=== PATIENT | female | born 1935 | race Caucasian/White ===

== ENCOUNTER 2016-04-30 21:02 | Emergency (ER) | payer OTHER ==
[~2016-04-30] VITALS: Ht 172.7 cm; Wt 79.1 kg
[~2016-04-30 21:02] MED LIST: LEVOPOW36 PO
[2016-04-30 21:07] VITALS: TEMP 37.3; Ht 172.7 cm; Wt 79.1 kg
[2016-04-30] MEDS ORDERED: ASPI325T45 PO (21:38)
[2016-04-30] MEDS ORDERED: DIPH25TA32 PO (21:38)
--- NOTE | 2016-04-30 22:22 | DIAGNOSTIC IMAGING REPORT ---
CHEST 2 VIEWS ROUTINE CLINICAL HISTORY: Worsening cough with wheezing. COMPARISON STUDY: No previous studies for comparison. FINDINGS: Lung volumes are normal. There is no pneumothorax or pleural effusion. No consolidation is identified. Cardiac size is normal. Mediastinal contours are normal. There is no evidence of pulmonary edema. There is a suspected hiatal hernia. IMPRESSION: No acute cardiopulmonary findings. Electronically signed by: Chuck Manzanares M.D. 04/30/2016 10:21 PM Dictated Date/Time: 04/30/2016 10:20 PM
[2016-04-30] MEDS ORDERED: ALBUTEROL HFA 8 GM INHALER INH STA (22:32)
[2016-04-30] MEDS ORDERED: AMOX875T PO (22:41)
[2016-04-30] MEDS ORDERED: AMOXICILLIN/CLAVULANATE TAB 875 MG TAB PO ONE (22:45)
[2016-04-30 22:51] VITALS: BP 126/83; PULSE 84; O2SAT 94
--- NOTE | 2016-04-30 22:54 | EMERGENCY ROOM VISIT NOTE ---
ED Visit Note First contact with patient: 21:27 The patient was seen and examined with Nabor Sanchez. I agree with the history, physical and findings. Please see the note for disposition and details.
--- NOTE | 2016-04-30 23:09 | EMERGENCY ROOM VISIT NOTE ---
History First contact with patient: 21:27 Chief Complaint: COUGH Stated Complaint: COUGH,CONGESTION,SINUS PRESSURE Nursing Triage Summary: reports cough X 1.5 wks, with yellow/ green mucus production and antihistamines are not helping any longer , denies cp or sob History of Present Illness The patient is a 81 year old female who presents to the Emergency Room with complaints of sinus congestion and cough. The patient reports that she initially developed a runny nose for the sinus congestion. She has had postnasal drip. She reports that the cough is worsening and is productive of yellowish/greenish mucus. Of all the coughing, she also has developed right- sided rib pain. She denies any shortness of breath, fevers or chills. She rates her discomfort an 8 out of 10. The patient reports that she did have a bad sinus infection approximately 3 years ago. She denies any other history of cardiopulmonary disease. Review of Systems 10 system review was performed and was negative except for pertinent positives and negatives as indicated in history of present illness Past Medical/Surgical History Medical Problems: (1) Hypothyroidism Nos Surgical Problems: (1) Senile Nuclear Cataract Family History Unremarkable Social History Smoking Status: Never Smoker Drug Use: none Marital Status: Housing Status: lives alone Occupation Status: retired Current/Historical Medications Scheduled Amoxicillin & Pot Clavulanate (Augmentin 875-125 mg), 1 TAB PO BID Levothyroxine Sodium (Bulk) (Levothyroxine Sodium), 10 MCG PO DAILY Scheduled PRN Aspirin (Aspirin), 325 MG PO UD PRN for Pain Diphenhydramine Hcl (Diphenhydramine Hcl), 25 MG PO UD PRN for Allergy Symptoms Allergies Coded Allergies: Sulfa Antibiotics (Verified Allergy, Intermediate, RASH, 04/30/16) Physical Exam Vital Signs Date Time Temp Pulse Resp B/P Pulse Ox O2 Delivery O2 Flow Rate FiO2 04/30/16 22:51 84 18 126/83 94 Room Air 04/30/16 21:07 37.3 98 20 107/75 93 Room Air Physical Exam CONSTITUTIONAL: Healthy and well nourished. Alert and oriented X 3 with positive affect. Patient does not appear acutely ill or toxic. HEENT: Normocephalic, atraumatic. Pupils equal, round and reactive. No significant tenderness to palpation or percussion over the frontal or maxillary sinuses. The patient does have bulging of the TMs without erythema or air- fluid levels. No rhinorrhea. OROPHARYNX: No postnasal drip or tonsillar hypertrophy. NECK: Full active range of motion without discomfort. RESPIRATORY: The patient has mild expiratory wheezing and lower lung fried. No obvious crackles, rhonchi or stridor. CARDIOVASCULAR: Regular rate and rhythm with no murmurs, rubs or gallops. GASTROINTESTINAL: Bowel sounds present in all quadrants. Soft and nontender to palpation. MUSCULOSKELETAL: Full range of motion of all joints without discomfort. INTEGUMENTARY: No rash or other significant dermatologic conditions noted. NEUROLOGIC: No focal neurologic deficits noted. Medical Decision & Procedures ER Provider Diagnostic Interpretation: My interpretation of a two-view chest x-ray does not show any consolidations, pneumothorax or cardiomegaly. Radiologist report is as follows: CHEST 2 VIEWS ROUTINE CLINICAL HISTORY: Worsening cough with wheezing. COMPARISON STUDY: No previous studies for comparison. FINDINGS: Lung volumes are normal. There is no pneumothorax or pleural effusion. No consolidation is identified. Cardiac size is normal. Mediastinal contours are normal. There is no evidence of pulmonary edema. There is a suspected hiatal hernia. IMPRESSION: No acute cardiopulmonary findings. Medications Administered Medications (Trade) Dose Ordered Sig/Serenity Route Start Time Stop Time Status Last Admin Dose Admin Amoxicillin/ Clavulanate Potassium (Augmentin Tab) 875 mg ONE ONCE PO 04/30/16 22:45 04/30/16 22:46 DC 04/30/16 22:36 875 MG Albuterol (Ventolin Hfa Inhaler) 2 puffs ONE STAT INH 04/30/16 22:32 04/30/16 22:33 DC 04/30/16 22:36 2 PUFFS ED Course Patient history and physical exam were performed. Nurse's notes were reviewed. Vital signs were reviewed, showing that the patient is afebrile and normotensive. Respiratory rate is 20. During examination, her O2 saturation on room air ranged from 92-97%. The patient did have some mild coughing when auscultating the lungs. A 2 view chest x-ray did not show any acute findings. The patient was advised of her normal x-rays. She was administered Augmentin 875 mg, with a prescription for Augmentin 875 mg twice a day 10 days. She was also dispensed a Ventolin metered dose inhaler with an AeroChamber, and instructions for its use. She was also given additional instructions for symptomatic relief. She was instructed to follow-up with her PCP within the next 3-5 days if her symptoms are not improving. Return to the emergency department for any significantly worsening symptoms. Patient was happy with plan of care, and voiced understanding of all discharge instructions. The patient was also seen and examined by Dr. Marion, ED attending physician , who agrees with workup and plan of care. Medical Decision Impression Primary Impression: Acute sinusitis Additional Impression: Acute bronchitis Departure Information Prescriptions Amoxicillin & Pot Clavulanate (Augmentin 875-125 mg) 1 Tab Tab 1 TAB PO BID for 10 Days, #20 TAB Prov: Nabor Sanchez PA 04/30/16 Referrals Dutch [email or web address] (PCP) Patient Instructions [facility] Problem Qualifiers Primary Impression: Acute sinusitis Sinusitis location: unspecified location Recurrence: non-recurrent Qualified Codes: J01.90 - Acute sinusitis, unspecified Additional Impression: Acute bronchitis Bronchitis organism: unspecified organism Qualified Codes: J20.9 - Acute bronchitis, unspecified
== END 2016-04-30 23:04 | disposition home or self-care (01) ==
LOC: C.EDB 21:06 → C.EDA 23:04
DX: J20.9 Acute bronchitis, unspecified (principal); J01.90 Acute sinusitis, unspecified; E03.9 Hypothyroidism, unspecified; Z79.899 Other long term (current) drug therapy; Z88.2 Allergy status to sulfonamides

== ENCOUNTER → 2017-06-26 | Day surgery (SDC) | payer OTHER ==
[2017-06-25 12:02] VITALS: Ht 174.6 cm; Wt 72.7 kg
[~2017-06-26] VITALS: Ht 174.6 cm; Wt 72.7 kg
[~2017-06-26] MED LIST changes: +ATROPINE SULFATE 0.1 MG/ML 5ML SYR IV PRN; +BUPIVACAINE 0.5 % 5 MG/1 ML PF 10ML VIAL ONE; +CEFAZOLIN 1000MG IV PUSH 7.5 ML IV SCH; +EpHEDrine SULFATE INJ 50 MG/ML AMP IV PRN; +FENTANYL CITRATE INJ 50 MCG/1 ML 2 ML VIAL ONE; +LACTATED RINGER'S 1000ML 1,000 ML IV SCH; +LEVO200T6 PO; -LEVOPOW36 PO; +LIDOCAINE HCL 1% 20 ML VIAL ONE; +LIDOCAINE HCL 2% 2 ML VIAL (20MG/ML) ONE; +MIDAZOLAM HCL 1 MG/ML 2ML VIAL ONE; +ONDANSETRON INJ 2 MG/ML 2 ML VIAL IV PRN; +OXYCODONE/ACETAMINOPHEN 5-325 TAB PO PRN; +PROPOFOL IV EMULSION 10 MG/ML 20 ML VIAL ONE; +SODIUM CHLORIDE 0.9% 1000ML 1,000 ML IV SCH; +TRAM-10 PO
--- NOTE | 2017-06-26 06:46 | History & Physical Bridge - SC ---
H&P Re-Evaluation Bridge Note: I have examined the patient, reviewed the History & Physical and in the interval since the performance of the History & Physical I have noted the following changes of clinical significance: No changes noted
--- NOTE | 2017-06-26 07:36 | [facility] Post Operative Brief Note ---
Immediate Operative Summary Operative Date June 26, 2017. Pre-Operative Diagnosis Right Carpal Tunnel Sydrome Post-Operative Diagnosis Same Procedure(s) Performed Right Carpal Tunnel Release Surgeon Dr. Roth [employer] Surgeon(s) Salinas Harmon Pa-C Estimated Blood Loss 0ml Findings Consistent with Post-Op Diagnosis Specimens None Drains None Anesthesia Type MAC Complication(s) none Disposition Disposition:
[2017-06-26 07:39] VITALS: TEMP 37.4
--- NOTE | 2017-06-26 07:40 | Discharge Instructions-SurgCtr ---
Discharge Instructions Date of Service June 26, 2017. Visit Reason for Visit: Right Carpal Tunnel Syndrome Discharge Discharge Diagnosis / Problem: SAME ABOVE Discharge Goals Goal(s): Decrease discomfort, Improve function Activity Recommendations Activity Limitations: as noted below Lifting Limitations: until after follow-up appointment Exercise/Sports Limitations: until after follow-up appointment Shower/Bathe: keep incision dry Anesthesia . Post Anesthesia Instructions: If you have had General Anesthesia or IV Sedation: * Do not drive today. * Resume driving when surgeon permits. * Do not make important decisions or sign legal documents today. * Call surgeon for: 1. Temperature elevations greater than 101 degrees F. 2. Uncontrollable pain. 3. Excessive bleeding. 4. Persistent nausea and vomiting. 5. Medication intolerance (nausea, vomiting or rash). * For nausea and vomiting use only clear liquids such as: tea, soda, bouillon until nausea subsides, then gradually increase diet as tolerated. * If you have any concerns or questions, call your surgeon's office. If physician is unavailable and it is an emergency, call 911 or go to the nearest emergency room. . Instructions / Follow-Up Instructions / Follow-Up MEDICATIONS: * Resume previous medications unless instructed otherwise by your surgeon. * Always take pain medication on a full stomach or with food to avoid upset stomach. * Do not drink alcohol or drive while taking narcotics. * Ibuprofen or Tylenol may be taken if narcotic not needed. SPECIAL CARE INSTRUCTIONS: __ None _X_ Keep extremity elevated and iced x 48 hours; apply ice 20-30 minutes 8-10 times/day. May remove at night. __ Sling __24 hrs/day __ Remove at night __ Shoulder Immobilizer __ 24 hrs/day __ Remove at night _X_ Dressing _X_ Maintain until seen in office, may shower with plastic over site __ Remove dressings in 24-48 hours and then may shower __ Cover incisions with band-aids after showering __ Do not remove steri-strips Call physician if chills or temperature rises above 102 degrees or pain unrelieved by prescribed pain medications at . . Diet Recommendations Home Diet: resume previous diet Procedures Procedures Performed: Right Carpal Tunnel Release Pending Studies Studies pending at discharge: no Medical Emergencies . Who to Call and When: Medical Emergencies: If at any time you feel your situation is an emergency, please call 911 immediately. . Non-Emergent Contact Non-Emergency issues call your: Primary Care Provider . . "Provider Documentation" section prepared by Salinas Harmon. .
--- NOTE | 2017-06-26 07:59 | Anesthesia Progress Nt - [facility] ---
Anesthesia Post Op Note Date & Time June 26, 2017 at 07:58 Vital Signs Pain Intensity: 0 Vital Signs Past 12 Hours Date Time Temp Pulse Resp B/P (MAP) Pulse Ox O2 Delivery O2 Flow Rate FiO2 06/26/17 07:39 37.4 54 16 93/54 (67) 94 Room Air 06/26/17 06:42 36.3 71 16 124/79 (94) 95 Room Air Notes Mental Status: alert / awake / arousable, participated in evaluation Pt Amnestic to Procedure: Yes Nausea / Vomiting: adequately controlled Pain: adequately controlled Airway Patency, RR, SpO2: stable & adequate BP & HR: stable & adequate Hydration State: stable & adequate Anesthetic Complications: no major complications apparent
[2017-06-26 08:07] VITALS: BP 147/79; PULSE 59; O2SAT 97
--- NOTE | 2017-06-26 11:52 | OPERATIVE REPORT ---
DATE OF OPERATION: 06/26/2017 PREOPERATIVE DIAGNOSIS: Right carpal tunnel syndrome. POSTOPERATIVE DIAGNOSIS: Right carpal tunnel syndrome. PROCEDURE: Decompression, median nerve, transverse carpal ligament, right wrist. SURGEON: Oscar Roth MD. SIGN POSTER: Salinas Harmon PA-C. ANESTHESIOLOGIST: Salinas Garland MD. ANESTHESIA: Local with IV sedation. DRAINS: None. COMPLICATIONS: None. CONDITION: The patient tolerated the procedure well and returned to recovery room in apparent satisfactory condition. INDICATIONS FOR SURGERY: Ana is an 82-year-old female who has had carpal tunnel complaints, both hands, right worse than left. Went over treatment options. She had a cortisone shot, did help some but still had numbness. They would like to go ahead and proceed with surgery. The procedure, expected outcome, side effects were all explained in detail. DESCRIPTION OF PROCEDURE: The patient was taken to the OR at which time she was placed supine on the operating table. The right hand was prepped and draped in the usual sterile fashion for this surgery. The anticipated incision site was infiltrated with 1% Xylocaine. A forearm tourniquet was placed on the arm and tourniquet was placed up to 250 mmHg. Incision was made vertically over the transverse carpal tunnel ligament. Dissection was done down until the palmar fascia was identified and divided with a 15 blade. The transverse carpal ligament was identified and also divided with the 15 blade and upbiting scissors. A small portion of the forearm fascia was divided also. Electrocautery was used to control any areas of bleeding. The nerve was freed up from any scar tissue and adequately decompressed. The wound then was copiously irrigated. It was closed then with interrupted 4-0 nylon sutures. Marcaine without Epinephrine was placed in the skin edges. It was closed in a layered fashion. We placed a sterile dressing of Xeroform, 4 x 4, volar splint, and an Andrew bandage. DISPOSITION: The patient was returned back to the recovery room in apparent satisfactory condition. I attest to the content of the Intraoperative Record and any orders documented therein. Any exception s are noted below.
== END | disposition home or self-care (01) ==
LOC: X.SURG 06:30
PROVIDERS: ATTEND Orthopaedic Surgery
DX: G56.01 Carpal tunnel syndrome, right upper limb (principal); M19.90 Unspecified osteoarthritis, unspecified site; Z88.2 Allergy status to sulfonamides; Z90.89 Acquired absence of other organs; E03.9 Hypothyroidism, unspecified; Z98.41 Cataract extraction status, right eye; Z98.42 Cataract extraction status, left eye; Z79.899 Other long term (current) drug therapy

== ENCOUNTER 2023-09-18 12:34 | Inpatient (IN) ==
--- NOTE | 2023-09-18 12:42 | Emergency Department Note ---
Impression & Plan GI bleed, Weakness, Episode of syncope, Acute UTI ED Provider Note NAME: ANAND TREVIÑO AGE: 88 SEX: F : 1935 ARRIVES VIA: Ambulance INFORMANT: Patient, ED PROVIDER(S): See Myers MD CHIEF COMPLAINT: Syncope MEDICAL DECISION MAKING: Patient presented due to concern for possible syncope. Patient had initially slumped over and is concerned about a cardiac arrest but sternal rub likely not caused the patient to wake from a cardiac arrest. History is limited given her dementia. Blood work shows a white count of 13. Patient does not have an obvious source so a cath urine was obtained. Hemoglobin 9.8 which is a change. Platelet count is elevated 578. Kidney function is unremarkable. Troponin is borderline elevated at 20.6. TSH is high but T4 is normal. Given the patient's drop in hemoglobin Hemoccult was performed and was grossly positive. Dark stools noted. No bright red blood. PPI bolus and drip ordered. I did speak with the on-call hospitalist service MILA Raymundo PA-C and Dr. Cast. Discussion w/ other healthcare providers: None Prior /Outside records reviewed: None Differential diagnosis: Infection, dehydration, metabolic abnormality, hypo/hyperglycemia, electrolyte imbalance, anemia, UTI, pneumonia, thyroid dysfunction among others were considered. Diagnostics, as interpreted by me: ECG: Sinus with PACs, rate of 73, normal intervals, normal axis no ST elevations. Cardiac monitoring: An order was placed for continuous cardiac monitoring. The monitor shows a rate of 75 with sinus rhythm. Patient was placed on pulse oximetry Medical decision rules: None Imaging studies: I informally interpreted the patient's chest x-ray does not show obvious pneumonia or pneumothorax with formal report to follow. HPI: Patient presents from [facility]. Patient reportedly slumped over in her wheelchair and staff was concerned the patient had a cardiac arrest did have a sternal rub was applied and the patient woke up. Patient currently does not have any complaints at the bedside. BSG was 167. No reported falls or trauma. Patient's history may be somewhat unreliable given her history of dementia. Patient denies any head neck chest or back pain. The patient is in a c-collar for a cervical spine fracture. Patient does report arrives with a POLST which designates her CODE STATUS is full code. PAST MEDICAL HISTORY: See Below PAST SURGICAL HISTORY: See Below SOCIAL HISTORY: See Below HOME MEDICATIONS: See Below ALLERGIES: See Below VITALS: See Below PHYSICAL EXAMINATION: GENERAL: NAD, non-toxic. [place] J collar in place. EYE EXAM: Normal conjunctiva. PERRL, no anisocoria and EOM's grossly intact w/o pain. OROPHARYNX: Moist mucus membranes, grossly normal dentition. NECK: Trachea midline, no stridor. [place] J collar in place. LUNGS: Clear to auscultation. Normal chest wall mechanics. HEART: NSR, no MRG. ABDOMEN: Abdomen soft, non-tender, no masses, no rebound or guarding. BACK: No CVA TTP. Rectal exam: Dark stool, heme positive no bright red blood. SKIN: No rashes and no bruising. UPPER EXTREMITIES: Upper extremities are grossly normal. LOWER EXTREMITIES: Grossly normal, no edema. NEURO EXAM: Awake alert follows basic commands able to state name, cranial nerves II-XII grossly intact, normal speech, moves all 4 extremities. 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 Beliefs That Will Affect Care: None Current Living Situation: Alone Feels Safe at Home: Yes Assistive Devices: Cane Allergies Allergies Allergy/AdvReac Type Severity Reaction Status Date / Time Sulfa (Sulfonamide Allergy Intermediate RASH Verified 09/18/23 15:31 Antibiotics) Home Meds Home Medications Medication Instructions Recorded Confirmed levothyroxine 88 mcg tablet 88 mcg PO DAILY 07/11/23 09/18/23 acetaminophen 325 mg tablet 650 mg PO Q4 PRN Pain 09/18/23 09/18/23 acetaminophen 325 mg tablet 975 mg PO TID 09/18/23 09/18/23 aspirin 81 mg tablet,delayed 81 mg PO DAILY 09/18/23 09/18/23 release dextrose 40 % oral gel (Glutose-15) 1 ea PO DAILY PRN Hypoglycemia 09/18/23 09/18/23 docusate sodium 100 mg capsule 100 mg PO BID 09/18/23 09/18/23 lidocaine 4 % topical patch 1 patch topical DAILY 09/18/23 09/18/23 ondansetron 4 mg disintegrating 4 mg PO Q4 PRN Nausea And Vomiting 09/18/23 09/18/23 tablet polyethylene glycol 3350 17 17 g PO DAILY PRN Constipation 09/18/23 09/18/23 gram/dose oral powder (Miralax) sennosides 8.6 mg-docusate sodium 1 tab-cap PO QDL PRN costipation 09/18/23 09/18/23 50 mg tablet (Senokot-S) sodium chloride 1 gram tablet 1,000 mg PO DAILY 09/18/23 09/18/23 Results & Data (ED) Vital Signs Vital Signs - 24 hr 09/18/23 12:52 09/18/23 12:55 09/18/23 14:55 Temperature 36.5 C Temperature Source Oral Pulse Rate 66 78 Pulse Rate [Finger] 75 Pulse Rhythm Regular Pulse Strength Normal Respiratory Rate 16 20 Respiratory Effort / Characteristics Non-Labored Non-Labored Spontaneous Respiratory Depth Normal Normal Respiratory Pattern Regular Blood Pressure 123/73 Blood Pressure [Left Arm] 156/94 H Blood Pressure Mean 89 Blood Pressure Mean [Left Arm] 114 Blood Pressure Position Sitting Pulse Oximetry 98 95 Oxygen Delivery Method Room Air Room Air Sepsis Recent Fever Within 48 Hours No Sepsis New/Unexplained Change in Mental Status No Sepsis Action Taken by Nursing No Action Required 09/18/23 14:55 Temperature Temperature Source Pulse Rate Pulse Rate [Finger] Pulse Rhythm Pulse Strength Respiratory Rate Respiratory Effort / Characteristics Respiratory Depth Respiratory Pattern Blood Pressure Blood Pressure [Left Arm] Blood Pressure Mean Blood Pressure Mean [Left Arm] Blood Pressure Position Pulse Oximetry 97 Oxygen Delivery Method Room Air Sepsis Recent Fever Within 48 Hours Sepsis New/Unexplained Change in Mental Status Sepsis Action Taken by Intermediate Medications Current Medication List: was personally reviewed by me Laboratory Data Attestation: I reviewed the patient's lab results. 09/19/23 06:03 09/19/23 06:03 Lab Results 09/18/23 09/18/23 Range/Units 12:50 14:20 WBC 13.00 H (4.8-10.8) K/ul RBC 3.18 L (4.20-5.40) M/uL Hgb 9.8 L (12.0-16.0) g/dl Hct 31.0 L (37.0-47.0) % MCV 97.5 (80.0-100.0) fL MCH 30.8 (25.0-34.0) pg MCHC 31.6 L (32.0-36.0) g/dL RDW Std Deviation 52.3 H (36.4-46.3) fL RDW Coeff of Coni 14.5 (11.5-14.5) % Plt Count 578 H (130-400) K/uL MPV 9.2 L (9.4-12.4) fL Immature Gran % (Auto) 1.1 % Neut % (Auto) 79.1 % Lymph % (Auto) 12.2 % Tucker % (Auto) 6.4 % Eos % (Auto) 0.6 % Baso % (Auto) 0.6 % Neut # (Auto) 10.29 H (1.40-6.50) K/uL Lymph # (Auto) 1.58 (1.20-3.40) K/uL Tucker # (Auto) 0.83 H (0.11-0.59) K/uL Eos # (Auto) 0.08 (0.00-0.50) K/uL Baso # (Auto) 0.08 (0.00-0.20) K/uL Immature Gran # (Auto) 0.14 (0.01-0.20) K/uL Sodium 146 H (136-145) mmol/L Potassium 3.1 L (3.5-5.1) mmol/L Chloride 106 (98-107) mmol/L Carbon Dioxide 30 (21-32) mmol/L Anion Gap 10 (3-11) BUN 19 (6-23) mg/dl Creatinine 0.74 (0.6-1.2) mg/dl Est Cr Clr Drug Dosing 43.2 ml/min Est GFR ( Amer) 85.0 ml/min Est GFR (Non-Af Amer) 73.4 ml/min BUN/Creatinine Ratio 25.7 H (10-20) Glucose 120 H (70-99(Fasting)) mg/dl Calcium 9.2 (8.6-10.3) mg/dl Magnesium 2.2 (1.7-2.4) mg/dl Total Bilirubin 0.3 (0.2-1.0) mg/dl AST 15 (13-39) U/L ALT 14 (7-52) U/L Alkaline Phosphatase 98 (34-104) U/L Troponin I High Sens 20.6 H (0-14) pg/ml Total Protein 6.7 (6.0-8.3) gm/dl Albumin 3.8 (3.4-5.0) gm/dl Globulin 2.9 (2.5-4.0) gm/dl Albumin/Globulin Ratio 1.3 (0.9-2) TSH 13.304 H (0.300-4.500) uIu/ml Free T4 1.05 (0.61-1.60) ng/dl Urine Color Yellow Urine Appearance Turbid A (Clear) Urine pH 7.5 (4.5-7.5) Ur Specific [place] 1.017 (1.000-1.030) Urine Protein 1+ H (Negative) Urine Glucose (UA) Negative (Negative) Urine Ketones Negative (Negative) Urine Blood 1+ H (Negative) Urine Nitrite Negative (Negative) Urine Bilirubin Negative (Negative) Urine Urobilinogen Negative (Negative) Ur Leukocyte Esterase 1+ H (Negative) Urine WBC (Auto) >50 H (0-5) /hpf Urine RBC (Auto) 6-10 H (0-2) /hpf U Hyaline Cast (Auto) 6-10 H (0-2) /lpf U Epithel Cells (Auto) 6-10 H (0-2) /hpf Urine Bacteria (Auto) 4+ H (None Seen) Urine Yeast Present A (None Prsent) Administered Medications Acetaminophen (Acetaminophen 325 Mg Tab) 975 mg PO TID KYLAH Stop: 10/18/23 20:59 Last Admin: 09/18/23 20:27 Dose: 975 mg Documented By: EFK Docusate Sodium (Docusate Sodium 100 Mg Cap) 100 mg PO BID KYLAH Stop: 10/18/23 20:59 Last Admin: 09/18/23 20:28 Dose: 100 mg Documented By: ROSE MARY Parenteral Electrolytes (Plasma-Lyte A Ph 7.4) 1,000 mls @ 80 mls/hr IV .[id number] [facility] Stop: 09/19/23 17:14 Last Admin: 09/19/23 06:07 Dose: 80 mls/hr Documented By: ROSE MARY Infusion: 09/19/23 06:05 Dose: Infused Documented By: ROSE MARY Admin: 09/18/23 17:16 Dose: 80 mls/hr Documented By: MIRTA Pantoprazole Sodium 40 mg/ (Syringe) 10 mls @ 5 mls/min IV BID [facility] Stop: 10/18/23 20:59 Last Admin: 09/18/23 20:26 Dose: 5 mls/min Documented By: ROSE MARY Levothyroxine Sodium (Levothyroxine Sodium 88 Mcg Tablet) 88 mcg PO DAILYBB [facility] Stop: 10/19/23 06:29 Last Admin: 09/19/23 06:08 Dose: 88 mcg Documented By: ROSE MARY Discontinued Medications Sodium Chloride (Nss) 500 mls @ 999 mls/hr IV .Q31M [facility] Stop: 09/18/23 13:30 Last Infusion: 09/18/23 15:43 Dose: Infused Documented By: Admin: 09/18/23 13:23 Dose: 999 mls/hr Documented By: [facility] Pantoprazole Sodium 40 mg/ (Dextrose) 100 mls @ 20 mls/hr IV Q5H [facility] Stop: 10/18/23 14:29 Last Infusion: 09/18/23 17:08 Dose: Infused Documented By: Admin: 09/18/23 14:27 Dose: 8 mg/hr, 20 mls/hr Documented By: [facility] Pantoprazole Sodium 80 mg/ (Dextrose) 120 mls @ 480 mls/hr IV NOW ONE Stop: 09/18/23 14:22 Last Infusion: 09/18/23 15:43 Dose: Infused Documented By: Admin: 09/18/23 14:26 Dose: 480 mls/hr Documented By: [facility] Ceftriaxone Sodium (Rocephin) 2,000 mg in 50 mls @ 100 mls/hr IV NOW ONE Stop: 09/18/23 16:04 Last Admin: 09/18/23 19:13 Dose: Not Given Documented By: MIRTA Ceftriaxone Sodium (Rocephin) 2,000 mg in 50 mls @ 100 mls/hr IV NOW ONE Stop: 09/18/23 19:14 Last Infusion: 09/18/23 20:30 Dose: Infused Documented By: Admin: 09/18/23 18:56 Dose: 100 mls/hr Documented By: PAULINE Ioversol (Optiray 320 100ml) 93 ml IV ONCE ONE Stop: 09/18/23 16:37 Last Admin: 09/18/23 16:36 Dose: 93 ml Documented By: FINA Pantoprazole Sodium (Pantoprazole Bolus/Drip) 1 each IV NOW STA Stop: 09/18/23 14:09 Last Admin: 09/18/23 14:39 Dose: Not Given Documented By: [facility] Imaging Data Radiologist's Impression: 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 COMPARISON: Chest CT 07/11/2023. FINDINGS: No pneumothorax. No pleural effusions. No focal lung consolidations to suggest a pneumonia. No evidence for pulmonary edema. The heart remains borderline enlarged. The spiculated right middle lobe nodule seen on the recent chest CT is not well evaluated by this study. IMPRESSION: 1. No acute process within the chest. 2. The spiculated right middle lobe nodule seen on the prior chest CT is not well evaluated by this modality. ACT 112: Negative or not required by law. Electronically signed by: Jerald Keith M.D. 09/18/2023 2:07 PM Dictated: 09/18/23 140 Transcribed: 09/18/23 140 Discharge Plan Visit Data Chief Complaint: Syncope Stated Complaint: SYNCOPE ED Provider: See Myers Discharge Problem: GI bleed, Weakness, Episode of syncope, Acute UTI Patient Disposition: Admitted As Inpatient Discharge Instructions Interventions: ED Discharge Assessment Last Done: 09/18/23 16:12 Discharge Problem: GI bleed Qualifiers: GI bleed type/associated pathology: melena Qualified Code(s): K92.1 - Melena Episode of syncope Qualifiers: Syncope type: unspecified Qualified Code(s): R55 - Syncope and collapse
[2023-09-18 13:19] LABS: Basophils # (auto) 0.08 K/uL (0.00-0.20); Basophils % (auto) 0.6 %; Eosinophils # (auto) 0.08 K/uL (0.00-0.50); Eosinophils % (auto) 0.6 %; Hemoglobin 9.8 g/dl (12.0-16.0); Immature Granulocytes # (auto) 0.14 K/uL (0.01-0.20); Immature Granulocytes % (auto) 1.1 %; Lymphocytes # (auto) 1.58 K/uL (1.20-3.40); Lymphocytes % (auto) 12.2 %; Mean Corpuscular Hemoglobin 30.8 pg (25.0-34.0); Mean Corpuscular Hgb Conc 31.6 g/dL (32.0-36.0); Mean Corpuscular Volume 97.5 fL (80.0-100.0); Mean Platelet Volume 9.2 fL (9.4-12.4); Monocytes # (auto) 0.83 K/uL (0.11-0.59); Monocytes % (auto) 6.4 %; Neutrophils # (auto) 10.29 K/uL (1.40-6.50); Neutrophils % (auto) 79.1 %; Platelet Count 578 K/uL (130-400); RDW Coefficient of Variation 14.5 % (11.5-14.5); RDW Standard Deviation 52.3 fL (36.4-46.3); Red Blood Count 3.18 M/uL (4.20-5.40)
[2023-09-18] MEDS: SODIUM CHLORIDE 0.9% 500 ML IV SCH (13:23)
--- NOTE | 2023-09-18 13:25 | Electrocardiogram Report ---
Test Reason : Blood Pressure : */* mmHG Vent. Rate : 73 BPM Atrial Rate : 73 BPM P-R Int : 132 ms QRS Dur : 76 ms QT Int : 390 ms P-R-T Axes : 55 38 83 degrees QTcB Int : 429 ms Sinus rhythm with Premature atrial complexes Otherwise normal ECG When compared with ECG of 11-Jul-2023 11:36, Premature atrial complexes are now Present Confirmed by Jak Gonzalez ([id number]) on 09/18/2023 1:25:03 PM Referred By: Confirmed By: Jak Gonzalez
[2023-09-18 13:42] LABS: Albumin Globulin Ratio 1.3 (0.9-2); Albumin Level 3.8 gm/dl (3.4-5.0); BUN Creatinine Ratio 25.7 (10-20); Bilirubin,Total 0.3 mg/dl (0.2-1.0); Calcium 9.2 mg/dl (8.6-10.3); Creatinine Clr Calc Pharmacy 43.2 ml/min; Est GFR (Non-African American) 73.4 ml/min; Globulin 2.9 gm/dl (2.5-4.0); Magnesium 2.2 mg/dl (1.7-2.4); Potassium 3.1 mmol/L (3.5-5.1); Total Protein 6.7 gm/dl (6.0-8.3)
[2023-09-18 13:49] LABS: Troponin I High Sensitivity 20.6 pg/ml (0-14)
[2023-09-18 13:58] LABS: Thyroid Stimulating Hormone 13.304 uIu/ml (0.300-4.500)
--- NOTE | 2023-09-18 14:09 | XRay Report ---
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 COMPARISON: Chest CT 07/11/2023. FINDINGS: No pneumothorax. No pleural effusions. No focal lung consolidations to suggest a pneumonia. No evidence for pulmonary edema. The heart remains borderline enlarged. The spiculated right middle lobe nodule seen on the recent chest CT is not well evaluated by this study. IMPRESSION: 1. No acute process within the chest. 2. The spiculated right middle lobe nodule seen on the prior chest CT is not well evaluated by this m odality. ACT 112: Negative or not required by law. Electronically signed by: Jerald Keith M.D. 09/18/2023 2:07 PM
--- NOTE | 2023-09-18 14:14 | History & Physical Report ---
Date of Service September 18, 2023 Assessment & Plan (1) GI bleed: Plan: Grossly (+) Fecal occult blood on arrival BUN/creatinine elevated at 25.7 on arrival; suspect upper GI bleed Hgb 9.8-->8.5 on arrival Protonix drip started in the ED A/P CT with contrast ordered, pending Keep n.p.o. (except medications) for now and will advance to clear liquid diet IVF maintenance Trend H&H q4h Hold aspirin Patient is unable to consent for blood at this time Attempted to call friend/POA (Israel Sylvester) and was unable to reach No family or contacts per [facility] staff Will order 1u of pRBCs, and hold Discussed with Dr. Cast; in the event that Hgb downtrends to <7.0 or patient becomes symptomatic, would transfuse if medically necessary Continue Protonix 40 mg IV BID Gastroenterology consulted A.m. CBC, BMP, mag (2) Acute UTI: Plan: UA positive on arrival Pansensitive prior urine culture Rocephin 2000 g IV q24h IVF maintenance with Plasma-Lyte (3) Episode of syncope: Plan: Patient was originally found slumped over in her chair on 09/17 at [facility] [place] Pale/laguna; initially thought to not have a pulse; reawaken with hard sternal rub Unclear etiology, but may be secondary to #1 and #2; no history of aspirations (per [facility] [place]); CXR okay Continue telemetry monitoring to assess for arrhythmias (4) Hypothyroidism: Plan: TSH elevated arrival, but T4 within normal limits Continue levothyroxine (5) Hypernatremia: Plan: Mild; NA 146 on arrival Suspect due to volume contraction Hold sodium supplementation for now Plan Disposition: Admit to MedSurg telemetry Full code (per POLST form accompanying patient) N.p.o. and advance to clear liquid diet as tolerated VTE PPx: SCDs (hold chemical DVT PX in the setting of suspected upper GI bleed) History of Present Illness Chief Complaint: Syncope Primary Care Provider: Dutch Krueger DO Ana is an 88-year-old female with PMH of NSTEMI, hypothyroidism, cognitive decline, dementia, and B12 deficiency. She presented on 09/17 via EMS from [facility] after she became unconscious while sitting in her wheelchair. Patient is a poor historian at baseline. No family at bedside. She is unable to provide a history as she is not alert and oriented to purpose in the hospital/location/month. She is only alert and oriented to name and at this time. Per review of prior notes, patient had a C2 fracture secondary to fall, and currently has c-spine collar on arrival. Patient's vital stable at time of admission. ED course: IV Protonix drip NSS 500 mL IV Unable to obtain ROS at this time. Spoke on the phone with nursing staff at [facility] to obtain history. Nursing staff reports that the patient has had a slow decline over the past couple of days; not participating in physical therapy or activities as much as she normally does. She is confused at baseline, and nursing staff does not feel that there was a acute change in cognitive baseline. This morning, she was A&O x 3 upon waking. She was in her wheelchair, and was alone for approximately 10 minutes, and when nursing staff came back they found her slumped over in her chair. She was pale/laguna at this time. Nursing staff did not feel a pulse and believes she was not breathing so a CODE BLUE was called. Second nurse came in and believes they might have been a very faint carotid pulse; SpO2 was 20% at that time on pulse ox. Just prior to performing CPR, assisted hard sternal rub was performed, and the patient woke up abruptly gasping for air. Nursing staff denies any history of aspiration or UTIs in the past. Regarding contacts, the patient does not have any children or family; her POA is her friend Israel Sylvester. Unable to reach Israel Sylvester at this time; attempted calling x 2. In the event that patient would require a blood transfusion, will base it off of current POLST form for full treatment and medical necessity if symptomatic/Hgb >7.0; patient does not exhibit capacity to make medical decisions at this time in her current state. Allergies Allergy/AdvReac Type Severity Reaction Status Date / Time Sulfa (Sulfonamide Allergy Intermediate RASH Verified 09/18/23 15:31 Antibiotics) Home Medications Medication Instructions Recorded Confirmed Type levothyroxine 88 mcg tablet 88 mcg PO DAILY 07/11/23 09/18/23 History acetaminophen 325 mg tablet 650 mg PO Q4 PRN Pain 09/18/23 09/18/23 History acetaminophen 325 mg tablet 975 mg PO TID 09/18/23 09/18/23 History aspirin 81 mg tablet,delayed 81 mg PO DAILY 09/18/23 09/18/23 History release dextrose 40 % oral gel (Glutose-15) 1 ea PO DAILY PRN Hypoglycemia 09/18/23 09/18/23 History docusate sodium 100 mg capsule 100 mg PO BID 09/18/23 09/18/23 History lidocaine 4 % topical patch 1 patch topical DAILY 09/18/23 09/18/23 History ondansetron 4 mg disintegrating 4 mg PO Q4 PRN Nausea And Vomiting 09/18/23 09/18/23 History tablet polyethylene glycol 3350 17 17 g PO DAILY PRN Constipation 09/18/23 09/18/23 History gram/dose oral powder (Miralax) sennosides 8.6 mg-docusate sodium 1 tab-cap PO QDL PRN costipation 09/18/23 09/18/23 History 50 mg tablet (Senokot-S) sodium chloride 1 gram tablet 1,000 mg PO DAILY 09/18/23 09/18/23 History Past Med/Surg History Problem List (Updated 09/18/23 @ 16:00 by Jerald Raymundo PA-C) Acute UTI Hypernatremia Hypothyroidism Episode of syncope GI bleed B12 deficiency Non-ST elevation VT (NSTEMI) (Acute) Weakness (Acute) Cognitive decline Lower extremity weakness Lateral meniscus tear Right knee DJD Medical History (Updated 09/18/23 @ 16:00 by Jerald Raymundo PA-C) Elevated CK Social History Smoking Status: Unknown if ever smoked Second Hand Exposure: No; Do You Dip or Chew Tobacco: No; Hx Alcohol Use: Yes Alcohol type: wine Hx Substance Use: No Preferred Language: Indian Communication Ability: Effective Tack Driller Required: No Beliefs That Will Affect Care: None Current Living Situation: Alone Feels Safe at Home: Yes Assistive Devices: Cane Review of Systems Review of Systems: See HPI above Physical Exam Physical Exam: General: no acute distress; non-toxic appearing; frail appearing; SpO2 97% on RA HEENT: normocephalic, atraumatic; no scleral icterus; PERRLA; patient may have bitten her tongue and some dried blood around the edges of her lips; unable to assess vision and hearing at this time Neck: supple; no lymphadenopathy; trachea midline Skin: warm, dry without signs of tenting; no cyanosis; no rashes, bruising, lesions, or erythema noted CV: chest wall NTP; RRR; S1/S2 normal; no murmurs/rubs/gallops; pulses intact and symmetric at radial, DP, and PT Lungs: no acute respiratory distress; symmetrical chest wall expansion; clear breath sounds across all lung fried w/o adventitious sounds; no wheezing ABD: Soft, NTP; BS present; no rebound/guarding; no distention MSK: no tics or fasciculations; no edema noted in the LEs b/l, nonerythematous Neuro: Confused; A&O to name and , but not purpose of the hospital/location/month of the year; fluent speech; no focal deficits; unable to assess sensation at this time Results & Data Results & Data Vital Signs (Past 12 Hours) Vital Signs Temp Pulse Resp BP Pulse Ox O2 Del Method 09/18/23 12:55 36.5 C 78 16 123/73 98 Room Air 09/18/23 12:52 66 Laboratory Results Abnormal lab results 09/18/23 Range/Units 12:50 WBC 13.00 H (4.8-10.8) K/ul RBC 3.18 L (4.20-5.40) M/uL Hgb 9.8 L (12.0-16.0) g/dl Hct 31.0 L (37.0-47.0) % MCHC 31.6 L (32.0-36.0) g/dL RDW Std Deviation 52.3 H (36.4-46.3) fL Plt Count 578 H (130-400) K/uL MPV 9.2 L (9.4-12.4) fL Neut # (Auto) 10.29 H (1.40-6.50) K/uL [place] # (Auto) 0.83 H (0.11-0.59) K/uL Sodium 146 H (136-145) mmol/L Potassium 3.1 L (3.5-5.1) mmol/L BUN/Creatinine Ratio 25.7 H (10-20) Glucose 120 H (70-99(Fasting)) mg/dl Troponin I High Sens 20.6 H (0-14) pg/ml TSH 13.304 H (0.300-4.500) uIu/ml Diagnostic Findings Chest X-Ray 09/18/23 12:55 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 COMPARISON: Chest CT 07/11/2023. FINDINGS: No pneumothorax. No pleural effusions. No focal lung consolidations to suggest a pneumonia. No evidence for pulmonary edema. The heart remains borderline enlarged. The spiculated right middle lobe nodule seen on the recent chest CT is not well evaluated by this study. IMPRESSION: 1. No acute process within the chest. 2. The spiculated right middle lobe nodule seen on the prior chest CT is not well evaluated by this modality. ACT 112: Negative or not required by law. Electronically signed by: Jerald Keith M.D. 09/18/2023 2:07 PM ECG Additional Comments: ECG revealed NSR with PACs at 73 bpm; QTc 429 Code Status & VTE Plan Code Status Full code (per POLST form) VTE Prophylaxis Plan VTE Prophylaxis will be ordered: Yes Supervising Physician Co-Signing Physician Notes I have personally seen, evaluated and examined the patient. I have also personally discussed the management of the patient with the resident physician/DEANN and I agree with the exam findings documented in the history and physical examination and the documented assessment and plan unless otherwise stated below. Brief Exam: In general this is a 88-year-old female she is alert and oriented to person only. She is accompanied by her pest technician at the time of my exam. Again as discussed above attempts was made to contact the power of compliance attorney for blood consent excetra. HEENT: Normocephalic atraumatic. Neck: Is currently in a hard collar. Heart: Regular rate and rhythm I do not appreciate any chris murmur or ectopy or rub. Lungs: Clear but diminished. Abdomen: Flat soft and nontender. I do not appreciate any organomegaly or abdominal bruits. Extremities: Intact with no significant edema. Neurologically. Patient is unable to cooperate with cranial nerve exam but there does not appear to be any focal deficit on examination. Assessment/plan: As discussed above. Await CT of the abdomen pelvis results. NPO. IV Protonix. GI consultation. Transfuse if needed. Informed consent cannot be obtained from the patient as she is not competent to do so at this point. We have reached out to power of compliance attorney. If transfusion is needed it would be per informed consent by medical necessity. Hold all antiplatelet and anticoagulation. Please refer to orders for further planning. PG Care Time/CCT Total # of Minutes Spent Total Time Spent with Patient: Total time spent is greater than 50% in coordination of care (as documented) at patient's floor/unit and/or counseling patient: Coding [place] [address] INT INP/OBS CARE 3/75MIN Patient Type Established Medical Decision Making High Complexity Diagnoses GI bleed K92.2 Acute UTI N39.0 Episode of syncope R55 Hypothyroidism E03.9 Hypernatremia E87.0
[2023-09-18] MEDS: PANTOprazole 80 MG in DEXTROSE 5% 100 ML IV ONE (14:26)
[2023-09-18] MEDS: PANTOprazole 40 MG in DEXTROSE 5% MINI-B 100 ML IV SCH (14:27)
[2023-09-18 14:34] LABS: T4 Free Thyroxine 1.05 ng/dl (0.61-1.60)
[2023-09-18] MEDS: PANTOPRAZOLE BOLUS/DRIP IV STA (14:39)
[2023-09-18 15:00] LABS: Appearance Urine Turbid (Clear); Bacteria Urine Automated 4+ (None Seen); Bilirubin Urine Negative (Negative); Blood Urine 1+ (Negative); Color Urine Yellow; Glucose Urine UA Negative (Negative); Ketones Urine Negative (Negative); Leukocyte Esterase Urine 1+ (Negative); Nitrite Urine Negative (Negative); Protein Urine 1+ (Negative); Specific Gravity Urine 1.017 (1.000-1.030); Urobilinogen Urine Negative (Negative); WBC Urine Automated >50 /hpf (0-5); pH Urine 7.5 (4.5-7.5)
[2023-09-18] MEDS ORDERED: SODIUM CHLORIDE 0.9% 250 ML IV PRN (16:02)
[2023-09-18 16:09] LABS: Hematocrit (blood only) 27.5 % (37.0-47.0); Hemoglobin 8.5 g/dl (12.0-16.0)
[2023-09-18] MEDS: OPTIRAY 320 100ml IV ONE (16:36)
[2023-09-18] MEDS ORDERED: ACETAMINOPHEN 325 MG TAB PO PRN (17:07)
[2023-09-18] MEDS ORDERED: GLUCOSE 40% GEL 15 GM TUBE PO PRN (17:07)
[2023-09-18] MEDS ORDERED: POLYETHYLENE (MIRALAX) 17 GM PACK PO PRN (17:07)
[2023-09-18] MEDS ORDERED: DOCUSATE SODIUM/SENNA 50/8.6MG TAB PO PRN (17:07)
[2023-09-18] MEDS ORDERED: ONDANSETRON INJ 2 MG/ML 2 ML VIAL IV PRN (17:07)
[2023-09-18] MEDS: PLASMA-LYTE A 1,000 ML IV SCH (17:16)
--- NOTE | 2023-09-18 17:17 | CT Scan Report ---
ABDOMEN AND PELVIS CT WITH IV CONTRAST CT DOSE: 680.98 mGy.cm HISTORY: Leukocytosis; (+) fecal occult blood TECHNIQUE: Multiaxial CT images of the abdomen and pelvis were performed following the use of intrave nous contrast. A dose lowering technique was utilized adhering to the principles of ALARA. COMPARISON STUDY: Abdomen and pelvis CT 07/11/2023. FINDINGS: Mild dependent changes within the lung bases and a trace right pleural effusion. There are suggestion of a few filling defects seen within the right lower lobe subsegmental pulmonary arteries. These are concerning for pulmonary emboli. Severe thickening of the distal esophagus which has progr essed. The heart is borderline enlarged. Multiple subacute/healing bilateral rib fractures again note d. No acute fractures identified. There are 3 stable enhancing lesions within the liver with the larg est in the left hepatic lobe on image 46 measuring 3.4 cm. These favor hemangiomas. No new hepatic le sions identified. The gallbladder is mildly distended. No gallbladder wall thickening. There may be a few punctate stones within the gallbladder. The main portal vein is patent. The spleen and kidneys a re unremarkable. No hydronephrosis. Nodular thickening of the jejunal glands, unchanged. There is an ectatic abdominal aorta measuring up to 2.5 cm in diameter with moderate calcified plaque. No retrope ritoneal or pelvic lymphadenopathy. No pelvic free fluid. The pancreas enhances normally. Mild bladde r wall thickening. This could be due to underdistention. There is a small right posterior bladder div erticulum measuring 1 cm which contains a small amount of debris or contrast. The uterus and bilatera l adnexa are unremarkable. Large stool ball within the rectum measuring 9.7 cm. Mild perirectal edema is noted. There is a moderate to large amount of well-formed stool seen throughout the remaining col on. Multiple colonic diverticula. No evidence for acute diverticulitis. No evidence for bowel obstruc tion. IMPRESSION: 1. Possible filling defects seen within the right lower lobe subsegmental pulmonary arteries. This is concerning for pulmonary emboli. Follow-up dedicated PE CT recommended for further evaluation. 2. Trace right pleural effusion. 3. Severe thickening of the distal esophagus which has progressed. This favors a nonspecific esophagi tis. Endoscopy recommended for further evaluation. 4. Multiple subacute/healing bilateral rib fractures. No acute fractures identified. 5. A large stool ball within the rectum with mild perirectal edema. This could represent an early delfino rcoral colitis. Clinical correlation recommended. 6. Moderate to large amount of well-formed stool seen throughout the colon. 7. Mildly distended gallbladder which may contain a few punctate gallstones. However, no gallbladder wall thickening. 8. Colonic diverticulosis. No evidence for acute diverticulitis. 9. Bladder wall thickening which may be due to underdistention. Recommend correlation with urinalysis to exclude a cystitis. 10. Additional findings as described above. ACT 112: Negative or not required by law. Electronically signed by: Jerald Keith M.D. 09/18/2023 5:15 PM
[2023-09-18] MEDS: cefTRIAXone SODIUM 2,000 MG/50 ML BAG IV ONE ×2 (18:56→19:13)
[2023-09-18] MEDS: PANTOprazole 40 MG in SYRINGE 0 ML IV SCH (20:26)
[2023-09-18] MEDS: ACETAMINOPHEN 325 MG TAB PO SCH (20:27)
[2023-09-18] MEDS: DOCUSATE SODIUM 100 MG CAP PO SCH (20:28)
[2023-09-18 21:42] LABS: Hematocrit (blood only) 25.8 % (37.0-47.0); Hemoglobin 8.4 g/dl (12.0-16.0)
[2023-09-19 00:49] LABS: Hematocrit (blood only) 25.3 % (37.0-47.0)
[2023-09-19] MEDS: LEVOTHYROXINE SODIUM 88 MCG TABLET PO SCH (06:08)
[2023-09-19 06:30] LABS: Basophils # (auto) 0.07 K/uL (0.00-0.20); Basophils % (auto) 0.8 %; Eosinophils # (auto) 0.19 K/uL (0.00-0.50); Eosinophils % (auto) 2.1 %; Hematocrit (blood only) 26.6 % (37.0-47.0); Hemoglobin 8.3 g/dl (12.0-16.0); Immature Granulocytes # (auto) 0.08 K/uL (0.01-0.20); Immature Granulocytes % (auto) 0.9 %; Lymphocytes # (auto) 1.55 K/uL (1.20-3.40); Lymphocytes % (auto) 17.2 %; Mean Corpuscular Hemoglobin 30.2 pg (25.0-34.0); Mean Corpuscular Hgb Conc 31.2 g/dL (32.0-36.0); Mean Corpuscular Volume 96.7 fL (80.0-100.0); Mean Platelet Volume 9.2 fL (9.4-12.4); Monocytes # (auto) 0.67 K/uL (0.11-0.59); Monocytes % (auto) 7.4 %; Neutrophils # (auto) 6.46 K/uL (1.40-6.50); Neutrophils % (auto) 71.6 %; Platelet Count 424 K/uL (130-400); RDW Coefficient of Variation 14.4 % (11.5-14.5); RDW Standard Deviation 51.1 fL (36.4-46.3); Red Blood Count 2.75 M/uL (4.20-5.40); White Blood Count 9.02 K/ul (4.8-10.8)
[2023-09-19 06:53] LABS: BUN Creatinine Ratio 35.7 (10-20); Calcium 8.4 mg/dl (8.6-10.3); Est GFR (African American) 107.6 ml/min; Est GFR (Non-African American) 92.8 ml/min; Magnesium 2.1 mg/dl (1.7-2.4)
--- NOTE | 2023-09-19 09:17 | Gastrointestinal Consultation ---
Date of Consultation September 19, 2023 Assessment & Plan (1) Esophagitis: 88 year old female with history of recent subdural hematoma treated at [facility], NSTEMI, hypothyroidism, cognitive decline, dementia admitted for evaluation of an unresponsive episode, noted to be anemia w/ HGB of 8.3 from baseline 12 w/o report of active GI bleeding or any reported episodes of black/bloody stools or emesis. She has remained hemodynamically stable w/ BP 160/91. HGB has remained stable overnight without BUN elevation. Imaging concerning for esophagitis, constipation w/ a fecal impaction and question of a pulmonary embolism. I have not been successful in contacting patient contact, Israel Sylvester, via phone this AM. As there is no evidence of active GI bleeding, recommend conservative management for now until goals of care and plan can be discussed with POA. Trend H&H. Monitor and document GI output. Transfuse PRN per primary team. IV PPI BID x 48 hours. Then PO PPI BID. EGD may be considered pending goals of care discussion/POA wishes. Check iron studies, ferritin. Start oral iron supplementation if iron deficient Regarding constipation, stool impaction, recommend a tap water enema today. May repeat tap water enema tonight. Once impaction passes, please start an oral bowel regimen with Miralax 1 capful twice daily. Please update GI in the event of any evidence of active GI bleeding. At that time, we would be happy to provide endoscopic evaluation. Management of suspected PE per primary service. Thank you for allowing us to participate in the care of this patient. Please call with any acute changes, questions or concerns. Please see addendum below with additional recommendation from my supervising physician. I spent a total of 60 minutes on the date of service in review of patient's record, and previously obtained information in person and appropriate medical visit, discussion and education of plan, with patient and/or caregiver, placing orders for tests/referral/procedures as medically necessary and documentation of pertinent clinical information in patient's medical records for their visit today. Supervising Physician Co-Signing Physician Notes I saw and examined this patient with our nurse practitioner and agree with her assessment and plan. Doubt clinically significant active GI bleeding at this time. Significant anemia most consistent with recent chronic blood loss in light of positive fecal occult blood. No need for endoscopic intervention at this time in light of other ongoing medical issues. Ultimately can proceed with colonoscopy and endoscopy as an outpatient once medically stable. History of Present Illness Reason for Consultation: GI bleed Requesting Physician: Mariam Attending Physician: Kavon Becerra DO History of Present Illness 88 year old female with history of recent subdural hematoma treated at [facility], NSTEMI, hypothyroidism, cognitive decline, dementia, and B12 deficiency admitted from [facility] for evaluation of an unresponsive episode - GI was asked to evaluate for suspected GI bleeding. Pt was seen and evaluated, chart reviewed. Unfortunately, she is not able to provide any history. Suggests she feels well today. There has been any report of black/bloody stools/emesis since she has been admitted. Imaging concerning for PE, esophagitis, stool ball w/ early stercoral colitis and constipation. HGB 12.6 --> 8.4 --> 8.3 BUN 15 PLT 424 Fecal occult positive CTAP 2023: Possible filling defects seen within the right lower lobe subsegmental pulmonary arteries. This is concerning for pulmonary emboli. Follow-up dedicated PE CT recommended for further evaluation. Trace right pleural effusion. Severe thickening of the distal esophagus which has progressed. This favors a nonspecific esophagitis. Endoscopy recommended for further evaluation. . Multiple subacute/healing bilateral rib fractures. No acute fractures identified.. A large stool ball within the rectum with mild perirectal edema. This could represent an early stercoral colitis. Clinical correlation recommended. Moderate to large amount of well-formed stool seen throughout the colon. Mildly distended gallbladder which may contain a few punctate gallstones. However, no gallbladder wall thickening. Colonic diverticulosis. No evidence for acute diverticulitis. Bladder wall thickening which may be due to underdistention. Recommend correlation with urinalysis to exclude a cystitis. Additional findings as described above. EGD: none at [facility] or [facility] Colonoscopy: none at [facility] or [facility] Allergies Allergy/AdvReac Type Severity Reaction Status Date / Time Sulfa (Sulfonamide Allergy Intermediate RASH Verified 09/18/23 15:31 Antibiotics) Home Medications Medication Instructions Recorded Confirmed Type levothyroxine 88 mcg tablet 88 mcg PO DAILY 07/11/23 09/18/23 History acetaminophen 325 mg tablet 650 mg PO Q4 PRN Pain 09/18/23 09/18/23 History acetaminophen 325 mg tablet 975 mg PO TID 09/18/23 09/18/23 History aspirin 81 mg tablet,delayed 81 mg PO DAILY 09/18/23 09/18/23 History release dextrose 40 % oral gel (Glutose-15) 1 ea PO DAILY PRN Hypoglycemia 09/18/23 09/18/23 History docusate sodium 100 mg capsule 100 mg PO BID 09/18/23 09/18/23 History lidocaine 4 % topical patch 1 patch topical DAILY 09/18/23 09/18/23 History ondansetron 4 mg disintegrating 4 mg PO Q4 PRN Nausea And Vomiting 09/18/23 09/18/23 History tablet polyethylene glycol 3350 17 17 g PO DAILY PRN Constipation 09/18/23 09/18/23 History gram/dose oral powder (Miralax) sennosides 8.6 mg-docusate sodium 1 tab-cap PO QDL PRN costipation 09/18/23 09/18/23 History 50 mg tablet (Senokot-S) sodium chloride 1 gram tablet 1,000 mg PO DAILY 09/18/23 09/18/23 History Patient History Medical History Elevated CK Social History Smoking Status: Unknown if ever smoked Second Hand Exposure: No; Do You Dip or Chew Tobacco: No; Hx Alcohol Use: Yes Alcohol type: wine Hx Substance Use: No Preferred Language: Ethiopian Communication Ability: Effective Demolition Expert Required: No Beliefs That Will Affect Care: None Current Living Situation: Alone Feels Safe at Home: Yes Assistive Devices: Cane Review of Systems Review of Systems: Unobtainable due to cognitive status Physical Exam Constitutional: WD/WN, vitals as above Wearing neck collar. Scattered bruising on hands/arms. Respiratory: normal respiratory effort, lungs clear to auscultation Cardiovascular: Rate/Rhythm: regular rate and regular rhythm Gastrointestinal (Abdomen): normal bowel sounds, soft, nontender, no hepatosplenomegaly Skin: no rashes, warm and dry Results & Data Vital Signs (Past 12 Hours) Vital Signs Temp Pulse Pulse Resp BP Pulse Ox O2 Del Method 09/19/23 07:45 36.5 C 77 16 160/91 H 96 Room Air 09/19/23 00:28 36.6 C 79 18 163/84 H 92 Room Air 09/18/23 23:53 60 Laboratory Results 09/19/23 09/19/23 09/18/23 Range/Units 06:03 00:36 21:01 WBC 9.02 (4.8-10.8) K/ul RBC 2.75 L (4.20-5.40) M/uL Hgb 8.3 L 8.0 L 8.4 L (12.0-16.0) g/dl Hct 26.6 L 25.3 L 25.8 L (37.0-47.0) % MCV 96.7 (80.0-100.0) fL MCH 30.2 (25.0-34.0) pg MCHC 31.2 L (32.0-36.0) g/dL RDW Std Deviation 51.1 H (36.4-46.3) fL RDW Coeff of Coni 14.4 (11.5-14.5) % Plt Count 424 H (130-400) K/uL MPV 9.2 L (9.4-12.4) fL Immature Gran % (Auto) 0.9 % Neut % (Auto) 71.6 % Lymph % (Auto) 17.2 % [place] % (Auto) 7.4 % Eos % (Auto) 2.1 % Baso % (Auto) 0.8 % Neut # (Auto) 6.46 (1.40-6.50) K/uL Lymph # (Auto) 1.55 (1.20-3.40) K/uL [place] # (Auto) 0.67 H (0.11-0.59) K/uL Eos # (Auto) 0.19 (0.00-0.50) K/uL Baso # (Auto) 0.07 (0.00-0.20) K/uL Immature Gran # (Auto) 0.08 (0.01-0.20) K/uL Sodium 143 (136-145) mmol/L Potassium 3.0 L (3.5-5.1) mmol/L Chloride 107 (98-107) mmol/L Carbon Dioxide 29 (21-32) mmol/L Anion Gap 7 (3-11) BUN 15 (6-23) mg/dl Creatinine 0.42 L D (0.6-1.2) mg/dl Est Cr Clr Drug Dosing 76.0 ml/min Est GFR ( Amer) 107.6 ml/min Est GFR (Non-Af Amer) 92.8 ml/min BUN/Creatinine Ratio 35.7 H (10-20) Glucose 94 (70-99(Fasting)) mg/dl Calcium 8.4 L (8.6-10.3) mg/dl Magnesium 2.1 (1.7-2.4) mg/dl Total Bilirubin (0.2-1.0) mg/dl AST (13-39) U/L ALT (7-52) U/L Alkaline Phosphatase (34-104) U/L Troponin I High Sens (0-14) pg/ml Total Protein (6.0-8.3) gm/dl Albumin (3.4-5.0) gm/dl Globulin (2.5-4.0) gm/dl Albumin/Globulin Ratio (0.9-2) TSH (0.300-4.500) uIu/ml Free T4 (0.61-1.60) ng/dl Urine Color Urine Appearance (Clear) Urine pH (4.5-7.5) Ur Specific [place] (1.000-1.030) Urine Protein (Negative) Urine Glucose (UA) (Negative) Urine Ketones (Negative) Urine Blood (Negative) Urine Nitrite (Negative) Urine Bilirubin (Negative) Urine Urobilinogen (Negative) Ur Leukocyte Esterase (Negative) Urine WBC (Auto) (0-5) /hpf Urine RBC (Auto) (0-2) /hpf U Hyaline Cast (Auto) (0-2) /lpf U Epithel Cells (Auto) (0-2) /hpf Urine Bacteria (Auto) (None Seen) Urine Yeast (None Prsent) Blood Type Blood Type Recheck O Positive Antibody Screen Crossmatch 09/18/23 09/18/23 09/18/23 Range/Units 15:58 15:57 14:20 WBC (4.8-10.8) K/ul RBC (4.20-5.40) M/uL Hgb 8.5 L (12.0-16.0) g/dl Hct 27.5 L (37.0-47.0) % MCV (80.0-100.0) fL MCH (25.0-34.0) pg MCHC (32.0-36.0) g/dL RDW Std Deviation (36.4-46.3) fL RDW Coeff of Coni (11.5-14.5) % Plt Count (130-400) K/uL MPV (9.4-12.4) fL Immature Gran % (Auto) % Neut % (Auto) % Lymph % (Auto) % [place] % (Auto) % Eos % (Auto) % Baso % (Auto) % Neut # (Auto) (1.40-6.50) K/uL Lymph # (Auto) (1.20-3.40) K/uL [place] # (Auto) (0.11-0.59) K/uL Eos # (Auto) (0.00-0.50) K/uL Baso # (Auto) (0.00-0.20) K/uL Immature Gran # (Auto) (0.01-0.20) K/uL Sodium (136-145) mmol/L Potassium (3.5-5.1) mmol/L Chloride (98-107) mmol/L Carbon Dioxide (21-32) mmol/L Anion Gap (3-11) BUN (6-23) mg/dl Creatinine (0.6-1.2) mg/dl Est Cr Clr Drug Dosing ml/min Est GFR ( Amer) ml/min Est GFR (Non-Af Amer) ml/min BUN/Creatinine Ratio (10-20) Glucose (70-99(Fasting)) mg/dl Calcium (8.6-10.3) mg/dl Magnesium (1.7-2.4) mg/dl Total Bilirubin (0.2-1.0) mg/dl AST (13-39) U/L ALT (7-52) U/L Alkaline Phosphatase (34-104) U/L Troponin I High Sens 14.9 H D (0-14) pg/ml Total Protein (6.0-8.3) gm/dl Albumin (3.4-5.0) gm/dl Globulin (2.5-4.0) gm/dl Albumin/Globulin Ratio (0.9-2) TSH (0.300-4.500) uIu/ml Free T4 (0.61-1.60) ng/dl Urine Color Yellow Urine Appearance Turbid A (Clear) Urine pH 7.5 (4.5-7.5) Ur Specific [place] 1.017 (1.000-1.030) Urine Protein 1+ H (Negative) Urine Glucose (UA) Negative (Negative) Urine Ketones Negative (Negative) Urine Blood 1+ H (Negative) Urine Nitrite Negative (Negative) Urine Bilirubin Negative (Negative) Urine Urobilinogen Negative (Negative) Ur Leukocyte Esterase 1+ H (Negative) Urine WBC (Auto) >50 H (0-5) /hpf Urine RBC (Auto) 6-10 H (0-2) /hpf U Hyaline Cast (Auto) 6-10 H (0-2) /lpf U Epithel Cells (Auto) 6-10 H (0-2) /hpf Urine Bacteria (Auto) 4+ H (None Seen) Urine Yeast Present A (None Prsent) Blood Type O Positive Blood Type Recheck Antibody Screen NEGATIVE Crossmatch See Detail 09/18/23 Range/Units 12:50 WBC 13.00 H (4.8-10.8) K/ul RBC 3.18 L (4.20-5.40) M/uL Hgb 9.8 L (12.0-16.0) g/dl Hct 31.0 L (37.0-47.0) % MCV 97.5 (80.0-100.0) fL MCH 30.8 (25.0-34.0) pg MCHC 31.6 L (32.0-36.0) g/dL RDW Std Deviation 52.3 H (36.4-46.3) fL RDW Coeff of Coni 14.5 (11.5-14.5) % Plt Count 578 H (130-400) K/uL MPV 9.2 L (9.4-12.4) fL Immature Gran % (Auto) 1.1 % Neut % (Auto) 79.1 % Lymph % (Auto) 12.2 % [place] % (Auto) 6.4 % Eos % (Auto) 0.6 % Baso % (Auto) 0.6 % Neut # (Auto) 10.29 H (1.40-6.50) K/uL Lymph # (Auto) 1.58 (1.20-3.40) K/uL [place] # (Auto) 0.83 H (0.11-0.59) K/uL Eos # (Auto) 0.08 (0.00-0.50) K/uL Baso # (Auto) 0.08 (0.00-0.20) K/uL Immature Gran # (Auto) 0.14 (0.01-0.20) K/uL Sodium 146 H (136-145) mmol/L Potassium 3.1 L (3.5-5.1) mmol/L Chloride 106 (98-107) mmol/L Carbon Dioxide 30 (21-32) mmol/L Anion Gap 10 (3-11) BUN 19 (6-23) mg/dl Creatinine 0.74 (0.6-1.2) mg/dl Est Cr Clr Drug Dosing 43.2 ml/min Est GFR ( Amer) 85.0 ml/min Est GFR (Non-Af Amer) 73.4 ml/min BUN/Creatinine Ratio 25.7 H (10-20) Glucose 120 H (70-99(Fasting)) mg/dl Calcium 9.2 (8.6-10.3) mg/dl Magnesium 2.2 (1.7-2.4) mg/dl Total Bilirubin 0.3 (0.2-1.0) mg/dl AST 15 (13-39) U/L ALT 14 (7-52) U/L Alkaline Phosphatase 98 (34-104) U/L Troponin I High Sens 20.6 H (0-14) pg/ml Total Protein 6.7 (6.0-8.3) gm/dl Albumin 3.8 (3.4-5.0) gm/dl Globulin 2.9 (2.5-4.0) gm/dl Albumin/Globulin Ratio 1.3 (0.9-2) TSH 13.304 H (0.300-4.500) uIu/ml Free T4 1.05 (0.61-1.60) ng/dl Urine Color Urine Appearance (Clear) Urine pH (4.5-7.5) Ur Specific [place] (1.000-1.030) Urine Protein (Negative) Urine Glucose (UA) (Negative) Urine Ketones (Negative) Urine Blood (Negative) Urine Nitrite (Negative) Urine Bilirubin (Negative) Urine Urobilinogen (Negative) Ur Leukocyte Esterase (Negative) Urine WBC (Auto) (0-5) /hpf Urine RBC (Auto) (0-2) /hpf U Hyaline Cast (Auto) (0-2) /lpf U Epithel Cells (Auto) (0-2) /hpf Urine Bacteria (Auto) (None Seen) Urine Yeast (None Prsent) Blood Type Blood Type Recheck Antibody Screen Crossmatch PG Care Time/CCT Total # of Minutes Spent Total Time Spent with Patient: Total time spent is greater than 50% in coordination of care (as documented) at patient's floor/unit and/or counseling patient: Coding Level of Care Code 94437 INT INP/OBS CARE 2MIN Diagnoses Esophagitis K20.90
[2023-09-19] MEDS: POTASSIUM CHLORIDE CRTAB 20 MEQ TABCR PO SCH (09:28)
[2023-09-19] MEDS: POLYETHYLENE (MIRALAX) 17 GM PACK PO SCH (14:25)
[2023-09-19] MEDS: OPTIRAY 320 125ml IV ONE (14:42)
--- NOTE | 2023-09-19 14:52 | Medical Student Progress Note ---
Date of Service September 19, 2023 Assessment & Plan (1) Esophagitis: (2) Acute UTI: (3) Hypernatremia: (4) Hypothyroidism: (5) Episode of syncope: Syncope type: unspecified Qualified Code(s): R55 - Syncope and collapse (6) GI bleed: GI bleed type/associated pathology: melena Qualified Code(s): K92.1 - Melena (7) Pulmonary emboli: Plan (1) GI bleed: Grossly (+) Fecal occult blood on arrival Consulted GI and appreciate their recommendations Low suspicion for upper GI bleed given lack of significant BUN elevation A/P CT with contrast: concerning for PE, esophagitis, stool ball w/ early stercoral colitis and constipation Protonix drip started in the ED - Continue Protonix 40 mg IV BID - Per GI: IV PPI BID x 48 hours. Then PO PPI BID. Keep n.p.o. (except medications) for now and will advance to clear liquid diet IVF maintenance Trend H&H q4h GI reccs for constipation, stool impaction: - tap water enema today. - May repeat tap water enema tonight. - Once impaction passes, start an oral bowel regimen with Miralax 1 capful twice daily. Hold aspirin Patient is unable to consent for blood at this time Attempted to call friend/POA (Israel Sylvester) again (09/18) and was unable to reach In the event that Hgb downtrends to <7.0 or patient becomes symptomatic, would transfuse if medically necessary A.m. CBC, BMP (2) Acute UTI: UA positive on arrival - unable to determine if asymptomatic bacteruria or UTI d/t patient being unable to provide history Urine culture positive for gram negative bacilli Rocephin 2000 g IV q24h IVF maintenance with Plasma-Lyte (3) PE: Chest CT showed concern for possible right lower lobe PE. Chest CTA was ordered today 09/18 and confirmation of the right basilar segmental and subsegmental pulmonary emboli. No definite evidence for right heart strain or large pulmonary infarct. Given presence of both GI bleed and pulmonary emboli, increased concern for cancer of the GI tract being the precipitating cause of presenting problems. Attempted to call patient's POA in chart to determine patient's desires with further workup on 09/18. Called two times. No response from POA. (4) Episode of syncope: Patient was originally found slumped over in her chair on 09/17 at [facility] Pale/laguna; initially thought to not have a pulse; reawaken with hard sternal rub Unclear etiology, but may be secondary to #1, #2, or #3; no history of aspirations (per [facility]); CXR okay Continue telemetry monitoring to assess for arrhythmias (5) Hypothyroidism: TSH elevated arrival, but T4 within normal limits Continue levothyroxine (6) Hypernatremia: Mild; NA 146 on arrival; Now WNL at 143 Suspect due to volume contraction Hold sodium supplementation for now Admission and Anticipated Discharge Date Admission Date: September 18, 2023 Supervising Attestation I personally examined the patient and verified all leos points of history and exam, discussed case, and agree with decision making with Azael Mitchell MS4 and Dr Landaverde no meaningful HPI or ROS vitals noted nad heent nc at mmm breathing unlabored no pallor or icterus Ccollar in place GI bleed with subsequent acute blood loss anemia and syncope- continue to follow/supportive care/no need for transfusion at this time. trying to reach POA to glean goals of care and guide decision making constipationenemas, MiraLAX possible PEobviously treatment with pharmacologic measures contraindicated due to GI bleeding and acute blood loss anemia; at the same time not even entirely clear that it is realbut if she did have a PE as well as what appears to be GI bleeding, prognostically this would become more concerning for a cancer. Given no significant risk notedwill proceed with CT angio to better clarify the situation otherwise as above Subjective 88 year old female with history of recent subdural hematoma treated at [facility], NSTEMI, hypothyroidism, cognitive decline, dementia admitted on 09/17 for evaluation of an unresponsive episode, noted to be anemic w/ Hgb of 8.3 from baseline 12 w/o report of active GI bleeding or any reported episodes of black/bloody stools or emesis. She has remained hemodynamically stable. Was found to have positive FOBT on arrival to hospital. She is unable to provide any history today. Attempts to contact POA for more history have been made without success. Patient seems to be doing well this morning. Review of Systems Review of Systems: See HPI above Physical Exam Physical Exam: General: no acute distress; non-toxic appearing; frail appearing HEENT: normocephalic, atraumatic; no scleral icterus; unable to assess vision and hearing at this time Neck: supple Skin: warm, dry; no cyanosis; no rashes, bruising, lesions, or erythema noted CV: RRR; S1/S2 normal; no murmurs/rubs/gallops Lungs: no acute respiratory distress; symmetrical chest wall expansion; CTAB ABD: Soft, NTP; BS present; no distention MSK: no edema noted in the Wolfgang LEs Neuro: Confused; A&O to name; fluent speech; no focal deficits Results & Data Vital Signs (Past 12 Hours) Vital Signs Temp Pulse Pulse Resp BP Pulse Ox O2 Del Method 09/19/23 12:55 Room Air 09/19/23 11:11 37.0 C 61 17 136/74 98 Room Air 09/19/23 08:00 59 L 09/19/23 07:45 36.5 C 77 16 160/91 H 96 Room Air Laboratory Results 09/18/23 14:20 Urine Culture - Preliminary Urine,Straight Cath Gram negative bacilli 09/19/23 09/19/23 09/18/23 06:03 00:36 21:01 WBC 9.02 RBC 2.75 L Hgb 8.3 L 8.0 L 8.4 L Hct 26.6 L 25.3 L 25.8 L MCV 96.7 MCH 30.2 MCHC 31.2 L RDW Std Deviation 51.1 H RDW Coeff of Coni 14.4 Plt Count 424 H MPV 9.2 L Immature Gran % (Auto) 0.9 Neut % (Auto) 71.6 Lymph % (Auto) 17.2 [place] % (Auto) 7.4 Eos % (Auto) 2.1 Baso % (Auto) 0.8 Neut # (Auto) 6.46 Lymph # (Auto) 1.55 Amelia # (Auto) 0.67 H Eos # (Auto) 0.19 Baso # (Auto) 0.07 Immature Gran # (Auto) 0.08 Sodium 143 Potassium 3.0 L Chloride 107 Carbon Dioxide 29 Anion Gap 7 BUN 15 Creatinine 0.42 L D Est Cr Clr Drug Dosing 76.0 Est GFR ( Amer) 107.6 Est GFR (Non-Af Amer) 92.8 BUN/Creatinine Ratio 35.7 H Glucose 94 Calcium 8.4 L Magnesium 2.1 Troponin I High Sens Blood Type Blood Type Recheck O Positive Antibody Screen Crossmatch 09/18/23 09/18/23 15:58 15:57 WBC RBC Hgb 8.5 L Hct 27.5 L MCV MCH MCHC RDW Std Deviation RDW Coeff of Coni Plt Count MPV Immature Gran % (Auto) Neut % (Auto) Lymph % (Auto) [place] % (Auto) Eos % (Auto) Baso % (Auto) Neut # (Auto) Lymph # (Auto) [place] # (Auto) Eos # (Auto) Baso # (Auto) Immature Gran # (Auto) Sodium Potassium Chloride Carbon Dioxide Anion Gap BUN Creatinine Est Cr Clr Drug Dosing Est GFR ( Amer) Est GFR (Non-Af Amer) BUN/Creatinine Ratio Glucose Calcium Magnesium Troponin I High Sens 14.9 H D Blood Type O Positive Blood Type Recheck Antibody Screen NEGATIVE Crossmatch See Detail
--- NOTE | 2023-09-19 15:20 | CT Scan Report ---
CT angio chest PE protocol CT DOSE: 250.21 mGy.cm HISTORY: 88 years-old Female with PE. Acute shortness of breath TECHNIQUE: Multiple CTA images of the chest were obtained after the intravenous administration of 118 ml Optiray. Coronal and sagittal MIPS were obtained from the axial data set and were submitted for review. All measurements were obtained according to NASCET criteria. A dose lowering technique was u tilized adhering to the principles of ALARA. COMPARISON: CT abdomen and pelvis 09/18/2023, chest CT 07/11/2023 FINDINGS: Study is degraded by respiratory motion artifact. CTA: Mild cardiomegaly. Moderate coronary artery calcifications. Patency of the imaged great vessels. [place] of the ascending thoracic aorta, 3.9 cm. No dissection. Confirmation of the segmental/subsegmenta l right lung base pulmonary emboli. No central pulmonary embolus or definite evidence of right heart strain. CT CHEST: No discrete thyroid nodule or pathologically enlarged lymph nodes. Mild generalized body wall edema. Trace left and small right pleural effusions. No pneumothorax. Unchanged irregular 11 mm nodule in th e right middle lobe adjacent to the fissure on image 105. Mild dependent bibasilar atelectasis and in terlobular septal thickening. No large pulmonary infarct. Central airways are patent. Pronounced wall thickening of the distal esophagus redemonstrated with adjacent inflammatory strandin g. Colonic diverticulosis. Degenerative changes of the shoulders and spine. There are numerous healin g subacute chronic bilateral rib fractures which are nondisplaced. Ill-defined hepatic lesions better seen on comparison CT abdomen and pelvis. IMPRESSION: 1. Confirmation of the right basilar segmental and subsegmental pulmonary emboli. No definite evidenc e for right heart strain or large pulmonary infarct. 2. Cardiomegaly with suggestion of mild interstitial pulmonary edema, trace left and small right pleu ral effusions. 3. Mild bibasilar atelectasis. 4. Prominent distal esophageal wall thickening redemonstrated with adjacent inflammatory stranding wh ich may represent esophagitis. Correlation with endoscopy recommended. 5. Irregular 11 mm nodule of the right middle lobe appears stable from 07/11/2023. 6. Healing subacute nondisplaced bilateral rib fractures. ACT 112: Negative or not required by law. The above report was generated using voice recognition software. It may contain grammatical, syntax o r spelling errors. Electronically signed by: Yovany Santamaria M.D. 09/19/2023 3:17 PM
--- NOTE | 2023-09-19 15:55 | Billing Data ---
Date of Service September 19, 2023 Coding Level of Care Code 00214 SUB INP/OBS CARE 3MIN
[2023-09-19] MEDS: cefTRIAXone SODIUM 2,000 MG/50 ML BAG IV SCH (17:25)
[2023-09-19] MEDS: PNEUMOCOCCAL VACCINE (PCV20) 20-VAL CONJ-DIP CRM/PF 0.5 ML SYR IM ONE (18:31)
[2023-09-20 07:13] LABS: Basophils # (auto) 0.06 K/uL (0.00-0.20); Basophils % (auto) 0.7 %; Eosinophils # (auto) 0.17 K/uL (0.00-0.50); Hematocrit (blood only) 27.1 % (37.0-47.0); Hemoglobin 8.5 g/dl (12.0-16.0); Immature Granulocytes # (auto) 0.06 K/uL (0.01-0.20); Immature Granulocytes % (auto) 0.7 %; Lymphocytes # (auto) 1.68 K/uL (1.20-3.40); Mean Corpuscular Hemoglobin 30.5 pg (25.0-34.0); Mean Corpuscular Hgb Conc 31.4 g/dL (32.0-36.0); Mean Corpuscular Volume 97.1 fL (80.0-100.0); Mean Platelet Volume 9.4 fL (9.4-12.4); Monocytes # (auto) 0.68 K/uL (0.11-0.59); Monocytes % (auto) 8.1 %; Neutrophils # (auto) 5.74 K/uL (1.40-6.50); Neutrophils % (auto) 68.5 %; Platelet Count 420 K/uL (130-400); RDW Standard Deviation 50.1 fL (36.4-46.3); Red Blood Count 2.79 M/uL (4.20-5.40); White Blood Count 8.39 K/ul (4.8-10.8)
[2023-09-20 07:38] LABS: BUN Creatinine Ratio 30.6 (10-20); Calcium 8.2 mg/dl (8.6-10.3); Creatinine Clr Calc Pharmacy 88.7 ml/min; Est GFR (African American) 113.2 ml/min; Est GFR (Non-African American) 97.6 ml/min; Potassium 3.1 mmol/L (3.5-5.1)
[2023-09-20] MEDS: POTASSIUM CHLORIDE 20 MEQ/15 ML UDC PO SCH (08:55)
--- NOTE | 2023-09-20 09:13 | Gastroenterology Progress Note ---
Date of Service September 20, 2023 Assessment & Plan (1) Esophagitis: Plan: 88 year old female with history of recent subdural hematoma treated [place] [facility], NSTEMI, hypothyroidism, cognitive decline, dementia admitted for evaluation of an unresponsive episode, noted to be anemia w/ HGB of 8.3 from baseline 12 w/o report of active GI bleeding or any reported episodes of black/bloody stools or emesis. She has remained hemodynamically stable w/ BP 160/91. HGB has remained stable overnight without BUN elevation. Imaging concerning for esophagitis, constipation w/ a fecal impaction and question of a pulmonary embolism. I have not been successful in contacting patient contact, Israel Sylvester, via phone again this AM. As there is no evidence of active GI bleeding, recommend conservative management for now until goals of care and plan can be discussed with POA. Trend H&H. Monitor and document GI output. Transfuse PRN per primary team. IV PPI BID x 48 hours. Start PO PPI 09/21/23. Check iron studies, ferritin. Start oral iron supplementation if iron deficient. Regarding constipation, stool impaction, recommend a tap water enema today. May repeat tap water enema tonight. Once impaction passes, please start an oral bowel regimen with Miralax 1 capful twice daily. Please update GI in the event of any evidence of active GI bleeding. At that time, we would be happy to provide endoscopic evaluation. Management of suspected PE per primary service. Recall GI as needed. Thank you for allowing us to participate in the care of this patient. Please call with any acute changes, questions or concerns. Please see addendum below with additional recommendation from my supervising physician. I spent a total of 40 minutes on the date of service in review of patient's record, and previously obtained information in person and appropriate medical visit, discussion and education of plan, with patient and/or caregiver, placing orders for tests/referral/procedures as medically necessary and documentation of pertinent clinical information in patient's medical records for their visit today. I was able to have a conversation with POA after provided with an updated phone number. He wishes her to undergo EGD/Colon as an OP after she is medically opti mized and regains some strength. Will update primary team. Admission and Anticipated Discharge Date Admission Date: September 18, 2023 Supervising Physician Co-Signing Physician Notes I saw and examined this patient with our nurse practitioner and agree with her assessment and plan. No signs of overt GI bleeding. On heparin for acute pulmonary embolus. Holding off on endoscopic intervention at time to do comorbidity. Power of divorce attorney against any endoscopic intervention at this time as well. Should she demonstrate more overt bleeding we could reassess the need for intervention. Subjective Pt was seen and evaluated, chart reviewed. Old neighbor at bedside who confirms Israel as POA. I re-attempted to call Israel this AM, no answer. No option to leave a VMAIL. Review of Systems Review of Systems: Unobtainable due to cognitive status Physical Exam Constitutional: WD/WN, vitals as above Respiratory: normal respiratory effort, lungs clear to auscultation Gastrointestinal (Abdomen): normal bowel sounds, soft, nontender, no hepatosplenomegaly Skin: no rashes, warm and dry Results & Data Results & Data Vital Signs (Past 12 Hours) Vital Signs Temp Pulse Pulse Resp BP BP Pulse Ox 09/20/23 08:00 37.0 C 73 16 186/96 H 95 09/20/23 05:51 59 L 09/20/23 04:50 36.6 C 74 18 190/91 H 93 09/20/23 00:00 73 09/19/23 23:20 36.6 C 73 18 179/96 H 96 O2 Del Method 09/20/23 08:00 Room Air 09/20/23 05:51 09/20/23 04:50 Room Air 09/20/23 00:00 09/19/23 23:20 Room Air Laboratory Results 09/20/23 Range/Units 06:18 WBC 8.39 (4.8-10.8) K/ul RBC 2.79 L (4.20-5.40) M/uL Hgb 8.5 L (12.0-16.0) g/dl Hct 27.1 L (37.0-47.0) % MCV 97.1 (80.0-100.0) fL MCH 30.5 (25.0-34.0) pg MCHC 31.4 L (32.0-36.0) g/dL RDW Std Deviation 50.1 H (36.4-46.3) fL RDW Coeff of Coni 14.0 (11.5-14.5) % Plt Count 420 H (130-400) K/uL MPV 9.4 (9.4-12.4) fL Immature Gran % (Auto) 0.7 % Neut % (Auto) 68.5 % Lymph % (Auto) 20.0 % Custer % (Auto) 8.1 % Eos % (Auto) 2.0 % Baso % (Auto) 0.7 % Neut # (Auto) 5.74 (1.40-6.50) K/uL Lymph # (Auto) 1.68 (1.20-3.40) K/uL Custer # (Auto) 0.68 H (0.11-0.59) K/uL Eos # (Auto) 0.17 (0.00-0.50) K/uL Baso # (Auto) 0.06 (0.00-0.20) K/uL Immature Gran # (Auto) 0.06 (0.01-0.20) K/uL Sodium 137 (136-145) mmol/L Potassium 3.1 L (3.5-5.1) mmol/L Chloride 101 (98-107) mmol/L Carbon Dioxide 30 (21-32) mmol/L Anion Gap 6 (3-11) BUN 11 (6-23) mg/dl Creatinine 0.36 L (0.6-1.2) mg/dl Est Cr Clr Drug Dosing 88.7 ml/min Est GFR ( Amer) 113.2 ml/min Est GFR (Non-Af Amer) 97.6 ml/min BUN/Creatinine Ratio 30.6 H (10-20) Glucose 85 (70-99(Fasting)) mg/dl Calcium 8.2 L (8.6-10.3) mg/dl PG Care Time/CCT Total # of Minutes Spent Total Time Spent with Patient: Total time spent is greater than 50% in coordination of care (as documented) at patient's floor/unit and/or counseling patient: Coding Level of Care Code 52085 SUB INP/OBS CARE 2/35MIN Diagnoses Esophagitis K20.90
--- NOTE | 2023-09-20 12:03 | Ultrasound Report ---
BILATERAL LOWER EXTREMITY VENOUS DOPPLER HISTORY: Acute pain and swelling of the lower legs Evaluate DVT COMPARISON STUDY: None. FINDINGS: Slow venous flow noted within the right popliteal vein with possible nonocclusive thrombus. Occlusive thrombus within the posterior tibial and peroneal veins. No additional right-sided DVT rachana ntified. No left-sided DVT. IMPRESSION: 1. Likely acute occlusive DVT within the right posterior tibial and peroneal veins. 2. No left-sided DVT. ACT 112: Negative or not required by law. Electronically signed by: Yovany Santamaria M.D. 09/20/2023 12:02 PM
--- NOTE | 2023-09-20 13:54 | Consultation ---
Date of Consultation September 20, 2023 Assessment & Plan (1) DVT (deep venous thrombosis): This patient has multiple pulmonary emboli as well as an acute deep venous thrombosis left lower extremity. She cannot be anticoagulated due to an ongoing GI bleed. Insertion of vena cava filter is recommended. I have discussed the risks options and benefits of the procedure with the patient's POA and the patient. The patient's POA understands the risks options and benefits and agrees to the procedure. History of Present Illness Reason for Consultation: Acute DVT of the lower extremity with pulmonary emboli and GI bleed Attending Physician: Kavon Becerra DO History of Present Illness This is an 88-year-old female who was found unresponsive in her wheelchair. She was brought to the emergency department. During her workup she was found to have multiple pulmonary emboli as well as an acute deep venous thrombosis of the left lower extremity in the infrapopliteal veins. She also has a GI bleed and cannot be anticoagulated. She is not oriented to person place or time. Her history has been taken from the chart itself Allergies Allergy/AdvReac Type Severity Reaction Status Date / Time Sulfa (Sulfonamide Allergy Intermediate RASH Verified 09/18/23 15:31 Antibiotics) Home Medications Medication Instructions Recorded Confirmed Type levothyroxine 88 mcg tablet 88 mcg PO DAILY 07/11/23 09/18/23 History acetaminophen 325 mg tablet 650 mg PO Q4 PRN Pain 09/18/23 09/18/23 History acetaminophen 325 mg tablet 975 mg PO TID 09/18/23 09/18/23 History aspirin 81 mg tablet,delayed 81 mg PO DAILY 09/18/23 09/18/23 History release dextrose 40 % oral gel (Glutose-15) 1 ea PO DAILY PRN Hypoglycemia 09/18/23 09/18/23 History docusate sodium 100 mg capsule 100 mg PO BID 09/18/23 09/18/23 History lidocaine 4 % topical patch 1 patch topical DAILY 09/18/23 09/18/23 History ondansetron 4 mg disintegrating 4 mg PO Q4 PRN Nausea And Vomiting 09/18/23 09/18/23 History tablet polyethylene glycol 3350 17 17 g PO DAILY PRN Constipation 09/18/23 09/18/23 History gram/dose oral powder (Miralax) sennosides 8.6 mg-docusate sodium 1 tab-cap PO QDL PRN costipation 09/18/23 09/18/23 History 50 mg tablet (Senokot-S) sodium chloride 1 gram tablet 1,000 mg PO DAILY 09/18/23 09/18/23 History Patient History Medical History Elevated CK Social History Smoking Status: Unknown if ever smoked Second Hand Exposure: No; Do You Dip or Chew Tobacco: No; Hx Alcohol Use: Yes Alcohol type: wine Hx Substance Use: No Preferred Language: Niuean Communication Ability: Effective Captain/Airline Pilot Required: No Beliefs That Will Affect Care: None Current Living Situation: Alone Feels Safe at Home: Yes Assistive Devices: Wheelchair Review of Systems Review of Systems: Unobtainable due to cognitive status Physical Exam Constitutional: WD/WN, vitals as above Respiratory: normal respiratory effort; no respiratory distress Cardiovascular: Rate/Rhythm: regular rate and regular rhythm Psychiatric: Orientation: + not oriented to person, + not oriented to place and + not oriented to time Results & Data Vital Signs (Past 12 Hours) Vital Signs Temp Pulse Pulse Resp BP BP Pulse Ox 09/20/23 08:00 37.0 C 73 16 186/96 H 95 09/20/23 05:51 59 L 09/20/23 04:50 36.6 C 74 18 190/91 H 93 O2 Del Method 09/20/23 08:00 Room Air 09/20/23 05:51 09/20/23 04:50 Room Air
--- NOTE | 2023-09-20 14:14 | Medical Student Progress Note ---
Date of Service September 20, 2023 Assessment & Plan (1) Esophagitis: (2) Acute UTI: (3) Hypothyroidism: (4) Episode of syncope: Syncope type: unspecified Qualified Code(s): R55 - Syncope and collapse (5) GI bleed: GI bleed type/associated pathology: melena Qualified Code(s): K92.1 - Melena (6) Pulmonary emboli: (7) DVT (deep venous thrombosis): Plan (1) GI bleed: - Grossly (+) Fecal occult blood on arrival - Consulted GI and appreciate their recommendations - Low suspicion for upper GI bleed given lack of significant BUN elevation - A/P CT with contrast: concerning for PE, esophagitis, stool ball w/ early stercoral colitis and constipation - Protonix drip started in the ED - Continue Protonix 40 mg IV BID ----- Per GI: IV PPI BID x 48 hours. Then PO PPI BID. Start PO PPI 09/21/23. - Keep n.p.o. (except medications) for now and will advance to clear liquid diet - IVF maintenance - Trend H&H q4h - Hgb 8.5 today, stable - Hold aspirin - Patient is unable to consent for blood at this time - Unable to reach POA (Israel Sylvester) prior to 09/19 despite multiple attempts - Called friend/POA (Israel Sylvester) (09/19) and was able to reach - reports that when patient was competent, she said as long as she is not in excruciating pain or discomfort, wanted every measure done to keep her stable and healthy - Hence, we recommend EGD and colonoscopy to evaluate for cause of GI bleed. suspicion for potential GI malignancy, given her DVT and PE's. - Chest CT showed severe thickening of the distal esophagus which has progressed. This favors a nonspecific esophagitis. - GI had conversation with POA and they would like to undergo EGD/Colon as an OP after she is medically optimized and regains some strength - In the event that Hgb downtrends to <7.0 or patient becomes symptomatic, would transfuse if medically necessary - A.m. CBC, BMP (2) PE: - Chest CT showed concern for possible right lower lobe PE. - Chest CTA was ordered 09/18 and confirmation of the right basilar segmental and subsegmental pulmonary emboli. No definite evidence for right heart strain or large pulmonary infarct. - Given presence of both GI bleed and pulmonary emboli, increased concern for cancer of the GI tract being the precipitating cause of presenting problems. - Unable to anticoagulate patient for treatment of PE's at this time given her ongoing GI bleed - Ordered venous doppler U/S to investigate for DVT's - workup described below (3) DVT: - Ordered venous doppler study today 09/19 d/t potential source of patient's right basilar PE - Per venous doppler study, likely acute occlusive DVT within the right posterior tibial and peroneal veins - Patient cannot be anticoagulated d/t ongoing GI bleed - Consulted vascular surgery for potential of IVC filter placement - Vascular surgery recommended IVC filter - plan to place today (4) Constipation GI reccs for constipation, stool impaction: - tap water enema yesterday - Started an oral bowel regimen with Miralax 1 capful twice daily. - May repeat tap water enema (4) Acute UTI: UA positive on arrival - unable to determine if asymptomatic bacteruria or UTI d/t patient being unable to provide history Urine culture positive for gram negative bacilli Rocephin 2000 g IV q24h IVF maintenance with Plasma-Lyte (5) Episode of syncope: Patient was originally found slumped over in her chair on 09/17 at [facility]; initially thought to not have a pulse; reawaken with hard sternal rub Unclear etiology, but may be secondary to #1, #2, or #3; no history of aspirations (per [facility]); CXR okay Continue telemetry monitoring to assess for arrhythmias (6) Hypothyroidism: TSH elevated arrival, but T4 within normal limits Continue levothyroxine Admission and Anticipated Discharge Date Admission Date: September 18, 2023 Supervising Attestation I personally examined the patient and verified all leos points of history and exam, discussed case, and agree with decision making with Dr Landaverde and Azael Mitchell MS4 no meaningful HPI review of systems, although she does deny any complaints. Denies shortness of breath. Denies any significant pain. Vitals noted, pleasant does not appear to be in distress, c-collar in place. HEENT normocephalic atraumatic mucous membranes moist. Breathing unlabored no accessory muscle use good effort. Abdomen soft very mild distention mild diffuse tenderness no guarding rebound or rigidity. Extremities without sinus clubbing or edema maybe very mild bilateral calf tenderness. GI bleedingnow hemodynamically stablehowever I suspect blood loss was the cause of her syncope. No indications for transfusion, as it relates to the root cause of the GI bleeding, scope as an outpatient does seem quite reasonable, but discussed with GI in regards to treatment of her venous thromboembolic diseaseGI mucosal cancer would obviously be exceedingly risky for anticoagulation, as opposed to bleeding from a more limited source such as a diverticular bleed would likely allow for anticoagulation therapy for VTE in the fairly near future. GI was willing to proceed with endoscopic workup, but at this point in time POA would prefer that it be done as an outpatient. Continue Protonix given that it may be an esophageal source. VTEboth DVT and PE. Currently anticoagulation is contraindicated due to hemorrhage as the main cause of admission. It would not be unheard of for the PE to have contributed to syncope, but with no tachycardia or hypoxia I doubt it. Given active DVT/PE and inability to anticoagulate for at least the near future and a very frail patient, asked vascular surgery to evaluate for IVC filterfilter placed this afternoon. Constipationcontinue bowel regimen C-spine fractureif EGD is able to be done in the near future, obviously will need to see where she is at in the course of requiring her c-collar to be in place. Pharmacologic DVT prophylaxis contraindicated due to GI bleeding. Subjective 88 year old female with history of recent subdural hematoma treated at [facility] [place], NSTEMI, hypothyroidism, cognitive decline, dementia admitted on 09/17 for evaluation of an unresponsive episode, noted to be anemic w/ Hgb of 8.3 from baseline 12 w/o report of active GI bleeding or any reported episodes of black/bloody stools or emesis. She has remained hemodynamically stable. Was found to have positive FOBT on arrival to hospital. We have not been able to obtain history from patient d/t disorientation and dementia. Today, we were able to reach out and contact JOSE Martinez. He reports that when pt was competent, they had a discussion, and as long as she was not in excruciating pain or discomfort, she wanted every measure done to keep her stable and healthy. He does not want her returning to [facility]. Wants her going to [facility]. He has a discussion occurring with our case management team to set her up for [facility]. Review of Systems Review of Systems: unable to obtain 2/2 pt disorientation Physical Exam Physical Exam: General: no acute distress; non-toxic appearing; frail appearing HEENT: normocephalic, atraumatic; no scleral icterus; unable to assess vision and hearing at this time Neck: supple Skin: warm, dry; no cyanosis; no rashes, lesions, or erythema noted CV: RRR; S1/S2 normal; no murmurs/rubs/gallops Lungs: no acute respiratory distress; symmetrical chest wall expansion; CTAB ABD: Soft, no obvious tenderness to palpation per pt's facial expressions; BS present; no distention MSK: no edema noted in the Wolfgang LEs Neuro: Confused; A&O to name; fluent speech; no focal deficits Results & Data Vital Signs (Past 12 Hours) Vital Signs Temp Pulse Pulse Resp BP BP Pulse Ox 09/20/23 08:00 37.0 C 73 16 186/96 H 95 09/20/23 05:51 59 L 09/20/23 04:50 36.6 C 74 18 190/91 H 93 O2 Del Method 09/20/23 08:00 Room Air 09/20/23 05:51 09/20/23 04:50 Room Air Laboratory Results 09/18/23 14:20 Urine Culture - Final Urine,Straight Cath Escherichia coli 09/20/23 06:18 WBC 8.39 RBC 2.79 L Hgb 8.5 L Hct 27.1 L MCV 97.1 MCH 30.5 MCHC 31.4 L RDW Std Deviation 50.1 H RDW Coeff of Coni 14.0 Plt Count 420 H MPV 9.4 Immature Gran % (Auto) 0.7 Neut % (Auto) 68.5 Lymph % (Auto) 20.0 Mineral % (Auto) 8.1 Eos % (Auto) 2.0 Baso % (Auto) 0.7 Neut # (Auto) 5.74 Lymph # (Auto) 1.68 Mineral # (Auto) 0.68 H Eos # (Auto) 0.17 Baso # (Auto) 0.06 Immature Gran # (Auto) 0.06 Sodium 137 Potassium 3.1 L Chloride 101 Carbon Dioxide 30 Anion Gap 6 BUN 11 Creatinine 0.36 L Est Cr Clr Drug Dosing 88.7 Est GFR ( Amer) 113.2 Est GFR (Non-Af Amer) 97.6 BUN/Creatinine Ratio 30.6 H Glucose 85 Calcium 8.2 L
[2023-09-20] MEDS: SODIUM CHLORIDE 0.9% 1,000 ML IV SCH (15:37)
--- NOTE | 2023-09-20 15:56 | Pre Anesthesia Assessment ---
Date of Service September 20, 2023 Pre Sedation Assessment Vital Signs Temp Pulse Pulse Resp BP BP BP 09/20/23 15:50 71 20 184/98 H 09/20/23 15:34 37.2 C 66 19 152/90 H 09/20/23 12:59 66 09/20/23 08:00 37.0 C 73 16 186/96 H 09/20/23 05:51 59 L 09/20/23 04:50 36.6 C 74 18 190/91 H 09/20/23 00:00 73 09/19/23 23:20 36.6 C 73 18 179/96 H 09/19/23 20:00 09/19/23 19:39 36.5 C 81 20 189/105 H Pulse Ox O2 Del Method 09/20/23 15:50 95 Room Air 09/20/23 15:34 95 Room Air 09/20/23 12:59 09/20/23 08:00 95 Room Air 09/20/23 05:51 09/20/23 04:50 93 Room Air 09/20/23 00:00 09/19/23 23:20 96 Room Air 09/19/23 20:00 Room Air 09/19/23 19:39 94 Room Air Cardiovascular RRR, no murmur, no edema Respiratory normal respiratory effort, lungs clear to auscultation Pre-Sedation Airway Assessment Smoking Status: Unknown if ever smoked Hx Sleep Apnea: No Short, Thick Neck: No Thyromental Distance: > or= 3.5 Finger Breadths Oral Cavity: + WNL Mallampati Class: II ASA: ASA3 NPO Status Date of Last Intake of Fluids: 09/20/23 Time of Last Intake of Fluids: 09:00 Date of Last Intake of Solid Food: 09/19/23 Time of Last Intake of Solid Foods: 16:00 Procedure Planning Contraindications for Sedation: none Current Medications Reviewed: Yes Notes The planned sedation has been discussed with the patient. Informed Consent was obtained. I have identified the patient, determined the appropriateness of sedation and have assessed the patient immediately prior to the procedure. All medicine(s) and interventions are by my order.
[2023-09-20] MEDS: VISIPAQUE IV PRN (16:10)
--- NOTE | 2023-09-20 16:12 | Operative Report ---
Post Operative Report Pre & Post Diagnosis Operation Date: 09/20/23 09:40 Pre-Op Diagnosis: DVT, PE, GI Bleed Post-Op Diagnosis: DVT, PE, GI Bleed I identified the patient and participated in the time-out.: Yes Procedure Operation Date: 09/20/23 09:40 Actual Procedures p Insertion of Inferior Vena Cava Filter, Right Femoral Approach, Ultrasound localization of Right Femoral vein, Fluoroscopy for positioning (Right) - Darius Ochoa MD Surgeon Darius Ochoa MD Psychology Department Chair none Estimated Blood Loss 3 Findings Consistent with Post-Op Diagnosis Specimens none Anesthesia Type Local Complications none Disposition Accompanied Patient To Recovery: No Disposition: Recovery Room Indications This is an 88-year-old female with a acute DVT to lower extremity with PEs and GI bleeding. Anticoagulation was contraindicated. Vena cava filter is recommended. This was discussed with the patient's POA. The POA understood the risk option benefits and agreed to have this procedure. Description of Procedure The patient was brought to the angio suite and placed in the supine position. The patient was identified and a timeout performed. The right groin was prepped and draped in the usual fashion. The right common femoral vein was located with ultrasound. It was patent, compressed easily, and had no filling defects. The vein was then punctured under ultrasound visualization. A guidewire was then passed centrally into the inferior vena cava under fluoroscopic guidance. The puncture site was then dilated and the filter sheath inserted. It was passed to the infra renal vena cava. A venacavagram was done which showed no cava clot and an acceptable size. The renal veins were identified. The filter was then passed through the sheath and deployed in the infra renal vena cava in an upright position. Satisfied with the positioning of the filter, the sheath was removed. Pressure was applied to the puncture site. Adequate hemostasis was obtained and a sterile dressing was applied. The patient left the operation room in satisfactory condition and tolerated the procedure well. All needle and sponge counts were correct at the end of the procedure. I attest to the content of the Intraoperative Record and any orders documented therein. Any exceptions are noted below.
[2023-09-20] MEDS: LIDOCAINE 1% LOCAL 20 ML VIAL ONE ×2 (18:06→18:07)
--- NOTE | 2023-09-20 18:13 | Billing Data ---
Date of Service September 20, 2023 Coding Level of Care Code 22286 SUB INP/OBS CARE 3MIN
[2023-09-21 07:21] LABS: Basophils # (auto) 0.08 K/uL (0.00-0.20); Eosinophils # (auto) 0.21 K/uL (0.00-0.50); Eosinophils % (auto) 2.5 %; Hematocrit (blood only) 30.4 % (37.0-47.0); Hemoglobin 9.7 g/dl (12.0-16.0); Immature Granulocytes # (auto) 0.08 K/uL (0.01-0.20); Lymphocytes # (auto) 1.68 K/uL (1.20-3.40); Lymphocytes % (auto) 20.3 %; Mean Corpuscular Hemoglobin 30.4 pg (25.0-34.0); Mean Corpuscular Hgb Conc 31.9 g/dL (32.0-36.0); Mean Corpuscular Volume 95.3 fL (80.0-100.0); Mean Platelet Volume 9.2 fL (9.4-12.4); Monocytes # (auto) 0.64 K/uL (0.11-0.59); Monocytes % (auto) 7.7 %; Neutrophils # (auto) 5.57 K/uL (1.40-6.50); Neutrophils % (auto) 67.5 %; Platelet Count 492 K/uL (130-400); RDW Coefficient of Variation 13.7 % (11.5-14.5); RDW Standard Deviation 48.5 fL (36.4-46.3); Red Blood Count 3.19 M/uL (4.20-5.40); White Blood Count 8.26 K/ul (4.8-10.8)
[2023-09-21 08:06] LABS: Calcium 8.6 mg/dl (8.6-10.3); Potassium 4.2 mmol/L (3.5-5.1)
[2023-09-21 08:10] LABS: BUN Creatinine Ratio 29.3 (10-20); Creatinine Clr Calc Pharmacy 77.9 ml/min; Est GFR (African American) 108.4 ml/min; Est GFR (Non-African American) 93.5 ml/min
[2023-09-21] MEDS: PANTOprazole 40 MG TAB PO SCH (08:59)
--- NOTE | 2023-09-21 10:06 | Medical Student Progress Note ---
Date of Service September 21, 2023 Assessment & Plan (1) Esophagitis: (2) Acute UTI: (3) Hypothyroidism: (4) Episode of syncope: Syncope type: unspecified Qualified Code(s): R55 - Syncope and collapse (5) GI bleed: GI bleed type/associated pathology: melena Qualified Code(s): K92.1 - Melena (6) Pulmonary emboli: (7) DVT (deep venous thrombosis): Plan (1) GI bleed: - Grossly (+) Fecal occult blood on arrival - Consulted GI and appreciate their recommendations - Low suspicion for upper GI bleed given lack of significant BUN elevation - A/P CT with contrast: concerning for PE, esophagitis, stool ball w/ early stercoral colitis and constipation - Protonix drip started in the ED - Continue Protonix 40 mg IV BID ----- Per GI: IV PPI BID x 48 hours. Then PO PPI BID. Start PO PPI 09/21/23. - Keep n.p.o. (except medications) for now and will advance to clear liquid diet - IVF maintenance - Trend H&H QD - Hgb 9.7 today, improving and stable - Hold aspirin - Patient is unable to consent for blood at this time - Unable to reach POA (Israel Sylvester) prior to 09/19 despite multiple attempts - Called friend/POA (Israel Sylvester) (09/19) and was able to reach - reports that when patient was competent, she said as long as she is not in excruciating pain or discomfort, wanted every measure done to keep her stable and healthy - Hence, we recommend EGD and colonoscopy to evaluate for cause of GI bleed. suspicion for potential GI malignancy, given her DVT and PE's. - Chest CT showed severe thickening of the distal esophagus which has progressed. This favors a nonspecific esophagitis. - GI had conversation with POA and they would like to undergo EGD/Colon as an OP after she is medically optimized and regains some strength - In the event that Hgb downtrends to <7.0 or patient becomes symptomatic, would transfuse if medically necessary - A.m. CBC, BMP - Workup described above. Working with case management to set up patient to potentially be moved to [facility], potentially as soon as tomorrow 09/21. - If patient is able to have EGD/colonoscopy next week, it would facilitate a quicker decision on whether or not patient can be started on chronic anticoagulation, once cause of her GI bleed is determined. - Will determine who physician handling her C-spine fx is and attempt to contact, as cervical collar might interfere with EGD (2) PE: - Chest CT showed concern for possible right lower lobe PE. - Chest CTA was ordered 09/18 and confirmation of the right basilar segmental and subsegmental pulmonary emboli. No definite evidence for right heart strain or large pulmonary infarct. - Given presence of both GI bleed and pulmonary emboli, increased concern for cancer of the GI tract being the precipitating cause of presenting problems. - Unable to anticoagulate patient for treatment of PE's at this time given her ongoing GI bleed - Ordered venous doppler U/S to investigate for DVT's - workup described below - If patient is able to have EGD/colonoscopy next week, it would facilitate a quicker decision on whether or not patient can be started on chronic anticoagulation, once cause of her GI bleed is determined. (3) DVT: - Ordered venous doppler study today 09/19 d/t potential source of patient's right basilar PE - Per venous doppler study, likely acute occlusive DVT within the right posterior tibial and peroneal veins - Patient cannot be anticoagulated d/t ongoing GI bleed - Consulted vascular surgery for potential of IVC filter placement - Vascular surgery recommended IVC filter - successfully placed on 09/19, no complications - See above plan #1 and #2 re: chronic anticoagulation considerations (4) Constipation GI reccs for constipation, stool impaction: - tap water enema 09/18 - Started an oral bowel regimen with Miralax 1 capful twice daily. - May repeat tap water enema (4) Acute UTI: UA positive on arrival - unable to determine if asymptomatic bacteruria or UTI d/t patient being unable to provide history Urine culture positive for gram negative bacilli Rocephin 2000 g IV q24h - will treat for 3 days, as this should be sufficient given patient is not obviously experiencing symptoms of UTI. Final dose of rocephin today 09/20. IVF maintenance with Plasma-Lyte (5) Episode of syncope: Patient was originally found slumped over in her chair on 09/17 at [facility]; initially thought to not have a pulse; reawaken with hard sternal rub Unclear etiology, but may be secondary to #1, #2, or #3; no history of aspirations (per [facility]); CXR okay Continue telemetry monitoring to assess for arrhythmias (6) Hypothyroidism: TSH elevated arrival, but T4 within normal limits Continue levothyroxine Admission and Anticipated Discharge Date Admission Date: September 18, 2023 Supervising Attestation I personally examined the patient and verified all leos points of history and exam, discussed case, and agree with decision making with Dr Landaverde and Azael Mitchell MS4 no meaningful HPI review of systems. vitals noted nad heent nc at mmm breathing unlabored no accessory muscle use good effort. Skin without rashes pallor or icterus. GI bleedingnow hemodynamically stablehowever I suspect blood loss was the cause of her syncope. No indications for transfusion, as it relates to the root cause of the GI bleeding, scope as an outpatient does seem quite reasonable, but discussed with GI in regards to treatment of her venous thromboembolic diseaseGI mucosal cancer would obviously be exceedingly risky for anticoagulation, as opposed to bleeding from a more limited source such as a diverticular bleed would likely allow for anticoagulation therapy for VTE in the fairly near future. GI was willing to proceed with endoscopic workup, But POA initially would prefer it to be done as an outpatienthowever, after discussion with SNF (where POA wants her to go) they would not really be in favor of her getting an endoscopic workup while she is still skilled therewhich would probably delay the endoscopic workup quite a bitthis was presented to the POA who is now okay with the scopes getting done as an inpatient. C-spine fractureappears to have been July 5CT C-spine to look for stability, hopefully can remove c-collar VTEboth DVT and PE. Currently anticoagulation is contraindicated due to hemorrhage as the main cause of admission. It would not be unheard of for the PE to have contributed to syncope, but with no tachycardia or hypoxia I doubt it. Given active DVT/PE and inability to anticoagulate for at least the near future and a very frail patient, IVC filter placed. Given that this is a subpar solution for management of venous thromboembolic disease, obviously would like to get her on anticoagulation as soon as is safewhich is a main reason for a more expedited endoscopic workup (if this was something like a diverticular bleed, I would cautiously be in favor of getting her on anticoagulation in the next week or so; if this is a mucosal GI malignancy, obviously anticoagulation may have a longer term or indefinite contraindication) Constipationcontinue bowel regimen Subjective 88 year old female with history of recent [place] [facility] [place], hypothyroidism, cognitive decline, dementia admitted on 09/17 for evaluation of an unresponsive episode, noted to be anemic w/ Hgb of 8.3 from baseline 12 w/o report of active GI bleeding or any reported episodes of black/bloody stools or emesis. She has remained hemodynamically stable. Was found to have positive FOBT on arrival to hospital. We have not been able to obtain history from patient d/t disorientation and dementia, but she does seem a bit more oriented/alert today. Review of Systems Review of Systems: unable to obtain 2/2 pt disorientation Physical Exam Physical Exam: General: no acute distress; non-toxic appearing; frail appearing HEENT: normocephalic, atraumatic; no scleral icterus; unable to assess vision and hearing at this time Neck: supple Skin: warm, dry; no cyanosis; no rashes, lesions, or erythema noted CV: RRR; S1/S2 normal; no murmurs/rubs/gallops Lungs: no acute respiratory distress; symmetrical chest wall expansion; CTAB ABD: Soft, no obvious tenderness to palpation per pt's facial expressions; BS present; no distention Neuro: Confused; A&O to name; fluent speech; no focal deficits Results & Data Vital Signs (Past 12 Hours) Vital Signs Temp Pulse Resp BP BP Pulse Ox O2 Del Method 09/21/23 07:44 36.6 C 70 18 167/109 H 176/102 H 98 Room Air 09/21/23 05:02 36.8 C 68 18 170/113 H 96 Room Air 09/21/23 01:39 177/96 H 09/20/23 23:49 36.6 C 67 18 181/93 H 94 Room Air Laboratory Results 09/18/23 14:20 Urine Culture - Final Urine,Straight Cath Escherichia coli 09/21/23 09/18/23 06:48 15:58 WBC 8.26 RBC 3.19 L Hgb 9.7 L Hct 30.4 L MCV 95.3 MCH 30.4 MCHC 31.9 L RDW Std Deviation 48.5 H RDW Coeff of Coni 13.7 Plt Count 492 H MPV 9.2 L Immature Gran % (Auto) 1.0 Neut % (Auto) 67.5 Lymph % (Auto) 20.3 Alger % (Auto) 7.7 Eos % (Auto) 2.5 Baso % (Auto) 1.0 Neut # (Auto) 5.57 Lymph # (Auto) 1.68 Alger # (Auto) 0.64 H Eos # (Auto) 0.21 Baso # (Auto) 0.08 Immature Gran # (Auto) 0.08 Sodium 135 L Potassium 4.2 D Chloride 100 Carbon Dioxide 28 Anion Gap 7 BUN 12 Creatinine 0.41 L Est Cr Clr Drug Dosing 77.9 Est GFR ( Amer) 108.4 Est GFR (Non-Af Amer) 93.5 BUN/Creatinine Ratio 29.3 H Glucose 86 Calcium 8.6 Crossmatch See Detail Resident Supervision Co-Signing Physician Notes Spoke to patient's POA, Edgar Sylvester, discussed plan of moving Ana to [facility] after EGD and colonoscopy are completed at [facility] and DVT/PE ant icoagulation is started, and he was amenable to this plan.
--- NOTE | 2023-09-21 15:40 | CT Scan Report ---
CT OF THE CERVICAL SPINE WITHOUT CONTRAST CLINICAL HISTORY: C-spine brace removal safety, on 9 weeks COMPARISON STUDY: Cervical spine CT July 11, 2023. TECHNIQUE: Helical axial images of the cervical spine were obtained without IV contrast. Sagittal a nd coronal reconstructions were viewed. Automated exposure control was utilized for the study. A do se lowering technique was utilized adhering to the principles of ALARA. FINDINGS: Note is again made of a subacute type II/III odontoid fracture. No significant bony bridgin g is noted when compared to CT of July 11, 2023. Fracture comminution and mild displacement has increa sed since prior CT. Vertebral height has slightly decreased. In addition, 6 mm of left lateral slippa ge of the lateral mass of C1 with respect to the lateral mass of C2 has developed. As before, the fra cture involves the right C2 vertebral foramen. The craniocervical junction is intact. Slight anteroli sthesis of C3 several T1 is unchanged. This is chronic. There are healing nondisplaced fractures of t he left posterior first, second and third ribs. 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 IMPRESSION: 1. Subacute type II/III odontoid fracture, as described above. No significant bony bridging. Fracture comminution, vertebral height loss and mild displacement have increased since prior CT. In addition, 6 mm of lateral slippage of the left lateral mass of C1 with respect to C2 has developed. 2. No additional fractures within the cervical spine. 3. Healing left posterior first, second and third rib fractures. ACT 112: Negative or not required by law. Electronically signed by: Chuck Manzanares M.D. 09/21/2023 3:39 PM
--- NOTE | 2023-09-21 18:05 | Billing Data ---
Date of Service September 21, 2023 Coding Level of Care Code 27957 SUB INP/OBS CARE MIN
--- NOTE | 2023-09-22 08:17 | Hospitalist Progress Note ---
Date of Service September 22, 2023 Assessment & Plan (1) Esophagitis: (2) Acute UTI: (3) Hypothyroidism: (4) Episode of syncope: (5) GI bleed: (6) Pulmonary emboli: (7) DVT (deep venous thrombosis): Plan (1) GI bleed: - Grossly (+) Fecal occult blood on arrival - Consulted GI and appreciate their recommendations - Low suspicion for upper GI bleed given lack of significant BUN elevation - A/P CT with contrast: concerning for PE, esophagitis, stool ball w/ early stercoral colitis and constipation - IVF maintenance - Trend H&H QD - Hold aspirin - Patient is unable to consent for blood at this time - Called friend/POA (Israel Sylvester) (09/19) and was able to reach - reports that when patient was competent, she said as long as she is not in excruciating pain or discomfort, wanted every measure done to keep her stable and healthy - Hence, we recommend EGD and colonoscopy to evaluate for cause of GI bleed. suspicion for potential GI malignancy, given her DVT and PE's. - Chest CT showed severe thickening of the distal esophagus which has progressed. This favors a nonspecific esophagitis. - GI had conversation with POA and they would like to undergo EGD/Colon as an OP after she is medically optimized and regains some strength - In the event that Hgb downtrends to <7.0 or patient becomes symptomatic, would transfuse if medically necessary - Workup described above. Working with case management to set up patient to potentially be moved to [facility]. -Increased laxatives. -repeat labs. am - repeat C-spine CT and Xray flexion./extension done that showed 6mm C1 displacement, will need more input re cervical collar, might interfere with EGD - If patient is able to have EGD/colonoscopy next week, it would facilitate a quicker decision on whether or not patient can be started on chronic anticoagulation, once cause of her GI bleed is determined. (2) PE: today pt stable , comfortable breathing on room air. - Chest CT showed concern for possible right lower lobe PE. - Chest CTA was ordered 09/18 and confirmation of the right basilar segmental and subsegmental pulmonary emboli. No definite evidence for right heart strain or large pulmonary infarct. - Given presence of both GI bleed and pulmonary emboli, increased concern for cancer of the GI tract being the precipitating cause of presenting problems. - Unable to anticoagulate patient for treatment of PE's at this time given her ongoing GI bleed - Ordered venous doppler U/S to investigate for DVT's - workup described below - If patient is able to have EGD/colonoscopy next week, it would facilitate a quicker decision on whether or not patient can be started on chronic anticoagulation, once cause of her GI bleed is determined. (3) DVT: - Per venous doppler study, likely acute occlusive DVT within the right posterior tibial and peroneal veins - Patient cannot be anticoagulated d/t ongoing GI bleed - IVC filter placement, 09/19 - See above plan #1 and #2 re: chronic anticoagulation considerations (4) Constipation GI reccs for constipation, stool impaction: - increased an oral bowel regimen with Miralax 1 capful QID daily. - increased - May repeat tap water enema (4) UTI: resolved UA positive on arrival - unable to determine if asymptomatic bacteruria or UTI d/t patient being unable to provide history Urine culture positive for gram negative bacilli Rocephin 2000 g IV q24h, course completed on 09/20. IVF maintenance with Plasma-Lyte (5) Episode of syncope: Patient was originally found slumped over in her chair on 09/17 at [facility] Unclear etiology, but may be secondary to #1, #2, or #3; no history of aspirations (per [facility]); CXR okay No further episodes. Continue telemetry monitoring to assess for arrhythmias (6) Hypothyroidism: TSH elevated arrival, but T4 within normal limits Continue levothyroxine Admission and Anticipated Discharge Date Admission Date: September 18, 2023 Supervising Physician Co-Signing Physician Notes I personally examined the patient and verified all leos points of history and exam, discussed case, and agree with decision making with Dr Bullard no meaningful HPI review of systems. Is awake and pleasant and offers no complaints. vitals noted nad heent nc at mmm breathing unlabored no accessory muscle use good effort. Skin without rashes pallor or icterus. She does have some difficulty following commands, but is able to move her neck through rotation flexion and extension with no pain. GI bleedingnow hemodynamically stablehowever I suspect blood loss was the cause of her syncope. Bleeding currently stable. discussed with GI in regards to treatment of her venous thromboembolic diseaseGI mucosal cancer would obviously be exceedingly risky for anticoagulation, as opposed to bleeding from a more limited source such as a diverticular bleed would likely allow for anticoagulation therapy for VTE in the fairly near future. GI was willing to proceed with endoscopic workup, But POMariana initially would prefer it to be done as an outpatienthowever, after discussion with SNF (where POA wants her to go) they would not really be in favor of her getting an endoscopic workup while she is still skilled therewhich would probably delay the endoscopic workup quite a bitthis was presented to the POA who is now okay with the scopes getting done as an inpatient. 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 With c-collar off she has no pain. Check flexion and extension x-rays. VTEboth DVT and PE. Currently anticoagulation is contraindicated due to hemorrhage as the main cause of admission. It would not be unheard of for the PE to have contributed to syncope, but with no tachycardia or hypoxia I doubt it. Given active DVT/PE and inability to anticoagulate for at least the near f uture and a very frail patient, IVC filter placed. Given that this is a subpar solution for management of venous thromboembolic disease, obviously would like to get her on anticoagulation as soon as is safewhich is a main reason for a more expedited endoscopic workup (if this was something like a diverticular bleed, I would cautiously be in favor of getting her on anticoagulation in the next week or so; if this is a mucosal GI malignancy, obviously anticoagulation may have a longer term or indefinite contraindication). Currently stable Constipationcontinue bowel regimen Subjective 88 year old female with history of recent subdural hematoma treated at [facility] [place], NSTEM[place], hypothyroidism, cognitive decline, dementia admitted on 09/17 for essie luation of an unresponsive episode, noted to be anemic w/ Hgb of 8.3 from baseline 12 w/o report of active GI bleeding or any reported episodes of black/bloody stools or emesis. This morning patient sat up in bed, alert, having breakfast - no evidence of chocking/coughing while eating. When asked about 'any pain?' pt said she was not in any pain. Pt is comfortable breathing on room air. Review of Systems Review of Systems: as per subjective. rest negative. Physical Exam Physical Exam: General: no acute distress; non-toxic appearing; frail appearing HEENT: normocephalic, atraumatic; no scleral icterus; unable to assess vision and hearing at this time Neck:cervical collar on. Skin: warm, dry; no cyanosis; no rashes, lesions, or erythema noted CV: RRR; S1/S2 normal; no murmurs/rubs/gallops Lungs: no acute respiratory distress; symmetrical chest wall expansion; CTAB ABD: Soft, no obvious tenderness to palpation per pt's facial expressions; BS present; no distention Neuro: Confused; A&O to name; fluent speech; no focal deficits Constitutional: WD/WN, vitals as above ENMT: external ear and nose normal, oropharynx normal Mallampati Class: II Respiratory: normal respiratory effort, lungs clear to auscultation normal respiratory effort; no respiratory distress Cardiovascular: RRR, no murmur, no edema Rate/Rhythm: regular rate and regular rhythm Gastrointestinal (Abdomen): normal bowel sounds, soft, nontender, no hepatosplenomegaly Skin: no rashes, warm and dry Psychiatric: Orientation: + not oriented to person, + not oriented to place and + not oriented to time Results & Data Results & Data Vital Signs (Past 12 Hours) Vital Signs Temp Pulse Pulse Resp BP BP Pulse Ox 09/22/23 07:40 89 157/98 H 09/22/23 07:33 36.7 C 86 16 183/113 H 95 09/22/23 07:29 74 09/22/23 03:38 36.5 C 70 16 118/60 93 09/21/23 23:24 36.6 C 74 16 122/83 95 09/21/23 21:56 74 O2 Del Method 09/22/23 07:40 09/22/23 07:33 Room Air 09/22/23 07:29 09/22/23 03:38 Room Air 09/21/23 23:24 Room Air 09/21/23 21:56 (4) Episode of syncope Syncope type: unspecified Qualified Code(s): R55 - Syncope and collapse (5) GI bleed GI bleed type/associated pathology: melena Qualified Code(s): K92.1 - Melena
--- NOTE | 2023-09-22 14:16 | XRay Report ---
CERVICAL SPINE 2 VIEWS CLINICAL HISTORY: C2 fracture. FINDINGS: Flexion/extension views of the cervical spine are correlated with CT scan of the cervical s pine dated 09/21/2023. The skeletal structures are osteopenic. Again seen is a horizontal fracture thr ough the body of C2. Near anatomic alignment is maintained in extension. There is dorsal subluxation of the distal fragment on the flexion views with at least 6 mm of offset of fragments. There is also 6 mm of anterolisthesis at C3-C4 in flexion. Alignment is otherwise preserved. No additional fracture is suggested on these lateral projections. The spinous processes appear intact. Multilevel disc spac e narrowing is observed. Anterior osteophytes are seen throughout. IMPRESSION: 1. Again seen is a fracture through the C2 vertebral body. 2. Fragments are in near-anatomic alignment in extension. 3. There is approximately 6 mm of subluxation of fragments in flexion. 4. There is also anterolisthesis in flexion at C3-C4. Dictated: 09/22/2023 1:52 PM Transcribed: 09/22/2023 2:03 PM Teresa [id number] Electronically signed by: Tyrell Ramirez M.D. 09/22/2023 2:14 PM
[2023-09-22] MEDS ORDERED: SENNA 8.6 MG TAB PO SCH (16:45)
--- NOTE | 2023-09-22 17:25 | Billing Data ---
Date of Service September 22, 2023 Coding Level of Care Code 68702 SUB INP/OBS CARE MIN
[2023-09-22] MEDS: POLYETHYLENE (MIRALAX) 17 GM PACK PO SCH (17:40)
[2023-09-22] MEDS: DOCUSATE SODIUM/SENNA 50/8.6MG TAB PO SCH (17:42)
[2023-09-23 06:36] LABS: Basophils # (auto) 0.09 K/uL (0.00-0.20); Basophils % (auto) 1.2 %; Eosinophils # (auto) 0.22 K/uL (0.00-0.50); Hematocrit (blood only) 32.2 % (37.0-47.0); Hemoglobin 10.2 g/dl (12.0-16.0); Immature Granulocytes # (auto) 0.09 K/uL (0.01-0.20); Immature Granulocytes % (auto) 1.2 %; Lymphocytes # (auto) 1.96 K/uL (1.20-3.40); Lymphocytes % (auto) 26.8 %; Mean Corpuscular Hemoglobin 30.4 pg (25.0-34.0); Mean Corpuscular Hgb Conc 31.7 g/dL (32.0-36.0); Mean Corpuscular Volume 95.8 fL (80.0-100.0); Mean Platelet Volume 9.1 fL (9.4-12.4); Monocytes # (auto) 0.59 K/uL (0.11-0.59); Monocytes % (auto) 8.1 %; Neutrophils # (auto) 4.35 K/uL (1.40-6.50); Neutrophils % (auto) 59.7 %; Platelet Count 541 K/uL (130-400); RDW Coefficient of Variation 13.6 % (11.5-14.5); RDW Standard Deviation 48.3 fL (36.4-46.3); Red Blood Count 3.36 M/uL (4.20-5.40)
[2023-09-23 06:50] LABS: BUN Creatinine Ratio 30.2 (10-20); Calcium 8.9 mg/dl (8.6-10.3); Creatinine Clr Calc Pharmacy 74.3 ml/min; Est GFR (African American) 106.7 ml/min; Est GFR (Non-African American) 92.1 ml/min; Potassium 4.9 mmol/L (3.5-5.1)
--- NOTE | 2023-09-23 10:08 | Hospitalist Progress Note ---
Date of Service September 23, 2023 Assessment & Plan (1) Esophagitis: (2) Acute UTI: (3) Hypothyroidism: (4) Episode of syncope: (5) GI bleed: (6) Pulmonary emboli: (7) DVT (deep venous thrombosis): Plan (1) GI bleed: - Grossly (+) Fecal occult blood on arrival - Consulted GI and appreciate their recommendations - Low suspicion for upper GI bleed given lack of significant BUN elevation - A/P CT with contrast: concerning for PE, esophagitis, stool ball w/ early stercoral colitis and constipation - IVF maintenance - Trend H&H QD - Hold aspirin - Patient is unable to consent for blood at this time - Called friend/POA (Israel Higinio) (09/19) and was able to reach - reports that when patient was competent, she said as long as she is not in excruciating pain or discomfort, wanted every measure done to keep her stable and healthy - Hence, we recommend EGD and colonoscopy to evaluate for cause of GI bleed. suspicion for potential GI malignancy, given her DVT and PE's. - Chest CT showed severe thickening of the distal esophagus which has progressed. This favors a nonspecific esophagitis. - GI had conversation with POA and they would like to undergo EGD/Colon as an OP after she is medically optimized and regains some strength - In the event that Hgb downtrends to <7.0 or patient becomes symptomatic, would transfuse if medically necessary - Workup described above. Working with case management to set up patient to potentially be moved to [facility]. -Increased laxatives. -repeat labs. am - repeat C-spine CT and Xray flexion./extension done (09/21). 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 pt having collar on few hours a day. doing well with head holding. - If patient is able to have EGD/colonoscopy next week, it would facilitate a quicker decision on whether or not patient can be started on chronic anticoagulation, once cause of her GI bleed is determined. -F/u with GI on sunday for plan for EGD and colonoscopy. (2) PE: today pt stable , comfortable breathing on room air. - Chest CT showed concern for possible right lower lobe PE. - Chest CTA was ordered 09/18 and confirmation of the right basilar segmental and subsegmental pulmonary emboli. No definite evidence for right heart strain or large pulmonary infarct. - Given presence of both GI bleed and pulmonary emboli, increased concern for cancer of the GI tract being the precipitating cause of presenting problems. - Unable to anticoagulate patient for treatment of PE's at this time given her ongoing GI bleed - Ordered venous doppler U/S to investigate for DVT's - workup described below - If patient is able to have EGD/colonoscopy next week, it would facilitate a quicker decision on whether or not patient can be started on chronic anticoagulation, once cause of her GI bleed is determined. -Spoke to POA,(09/22) who is in agreement for the procedure( EGD/Colonoscopy), (3) DVT: - Per venous doppler study, likely acute occlusive DVT within the right posterior tibial and peroneal veins - Patient cannot be anticoagulated d/t ongoing GI bleed - IVC filter placement, 09/19 - See above plan #1 and #2 re: chronic anticoagulation considerations (4) Constipation GI reccs for constipation, stool impaction: - increased an oral bowel regimen with Miralax 1 capful QID daily. (4) UTI: resolved UA positive on arrival - unable to determine if asymptomatic bacteruria or UTI d/t patient being unable to provide history Urine culture positive for gram negative bacilli Rocephin 2000 g IV q24h, course completed on 09/20. IVF maintenance with Plasma-Lyte (5) Episode of syncope: Patient was originally found slumped over in her chair on 09/17 at [facility] Unclear etiology, but may be secondary to #1, #2, or #3; no history of aspirations (per [facility]); CXR okay No further episodes. Continue telemetry monitoring to assess for arrhythmias (6) Hypothyroidism: TSH elevated arrival, but T4 within normal limits Continue levothyroxine Admission and Anticipated Discharge Date Admission Date: September 18, 2023 Supervising Physician Co-Signing Physician Notes I personally examined the patient and verified all leos points of history and exam, discussed case, and agree with decision making with Dr Aleah NOLAND and review of systems of questionable veracity. Notes maybe a mild degree of neck pain, but no arm pain no numbness or tingling, and it is really questionable whether or not she truly has neck pain, given that she will often answer in the affirmative for anything. Vitals noted, in general she is awake and alert pleasant confused no distress. Breathing unlabored no accessory muscle use good effort. Skin shows no rashes no pallor or icterus. Neuro without notable motor or sensory deficits, no obvious pain on palpation of her neck, but again quite limited ability to assess anything that requires subjectivity coming from the patient. GI bleedingnow hemodynamically stablehowever I suspect blood loss was the cause of her syncope. Bleeding currently stable. discussed with GI in regards to treatment of her venous thromboembolic diseaseGI mucosal cancer would obviously be exceedingly risky for anticoagulation, as opposed to bleeding from a more limited source such as a diverticular bleed would likely allow for anticoagulation therapy for VTE in the fairly near future. GI was willing to proceed with endoscopic workup, but POA initially would prefer it to be done as an outpatienthowever, after discussion with SNF (where POA wants her to go) they would not really be in favor of her getting an endoscopic workup while she is still skilled therewhich would probably delay the endoscopic workup quite a bitthis was presented to the POA who is now okay with the scopes getting done as an inpatient. Will need to rediscuss with GI tomorrow 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 With c-collar off she has no pain. flexion/extension x-rays noted. VTEboth DVT and PE. Currently anticoagulation is contraindicated due to hem orrhage as the main cause of admission. It would not be unheard of for the PE to have contributed to syncope, but with no tachycardia or hypoxia I doubt it. Given active DVT/PE and inability to anticoagulate for at least the near future and a very frail patient, IVC filter placed. Given that this is a subpar solution for management of venous thromboembolic disease, obviously would like to get her on anticoagulation as soon as is safewhich is a main reason for a more expedited endoscopic workup (if this was something like a diverticular bleed, I would cautiously be in favor of getting her on anticoagulation in the next week or so; if this is a mucosal GI malignancy, obviously anticoagulation may have a longer term or indefinite contraindication). Currently stable Constipationcontinue bowel regimen (Escalated yesterday) Subjective 88 year old female with history of recent subdural hematoma treated at [facility] [place], NSTEM[place], hypothyroidism, cognitive decline, dementia doubly incontinent admitted on 09/17 for evaluation of an unresponsive episode, noted to be anemic w/ Hgb of 8.3 from baseline 12 w/o report of active GI bleeding or any reported episodes of black/bloody stools or emesis. This morning patient in bed, alert not in any acute distress breathing on room air. Pt denies neck pain. No acute overnight events. Nurse reports that Pt having her neck collar few hours a day, holding her head well. Pt had a small bowel movement this am, no blood or melena. Telephone communication with POA(Mr Israel Sylvester) 10:15am 09/23/23: [Pt hx of severe dementia and does not have capacity to make her medical decisions.Patient is for full code]. Mr Sylvester says that he saw Ms Ana Mendoza in person 5 years ago when she drove to his office to meet him, since then he has no direct contact with her. I updated him about pts ongoing clinical status. Also mentioned that Ms Mendoza's neck collar was safely removed after a repeat [address]+ xray and careful neck examination. I explained again about the complex delicate situation and the need for EGD and colonoscopy to r/o any internal bleeding GI malignancy that could help us to decide on starting her on anticoagulation to treat her PE. He confirmed the understanding and agrees with a plan to proceed with EGD+colonoscopy procedure. Review of Systems Review of Systems: see above. Physical Exam Physical Exam: General: no acute distress; non-toxic appearing; frail appearing HEENT: normocephalic, atraumatic; no scleral icterus; unable to assess vision and hearing at this time Neck:cervical collar on. Skin: warm, dry; no cyanosis; no rashes, lesions, or erythema noted CV: RRR; S1/S2 normal; no murmurs/rubs/gallops Lungs: no acute respiratory distress; symmetrical chest wall expansion; CTAB ABD: Soft, no obvious tenderness to palpation per pt's facial expressions; BS present; no distention Neuro: Confused; A&O to name; fluent speech; no focal deficits Results & Data Results & Data Vital Signs (Past 12 Hours) Vital Signs Temp Pulse Resp BP Pulse Ox O2 Del Method 09/23/23 08:20 37.9 C H 72 18 173/86 H 97 Room Air 09/23/23 03:34 36.6 C 70 16 114/68 95 Room Air 09/22/23 23:23 36.9 C 82 18 119/65 94 Room Air (4) Episode of syncope Syncope type: unspecified Qualified Code(s): R55 - Syncope and collapse (5) GI bleed GI bleed type/associated pathology: melena Qualified Code(s): K92.1 - Melena
--- NOTE | 2023-09-23 16:15 | Billing Data ---
Date of Service September 23, 2023 Coding Level of Care Code 18270 SUB INP/OBS CARE MIN
--- NOTE | 2023-09-24 07:08 | Hospitalist Progress Note ---
Date of Service September 24, 2023 Assessment & Plan (1) Esophagitis: (2) Acute UTI: (3) Hypothyroidism: (4) Episode of syncope: (5) GI bleed: (6) Pulmonary emboli: (7) DVT (deep venous thrombosis): Plan 88 year old female with history of recent subdural hematoma [place] [facility] [place], hypothyroidism, cognitive decline, dementia, doubly incontinent admitted on 09/17 for evaluation of an unresponsive episode, noted to be anemic w/ Hgb of 8.3 from baseline 12 w/o report of active GI bleeding or any reported episodes of black/bloody stools or emesis. GI bleed: - GI bleeding considered likely Aspirin held on admission Origin not determined by CTAP or CT Chest - EGD/Colonoscopy recommended Potential for GI malignancy given DVT/PE and bleeding/anemia - GI consulted Favoring endoscopy once medically stable Planning for EGD/Colonoscopy tomorrow if patient able to tolerate bowel prep - Anticoagulation pending procedure Subacute type II/III odontoid fracture - Ortho recommending ongoing C-collar during EGD/Colonoscopy PE: - Today pt stable , comfortable breathing on room air, remains asymptomatic - Unable to anticoagulate patient for treatment of PE's at this time given her ongoing GI bleed - Spoke to POA,(09/22) who is in agreement for the procedure( EGD/Colonoscopy) prior to anticoagulation DVT: - Per venous doppler study, likely acute occlusive DVT within the right posterior tibial and peroneal veins - Unable to anticoagulate patient for treatment of PE's at this time given her ongoing GI bleed IVC filter placement, 09/19 See above plan above for chronic anticoagulation considerations Constipation - increased an oral bowel regimen with Miralax 1 capful QID daily. UTI: resolved Urine culture positive for gram negative bacilli Rocephin 2000 g IV q24h, course completed on 09/20. Episode of syncope: Unclear etiology, but may be secondary to #1, #2, or #3; no history of aspirations (per [facility]); CXR okay No further episodes. Continue telemetry monitoring to assess for arrhythmias Hypothyroidism: TSH elevated arrival, but T4 within normal limits Continue levothyroxine Admission and Anticipated Discharge Date Admission Date: September 18, 2023 Supervising Physician Co-Signing Physician Notes Attending Physician Supervision Note: I independently interviewed and examined the patient and verified the leos history and physical, reviewed labs and image studies and agree with findings and care plan noted above. Syncope - likely multifactorial - GI bleed/PE. Vitals stable now. GI bleeding - Bleeding currently stable. For EGD/colo in am. C-spine fracture July 2023. CT scan noted. Per spine surgery - continue C collar. DVT and PE - Anticoagulation on hold d/t GI bleed. IVC filter placed 09/19. Based on Endoscopy findings - will start anticoagulation. Constipationcontinue bowel regimen Dementia - not oriented x 3. Unable to speak sentences. This not her baseline per friend at bedside. Sudden decline since [facility]. Suspect hospital delirium contributing as well. Consider further assessment after GI studies. SCD Subjective Today morning, she was lying in her bed with head elevated, breathing on room air with maintained SPO2 and other vitals. She is not oriented to time, place and person. When asked her where are you right now and she says she does not know. Additional HPI limited by mental status. Review of Systems Review of Systems: All systems reviewed & are unremarkable except as noted in HPI & below see above. Physical Exam Constitutional: NAD, vitals WNL. Eyes: PERRLA. Conjunctivae normal. Respiratory: CTA bilaterally. Non labored breathing. No rhonchi, wheezing, or crackles. Cardiovascular: RRR. No murmurs noted. No LE edema. Gastrointestinal (Abdomen): Nontender, +BS. No masses noted. Skin: No rashes or skin lesions noted. Neurologic: Sensation grossly intact. No FND appreciated. Psychiatric: Orientation: + not oriented to person, + not oriented to place and + not oriented to time Results & Data Results & Data Vital Signs (Past 12 Hours) Vital Signs Temp Pulse Pulse Resp BP BP Pulse Ox 09/24/23 03:21 36.5 C 84 18 129/81 96 09/23/23 22:04 70 09/23/23 19:23 37 C 60 18 151/82 H 96 O2 Del Method 09/24/23 03:21 Room Air 09/23/23 22:04 09/23/23 19:23 Room Air Resident Activity Tracking Resident Involvement: Resident Care Provided Care Provided: Adult Hospital Medicine (4) Episode of syncope Syncope type: unspecified Qualified Code(s): R55 - Syncope and collapse (5) GI bleed GI bleed type/associated pathology: melena Qualified Code(s): K92.1 - Melena
[2023-09-24 07:16] LABS: Basophils % (auto) 1.3 %; Eosinophils % (auto) 3.9 %; Hematocrit (blood only) 31.9 % (37.0-47.0); Hemoglobin 10.2 g/dl (12.0-16.0); Immature Granulocytes # (auto) 0.08 K/uL (0.01-0.20); Lymphocytes # (auto) 1.99 K/uL (1.20-3.40); Lymphocytes % (auto) 25.6 %; Mean Corpuscular Hemoglobin 30.9 pg (25.0-34.0); Mean Corpuscular Volume 96.7 fL (80.0-100.0); Mean Platelet Volume 9.4 fL (9.4-12.4); Monocytes # (auto) 0.69 K/uL (0.11-0.59); Monocytes % (auto) 8.9 %; Neutrophils # (auto) 4.62 K/uL (1.40-6.50); Neutrophils % (auto) 59.3 %; Platelet Count 524 K/uL (130-400); RDW Coefficient of Variation 13.6 % (11.5-14.5); RDW Standard Deviation 48.8 fL (36.4-46.3); White Blood Count 7.78 K/ul (4.8-10.8)
[2023-09-24 07:27] LABS: BUN Creatinine Ratio 23.3 (10-20); Calcium 8.9 mg/dl (8.6-10.3); Creatinine Clr Calc Pharmacy 74.3 ml/min; Est GFR (African American) 106.7 ml/min; Est GFR (Non-African American) 92.1 ml/min; Potassium 4.8 mmol/L (3.5-5.1)
--- NOTE | 2023-09-24 09:16 | Gastroenterology Progress Note ---
Date of Service September 24, 2023 Assessment & Plan (1) Esophagitis: Plan: 88 year old female with history of recent subdural hematoma treated at [facility] [place], NSTEMI, hypothyroidism, cognitive decline, dementia admitted for evaluation of an unresponsive episode, noted to be anemia w/ HGB of 8.3 from baseline 12 w/o report of active GI bleeding or any reported episodes of black/bloody stools or emesis. GI was asked to re-evaluate for EGD/Colonoscopy given POA wishes and plan for discharge to nursing facility. We are happy to arrange EGD/Colonoscopy once medically optimized, cleared from c-collar. She would need to be on a liquid diet the day prior, start 4L golytely around 1500 and be made NPO after midnight. We appreciate assistance in the management of any serological abnormality and corrections to include: hemoglobin >7, INR <2, platelets >50,000, potassium levels >3.5 but <5.3, and sodium levels within 5 points of the reference range prior to endoscopic evaluation. Thank you for allowing us to participate in the care of this patient. Please call with any acute changes, questions or concerns. Please see addendum below with additional recommendation from my supervising physician. I spent a total of 35 minutes on the date of service in review of patient's record, and previously obtained information in person and appropriate medical visit, discussion and education of plan, with patient and/or caregiver, placing orders for tests/referral/procedures as medically necessary and documentation of pertinent clinical information in patient's medical records for their visit today. Admission and Anticipated Discharge Date Admission Date: September 18, 2023 Supervising Physician Co-Signing Physician Notes I saw and examined this patient with our nurse practitioner and agree with her assessment and plan. Persistent unexplained anemia will attempt endoscopy and colonoscopy tomorrow if patient able to manage bowel prep. Subjective Pt was seen and evaluated, pleasantly confused. No concerns this AM. GI was asked to re-evaluate for EGD/Colonoscopy. Review of Systems Review of Systems: Unobtainable due to cognitive status Physical Exam Constitutional: WD/WN, vitals as above Respiratory: normal respiratory effort, lungs clear to auscultation Cardiovascular: Rate/Rhythm: regular rate Gastrointestinal (Abdomen): normal bowel sounds, soft, nontender, no hepatosplenomegaly Skin: no rashes, warm and dry Results & Data Results & Data Vital Signs (Past 12 Hours) Vital Signs Temp Pulse Pulse Resp BP BP Pulse Ox 09/24/23 08:16 76 09/24/23 07:43 36.6 C 76 16 129/84 96 09/24/23 03:21 36.5 C 84 18 129/81 96 09/23/23 22:04 70 O2 Del Method 09/24/23 08:16 09/24/23 07:43 Room Air 09/24/23 03:21 Room Air 09/23/23 22:04 Laboratory Results 09/24/23 Range/Units 06:17 WBC 7.78 (4.8-10.8) K/ul RBC 3.30 L (4.20-5.40) M/uL Hgb 10.2 L (12.0-16.0) g/dl Hct 31.9 L (37.0-47.0) % MCV 96.7 (80.0-100.0) fL MCH 30.9 (25.0-34.0) pg MCHC 32.0 (32.0-36.0) g/dL RDW Std Deviation 48.8 H (36.4-46.3) fL RDW Coeff of Coni 13.6 (11.5-14.5) % Plt Count 524 H (130-400) K/uL MPV 9.4 (9.4-12.4) fL Immature Gran % (Auto) 1.0 % Neut % (Auto) 59.3 % Lymph % (Auto) 25.6 % [place] % (Auto) 8.9 % Eos % (Auto) 3.9 % Baso % (Auto) 1.3 % Neut # (Auto) 4.62 (1.40-6.50) K/uL Lymph # (Auto) 1.99 (1.20-3.40) K/uL [place] # (Auto) 0.69 H (0.11-0.59) K/uL Eos # (Auto) 0.30 (0.00-0.50) K/uL Baso # (Auto) 0.10 (0.00-0.20) K/uL Immature Gran # (Auto) 0.08 (0.01-0.20) K/uL Sodium 131 L (136-145) mmol/L Potassium 4.8 (3.5-5.1) mmol/L Chloride 97 L (98-107) mmol/L Carbon Dioxide 28 (21-32) mmol/L Anion Gap 6 (3-11) BUN 10 (6-23) mg/dl Creatinine 0.43 L (0.6-1.2) mg/dl Est Cr Clr Drug Dosing 74.3 ml/min Est GFR ( Amer) 106.7 ml/min Est GFR (Non-Af Amer) 92.1 ml/min BUN/Creatinine Ratio 23.3 H (10-20) Glucose 112 H (70-99(Fasting)) mg/dl Calcium 8.9 (8.6-10.3) mg/dl PG Care Time/CCT Total # of Minutes Spent Total Time Spent with Patient: Total time spent is greater than 50% in coordination of care (as documented) at patient's floor/unit and/or counseling patient: Coding Level of Care Code 81121 SUB INP/OBS CARE 2/35MIN Diagnoses Esophagitis K20.90
[2023-09-24] MEDS: LAVAGE SOLUTION 4000ML PO SCH (12:44)
--- NOTE | 2023-09-25 06:41 | Hospitalist Progress Note ---
Date of Service September 25, 2023 Assessment & Plan (1) GI bleed: (2) Pulmonary emboli: (3) DVT (deep venous thrombosis): (4) Esophagitis: (5) Odontoid fracture: (6) Acute UTI: (7) Hypothyroidism: (8) Episode of syncope: Plan 88 year old female admitted for evaluation of GI bleed after reporting Black stool and syncope with history of recent subdural hematoma treated at [facility] [place], NSTEMI, hypothyroidism, cognitive decline, dementia GI bleed: - GI bleeding considered likely Aspirin held on admission Origin not determined by CTAP or CT Chest - EGD/Colonoscopy recommended Potential for GI malignancy given DVT/PE and bleeding/anemia - GI consulted Favoring endoscopy once medically stable. GI updates they could not procee EGD today Planning for EGD/Colonoscopy tomorrow if patient able to tolerate bowel prep today. - Anticoagulation pending procedure Subacute type II/III odontoid fracture - Ortho recommending ongoing C-collar during EGD/Colonoscopy PE: - Today pt stable , comfortable breathing on room air, remains asymptomatic - Unable to anticoagulate patient for treatment of PE's at this time given her ongoing GI bleed - Spoke to POA,(09/22) who is in agreement for the procedure( EGD/Colonoscopy) prior to anticoagulation DVT: - Per venous doppler study, likely acute occlusive DVT within the right posterior tibial and peroneal veins - Unable to anticoagulate patient for treatment of PE's at this time given her ongoing GI bleed IVC filter placement, 09/19 See above plan above for chronic anticoagulation considerations Constipation - Increased an oral bowel regimen with Miralax 1 capful QID daily. UTI: resolved Urine culture positive for gram negative bacilli Rocephin 2000 g IV q24h, course completed on 09/20. Episode of syncope: Unclear etiology, but may be secondary to #1, #2, or #3; no history of aspirations (per [facility]); CXR okay No further episodes. Continue telemetry monitoring to assess for arrhythmias Hypothyroidism: TSH elevated arrival, but T4 within normal limits Continue levothyroxine Admission and Anticipated Discharge Date Admission Date: September 18, 2023 Supervising Physician Co-Signing Physician Notes Attending Physician Supervision Note: I independently interviewed and examined the patient and verified the leos history and physical, reviewed labs and image studies and agree with findings and care plan noted above. Syncope - likely multifactorial - GI bleed/PE. Vitals stable now. GI bleeding - Bleeding currently stable. Pending EGD/colo if she is able to get adequate bowel prep. C-spine fracture July 2023. CT scan noted. Per spine surgery - continue C collar. DVT and PE - Anticoagulation on hold d/t GI bleed. IVC filter placed 09/19. Based on Endoscopy findings - will then start anticoagulation. Constipationcontinue bowel regimen Dementia - not oriented x 3. Unable to speak sentences. Per friend visiting 09/24 - Sudden decline since placement in [facility]. Possible hospital delirium contributing as well. CT ordered 09/25/23 - No acute changes; Cerebral atrophy and commensurate enlargement of ventricles +. -Check Brain MRI. SCD Subjective Today morning, she was lying in her bed with head elevated, breathing on room air with maintained SPO2 and other vitals. She is not oriented to time, place and person. Additional HPI limited by mental status. As per nurse, she is getting frail day by day, decreased appetite, unable to eat like before. Review of Systems Review of Systems: see above. Constitutional: No fevers or chills. Eyes: No visual changes. Respiratory: No shortness of breath, cough, or trouble breathing. Cardiovascular: Additional Comments: No chest pain or palpitations. Gastrointestinal: No Bowel movemen today Integumentary: No unusual rashes or skin lesions except bruises in IV sites Neurologic: Weakness in right arm Physical Exam Constitutional: + ill appearing, + thin and + cachectic NAD, vitals WNL. Eyes: PERRLA. Conjunctivae normal. ENMT: Mallampati Class: I Respiratory: CTA bilaterally. Non labored breathing. No rhonchi, wheezing, or crackles. Cardiovascular: RRR. No murmurs noted. No LE edema. Gastrointestinal (Abdomen): Soft Nontender, +BS. No masses noted. Musculoskeletal: Head/Neck/Chest: + limited ROM of neck Spine: + limited cervical ROM Flaccid right upper limb, feels cold, but sensory could not be evaluated Skin: No rashes or skin lesions noted. Neurologic: Sensation grossly intact. No FND appreciated. Psychiatric: Orientation: + not oriented to person, + not oriented to place and + not oriented to time Results & Data Results & Data Vital Signs (Past 12 Hours) Vital Signs Temp Pulse Pulse Resp BP Pulse Ox O2 Del Method 09/25/23 02:14 36.3 C L 73 16 138/88 95 Room Air 09/24/23 22:11 69 09/24/23 22:00 36.3 C L 74 18 129/86 93 Room Air 09/24/23 20:20 36.5 C 75 18 126/78 93 Room Air Resident Activity Tracking Resident Involvement: Resident Care Provided Care Provided: Adult Hospital Medicine (1) GI bleed GI bleed type/associated pathology: melena Qualified Code(s): K92.1 - Melena (8) Episode of syncope Syncope type: unspecified Qualified Code(s): R55 - Syncope and collapse
[2023-09-25 07:13] LABS: Basophils # (auto) 0.08 K/uL (0.00-0.20); Eosinophils # (auto) 0.25 K/uL (0.00-0.50); Eosinophils % (auto) 3.2 %; Hematocrit (blood only) 32.8 % (37.0-47.0); Hemoglobin 10.5 g/dl (12.0-16.0); Immature Granulocytes # (auto) 0.12 K/uL (0.01-0.20); Immature Granulocytes % (auto) 1.5 %; Lymphocytes # (auto) 2.05 K/uL (1.20-3.40); Lymphocytes % (auto) 26.1 %; Mean Corpuscular Hemoglobin 30.3 pg (25.0-34.0); Mean Corpuscular Volume 94.5 fL (80.0-100.0); Mean Platelet Volume 9.4 fL (9.4-12.4); Monocytes # (auto) 0.72 K/uL (0.11-0.59); Monocytes % (auto) 9.2 %; Neutrophils # (auto) 4.64 K/uL (1.40-6.50); Platelet Count 528 K/uL (130-400); RDW Coefficient of Variation 13.4 % (11.5-14.5); RDW Standard Deviation 46.8 fL (36.4-46.3); Red Blood Count 3.47 M/uL (4.20-5.40); White Blood Count 7.86 K/ul (4.8-10.8)
[2023-09-25 07:30] LABS: BUN Creatinine Ratio 24.5 (10-20); Creatinine Clr Calc Pharmacy 65.2 ml/min; Est GFR (African American) 102.2 ml/min; Est GFR (Non-African American) 88.2 ml/min
--- NOTE | 2023-09-25 07:57 | Anesthesiology Consultation ---
Date of Service September 25, 2023 History Surgery Operation Date: 09/20/23 09:40 Proposed Procedures p Inferior Vena Cava Filter Placement - Darius Ochoa MD Operation Date: 09/25/23 16:30 Proposed Procedures p Colonoscopy EGD Dr. Fernandez - Jese Fernandez MD Pt found with drop in hemoglobin without history of signs of GI bleed. For evaluation via EGD/colonoscopy for source of blood loss. Height/Weight Height: 5 ft 2 in Weight: 51.7 kg Allergies Allergy/AdvReac Type Severity Reaction Status Date / Time Sulfa (Sulfonamide Allergy Intermediate RASH Verified 09/18/23 15:31 Antibiotics) Medications Home Medications Medication Instructions Recorded Confirmed Last Taken levothyroxine 88 mcg tablet 88 mcg PO DAILY 07/11/23 09/18/23 Unknown acetaminophen 325 mg tablet 650 mg PO Q4 PRN Pain 09/18/23 09/18/23 Unknown acetaminophen 325 mg tablet 975 mg PO TID 09/18/23 09/18/23 Unknown aspirin 81 mg tablet,delayed 81 mg PO DAILY 09/18/23 09/18/23 Unknown release dextrose 40 % oral gel (Glutose-15) 1 ea PO DAILY PRN Hypoglycemia 09/18/23 09/18/23 Unknown docusate sodium 100 mg capsule 100 mg PO BID 09/18/23 09/18/23 Unknown lidocaine 4 % topical patch 1 patch topical DAILY 09/18/23 09/18/23 Unknown ondansetron 4 mg disintegrating 4 mg PO Q4 PRN Nausea And Vomiting 09/18/23 09/18/23 Unknown tablet polyethylene glycol 3350 17 17 g PO DAILY PRN Constipation 09/18/23 09/18/23 Unknown gram/dose oral powder (Miralax) sennosides 8.6 mg-docusate sodium 1 tab-cap PO QDL PRN costipation 09/18/23 09/18/23 Unknown 50 mg tablet (Senokot-S) sodium chloride 1 gram tablet 1,000 mg PO DAILY 09/18/23 09/18/23 Unknown Active Medications Generic Name Dose Route Start Last Admin Trade Name Freq PRN Reason Stop Dose Admin Acetaminophen 975 mg 09/18/23 21:00 09/24/23 20:29 Acetaminophen 325 Mg Tab PO 10/18/23 20:59 975 mg TID KYLAH Administration Levothyroxine Sodium 88 mcg 09/19/23 06:30 09/25/23 06:21 Levothyroxine Sodium 88 Mcg Tablet PO 10/19/23 06:29 Not Given DAILYBB KYLAH Pantoprazole Sodium 40 mg 09/21/23 09:00 09/24/23 20:29 Pantoprazole 40 Mg Tab PO 10/21/23 08:59 40 mg BID KYLAH Administration Polyethylene Glycol 17 gm 09/22/23 17:00 09/24/23 20:28 Polyethylene (Miralax) 17 Gm Pack PO 10/22/23 16:59 17 gm QID KYLAH Administration Potassium Chloride 40 meq 09/20/23 09:00 09/24/23 20:29 Potassium Chloride 20 Meq/15 Ml Udc PO 10/20/23 08:59 40 meq BID KYLAH Administration Senna/Docusate Sodium 1 tab 09/22/23 16:45 09/24/23 20:29 Docusate Sodium/Senna 50/8.6mg Tab PO 10/22/23 16:44 1 tab BID KYLAH Administration NPO Date Last Intake of Fluids: 09/20/23 Time Last Intake of Fluids: 13:30 Date Last Intake of Solids: 09/19/23 Time Last Intake of Solids: 23:59 Past Medical History Medical History Elevated CK Social History Smoking Status: Unknown if ever smoked Do You Dip or Chew Tobacco: No Hx Alcohol Use: Yes Alcohol type: wine alcohol intake frequency: holidays/special occasions only Hx Substance Use: No substance use type: does not use Physical Exam Vital Signs Last Vital Signs Temp 36.5 C 09/25/23 07:50 Pulse 73 09/25/23 07:50 Resp 18 09/25/23 07:50 BP 120/82 09/25/23 07:50 Pulse Ox 93 09/25/23 07:50 O2 Del Method Room Air 09/25/23 07:50 Testing Laboratory Results 09/25/23 06:28 09/25/23 06:28 Urine Color Yellow 09/18/23 14:20 Urine Appearance Turbid (Clear) A 09/18/23 14:20 Urine pH 7.5 (4.5-7.5) 09/18/23 14:20 Ur Specific [place] 1.017 (1.000-1.030) 09/18/23 14:20 Urine Protein 1+ (Negative) H 09/18/23 14:20 Urine Glucose (UA) Negative (Negative) 09/18/23 14:20 Urine Ketones Negative (Negative) 09/18/23 14:20 Urine Nitrite Negative (Negative) 09/18/23 14:20 Ur Leukocyte Esterase 1+ (Negative) H 09/18/23 14:20 Urine WBC (Auto) >50 /hpf (0-5) H 09/18/23 14:20 Urine RBC (Auto) 6-10 /hpf (0-2) H 09/18/23 14:20 U Hyaline Cast (Auto) 6-10 /lpf (0-2) H 09/18/23 14:20 U Epithel Cells (Auto) 6-10 /hpf (0-2) H 09/18/23 14:20 Urine Bacteria (Auto) 4+ (None Seen) H 09/18/23 14:20 Blood Type O Positive 09/18/23 15:58 Antibody Screen NEGATIVE 09/18/23 15:58 09/18/23 14:20 Urine Culture - Final Urine,Straight Cath Escherichia coli
--- NOTE | 2023-09-25 09:43 | History & Physical Bridge Note ---
Date of Service September 25, 2023 History & Physical Bridge Note I have reviewed the History & Physical and in the interval since the performance of the History & Physical I have noted the following changes of clinical significance: Per nursing, the patient did not effectively bowel prep. She reportedly took si ps throughout the night of her bowel prep and was incontinent of stool on one occasion. Nursing also notified me that they were contacting the hospitalists due to concerns for neuro changes. I did discuss with Dr. Orellana who reported that they would be ordering a STAT CT. From a GI perspective, we will pause on endoscopic evaluation at present given poor bowel prep and neuro changes.
[2023-09-25] MEDS: SODIUM CHLORIDE 0.9% 500 ML IV SCH (09:57)
--- NOTE | 2023-09-25 10:44 | CT Scan Report ---
CT head/brain wo con CLINICAL HISTORY: Acute neurologic changes Technique: Contiguous axial CT images of the head were acquired from the base of the skull to the shyam kizzy without intravenous contrast administration. Images were viewed in brain, subdural and [facility]. Automated dose lowering techniques and/or adjustment according to patient size were utilized for this exam. Comparison: Comparison is made to CT head 07/11/2023 Findings: Areas of decreased attenuation are present in the periventricular and subcortical white matter bilate rally consistent with small vessel ischemic disease. Generalized cerebral atrophy with commensurate e nlargement of the ventricles, sulci, and cisterns is also present. There is no acute intracranial hem orrhage or evidence of acute territorial infarction. No shift of the midline structures, mass effect, or extra-axial abnormalities are shown. Atherosclerotic calcifications are present in the intracran ial segments of the internal carotid arteries. Imaged portions of the paranasal sinuses and mastoid air cells are clear. The orbits appear normal. There are no acute fractures of the calvaria or scalp swelling. Impression: No acute intracranial hemorrhage, no evidence of acute territorial infarction or other acute intracra nial disease process. ACT 112: Negative or not required by law. Electronically signed by: Alonso Ring M.D. 09/25/2023 10:43 AM
--- NOTE | 2023-09-25 15:49 | XRay Report ---
XR KUB/Abdomen 1 view CLINICAL HISTORY: MRI screening TECHNIQUE: 1 view of the abdomen was obtained. Comparison: Comparison is made to CT abdomen pelvis 09/18/2023 FINDINGS: An IVC filter is seen. Degenerative changes are seen in the visualized skeleton. The bowel gas patter n is nonobstructive. A moderate amount of stool is noted within the large bowel. IMPRESSION: IVC filter is seen. No additional foreign bodies are seen. Patient is cleared for MRI. ACT 112: Negative or not required by law. Electronically signed by: Alonso Ring M.D. 09/25/2023 3:48 PM
--- NOTE | 2023-09-25 19:16 | Magnetic Resonance Report ---
MR brain wo con CLINICAL HISTORY: acute neurologic change TECHNIQUE: Multiplanar and multisequence MR images of the brain were obtained without intravenous con trast. Comparison: Comparison is made to MRI brain 04/25/[address] head 09/25/2023 FINDINGS: No abnormal restricted diffusion is identified. Foci of T2 and FLAIR hyperintensity are noted in the paraventricular areas consistent with chronic small vessel ischemic disease. The ventricular system i s normal in appearance. No mass is seen. There is no mass effect or midline shift. Punctate focus of susceptibility artifact is a left occipital lobe, nonspecific. No extra axial fluid collections are s een. The corpus callosum, pituitary gland, and cerebellar tonsils appear grossly unremarkable. Flow voids of the major intracranial arterial vessels are identified. The imaged portions of the para nasal sinuses, mastoid air cells, and orbits are unremarkable. IMPRESSION: No acute abnormalities. ACT 112: Negative or not required by law. Electronically signed by: Alonso Ring M.D. 09/25/2023 7:13 PM
[2023-09-25] MEDS: LAVAGE SOLUTION 4000ML PO SCH (21:41)
[2023-09-26 05:06] LABS: Basophils % (auto) 1.2 %; Eosinophils % (auto) 2.4 %; Hematocrit (blood only) 32.3 % (37.0-47.0); Hemoglobin 10.3 g/dl (12.0-16.0); Immature Granulocytes # (auto) 0.08 K/uL (0.01-0.20); Lymphocytes # (auto) 2.22 K/uL (1.20-3.40); Mean Corpuscular Hemoglobin 30.2 pg (25.0-34.0); Mean Corpuscular Hgb Conc 31.9 g/dL (32.0-36.0); Mean Corpuscular Volume 94.7 fL (80.0-100.0); Mean Platelet Volume 9.1 fL (9.4-12.4); Monocytes # (auto) 0.59 K/uL (0.11-0.59); Monocytes % (auto) 7.2 %; Neutrophils # (auto) 5.03 K/uL (1.40-6.50); Neutrophils % (auto) 61.2 %; Platelet Count 491 K/uL (130-400); RDW Coefficient of Variation 13.6 % (11.5-14.5); RDW Standard Deviation 47.6 fL (36.4-46.3); Red Blood Count 3.41 M/uL (4.20-5.40); White Blood Count 8.22 K/ul (4.8-10.8)
[2023-09-26 05:23] LABS: BUN Creatinine Ratio 30.6 (10-20); Creatinine Clr Calc Pharmacy 65.2 ml/min; Est GFR (African American) 102.2 ml/min; Est GFR (Non-African American) 88.2 ml/min
--- NOTE | 2023-09-26 06:57 | Hospitalist Progress Note ---
Date of Service September 26, 2023 Assessment & Plan (1) GI bleed: (2) Pulmonary emboli: (3) DVT (deep venous thrombosis): (4) Esophagitis: (5) Odontoid fracture: (6) Acute UTI: (7) Hypothyroidism: (8) Episode of syncope: Plan 88 year old female admitted for evaluation of GI bleed after reporting Black stool and syncope with history of recent subdural hematoma treated at [facility], NSTEMI, hypothyroidism, cognitive decline, dementia GI bleed: - GI bleeding considered likely Aspirin held on admission Origin not determined by CTAP or CT Chest - EGD/Colonoscopy recommended Potential for GI malignancy given DVT/PE and bleeding/anemia - GI consulted Favoring endoscopy once medically stable. GI updates they could not procee EGD today Planning for EGD/Colonoscopy tomorrow as patient could not tolerate bowel prep regimen today. Planned for NG tube insertion for bowel prep. - Anticoagulation pending procedure Subacute type II/III odontoid fracture - Ortho recommending ongoing C-collar during EGD/Colonoscopy PE: - Today pt stable , comfortable breathing on room air, remains asymptomatic - Unable to anticoagulate patient for treatment of PE's at this time given her ongoing GI bleed - Spoke to POA,(09/24) who is in agreement for the procedure( EGD/Colonoscopy) prior to anticoagulation ; Updated about her condition as well. DVT: - Per venous doppler study, likely acute occlusive DVT within the right posterior tibial and peroneal veins - Unable to anticoagulate patient for treatment of PE's at this time given her ongoing GI bleed IVC filter placement, 09/19 See above plan above for chronic anticoagulation considerations Constipation - Increased an oral bowel regimen with Miralax 1 capful QID daily. UTI: resolved Urine culture positive for gram negative bacilli Rocephin 2000 g IV q24h, course completed on 09/20. Episode of syncope: Unclear etiology, but may be secondary to #1, #2, or #3; no history of aspirations (per [facility]); CXR okay No further episodes. Continue telemetry monitoring to assess for arrhythmias Hypothyroidism: TSH elevated arrival, but T4 within normal limits Continue levothyroxine Admission and Anticipated Discharge Date Admission Date: September 18, 2023 Supervising Physician Co-Signing Physician Notes Attending Physician Supervision Note: I independently interviewed and examined the patient and verified the leos history and physical, reviewed labs and image studies and agree with findings and care plan noted above. Syncope - likely multifactorial - GI bleed/PE. Vitals stable now. GI bleeding - Bleeding currently stable. Unable to take bowel prep. Per GI - NGT for bowel prep and anticipate EGD/colo in am. C-spine fracture July 2023. CT scan noted. Per spine surgery - continue C collar. DVT and PE - Anticoagulation on hold d/t GI bleed. IVC filter placed 09/19. Based on Endoscopy findings - will then start anticoagulation. Constipationcontinue bowel regimen Dementia - not oriented x 3. Unable to speak sentences. Per friend visiting 09/24 - Sudden decline since placement in [facility]. Possible hospital delirium contributing as well. CT and MRI brain 09/25/23 - No acute changes; -Continue supportive care. SCD Subjective Today morning, she was lying in her bed with head elevated, breathing on room air with maintained SPO2 and other vitals. She is not oriented to time, place and person. Additional HPI limited by mental status. Seems like she could not take adequate bowel prep regimen. Physical Exam Physical Exam: Ill looking, frail, Not well Oriented to TPP Chest: BL decreased breath sound, No added sound CVS: S1S2M0 PA: Soft NT, Bowel sound +nt MSK: 2/5 power on right UL, Rest Normal, Limited ROM in neck Musculoskeletal: Head/Neck/Chest: + limited ROM of neck Results & Data Results & Data Vital Signs (Past 12 Hours) Vital Signs Temp Pulse Pulse Resp BP Pulse Ox O2 Del Method 09/26/23 03:19 36.6 C 74 18 129/86 93 Room Air 09/26/23 00:07 36.3 C L 78 18 128/88 94 Room Air 09/25/23 21:53 90 09/25/23 19:40 36.4 C L 79 20 123/81 92 Room Air Resident Activity Tracking Resident Involvement: Resident Care Provided Care Provided: Adult Hospital Medicine (1) GI bleed GI bleed type/associated pathology: melena Qualified Code(s): K92.1 - Melena (8) Episode of syncope Syncope type: unspecified Qualified Code(s): R55 - Syncope and collapse
--- NOTE | 2023-09-26 10:19 | Gastroenterology Progress Note ---
Date of Service September 26, 2023 Assessment & Plan (1) Esophagitis: Plan: Patient without GI complaints today, but is confused at bedside. she was planned to have EGD / colonoscopy to evaluate anemia, but patient has not taken her prep. - once patient has finished her prep appropriately we can consider endoscopic procedures. per [facility], patient has barely taken a glass. - continue to follow hgb/hct. currently, this seems stable. - continue with protonix 40mg po bid. Admission and Anticipated Discharge Date Admission Date: September 18, 2023 Supervising Physician Co-Signing Physician Notes I personally saw and examined the patient. I have reviewed the chart and agree with the documentation provided by the PET CAREGIVER including discussion about the assessment, treatment and plan. Briefly, needs EGD and colonoscopy given anemia but not able to tolerate prep. At this point, she agrees to NG tube. Let us try this today, with aim for laxitive tonight and EGD and colonoscopy tonight. Subjective 88 year old female with history of recent subdural hematoma treated at [facility], NSTEMI, hypothyroidism, cognitive decline, dementia admitted for evaluation of an unresponsive episode, noted to be anemia w/ HGB of 8.3 from baseline 12 without report of active GI bleeding or any reported episodes of black/bloody stools or emesis. GI was asked to re-evaluate for EGD/Colonoscopy given POA wishes and plan for discharge to nursing facility. She was to have a colonoscopy and egd yesterday but she did not take much prep. It was advised she continue with the prep yesterday. I spoke with [facility] this morning who was helping with the patient and she tells me that the patient has barely taken any prep. No bowel movements noted yet. patient is confused at bedside and does not provide much history and does not always answer appropriately. hgb stable at 10.3 today. Review of Systems Review of Systems: unobtainable. Physical Exam Constitutional: WD/WN, vitals as above Neck: in collar Respiratory: normal respiratory effort, lungs clear to auscultation Cardiovascular: Rate/Rhythm: regular rate and regular rhythm Gastrointestinal (Abdomen): normal bowel sounds, soft, nontender, no hepatosplenomegaly Psychiatric: Orientation: alert Results & Data Results & Data Vital Signs (Past 12 Hours) Vital Signs Temp Pulse Resp BP Pulse Ox O2 Del Method 09/26/23 07:57 97.7 F 78 16 138/84 95 Room Air 09/26/23 03:19 97.9 F 74 18 129/86 93 Room Air 09/26/23 00:07 97.3 F L 78 18 128/88 94 Room Air Coding Level of Care Code 99931 SUB INP/OBS CARE 03/01MIN Diagnoses Esophagitis K20.90
[2023-09-26] MEDS: LAVAGE SOLUTION 4000ML PO SCH (16:38)
[2023-09-27] MEDS: ACETAMINOPHEN 1,000 MG/100 ML VIAL IV STA (06:32)
[2023-09-27 06:46] LABS: Basophils # (auto) 0.08 K/uL (0.00-0.20); Basophils % (auto) 1.1 %; Eosinophils # (auto) 0.14 K/uL (0.00-0.50); Hematocrit (blood only) 30.6 % (37.0-47.0); Hemoglobin 10.2 g/dl (12.0-16.0); Immature Granulocytes # (auto) 0.06 K/uL (0.01-0.20); Immature Granulocytes % (auto) 0.8 %; Lymphocytes # (auto) 2.01 K/uL (1.20-3.40); Lymphocytes % (auto) 28.1 %; Mean Corpuscular Hemoglobin 31.1 pg (25.0-34.0); Mean Corpuscular Hgb Conc 33.3 g/dL (32.0-36.0); Mean Corpuscular Volume 93.3 fL (80.0-100.0); Mean Platelet Volume 9.2 fL (9.4-12.4); Monocytes # (auto) 0.57 K/uL (0.11-0.59); Platelet Count 477 K/uL (130-400); RDW Coefficient of Variation 13.4 % (11.5-14.5); RDW Standard Deviation 46.1 fL (36.4-46.3); Red Blood Count 3.28 M/uL (4.20-5.40); White Blood Count 7.16 K/ul (4.8-10.8)
--- NOTE | 2023-09-27 06:47 | Hospitalist Progress Note ---
Date of Service September 27, 2023 Assessment & Plan (1) GI bleed: (2) Pulmonary emboli: (3) DVT (deep venous thrombosis): (4) Esophagitis: (5) Odontoid fracture: (6) Acute UTI: (7) Hypothyroidism: (8) Episode of syncope: Plan 88 year old female admitted for evaluation of GI bleed after reporting Black stool and syncope with history of recent subdural hematoma treated at [facility], NSTEMI, hypothyroidism, cognitive decline, dementia GI bleed: - GI bleeding considered likely Aspirin held on admission Origin not determined by CTAP or CT Chest - EGD/Colonoscopy recommended Potential for GI malignancy given DVT/PE and bleeding/anemia - GI consulted Favoring endoscopy GI updates they could not procee EGD today Planning for EGD/Colonoscopy once bowel preped Wait until tomorrow, if not NG can be reasonable option. - Anticoagulation pending procedure Subacute type II/III odontoid fracture - Ortho recommending ongoing C-collar during EGD/Colonoscopy. NG tube insertion if needed might be difficult; cautious insertion PE: - Today pt stable , comfortable breathing on room air, remains asymptomatic - Unable to anticoagulate patient for treatment of PE's at this time given her ongoing GI bleed - Spoke to POA,(09/24) who is in agreement for the procedure( EGD/Colonoscopy) prior to anticoagulation ; Updated about her condition as well. DVT: - Per venous doppler study, likely acute occlusive DVT within the right posterior tibial and peroneal veins - Unable to anticoagulate patient for treatment of PE's at this time given her ongoing GI bleed IVC filter placement, 09/19 See above plan above for chronic anticoagulation considerations Constipation - Increased an oral bowel regimen with Miralax 1 capful QID daily. UTI: resolved Episode of syncope: Unclear etiology, but may be secondary to #1, #2, or #3; no history of aspirations (per [facility]); CXR okay No further episodes. Continue telemetry monitoring to assess for arrhythmias Hypothyroidism: TSH elevated arrival, but T4 within normal limits Continue levothyroxine Admission and Anticipated Discharge Date Admission Date: September 18, 2023 Supervising Physician Co-Signing Physician Notes Attending Physician Supervision Note: I independently interviewed and examined the patient and verified the leos history and physical, reviewed labs and image studies and agree with findings and care plan noted above. Syncope - likely multifactorial - GI bleed/PE. Vitals have stayed stable. GI bleeding - Continuing to have dark stool. h/h stable though. Did have fair amount of bowel prep yesterday and having liquid stool but stool still brown. To continue prep through today and anticipate EGD/colo in am. C-spine fracture July 2023. CT scan noted. Per spine surgery - continue C collar. DVT and PE - Anticoagulation on hold d/t GI bleed. IVC filter placed 09/19. Based on Endoscopy findings - will then start anticoagulation. Constipationcontinue bowel regimen Dementia - not oriented x 3. Unable to speak sentences. Per friend visiting 09/24 - Sudden decline since placement in [facility]. Possible hospital delirium contributing as well. CT and MRI brain 09/25/23 - No acute changes; -Continue supportive care. SCD Subjective Today morning, she was lying in her bed with head elevated, breathing on room air with maintained SPO2 and other vitals. She is not oriented to time, place and person. No Adequate bowel prep as per GI team Review of Systems Review of Systems: As per HPI Physical Exam Physical Exam: Ill looking, frail, Not well Oriented to TPP Chest: BL decreased breath sound, No added sound CVS: S1S2M0 PA: Soft NT, Bowel sound +nt MSK: 2/5 power on right UL, Rest Normal, Limited ROM in neck Constitutional: + ill appearing, + thin and + cachectic ENMT: Mallampati Class: I Musculoskeletal: Head/Neck/Chest: + limited ROM of neck Spine: + limited cervical ROM Psychiatric: Orientation: + not oriented to person, + not oriented to place and + not oriented to time Results & Data Results & Data Vital Signs (Past 12 Hours) Vital Signs Temp Pulse Pulse Resp BP BP Pulse Ox 09/27/23 03:18 36.3 C L 78 18 115/79 94 09/27/23 01:00 36.3 C L 69 18 102/67 93 09/26/23 22:12 76 09/26/23 20:10 09/26/23 19:44 36.8 C 99 H 20 127/80 94 O2 Del Method 09/27/23 03:18 Room Air 09/27/23 01:00 Room Air 09/26/23 22:12 09/26/23 20:10 Room Air 09/26/23 19:44 Room Air (1) GI bleed GI bleed type/associated pathology: melena Qualified Code(s): K92.1 - Melena (8) Episode of syncope Syncope type: unspecified Qualified Code(s): R55 - Syncope and collapse
[2023-09-27 07:10] LABS: BUN Creatinine Ratio 33.3 (10-20); Calcium 8.9 mg/dl (8.6-10.3); Est GFR (African American) 105.2 ml/min; Est GFR (Non-African American) 90.7 ml/min; Potassium 4.2 mmol/L (3.5-5.1)
--- NOTE | 2023-09-27 08:37 | History & Physical Report ---
Date of Service September 27, 2023 Assessment & Plan Admission and Anticipated Discharge Date Admission Date: September 18, 2023 History of Present Illness Chief Complaint: anemia iron def Primary Care Provider: Dutch Krueger DO Allergies Allergy/AdvReac Type Severity Reaction Status Date / Time Sulfa (Sulfonamide Allergy Intermediate RASH Verified 09/18/23 15:31 Antibiotics) Home Medications Medication Instructions Recorded Confirmed Type levothyroxine 88 mcg tablet 88 mcg PO DAILY 07/11/23 09/18/23 History acetaminophen 325 mg tablet 650 mg PO Q4 PRN Pain 09/18/23 09/18/23 History acetaminophen 325 mg tablet 975 mg PO TID 09/18/23 09/18/23 History aspirin 81 mg tablet,delayed 81 mg PO DAILY 09/18/23 09/18/23 History release dextrose 40 % oral gel (Glutose-15) 1 ea PO DAILY PRN Hypoglycemia 09/18/23 09/18/23 History docusate sodium 100 mg capsule 100 mg PO BID 09/18/23 09/18/23 History lidocaine 4 % topical patch 1 patch topical DAILY 09/18/23 09/18/23 History ondansetron 4 mg disintegrating 4 mg PO Q4 PRN Nausea And Vomiting 09/18/23 09/18/23 History tablet polyethylene glycol 3350 17 17 g PO DAILY PRN Constipation 09/18/23 09/18/23 History gram/dose oral powder (Miralax) sennosides 8.6 mg-docusate sodium 1 tab-cap PO QDL PRN costipation 09/18/23 09/18/23 History 50 mg tablet (Senokot-S) sodium chloride 1 gram tablet 1,000 mg PO DAILY 09/18/23 09/18/23 History Past Med/Surg History Problem List (Updated 09/25/23 @ 13:21 by Kayla Jung MD) Odontoid fracture DVT (deep venous thrombosis) Pulmonary emboli (Acute) Esophagitis Acute UTI (Acute) Hypernatremia Hypothyroidism Episode of syncope (Acute) GI bleed (Acute) B12 deficiency Non-ST elevation [place] (NSTEMI) (Acute) Weakness (Acute) Cognitive decline Lower extremity weakness Lateral meniscus tear Right knee DJD Medical History Elevated CK Social History Smoking Status: Unknown if ever smoked Second Hand Exposure: No; Do You Dip or Chew Tobacco: No; Hx Alcohol Use: Yes Alcohol type: wine Hx Substance Use: No Preferred Language: Filipino Communication Ability: Effective Drama Therapist Required: No Beliefs That Will Affect Care: None Current Living Situation: Alone Feels Safe at Home: Yes Assistive Devices: Wheelchair Results & Data Vital Signs (Past 12 Hours) Vital Signs Temp Pulse Pulse Resp BP BP Pulse Ox 09/27/23 07:39 36.7 C 79 16 139/74 95 09/27/23 03:18 36.3 C L 78 18 115/79 94 09/27/23 01:00 36.3 C L 69 18 102/67 93 09/26/23 22:12 76 O2 Del Method 09/27/23 07:39 Room Air 09/27/23 03:18 Room Air 09/27/23 01:00 Room Air 09/26/23 22:12 Code Status & VTE Plan VTE Prophylaxis Plan VTE Prophylaxis will be ordered: Yes Coding Level of Care Code None
--- NOTE | 2023-09-27 09:27 | Gastroenterology Progress Note ---
Date of Service September 27, 2023 Assessment & Plan (1) Esophagitis: Plan: Patient without GI complaints today and is confused at bedside. she was planned to have EGD / colonoscopy to evaluate anemia, but patient has not taken all of her prep. stools not clear per nursing. - once patient has finished her prep appropriately we can consider endoscopic procedures. she will continue to take prep throughout today and we can plan to reattempt tomorrow. - continue to follow hgb/hct. currently, this seems stable. - continue with protonix 40mg po bid. Admission and Anticipated Discharge Date Admission Date: September 18, 2023 Supervising Physician Co-Signing Physician Notes I personally saw and examined the patient. I have reviewed the chart and agree with the documentation provided by the QUALITY IMPROVEMENT SPECIALIST including discussion about the assessment, treatment and plan. Briefly, took 1/2 prep and starting with bm. Plan for egd and colon as long as can prep. Will get consent in am from POA. Subjective Patient was working through prep yesterday and into this morning. I spoke with nursing and she still has most of the second half of the prep to do. stools are moving but are still brown. patient offers no complaints today. Nursing has been trying to give her prep every 10 minutes or so. Review of Systems Review of Systems: All systems reviewed & are unremarkable except as noted in HPI & below Physical Exam Constitutional: WD/WN, vitals as above Respiratory: normal respiratory effort, lungs clear to auscultation Cardiovascular: Rate/Rhythm: regular rate and regular rhythm Gastrointestinal (Abdomen): normal bowel sounds, soft, nontender, no hepatosplenomegaly Psychiatric: Orientation: alert Affect: euthymic affect Results & Data Results & Data Vital Signs (Past 12 Hours) Vital Signs Temp Pulse Pulse Resp BP BP Pulse Ox 09/27/23 07:39 98.1 F 79 16 139/74 95 09/27/23 03:18 97.3 F L 78 18 115/79 94 09/27/23 01:00 97.3 F L 69 18 102/67 93 09/26/23 22:12 76 O2 Del Method 09/27/23 07:39 Room Air 09/27/23 03:18 Room Air 09/27/23 01:00 Room Air 09/26/23 22:12 Coding Level of Care Code 89178 SUB INP/OBS CARE 1/25MIN Diagnoses Esophagitis K20.90
[2023-09-27] MEDS: D5W AND NSS 1,000 ML IV SCH (10:38)
[2023-09-28] MEDS: oxyCODONE HCL IR 5 MG TAB (IMMEDIATE RELEASE) PO STA (04:26)
--- NOTE | 2023-09-28 07:56 | Hospitalist Progress Note ---
Date of Service September 28, 2023 Assessment & Plan (1) GI bleed: (2) Pulmonary emboli: (3) DVT (deep venous thrombosis): (4) Esophagitis: (5) Odontoid fracture: (6) Acute UTI: (7) Hypothyroidism: (8) Episode of syncope: Plan 88 year old female admitted for evaluation of GI bleed after reporting Black stool and syncope with history of recent [place] [facility] [place], hypothyroidism, cognitive decline, dementia GI bleed: - GI bleeding of uncertain origin; Imaging negative EGD/Colonoscopy recommended Potential for GI malignancy given DVT/PE and bleeding/anemia - GI consult: NG tube on Sunday; [place] on Sunday - Anticoagulation pending procedure Subacute type II/III odontoid fracture - Ortho recommending ongoing C-collar during EGD/Colonoscopy. PE: - Today pt stable , comfortable breathing on room air, remains asymptomatic - Unable to anticoagulate patient for treatment of PE's at this time given her ongoing GI bleed - Spoke to POA,(09/24) who is in agreement for the procedure( EGD/Colonoscopy) prior to anticoagulation ; Updated about her condition as well. DVT: - Per venous doppler study, likely acute occlusive DVT within the right posterior tibial and peroneal veins - Unable to anticoagulate patient for treatment of PE's at this time given her ongoing GI bleed IVC filter placement, 09/19 See above plan above for chronic anticoagulation considerations Constipation - Increased an oral bowel regimen with Miralax 1 capful QID daily. UTI: resolved Episode of syncope: Unclear etiology, but may be secondary to #1, #2, or #3; no history of aspirations (per [facility]); CXR okay No further episodes. Continue telemetry monitoring to assess for arrhythmias Hypothyroidism: TSH elevated arrival, but T4 within normal limits Continue levothyroxine/ Repeat in 4 weeks of admission Admission and Anticipated Discharge Date Admission Date: September 18, 2023 Supervising Physician Co-Signing Physician Notes Attending Physician Supervision Note: I independently interviewed and examined the patient and verified the leos history and physical, reviewed labs and image studies and agree with findings and care plan noted above. Syncope - likely multifactorial - GI bleed/PE. Vitals have stayed stable. GI bleeding - h/h stable. Unable to have bowel prep. Planning NGT placement on Sunday for bowel prep and EGD/colo on Sunday. -continue clear liquid diet. C-spine fracture July 2023. CT scan noted. Per spine surgery - continue C collar. DVT and PE - Anticoagulation on hold d/t GI bleed. IVC filter placed 09/19. Based on Endoscopy findings - will then start anticoagulation. Dementia - not oriented x 3. Unable to speak sentences. Per friend visiting 09/24 - Sudden decline since placement in [facility]. CT and MRI brain 09/25/23 - No acute changes; -Continue supportive care. Elevated TSH - No dose change at this time. Recheck as outpatient. SCD Spoke to POA about GOC - Would like to continue Aggressive care. Subjective Today morning, she was lying in her bed with head elevated, breathing on room air with maintained SPO2 and other vitals. She seems relatively oriented than before. Complained of pain and showed me her pain in back. EGD/Colonoscopy canceled again for today. Review of Systems Review of Systems: As per HPI Physical Exam Physical Exam: Ill looking, frail, Not well Oriented to TPP Chest: BL decreased breath sound, No added sound CVS: S1S2M0 PA: Soft NT, Bowel sound +nt MSK: 2/5 power on right UL, Rest Normal, Limited ROM in neck Constitutional: + ill appearing, + thin and + cachectic ENMT: Mallampati Class: I Musculoskeletal: Head/Neck/Chest: + limited ROM of neck Spine: + limited cervical ROM Psychiatric: Orientation: + not oriented to person, + not oriented to place and + not oriented to time Results & Data Results & Data Vital Signs (Past 12 Hours) Vital Signs Temp Pulse Pulse Resp BP Pulse Ox O2 Del Method 09/28/23 07:49 35.9 C L 78 18 121/77 96 Room Air 09/28/23 02:44 36.5 C 77 18 174/94 H 93 Room Air 09/28/23 00:24 Room Air 09/27/23 22:53 36.6 C 72 16 133/81 95 Room Air 09/27/23 21:45 72 Resident Activity Tracking Resident Involvement: Resident Care Provided Care Provided: Adult Hospital Medicine (1) GI bleed GI bleed type/associated pathology: melena Qualified Code(s): K92.1 - Melena (8) Episode of syncope Syncope type: unspecified Qualified Code(s): R55 - Syncope and collapse
[2023-09-28 08:39] LABS: Basophils # (auto) 0.09 K/uL (0.00-0.20); Basophils % (auto) 1.2 %; Eosinophils # (auto) 0.14 K/uL (0.00-0.50); Eosinophils % (auto) 1.9 %; Hematocrit (blood only) 32.3 % (37.0-47.0); Hemoglobin 9.9 g/dl (12.0-16.0); Immature Granulocytes # (auto) 0.06 K/uL (0.01-0.20); Immature Granulocytes % (auto) 0.8 %; Lymphocytes % (auto) 23.4 %; Mean Corpuscular Hemoglobin 29.9 pg (25.0-34.0); Mean Corpuscular Hgb Conc 30.7 g/dL (32.0-36.0); Mean Corpuscular Volume 97.6 fL (80.0-100.0); Mean Platelet Volume 9.1 fL (9.4-12.4); Monocytes # (auto) 0.57 K/uL (0.11-0.59); Monocytes % (auto) 7.9 %; Neutrophils # (auto) 4.69 K/uL (1.40-6.50); Neutrophils % (auto) 64.8 %; Platelet Count 400 K/uL (130-400); RDW Coefficient of Variation 13.6 % (11.5-14.5); RDW Standard Deviation 49.3 fL (36.4-46.3); Red Blood Count 3.31 M/uL (4.20-5.40); White Blood Count 7.25 K/ul (4.8-10.8)
[2023-09-28 09:21] LABS: BUN Creatinine Ratio 32.6 (10-20); Creatinine Clr Calc Pharmacy 74.3 ml/min; Est GFR (African American) 106.7 ml/min; Est GFR (Non-African American) 92.1 ml/min; Potassium 4.3 mmol/L (3.5-5.1)
--- NOTE | 2023-09-28 09:23 | Gastroenterology Progress Note ---
Date of Service September 28, 2023 Assessment & Plan (1) Esophagitis: Plan: 88 year old female with history of recent subdural hematoma treated [place] [facility] [place], NSTEM[place], hypothyroidism, cognitive decline, dementia admitted for evaluation of an unresponsive episode, noted to be anemia w/ HGB of 8.3 from baseline 12 w/o report of active GI bleeding. She has attempted a bowel prep over the last week, however, has not been successful in completion. She is passing brown stools. EGD/Colonoscopy canceled again for today. Encourage a goals of care meeting and or discussion for alternate methods to complete bowel prep if EGD/Colon are still desired by POA. Thank you for allowing us to participate in the care of this patient. Please call with any acute changes, questions or concerns. Please see addendum below with additional recommendation from my supervising physician. I spent a total of 35 minutes on the date of service in review of patient's record, and previously obtained information in person and appropriate medical visit, discussion and education of plan, with patient and/or caregiver, placing orders for tests/referral/procedures as medically necessary and documentation of pertinent clinical information in patient's medical records for their visit today. Admission and Anticipated Discharge Date Admission Date: September 18, 2023 Supervising Physician Co-Signing Physician Notes I personally saw and examined the patient. I have reviewed the chart and agree with the documentation provided by the MEDICAL ACCOUNTANT including discussion about the assessment, treatment and plan. Still not prepped despite one week trial. I think we need to have a goals of care discussion with POA re utility of tests. Clearly not bleeding since anemia noted for 1 week. Subjective Pt was seen. Resting in bed. Offers no concerns. Discussed with nursing. Unfortunately, she did not complete her bowel prep. Passing brown stools. Review of Systems Review of Systems: Unobtainable due to cognitive status Physical Exam Constitutional: WD/WN, vitals as above Respiratory: normal respiratory effort, lungs clear to auscultation Cardiovascular: Rate/Rhythm: regular rate and regular rhythm Gastrointestinal (Abdomen): normal bowel sounds, soft, nontender, no hepatosplenomegaly Skin: no rashes, warm and dry Results & Data Results & Data Vital Signs (Past 12 Hours) Vital Signs Temp Pulse Pulse Resp BP Pulse Ox O2 Del Method 09/28/23 07:49 35.9 C L 78 18 121/77 96 Room Air 09/28/23 02:44 36.5 C 77 18 174/94 H 93 Room Air 09/28/23 00:24 Room Air 09/27/23 22:53 36.6 C 72 16 133/81 95 Room Air 09/27/23 21:45 72 Laboratory Results 09/28/23 Range/Units 08:01 WBC 7.25 (4.8-10.8) K/ul RBC 3.31 L (4.20-5.40) M/uL Hgb 9.9 L (12.0-16.0) g/dl Hct 32.3 L (37.0-47.0) % MCV 97.6 (80.0-100.0) fL MCH 29.9 (25.0-34.0) pg MCHC 30.7 L (32.0-36.0) g/dL RDW Std Deviation 49.3 H (36.4-46.3) fL RDW Coeff of Coni 13.6 (11.5-14.5) % Plt Count 400 (130-400) K/uL MPV 9.1 L (9.4-12.4) fL Immature Gran % (Auto) 0.8 % Neut % (Auto) 64.8 % Lymph % (Auto) 23.4 % Allen % (Auto) 7.9 % Eos % (Auto) 1.9 % Baso % (Auto) 1.2 % Neut # (Auto) 4.69 (1.40-6.50) K/uL Lymph # (Auto) 1.70 (1.20-3.40) K/uL Allen # (Auto) 0.57 (0.11-0.59) K/uL Eos # (Auto) 0.14 (0.00-0.50) K/uL Baso # (Auto) 0.09 (0.00-0.20) K/uL Immature Gran # (Auto) 0.06 (0.01-0.20) K/uL Sodium Pending Potassium Pending Chloride Pending Carbon Dioxide Pending Anion Gap Pending BUN Pending Creatinine Pending Est Cr Clr Drug Dosing Pending Est GFR ( Amer) Pending Est GFR (Non-Af Amer) Pending BUN/Creatinine Ratio Pending Glucose Pending Calcium Pending PG Care Time/CCT Total # of Minutes Spent Total Time Spent with Patient: Total time spent is greater than 50% in coordination of care (as documented) at patient's floor/unit and/or counseling patient: Coding Level of Care Code 28334 SUB INP/OBS CARE 2MIN Diagnoses Esophagitis K20.90
[2023-09-28] MEDS: SODIUM CHLORIDE 0.9% 500 ML IV SCH (10:12)
--- NOTE | 2023-09-29 07:15 | Hospitalist Progress Note ---
Date of Service September 29, 2023 Assessment & Plan (1) GI bleed: (2) Pulmonary emboli: (3) DVT (deep venous thrombosis): (4) Esophagitis: (5) Odontoid fracture: (6) Acute UTI: (7) Hypothyroidism: (8) Episode of syncope: Plan 88 year old female admitted for evaluation of GI bleed after reporting Black stool and syncope with [place] of [place] [facility] [place], hypothyroidism, cognitive decline, dementia GI bleed: - GI bleeding of uncertain origin; Imaging negative EGD/Colonoscopy recommended Potential for GI malignancy given DVT/PE and bleeding/anemia - GI consult: NG tube on Sunday; [place] on Sunday - Anticoagulation pending procedure - Updated POA Mr. Wood on 09/28/2023 Subacute type II/III odontoid fracture - Ortho recommending ongoing C-collar during EGD/Colonoscopy. PE: - Today pt stable , comfortable breathing on room air, remains asymptomatic - Unable to anticoagulate patient for treatment of PE's at this time given her ongoing GI bleed - Spoke to POA,(09/27) who is in favor of full code and aggressive of treatment for her. DVT: - Per venous doppler study, likely acute occlusive DVT within the right posterior tibial and peroneal veins - Unable to anticoagulate patient for treatment of PE's at this time given her ongoing GI bleed IVC filter placement, 09/19 See above plan above for chronic anticoagulation considerations Constipation - Increased an oral bowel regimen with Miralax 1 capful QID daily. UTI: resolved Episode of syncope: Unclear etiology, but may be secondary to #1, #2, or #3; no history of aspirations (per [facility]); CXR okay No further episodes. Continue telemetry monitoring to assess for arrhythmias Hypothyroidism: TSH elevated arrival, but T4 within normal limits Continue levothyroxine/ Repeat in 4 weeks of admission Admission and Anticipated Discharge Date Admission Date: September 18, 2023 Supervising Physician Co-Signing Physician Notes Attending Physician Supervision Note: I independently interviewed and examined the patient and verified the leos history and physical, reviewed labs and image studies and agree with findings and care plan noted above. no meaningful HPI review of systems obtainable. Vitals noted, resting comfortably. No distress. Breathing unlabored. Syncope - likely multifactorial - GI bleed/PE. Vitals have stayed stable. GI bleeding - h/h stable. Unable to have bowel prep. Can consider barium swallow to evaluate esophagus, colonoscopy somewhat difficult given her inability to follow through with the bowel prep. C-spine fracture July 2023. CT scan noted. Per spine surgery - continue C collar. DVT and PE - Anticoagulation on hold d/t GI bleed. IVC filter placed 09/19. Based on Endoscopy findings - will then start anticoagulation. If unable to proceed with endoscopic workup, can consider anticoagulation with close vigilance while still in hospital Dementia - not oriented x 3. Unable to speak sentences. Per friend visiting 09/24 - Sudden decline since placement in [facility]. CT and MRI brain 09/25/23 - No acute changes; -Continue supportive care. Elevated TSH - No dose change at this time. Recheck as outpatient. SCD goals of care - currently POA still would like aggressive management Subjective Today morning, she was lying in her bed with head elevated, breathing on room air with maintained SPO2 and other vitals. She seems relatively oriented than before. Does not understand plan of care. Hyegine maintained. Seems stable overall. She was moving her right hand around as well Review of Systems Review of Systems: As per HPI Physical Exam Physical Exam: Ill looking, frail, Not well Oriented to TPP Chest: BL decreased breath sound, No added sound CVS: S1S2M0 PA: Soft NT, Bowel sound +nt MSK: 2/5 power on right UL, Rest Normal, Limited ROM in neck Constitutional: + ill appearing, + thin and + cachectic ENMT: Mallampati Class: I Musculoskeletal: Head/Neck/Chest: + limited ROM of neck Spine: + limited cervical ROM Psychiatric: Orientation: + not oriented to person, + not oriented to place and + not oriented to time Results & Data Results & Data Vital Signs (Past 12 Hours) Vital Signs Temp Pulse Pulse Resp BP BP Pulse Ox 09/29/23 03:26 09/29/23 02:41 36.8 C 75 18 154/87 H 96 09/28/23 22:21 36.9 C 85 18 110/76 96 09/28/23 21:55 80 09/28/23 19:41 36.6 C 80 18 116/74 94 O2 Del Method 09/29/23 03:26 Room Air 09/29/23 02:41 Room Air 08/23/24 22:21 Room Air 09/28/23 21:55 09/28/23 19:41 Room Air Resident Activity Tracking Resident Involvement: Resident Care Provided Care Provided: Adult Hospital Medicine (1) GI bleed GI bleed type/associated pathology: melena Qualified Code(s): K92.1 - Melena (8) Episode of syncope Syncope type: unspecified Qualified Code(s): R55 - Syncope and collapse
--- NOTE | 2023-09-29 18:18 | Billing Data ---
Date of Service September 29, 2023 Coding Level of Care Code 29861 SUB INP/OBS CARE
[2023-09-29] MEDS: LACTATED RINGER'S 1,000 ML IV ONE (18:35)
[2023-09-30 05:45] LABS: Basophils # (auto) 0.09 K/uL (0.00-0.20); Basophils % (auto) 1.1 %; Eosinophils # (auto) 0.17 K/uL (0.00-0.50); Eosinophils % (auto) 2.2 %; Hematocrit (blood only) 30.4 % (37.0-47.0); Hemoglobin 9.5 g/dl (12.0-16.0); Immature Granulocytes # (auto) 0.05 K/uL (0.01-0.20); Immature Granulocytes % (auto) 0.6 %; Lymphocytes # (auto) 1.71 K/uL (1.20-3.40); Lymphocytes % (auto) 21.8 %; Mean Corpuscular Hemoglobin 30.4 pg (25.0-34.0); Mean Corpuscular Hgb Conc 31.3 g/dL (32.0-36.0); Mean Corpuscular Volume 97.1 fL (80.0-100.0); Monocytes # (auto) 0.63 K/uL (0.11-0.59); Neutrophils # (auto) 5.21 K/uL (1.40-6.50); Neutrophils % (auto) 66.3 %; Platelet Count 307 K/uL (130-400); RDW Coefficient of Variation 13.5 % (11.5-14.5); RDW Standard Deviation 48.6 fL (36.4-46.3); Red Blood Count 3.13 M/uL (4.20-5.40); White Blood Count 7.86 K/ul (4.8-10.8)
[2023-09-30 06:13] LABS: Albumin Globulin Ratio 1.3 (0.9-2); Albumin Level 3.5 gm/dl (3.4-5.0); BUN Creatinine Ratio 30.6 (10-20); Bilirubin,Total 0.3 mg/dl (0.2-1.0); Calcium 9.4 mg/dl (8.6-10.3); Creatinine Clr Calc Pharmacy 65.2 ml/min; Est GFR (African American) 102.2 ml/min; Est GFR (Non-African American) 88.2 ml/min; Globulin 2.8 gm/dl (2.5-4.0); Potassium 4.3 mmol/L (3.5-5.1); Total Protein 6.3 gm/dl (6.0-8.3)
--- NOTE | 2023-09-30 06:49 | Hospitalist Progress Note ---
Date of Service September 30, 2023 Assessment & Plan (1) GI bleed: (2) Pulmonary emboli: (3) DVT (deep venous thrombosis): (4) Esophagitis: (5) Odontoid fracture: (6) Acute UTI: (7) Hypothyroidism: (8) Episode of syncope: Plan 88 year old female admitted for evaluation of GI bleed after reporting Black stool and syncope with history of recent subdural hematoma treated at [facility] [place], NSTEM[place], hypothyroidism, cognitive decline, dementia GI bleed: - GI bleeding of uncertain origin; Imaging negative EGD/Colonoscopy recommended Potential for GI malignancy given DVT/PE and bleeding/anemia - GI consult: NG tube on Sunday; [place] on Sunday - Anticoagulation pending procedure - Updated POA Mr. Wood on 09/30/2023: Mr. Wood was called to update about Ana. Talk time was 15minutes. He is consistent about full code treatment. 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 He mentions he is also not aware about complete baseline status but he believes she is up for full code. I requested him to come in person tomorrow and have conversation with our team. He mentioned he had some unpleasant experience about in past, however he is very positive about having conversation with our team. Subacute type II/III odontoid fracture - Ortho recommending ongoing C-collar during EGD/Colonoscopy. PE: - Today pt stable , comfortable breathing on room air, remains asymptomatic - Unable to anticoagulate patient for treatment of PE's at this time given her ongoing GI bleed - Spoke to POA,(09/29) who is in favor of full code and aggressive of treatment for her. DVT: - Per venous Doppler study, likely acute occlusive DVT within the right posterior tibial and peroneal veins - Unable to anticoagulate patient for treatment of PE's at this time given her ongoing GI bleed IVC filter placement, 09/19 See above plan above for chronic anticoagulation considerations Constipation - Increased an oral bowel regimen with Miralax 1 capful QID daily. UTI: resolved Episode of syncope: Unclear etiology, but may be secondary to #1, #2, or #3; no history of aspirations (per [place]); CXR okay No further episodes. Continue telemetry monitoring to assess for arrhythmias Hypothyroidism: TSH elevated arrival, but T4 within normal limits Continue levothyroxine/ Repeat in 4 weeks of admission Admission and Anticipated Discharge Date Admission Date: September 18, 2023 Supervising Physician Co-Signing Physician Notes I personally examined the patient and verified all leos points of history and exam, discussed case, and agree with decision making with Dr Silva No meaningful HPI review of systems. Resident physician discussed with POA, she requested that he come in so that he is able to see the patient [id number], and that we can have better discussions [id number] then can be had over the phoneespecially given the delicate and difficult situation. Vitals noted, in general she is resting in bed no distress. Breathing unlabored no accessory muscle use good effort. Skin without rashes pallor or icterus. C- collar in place. Syncope - likely multifactorial - GI bleed/PE. Vitals have stayed stable. GI bleeding - h/h stable. difficult situation since can't really safely due EGD due to Ccollar (can try barium swallow if she's able to coordinate/cooperate), can't really follow through with bowel prep - can consider NGT and bowel prep via NG but with pt not being able to understand situation this seems like a sig nificant hardship on pt. 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 CT scan noted. Per spine surgery - continue C collar. DVT and PE - Anticoagulation on hold d/t GI bleed. IVC filter placed 09/19. 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 Unable to speak sentences. Per friend visiting 09/24 - Sudden decline since placement in [facility]. CT and MRI brain 09/25/23 - No acute changes; -Continue supportive care. Elevated TSH - No dose change at this time. Recheck as outpatient. SCD goals of care - currently POMariana still would like aggressive management Subjective Today morning, she was lying in her bed with head elevated, breathing on room air with maintained SPO2 and other vitals. She seems relatively oriented than before. Does not understand plan of care Hyegine maintained. Seems stable overall. She was moving her right hand around as well POA: Positive about full code treatment till date Physical Exam Physical Exam: Ill looking, frail, Not well Oriented to TPP Chest: BL decreased breath sound, No added sound CVS: S1S2M0 PA: Soft NT, Bowel sound +nt MSK: 3/5 power on right UL, Rest Normal, Limited ROM in neck with C collar in situ Constitutional: + ill appearing, + thin and + cachectic ENMT: Mallampati Class: I Musculoskeletal: Head/Neck/Chest: + limited ROM of neck Spine: + limited cervical ROM Psychiatric: Orientation: + not oriented to person, + not oriented to place and + not oriented to time Results & Data Results & Data Vital Signs (Past 12 Hours) Vital Signs Temp Pulse Pulse Resp BP Pulse Ox O2 Del Method 09/30/23 03:02 147/91 H 09/30/23 02:40 178/97 H 09/30/23 02:26 36.7 C 74 18 195/102 H 93 Room Air 09/29/23 22:53 Room Air 09/29/23 22:24 36.8 C 76 18 168/86 H 94 Room Air 09/29/23 22:05 76 09/29/23 19:22 36.5 C 78 18 164/79 H 93 Room Air Resident Activity Tracking Resident Involvement: Resident Care Provided Care Provided: Adult Hospital Medicine (1) GI bleed GI bleed type/associated pathology: melena Qualified Code(s): K92.1 - Melena (8) Episode of syncope Syncope type: unspecified Qualified Code(s): R55 - Syncope and collapse
--- NOTE | 2023-09-30 17:04 | Billing Data ---
Date of Service September 30, 2023 Coding Level of Care Code 76693 SUB INP/OBS CARE MIN
--- NOTE | 2023-10-01 06:44 | Hospitalist Progress Note ---
Date of Service October 01, 2023 Assessment & Plan (1) GI bleed: (2) Pulmonary emboli: (3) DVT (deep venous thrombosis): (4) Esophagitis: (5) Odontoid fracture: (6) Acute UTI: (7) Hypothyroidism: (8) Episode of syncope: Plan 88 year old female admitted for evaluation of GI bleed after reporting Black stool and syncope with history of recent subdural hematoma treated at [facility] [place], NSTEMI, hypothyroidism, cognitive decline, dementia GI bleed: - GI bleeding of uncertain origin; Imaging negative EGD/Colonoscopy recommended Potential for GI malignancy given DVT/PE and bleeding/anemia - GI consult: She is planned for barium swallow today. - Anticoagulation pending procedure Updated POA Mr. Wood on 09/30/2023: Mr. Wood was called to update about Ana. Talk time was 15minutes. He is consistent about full code treatment. 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 He mentions he is not aware about complete baseline status before this illness but he believes she is up for full code. I requested him to come in person tomorrow and have conversation with our team. He mentioned he is positive about having conversation with our team. 09/30/2024: Called JOSE Wood at afternoon today; Left Voicemail for getting in touch in convenience Subacute type II/III odontoid fracture - Ortho recommending ongoing C-collar during EGD/Colonoscopy. PE: - Today pt stable , comfortable breathing on room air, remains asymptomatic - Unable to anticoagulate patient for treatment of PE's at this time given her ongoing GI bleed - Spoke to JOSE,(09/29) who is in favor of full code and aggressive of treatment for her. DVT: - Per venous Doppler study, likely acute occlusive DVT within the right posterior tibial and peroneal veins - Unable to anticoagulate patient for treatment of PE's at this time given her ongoing GI bleed IVC filter placement, 09/19 See above plan above for chronic anticoagulation considerations Constipation - Increased an oral bowel regimen with Miralax 1 capful QID daily. UTI: resolved Episode of syncope: Unclear etiology, but may be secondary to #1, #2, or #3; no history of aspirations (per [facility]); CXR okay No further episodes. Continue telemetry monitoring to assess for arrhythmias Hypothyroidism: TSH elevated arrival, but T4 within normal limits Continue levothyroxine/ Repeat in 4 weeks of admission Admission and Anticipated Discharge Date Admission Date: September 18, 2023 Supervising Physician Co-Signing Physician Notes I personally examined the patient and verified all leos points of history and exam, discussed case, and agree with decision making with Dr Fabiana Rangel meaningful HPI review of systems. Denies any complaints. Resident physician tried to reach POAno answer. Left messagethe plan for today was to try to arrange a time for [id number] discussions, and have him see the patient. GI input appreciated.. Vitals noted, in general she is resting in bed no distress. Breathing unlabored no accessory muscle use good effort. Skin without rashes pallor or icterus. C-collar in place. Syncope - likely multifactorial - GI bleed/PE. Vitals have stayed stable. GI bleeding - h/h stable. difficult situation since can't really safely due EGD due to Ccollar, can't really follow through with bowel prep - can consider NGT and bowel prep via NG but with pt not being able to understand situation this seems like a significant hardship on pt. 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 C-spine fracture July 2023. CT scan noted. Per spine surgery - continue C collar. DVT and PE - Anticoagulation on hold d/t GI bleed. IVC filter placed 09/19. 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 Unable to speak sentences. Per friend visiting 09/24 - Sudden decline since placement in [facility]. CT and MRI brain 09/25/23 - No acute changes; -Continue supportive care. Elevated TSH - No dose change at this time. Recheck as outpatient. SCD goals of care - currently POA still would like aggressive management Subjective Today morning, she was lying in her bed with head elevated, breathing on room air with maintained SPO2 and other vitals. She was sleeping comfortably. POA: Positive about full code treatment. Review of Systems Review of Systems: As per HPI Physical Exam Physical Exam: Ill looking, frail, Not well Oriented to TPP Chest: BL decreased breath sound, No added sound CVS: S1S2M0 PA: Soft NT, Bowel sound +nt MSK: 3/5 power on right UL, Rest Normal, Limited ROM in neck with C collar insitu Constitutional: + ill appearing, + thin and + cachectic ENMT: Mallampati Class: I Musculoskeletal: Head/Neck/Chest: + limited ROM of neck Spine: + limited cervical ROM Psychiatric: Orientation: + not oriented to person, + not oriented to place and + not oriented to time Results & Data Results & Data Vital Signs (Past 12 Hours) Vital Signs Temp Pulse Pulse Resp BP Pulse Ox O2 Del Method 10/01/23 02:43 36.7 C 59 L 18 103/62 95 Room Air 09/30/23 23:20 36.6 C 73 16 147/82 H 94 Room Air 09/30/23 21:35 73 09/30/23 20:16 36.6 C 65 16 130/74 95 Room Air (1) GI bleed GI bleed type/associated pathology: melena Qualified Code(s): K92.1 - Melena (8) Episode of syncope Syncope type: unspecified Qualified Code(s): R55 - Syncope and collapse
[2023-10-01 07:43] LABS: Basophils # (auto) 0.09 K/uL (0.00-0.20); Basophils % (auto) 1.2 %; Eosinophils # (auto) 0.15 K/uL (0.00-0.50); Hematocrit (blood only) 31.8 % (37.0-47.0); Hemoglobin 9.9 g/dl (12.0-16.0); Immature Granulocytes # (auto) 0.06 K/uL (0.01-0.20); Immature Granulocytes % (auto) 0.8 %; Lymphocytes % (auto) 22.6 %; Mean Corpuscular Hemoglobin 30.4 pg (25.0-34.0); Mean Corpuscular Hgb Conc 31.1 g/dL (32.0-36.0); Mean Corpuscular Volume 97.5 fL (80.0-100.0); Mean Platelet Volume 9.4 fL (9.4-12.4); Monocytes # (auto) 0.54 K/uL (0.11-0.59); Monocytes % (auto) 7.2 %; Neutrophils # (auto) 4.98 K/uL (1.40-6.50); Neutrophils % (auto) 66.2 %; Platelet Count 300 K/uL (130-400); RDW Coefficient of Variation 13.5 % (11.5-14.5); RDW Standard Deviation 48.9 fL (36.4-46.3); Red Blood Count 3.26 M/uL (4.20-5.40); White Blood Count 7.52 K/ul (4.8-10.8)
[2023-10-01 08:04] LABS: Albumin Globulin Ratio 1.3 (0.9-2); Albumin Level 3.6 gm/dl (3.4-5.0); BUN Creatinine Ratio 37.2 (10-20); Bilirubin,Total 0.4 mg/dl (0.2-1.0); Calcium 9.1 mg/dl (8.6-10.3); Creatinine Clr Calc Pharmacy 74.3 ml/min; Est GFR (African American) 106.7 ml/min; Est GFR (Non-African American) 92.1 ml/min; Globulin 2.7 gm/dl (2.5-4.0); Potassium 4.4 mmol/L (3.5-5.1); Total Protein 6.3 gm/dl (6.0-8.3)
--- NOTE | 2023-10-01 09:22 | Gastroenterology Progress Note ---
Date of Service October 01, 2023 Assessment & Plan (1) Esophagitis: Plan: Patient had been unable to prep over the course of last week. still unprepped as patient has been unable to take enough of her prep to clean out. no signs of GI bleeding per nursing. - follow hgb/hct and transfuse as needed. - patient is to have a barium swallow today. - she is having a hard time with taking her medications. will transition protonix to IV to ensure she is getting this. Admission and Anticipated Discharge Date Admission Date: September 18, 2023 Supervising Physician Co-Signing Physician Notes I did not see this patient today Subjective Patient resting in bed. she offers no complaints. I discussed with nursing, there are not any signs of active GI bleeding. she had a bowel movement over night that did not appear to have blood in it. there were no dark stools. jamilah koenig has not been having any GI complaints otherwise to nursing. nursing does mention she is having a hard time taking her pills. she was placed on the schedule today for EGD and colonoscopy but she had not prepped. she had attempted to prep last week but had been unable to do so. she is planned for barium swallow today. 10/01/23 Hgb 9.5 Review of Systems Review of Systems: Unobtainable due to cognitive status Physical Exam Respiratory: normal respiratory effort, lungs clear to auscultation Cardiovascular: Rate/Rhythm: regular rate and regular rhythm Gastrointestinal (Abdomen): normal bowel sounds, soft. Psychiatric: patient lethargic. Results & Data Results & Data Vital Signs (Past 12 Hours) Vital Signs Temp Pulse Pulse Resp BP Pulse Ox O2 Del Method 10/01/23 08:16 97.3 F L 76 17 175/89 H 95 Room Air 10/01/23 02:43 98.1 F 59 L 18 103/62 95 Room Air 09/30/23 23:20 97.9 F 73 16 147/82 H 94 Room Air 09/30/23 21:35 73 Coding Level of Care Code None Diagnoses Esophagitis K20.90
--- NOTE | 2023-10-01 14:58 | Billing Data ---
Date of Service October 01, 2023 Coding Level of Care Code 17100 SUB INP/OBS CARE MIN
[2023-10-01] MEDS: PANTOprazole 40 MG in SYRINGE 0 ML IV SCH (22:30)
[2023-10-01] MEDS: ACETAMINOPHEN 1,000 MG/100 ML VIAL IV SCH (22:32)
[2023-10-01] MEDS: LACTATED RINGER'S 1,000 ML IV SCH (23:46)
--- NOTE | 2023-10-02 06:44 | Hospitalist Progress Note ---
Date of Service October 02, 2023 Assessment & Plan (1) GI bleed: (2) Pulmonary emboli: (3) DVT (deep venous thrombosis): (4) Esophagitis: (5) Odontoid fracture: (6) Acute UTI: (7) Hypothyroidism: (8) Episode of syncope: Plan 88 year old female admitted for evaluation of GI bleed after reporting Black stool and syncope with history of recent subdural hematoma treated at [facility] [place], NSTEMI, hypothyroidism, cognitive decline, dementia GI bleed: - GI bleeding of uncertain origin; Imaging negative EGD/Colonoscopy recommended Potential for GI malignancy given DVT/PE and bleeding/anemia - GI consult: She was planned for barium swallow today, radiology says its impossible given her condition - Anticoagulation pending procedure 09/30/2024: Called JOSE Wood at afternoon today; Left Voicemail for getting in touch in convenience Updated POA Mr. Wood on 10/02/2023: Mr. Wood was called to update about Ana. Talk time was 15 minutes. He is consistent about full code treatment. 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 He mentions he is not aware about complete baseline status before this illness but he believes she is up for full code as per document signed 10 years ago. Mantioned Barium swallow idea came as alternative to his EGD/ [facility] which seems impossible at this point. He is also curious if we can sedate Ana for inserting NG tube so that we can prep her Bowel. Informed this definitely is a risky procedure for her, also increasing possibilities of other complications like Delirium, Post anesthesia pneumonia, atelectasis. Subacute type II/III odontoid fracture - Ortho recommending ongoing C-collar during EGD/Colonoscopy. PE: - Today pt stable , comfortable breathing on room air, remains asymptomatic - Unable to anticoagulate patient for treatment of PE's at this time given her ongoing GI bleed - Spoke to JOSE,(10/01) who is in favor of full code and aggressive of treatment for her. DVT: - Per venous Doppler study, likely acute occlusive DVT within the right posterior tibial and peroneal veins - Unable to anticoagulate patient for treatment of PE's at this time given her ongoing GI bleed IVC filter placement, 09/19 See above plan above for chronic anticoagulation considerations Constipation - Increased an oral bowel regimen with Miralax 1 capful QID daily. UTI: resolved Episode of syncope: Unclear etiology, but may be secondary to #1, #2, or #3; no history of aspirations (per [facility]); CXR okay No further episodes. Continue telemetry monitoring to assess for arrhythmias Hypothyroidism: TSH elevated arrival, but T4 within normal limits Continue levothyroxine/ Repeat in 4 weeks of admission Admission and Anticipated Discharge Date Admission Date: September 18, 2023 Supervising Physician Co-Signing Physician Notes I personally examined the patient and verified all leos points of history and exam, discussed case, and agree with decision making with Dr Fabiana Rangel meaningful HPI review of systems. Friend present at the bedside. She is known the patient for 25 years. She does not believe that the patient would want aggressive or invasive care in the current situation. Discussed with gastroenterologygiven C-spine fracture, they note that an endoscopic workup would have a much higher risk of complications. Discussed with radiology who we reviewed CT scans while we were on the phonedoes not see anything that looks overtly like malignancy, but also notes cannot be ruled out, noted that my considerations for other studies would be of such low yield that they would not be worth doing (noted that a barium swallow or barium enema would have such a low diagnostic yield as to not be worthwhile, and felt that her aspiration risk made a barium swallow unsafe; her C-spine fracture/dementia made a barium enema not worse the risk especially because of the low yield) Vitals noted, in general she is resting in bed no distress. Breathing unlabored no accessory muscle use good effort. Skin without rashes pallor or icterus. C-collar in place. Syncope - likely multifactorial - GI bleed/PE. Vitals have stayed stable. GI bleeding - h/h stable. difficult situation since can't really safely due EGD due to Ccollar, can't really follow through with bowel prep - can consider NGT and bowel prep via NG but with pt not being able to understand situation this seems like a significant hardship on pt. 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 tried to arrange [id number] discussion with POA, but unfortunately this has not been able to be arranged. Instructions to continue aggressive care/do everything have become increasingly difficult given that doing everything for her VTE would include anticoagulation, but until GI mucosal malignancy has been ruled out, anticoagulation seems exceedingly risky (could consider heparin drip in the hospital, but given that she bled enough that she passed out/was unresponsive, this seems a bit dangerous); ultimate plan is for disposition to [facility] if she does not have a GI mucosal malignancy, then we can/should anticoagulate her instead of simply managing risk with IVC filterbut unable to definitively progressed the workup with any endoscopic workup safely. Could consider discharge with PET/CT as an outpatient if it could be arranged, but uncertain how timely this could be doneand discharged with this plan as a hope that may not be able to be followed through with in a meaningful fashion would not be consistent with POA's directives to continue aggressive care/do everything. This leaves her situation at a bit of a "stable impasse"stable given that she is no longer bleeding and her hemodynamics are stable, but unable to fulfill the POA's directive to do everything given that we are not able to adequately manage her VTE if she does not have a GI cancer without ruling it out, but not able to rule out GI cancer due to dementia/C-spine fracture/etc. C-spine fracture July 2023. CT scan noted. Per spine surgery - continue C collar. DVT and PE - Anticoagulation on hold d/t GI bleed. IVC filter placed 09/19. 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 Elevated TSH - No dose change at this time. Recheck as outpatient. goals of care - currently POA still would like aggressive management Subjective Today morning, she was lying in her bed with head elevated, breathing on room air with maintained SPO2 and other vitals. She was sleeping comfortably. POA: Positive about full code treatment. We Talked to POA on phone today as well. Physical Exam Physical Exam: Ill looking, frail, Not well Oriented to TPP Chest: BL decreased breath sound, No added sound CVS: S1S2M0 PA: Soft NT, Bowel sound +nt MSK: 3/5 power on right UL, Rest Normal, Limited ROM in neck with C collar insitu Constitutional: + ill appearing, + thin and + cachectic Musculoskeletal: Head/Neck/Chest: + limited ROM of neck Spine: + limited cervical ROM Psychiatric: Orientation: + not oriented to person, + not oriented to place and + not oriented to time Results & Data Results & Data Vital Signs (Past 12 Hours) Vital Signs Temp Pulse Resp BP Pulse Ox O2 Del Method 10/01/23 19:00 36.4 C L 86 18 137/76 93 Room Air (1) GI bleed GI bleed type/associated pathology: melena Qualified Code(s): K92.1 - Melena (8) Episode of syncope Syncope type: unspecified Qualified Code(s): R55 - Syncope and collapse
--- NOTE | 2023-10-02 15:40 | Billing Data ---
Date of Service October 02, 2023 Coding Level of Care Code 13692 SUB INP/OBS CARE MIN
--- NOTE | 2023-10-03 08:19 | Hospitalist Progress Note ---
Date of Service October 03, 2023 Assessment & Plan (1) GI bleed: Plan: 88 year old female admitted for evaluation of GI bleed after reporting Black stool and syncope history of recent subdural hematoma and C2 fracture after fall 07/11/23 [place] [facility] [place] baseline severe dementia - GI bleeding of uncertain origin; Imaging negative, hemiglobin has been stable no transfusion indicated imaging by CT suggests thickened esophagus, cw esophagitis, stool ball in rectu m with possible stercoral colitis, diverticulosis has had good bowel movements EGD/Colonoscopy discussed by Gastroenterology, however cervical spine fracture will prevent upper EGD, frailty may make anesthesia limiting for lower, also pt cannot prep due to cognitive challenged POA Israel. 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 Per previous team at meeting Pt expressed desire to not limit treatment if possible . 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 (4) Acute UTI: Plan: E coli uti poa, treated (5) Hypothyroidism: Plan: Hypothyroidism: TSH elevated arrival, but T4 within normal limits Continue levothyroxine/ Repeat in 4 weeks of admission Plan pt is hypertensive on 10/02, will stop LR and use prn hydralazine Admission and Anticipated Discharge Date Admission Date: September 18, 2023 Subjective very pleasantly confused multiple positive ros, tho not persistent Physical Exam Physical Exam: pt is comfortable, not short of breath at baseline cardiac is regular lungs are clear abdomen is soft and non tender Results & Data Results & Data Vital Signs (Past 12 Hours) Vital Signs Temp Pulse Resp BP Pulse Ox O2 Del Method 10/03/23 07:12 98.2 F 62 16 177/96 H 95 Room Air 10/02/23 23:00 154/78 H Laboratory Results review cbc review chemistry PG Care Time/CCT Total # of Minutes Spent Total Time Spent with Patient: Total time spent is greater than 50% in coordination of care (as documented) at patient's floor/unit and/or counseling patient: Coding Level of Care Code 66992 SUB INP/OBS CARE 2/35MIN Diagnoses GI bleed K92.1 GI bleed type/associated pathology: melena Pulmonary emboli I26.99 Odontoid fracture S12.110A Acute UTI N39.0 Hypothyroidism E03.9 (1) GI bleed GI bleed type/associated pathology: melena Qualified Code(s): K92.1 - Melena
[2023-10-03] MEDS: hydrALAZINE HCL 20 MG/ML VIAL IV PRN (09:02)
[2023-10-03 09:12] LABS: Hematocrit (blood only) 30.9 % (37.0-47.0); Mean Corpuscular Hgb Conc 32.4 g/dL (32.0-36.0); Mean Corpuscular Volume 92.8 fL (80.0-100.0); Mean Platelet Volume 9.2 fL (9.4-12.4); Platelet Count 262 K/uL (130-400); RDW Coefficient of Variation 12.7 % (11.5-14.5); RDW Standard Deviation 43.3 fL (36.4-46.3); Red Blood Count 3.33 M/uL (4.20-5.40); White Blood Count 7.16 K/ul (4.8-10.8)
[2023-10-03 09:33] LABS: Albumin Globulin Ratio 1.3 (0.9-2); Albumin Level 3.7 gm/dl (3.4-5.0); Bilirubin,Total 0.4 mg/dl (0.2-1.0); Calcium 8.8 mg/dl (8.6-10.3); Creatinine Clr Calc Pharmacy 88.7 ml/min; Est GFR (African American) 113.2 ml/min; Est GFR (Non-African American) 97.6 ml/min; Globulin 2.8 gm/dl (2.5-4.0); Potassium 4.7 mmol/L (3.5-5.1); Total Protein 6.5 gm/dl (6.0-8.3)
--- NOTE | 2023-10-03 11:38 | Communication Note ---
Date of Service: October 03, 2023 We had discussed with the primary team on 10/02/23 the patient's ongoing issues. She has been unable to tolerate prepping for procedures despite attempting to prep over a weeks time, and as such colonoscopy cannot be completed. Given her cervical spine fracture, we are unable to perform an EGD. It is felt that she would be too high risk for procedures. Hgb has remained stable and as such, we doubt there is any GI bleeding.
--- NOTE | 2023-10-04 18:18 | Hospitalist Progress Note ---
Date of Service October 04, 2023 Assessment & Plan (1) GI bleed: Plan: 88 year old female admitted for evaluation of GI bleed after reporting Black stool and syncope history of recent subdural hematoma and C2 fracture after fall 07/11/23 treated at [facility] [place], baseline severe dementia - GI bleeding of uncertain origin; Imaging negative, hemiglobin has been stable no transfusion indicated imaging by CT suggests thickened esophagus, cw esophagitis, stool ball in rectu m with possible stercoral colitis, diverticulosis has had good bowel movements EGD/Colonoscopy discussed by Gastroenterology, however cervical spine fracture will prevent upper EGD, frailty may make anesthesia limiting for lower, also pt cannot prep due to cognitive challenged POA Israel. 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 Per previous team at meeting Pt expressed desire to not limit treatment if possible Did speak with Israel on 10/03 is agreeable to transfer to [facility] however [facility] did not have a bed available and her disposition was delayed to 10/04 (2) Pulmonary emboli: Plan: Discovered on CT abd pelvis, confirmed on CTA chest with recent subdural and melena, and confirmed DVT did have IVC filter placed incidentally noted rib fractures on imaging recent falls with fractures also makes considering AC a challenge HASBLED calculator reveals risk of 8.9% for bleeding or 8.7 bleed per 100 pt years , alternatives to AC recommended (3) Odontoid fracture: Plan: 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 (4) Acute UTI: Plan: E coli uti poa, treated (5) Hypothyroidism: Plan: Hypothyroidism: TSH elevated arrival, but T4 within normal limits Continue levothyroxine/ Repeat in 4 weeks of admission Admission and Anticipated Discharge Date Admission Date: September 18, 2023 Subjective very pleasantly confused multiple positive ros, tho not persistent Physical Exam Physical Exam: pt is comfortable, not short of breath at baseline cardiac is regular lungs are clear abdomen is soft and non tender Results & Data Results & Data Vital Signs (Past 12 Hours) Vital Signs Temp Pulse Resp BP BP Pulse Ox O2 Del Method 10/04/23 14:42 97.9 F 72 16 94/61 L 95 Room Air 10/04/23 07:25 Room Air 10/04/23 07:15 97.5 F L 65 16 127/77 93 Room Air PG Care Time/CCT Total # of Minutes Spent Total Time Spent with Patient: Total time spent is greater than 50% in coordination of care (as documented) at patient's floor/unit and/or counseling patient: Coding Level of Care Code 20490 SUB INP/OBS CARE 2/35MIN Diagnoses GI bleed K92.1 GI bleed type/associated pathology: melena Pulmonary emboli I26.99 Odontoid fracture S12.110A Acute UTI N39.0 Hypothyroidism E03.9 (1) GI bleed GI bleed type/associated pathology: melena Qualified Code(s): K92.1 - Melena
[2023-10-04] MEDS: LACTATED RINGER'S 500 ML IV ONE (20:38)
[2023-10-04] MEDS: HYDROmorphone INJ 0.5 MG/0.5 ML SYR IV STA (22:13)
[2023-10-05] MEDS: LACTATED RINGER'S 1,000 ML IV SCH (03:20)
[2023-10-05] MEDS: ACETAMINOPHEN 500 MG TAB PO PRN (03:40)
[2023-10-05 07:06] VITALS: RESP 16
[2023-10-05 08:42] VITALS: BP 114/73; TEMP 97.5; O2SAT 95
--- NOTE | 2023-10-05 09:34 | Discharge Summary ---
Discharge Summary Date of Service October 05, 2023 Principal Dx & Hospital Course #1 = Principal Diagnosis (1) GI bleed: 88 year old female admitted for evaluation of GI bleed after reporting Black stool and syncope history of recent subdural hematoma and C2 fracture after fall 07/11/23 treated at [facility] [place], baseline severe dementia - GI bleeding of uncertain origin; Imaging negative, hemiglobin has been stable no transfusion indicated imaging by CT suggests thickened esophagus, cw esophagitis, stool ball in rectum with possible stercoral colitis, diverticulosis has had good bowel movements EGD/Colonoscopy discussed by Gastroenterology, however cervical spine fracture will prevent upper EGD, frailty may make anesthesia limiting for lower, also pt cannot prep due to cognitive challenged POA Israel. 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 Per previous team at meeting Pt expressed desire to not limit treatment if possible Did speak with Israel on 10/03 is agreeable to transfer to [facility] however [facility] did not have a bed available and her disposition was delayed to 10/04 (2) Pulmonary emboli: Discovered on CT abd pelvis, confirmed on CTA chest with recent subdural and melena, and confirmed DVT did have IVC filter placed incidentally noted rib fractures on imaging recent falls with fractures also makes considering AC a challenge HASBLED calculator reveals risk of 8.9% for bleeding or 8.7 bleed per 100 pt years , alternatives to AC recommended (3) Odontoid fracture: 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 (4) Acute UTI: E coli uti poa, treated (5) Hypothyroidism: Hypothyroidism: TSH elevated arrival, but T4 within normal limits Continue levothyroxine/ Repeat in 4 weeks of admission Plan Discharge to [facility] Admission HPI Per Admitting Provider Ana is an 88-year-old female with PMH of NSTEMI, hypothyroidism, cognitive decline, dementia, and B12 deficiency. She presented on 09/17 via EMS from [facility] after she became unconscious while sitting in her wheelchair. Patient is a poor historian at baseline. No family at bedside. She is unable to provide a history as she is not alert and oriented to purpose in the hospital/location/month. She is only alert and oriented to name and at this time. Per review of prior notes, patient had a C2 fracture secondary to fall, and currently has c-spine collar on arrival. Patient's vital stable at time of admission. ED course: IV Protonix drip NSS 500 mL IV Unable to obtain ROS at this time. Spoke on the phone with nursing staff at [facility] to obtain history. Nursing staff reports that the patient has had a slow decline over the past couple of days; not participating in physical therapy or activities as much as she normally does. She is confused at baseline, and nursing staff does not feel that there was a acute change in cognitive baseline. This morning, she was A&O x 3 upon waking. She was in her wheelchair, and was alone for approximately 10 minutes, and when nursing staff came back they found her slumped over in her chair. She was pale/laguna at this time. Nursing staff did not feel a pulse and believes she was not breathing so a CODE BLUE was called. Second nurse came in and believes they might have been a very faint carotid pulse; SpO2 was 20% at that time on pulse ox. Just prior to performing CPR, assisted hard sternal rub was performed, and the patient woke up abruptly gasping for air. Nursing staff denies any history of aspiration or UTIs in the past. Regarding contacts, the patient does not have any children or family; her POA is her friend Israel Sylvester. Unable to reach Israel Sylvester at this time; attempted calling x 2. In the event that patient would require a blood transfusion, will base it off of current POLST form for full treatment and medical necessity if symptomatic/Hgb >7.0; patient does not exhibit capacity to make medical decisions at this time in her current state. Discharge Exam Gen: lying in bed comfortable HEENT: NC/AT, C-collar in place, MMM CVS: S1s2 nl, RRR Lungs: CTAB Abd: soft, nontender, nl BS Ext: no edema Psych: pleasant Discharge Plan Discharge Items Patient Disposition: Transfer Intermediate Fac Reason For Visit: SYNCOPE, GI BLEED, UTI Discharge Diagnosis: pulmonary embolism, DVT , s/p IVC filter, contraindication to anticoagulation recent SDH july 2023, cervical spine fracture, rib fracture Melena without acute GI bleed uti poa treated Activity: Per Instructions section Activity Comment: Pt is fall risk, aspiration risk Non-emergency contact: Primary Care Provider Call non-emergency contact if: your symptoms worsen Follow-up/Referrals: Dutch Krueger, [Primary Care Provider] - Diet: Regular Diet Texture: Mechanical soft (ground) Addtl Attending Provider Instructions: HASBLED calculator reveals risk of 8.9% for bleeding or 8.7 bleed per 100 pt years , alternatives to AC recommended 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 Per previous team at meeting Pt expressed desire to not limit treatment if possible . Addtl Manager Print Provider Instructions: consider nutritional supplement please check electrolytes early next week Pending Studies at Discharge: No Stand-Alone Forms: My [facility] [employer] Skilled Items Patient informed of condition?: Yes DNR: No Discharge Level of Care: Other Communicable Disease: No Discharge Prognosis: Stable Lines: None Urinary Catheter: No Medications and DC Order Prescriptions: Continued aspirin 81 mg Tablet,Delayed Release (Dr/Ec) 81 mg PO DAILY docusate sodium 100 mg Capsule 100 mg PO BID acetaminophen 325 mg Tablet 650 mg PO Q4 PRN (Reason: Pain) sennosides-docusate sodium [Senokot-S] 8.6-50 mg Tablet 1 tab-cap PO QDL PRN (Reason: costipation) polyethylene glycol 3350 [Miralax] 17 gram/dose Powder 17 g PO DAILY PRN (Reason: Constipation) ondansetron 4 mg Tablet,Disintegrating 4 mg PO Q4 PRN (Reason: Nausea And Vomiting) dextrose [Glutose-15] 40 % Gel 1 ea PO DAILY PRN (Reason: Hypoglycemia) levothyroxine 88 mcg tablet 88 mcg PO DAILY Discontinued acetaminophen 325 mg Tablet 975 mg PO TID lidocaine 4 % Adhesive Patch,Medicated 1 patch TOPICAL DAILY Rx Instructions: on 12 hours off 12 hours sodium chloride 1 gram Tablet 1,000 mg PO DAILY Discharge Orders: Discharge Order (Routine); Ordered 10/05/23 Ordered By: Neeru Pedroza Admission Data Admit Date/Time: 09/18/23 15:35 Attending Provider: Neeru Pedroza Admit Provider: Darryl Cast Primary Care Provider: Dutch Krueger Other Providers: Alondra Raymond at [employer]; Jese Fernandez I; Kavon Becerra; Darryl Cast; Darius Ochoa; Lilian Giang; Hany Bullock; Netta Rodriguez; Myrna Darnell; Moni Shaver; Carolin Gallegos; Franny Gonzalez; Mario Finch; Kenia Schreiber; Anabelle Lubin; Cherie Mena; Leesa Gaston; Raina Pereira; Zena Vallejo; Shivani Moise; Jose Coppola; Waqar Neumann; Benjamín San; Roxie Garay; Lyndsay Saeed Jr; Won Jacobson; Trace Payne; Mathieu Hall; Desean Scott; Allegra Mares Hospital Stay Data Consultations 09/18/23 14:10 ED Decision to Admit Stat 09/18/23 17:07 Consult Gastroenterology Routine 09/20/23 13:04 Consult Vascular Surgery Routine 09/23/23 15:56 Consult Gastroenterology Routine Procedures Performed Operation Date: 10/01/23 16:30 <No data on this case meets the specified criteria> Diagnostic Imagining Performed 09/18/23 15:27 CT abd pelvis IV con only Stat 09/19/23 13:51 CT for pulmonary embolism PE [CT angio chest PE protocol] Routine 09/20/23 10:31 US venous doppler LE BI Routine 09/20/23 14:27 EV IVC filter placement Urgent 09/21/23 14:30 CT cervical spine wo con Routine 09/25/23 09:[address] [CT head/brain wo con] Stat 09/25/23 11:46 MRI Brain [MR brain wo con] Routine Pending Results Patient Have Any Pending Studies at Discharge: No Discharge Instructions Given to Patient (Per Discharging Provider) HASBLED calculator reveals risk of 8.9% for bleeding or 8.7 bleed per 100 pt years , alternatives to AC recommended 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 Per previous team at meeting Pt expressed desire to not limit treatment if possible . Total Time Total Time Spent Total Time Spent (In Minutes): 35 mins Coding Level of Care Code 87911 INP/OBS DISCH >30 MIN Diagnoses GI bleed K92.1 GI bleed type/associated pathology: melena Pulmonary emboli I26.99 Odontoid fracture S12.110A Acute UTI N39.0 Hypothyroidism E03.9
[2023-10-05 10:05] VITALS: PULSE 74
== END 2023-10-05 11:26 | DRG 356 ==
LOC: ED 12:34 → SUATTDRO 15:35 → 2N 15:35 → 3W 10-01 23:54

== ENCOUNTER 2024-05-09 17:36 | Inpatient (IN) ==
--- NOTE | 2024-05-09 18:21 | Emergency Department Note ---
Impression & Plan Hypotension, Septic shock, MAY (acute kidney injury) ED Provider Note CHIEF COMPLAINT: Fever HISTORY OF PRESENT ILLNESS: This 89-year-old female patient with past medical history of dementia, non-STEMI, pulmonary embolus, DVT, anemia Presents to the emergency department from [facility] with complaints of fever. Patient is nonverbal at baseline by nursing report. No additional history is provided except that apparently the patient received Tylenol prior to arrival. She remains febrile at 39.5. REVIEW OF SYSTEMS: Unable to obtain a full review of systems secondary to the patient's mental status. ALLERGIES: see below MEDICATIONS: see below PMH: see below SOCIAL HISTORY: see below DDx: UTI, pneumonia, viral syndrome such as COVID, influenza, diverticulitis, among others PHYSICAL EXAM: Vital signs reviewed. noted to be febrile General: elderly, chronically ill-appearing 89-year-old female, in no significant distress. HEENT: No scleral icterus, PERRLA, neck supple. Atraumatic. Cardiovascular: tachycardic but regular, no extra sounds Pulmonary: Clear to auscultation bilaterally, normal work of breathing. Abdomen: Soft, nontender, nondistended, positive bowel sounds. Musculoskeletal: Atraumatic, no peripheral edema. Neurologic: Patient awake alert and verbal response to her name with a moan. No verbal response. Follows simple commands with encouragement Skin: Warm, dry, no rash EMERGENCY DEPARTMENT COURSE/MDM: this patient was evaluated and appeared to be in no significant distress. IV access was obtained and laboratory work was drawn. The patient was placed on the air sampling and monitoring and noted to be in a normal sinus rhythm. patient's laboratory work reveals a lactate of 3.8 and a procalcitonin of 9.9. Blood cultures were obtained. Patient was hydrated with a total of 2 L of IV normal saline solution due to hypotension. Urine cath was performed by myself and is concerning for infection. This will be sent for culture. The patient was medicated with IV cefepime 2 g and IV vancomycin. Norepinephrine drip was initiated due to persistent hypotension. IV fluids were continued at 125 mL/h. The hospitalist service was consulted for admission and further management. MONITORING: An order for cardiac monitoring was placed and the patient is noted to be in a normal sinus rhythm at 92 beats per minute. RADIOLOGY: chest x-ray To my interpretation reveals no focal lung consolidation or failure. EKG: to my interpretation reveals a sinus tachycardia 104 bpm. Overall low voltage. QTc of 439. No PVC, no PAC. DISPOSITION: Admission I have personally spent greater than 60 minutes of critical care time in the direct management of this patient. This includes bedside care, interpretation of diagnostic studies, and testing, discussion with consultants, patient, and family members, and other required patient management activities. This 60 minutes is in excess of all separately billable procedures. Past Med/Surg History Problem List (Updated 05/12/24 @ 01:07 by Li Fang MD) Bacteremia due to Gram-negative bacteria Kidney stone Septic shock (Acute) MAY (acute kidney injury) (Acute) Dementia Hypotension (Acute) Sepsis History of anemia Odontoid fracture DVT (deep venous thrombosis) Pulmonary emboli (Acute) B12 deficiency Non-ST elevation [place] (NSTEMI) (Acute) Cognitive decline Lower extremity weakness Lateral meniscus tear Right knee DJD Medical History Esophagitis Acute UTI Hypernatremia Hypothyroidism Elevated CK Social History Smoking Status: Never smoker Second Hand Exposure: No; Do You Dip or Chew Tobacco: No; Tobacco Cessation Education Requested by Patient: No Hx Alcohol Use: No Hx Substance Use: No Preferred Language: Maltese Communication Ability: Effective Mold Operator Required: No Beliefs That Will Affect Care: None Current Living Situation: Alone Other Information That Helps Us Care for You: No Feels Safe at Home: Yes Safety Concerns: Feels Safe At This Time Assistive Devices: Wheelchair Allergies Allergies Allergy/AdvReac Type Severity Reaction Status Date / Time Sulfa (Sulfonamide Allergy Intermediate RASH Verified 05/09/24 19:40 Antibiotics) Home Meds Home Medications Medication Instructions Recorded Confirmed acetaminophen 325 mg tablet 650 mg PO Q4 PRN PAIN/FEVER >100F 09/18/23 05/09/24 docusate sodium 100 mg capsule 100 mg PO BID 09/18/23 05/09/24 polyethylene glycol 3350 17 17 g PO DAILY 09/18/23 05/09/24 gram/dose oral powder (Miralax) sennosides 8.6 mg-docusate sodium 1 tab-cap PO BID 09/18/23 05/09/24 50 mg tablet (Senokot-S) acetaminophen 325 mg tablet 650 mg PO BID 3 GRAMS/24 HOURS 05/09/24 05/09/24 (Tylenol) amlodipine 2.5 mg tablet 2.5 mg PO DAILY 05/09/24 05/09/24 ascorbic acid (vitamin C) 500 mg 500 mg PO DAILY 05/09/24 05/09/24 tablet (Vitamin C) docusate sodium 100 mg capsule 100 mg PO DAILY PRN NO BM FOR 2 05/09/24 05/09/24 (Colace) DAYS ferrous sulfate 220 mg (44 mg 110 mg PO BID 05/09/24 05/09/24 iron)/5 mL oral elixir folic acid 1 mg tablet 1 mg PO DAILY 05/09/24 05/09/24 hydrochlorothiazide 25 mg tablet 12.5 mg PO DAILY 05/09/24 05/09/24 levothyroxine 88 mcg tablet 88 mcg PO QAM 05/09/24 05/09/24 multivitamin with minerals 1 tab PO DAILY 05/09/24 05/09/24 omeprazole 20 mg tablet,delayed 20 mg PO BID 05/09/24 05/09/24 release Results & Data (ED) Vital Signs Vital Signs - 24 hr 05/09/24 17:30 05/09/24 18:01 Temperature 39.5 C H Temperature Source Oral Pulse Rate 113 H 101 H Respiratory Rate 12 Blood Pressure 140/83 Blood Pressure Mean 102 Blood Pressure Position Sitting Pulse Oximetry 92 Oxygen Delivery Method Room Air Sepsis Recent Fever Within 48 Hours Yes Sepsis New/Unexplained Change in Mental Status N/A Sepsis Action Taken by Nursing Physician Notified Home Medications Current Medication List: was personally reviewed by me Laboratory Data Attestation: I reviewed the patient's lab results. 05/11/24 05:43 05/11/24 05:43 Lab Results 05/09/24 05/09/24 05/09/24 Range/Units 17:55 18:48 19:24 WBC Cancelled 12.30 H RBC Cancelled 2.95 L Hgb Cancelled 9.3 L Hct Cancelled 27.0 L MCV Cancelled 91.5 MCH Cancelled 31.5 MCHC Cancelled 34.4 RDW Std Deviation Cancelled 48.9 H RDW Coeff of Coni Cancelled 14.6 H Plt Count Cancelled 192 MPV Cancelled 10.0 Immature Gran % (Auto) Cancelled 0.7 Neut % (Auto) Cancelled 94.9 Lymph % (Auto) Cancelled 2.0 [place] % (Auto) Cancelled 2.2 Eos % (Auto) Cancelled 0.0 Baso % (Auto) Cancelled 0.2 Neut # (Auto) Cancelled 11.67 H Lymph # (Auto) Cancelled 0.25 L [place] # (Auto) Cancelled 0.27 Eos # (Auto) Cancelled 0.00 Baso # (Auto) Cancelled 0.03 Immature Gran # (Auto) Cancelled 0.08 Absolute Nucleated RBC Cancelled Nucleated RBC % (auto) Cancelled Neutrophils % (Manual) Cancelled Band Neutrophils % Cancelled Lymphocytes % (Manual) Cancelled Prolymphocyte % Cancelled Reactive Lymphs % (Man) Cancelled Monocytes % (Manual) Cancelled Eosinophils % (Manual) Cancelled Basophils % (Manual) Cancelled Metamyelocytes % (Man) Cancelled Myelocytes % (Man) Cancelled Promyelocytes % (Man) Cancelled Blast Cells % (Manual) Cancelled Plasma Cell % (Manual) Cancelled Other Cells % Cancelled Nucleated RBC % Cancelled Neutrophils # (Manual) Cancelled Band Neutrophils # Cancelled Total Absolute Neuts Cancelled Lymphocytes # (Manual) Cancelled Prolymphocyte # Cancelled Reactive Lymphs # Cancelled Total Abs Lymphocytes Cancelled Monocytes # (Manual) Cancelled Eosinophils # (Manual) Cancelled Basophils # (Manual) Cancelled Metamyelocytes # (Man) Cancelled Myelocytes # (Manual) Cancelled Promyelocytes # (Man) Cancelled Blast Cells # (Man) Cancelled Plasma Cell # (Manual) Cancelled Other Cells # Cancelled Nucleated RBCs # (Man) Cancelled Hypersegmented Neuts Cancelled Hyposegmented Neuts Cancelled Hypogranular Neuts Cancelled Large Granular Lymphs Cancelled # Lrg Granular Lymphs Cancelled Hairy Cells Cancelled Smudge Cells Cancelled Toxic Granulation Cancelled Toxic Vacuolation Cancelled Dohle Bodies Cancelled Abdullahi Rods Cancelled Platelet Estimate Cancelled Hypogranular Platelets Cancelled Giant Platelets Cancelled Platelet Satelliting Cancelled RBC Morphology Cancelled Polychromasia Cancelled Hypochromasia Cancelled Poikilocytosis Cancelled Basophilic Stippling Cancelled Anisocytosis Cancelled Microcytosis Cancelled Macrocytosis Cancelled Spherocytes Cancelled Pappenheimer Bodies Cancelled Sickle Cells Cancelled Target Cells Cancelled Tear Drop Cells Cancelled Ovalocytes Cancelled Stomatocytes Cancelled [place] Bodies Cancelled Echinocytes Cancelled Acanthocytes (Spur) Cancelled Rouleaux Cancelled RBC Agglutinates Cancelled Schistocytes Cancelled Sezary Cell Cancelled PT 10.8 (9.0-12.0) Seconds INR 1.0 (0.9-1.1) APTT 28 (21-31) Seconds PTT Ratio 1.0 Sodium 129 L (136-145) mmol/L Potassium 3.7 (3.5-5.1) mmol/L Chloride 96 L (98-107) mmol/L Carbon Dioxide 23 (21-32) mmol/L Anion Gap 10 (3-11) BUN 22 (6-23) mg/dl Creatinine 0.71 (0.6-1.2) mg/dl Est Cr Clr Drug Dosing 45.3 ml/min eGFR 82.24 BUN/Creatinine Ratio 31.0 H (10-20) Glucose 116 H (70-99(Fasting)) mg/dl Osmolality 275 L (280-300) mOsm/kg Lactate 3.8 H* (0.4-2.0) mmol/L Calcium 8.8 (8.6-10.3) mg/dl Magnesium 1.4 L (1.7-2.4) mg/dl Total Bilirubin 0.5 (0.2-1.0) mg/dl Direct Bilirubin 0.1 (0-0.2) mg/dl AST 34 (13-39) U/L ALT 30 (7-52) U/L Alkaline Phosphatase 94 (34-104) U/L Troponin I High Sens 26.2 H 45.3 H D (0-14) pg/ml Total Protein 6.1 (6.0-8.3) gm/dl Albumin 3.3 L (3.4-5.0) gm/dl Procalcitonin 9.53 H (0-0.5) ng/ml Random Cortisol 49.13 mcg/dl Urine Color Urine Appearance (Clear) Urine pH (4.5-7.5) Ur Specific [place] (1.000-1.030) Urine Protein (Negative) Urine Glucose (UA) (Negative) Urine Ketones (Negative) Urine Blood (Negative) Urine Nitrite (Negative) Urine Bilirubin (Negative) Urine Urobilinogen (Negative) Ur Leukocyte Esterase (Negative) Urine WBC (Auto) (0-5) /hpf Urine RBC (Auto) (0-2) /hpf U Hyaline Cast (Auto) (0-2) /lpf U Epithel Cells (Auto) (0-2) /hpf Urine Bacteria (Auto) (None Seen) Urine Osmolality (500-800) mOsm/kg Ur Random Sodium mmol/L Enterobacterales (PCR) DETECTED A (NotDetected) Proteus species (PCR) DETECTED A (NotDetected) blaIMP Car res Gene PCR Not Detected (NotDetected) KPC-Carbap Res Gene PCR Not Detected (NotDetected) blaNDM Car Res Gene PCR Not Detected (NotDetected) OXA-48 Carbapenem Resis Gene (PCR) Not Detected (NotDetected) blaVIM Car Res Gene PCR Not Detected (NotDetected) CTX-M Gene Resistance (PCR) Not Detected (NotDetected) Bld Cult ID Panel PCR See PCR Comment (NotDetected) Blood Parasites ID Cancelled 05/09/24 05/09/24 Range/Units 20:15 20:35 WBC RBC Hgb Hct MCV MCH MCHC RDW Std Deviation RDW Coeff of Coni Plt Count MPV Immature Gran % (Auto) Neut % (Auto) Lymph % (Auto) [place] % (Auto) Eos % (Auto) Baso % (Auto) Neut # (Auto) Lymph # (Auto) [place] # (Auto) Eos # (Auto) Baso # (Auto) Immature Gran # (Auto) Absolute Nucleated RBC Nucleated RBC % (auto) Neutrophils % (Manual) Band Neutrophils % Lymphocytes % (Manual) Prolymphocyte % Reactive Lymphs % (Man) Monocytes % (Manual) Eosinophils % (Manual) Basophils % (Manual) Metamyelocytes % (Man) Myelocytes % (Man) Promyelocytes % (Man) Blast Cells % (Manual) Plasma Cell % (Manual) Other Cells % Nucleated RBC % Neutrophils # (Manual) Band Neutrophils # Total Absolute Neuts Lymphocytes # (Manual) Prolymphocyte # Reactive Lymphs # Total Abs Lymphocytes Monocytes # (Manual) Eosinophils # (Manual) Basophils # (Manual) Metamyelocytes # (Man) Myelocytes # (Manual) Promyelocytes # (Man) Blast Cells # (Man) Plasma Cell # (Manual) Other Cells # Nucleated RBCs # (Man) Hypersegmented Neuts Hyposegmented Neuts Hypogranular Neuts Large Granular Lymphs # Lrg Granular Lymphs Hairy Cells Smudge Cells Toxic Granulation Toxic Vacuolation Dohle Bodies Abdullahi Rods Platelet Estimate Hypogranular Platelets Giant Platelets Platelet Satelliting RBC Morphology Polychromasia Hypochromasia Poikilocytosis Basophilic Stippling Anisocytosis Microcytosis Macrocytosis Spherocytes Pappenheimer Bodies Sickle Cells Target Cells Tear Drop Cells Ovalocytes Stomatocytes [place] Bodies Echinocytes Acanthocytes (Spur) Rouleaux RBC Agglutinates Schistocytes Sezary Cell PT (9.0-12.0) Seconds INR (0.9-1.1) APTT (21-31) Seconds PTT Ratio Sodium (136-145) mmol/L Potassium (3.5-5.1) mmol/L Chloride (98-107) mmol/L Carbon Dioxide (21-32) mmol/L Anion Gap (3-11) BUN (6-23) mg/dl Creatinine (0.6-1.2) mg/dl Est Cr Clr Drug Dosing ml/min eGFR BUN/Creatinine Ratio (10-20) Glucose (70-99(Fasting)) mg/dl Osmolality (280-300) mOsm/kg Lactate 3.3 H* (0.4-2.0) mmol/L Calcium (8.6-10.3) mg/dl Magnesium (1.7-2.4) mg/dl Total Bilirubin (0.2-1.0) mg/dl Direct Bilirubin (0-0.2) mg/dl AST (13-39) U/L ALT (7-52) U/L Alkaline Phosphatase (34-104) U/L Troponin I High Sens (0-14) pg/ml Total Protein (6.0-8.3) gm/dl Albumin (3.4-5.0) gm/dl Procalcitonin (0-0.5) ng/ml Random Cortisol mcg/dl Urine Color Dark Yellow Urine Appearance Turbid A (Clear) Urine pH 6.5 (4.5-7.5) Ur Specific [place] 1.019 (1.000-1.030) Urine Protein 1+ H (Negative) Urine Glucose (UA) Negative (Negative) Urine Ketones Trace H (Negative) Urine Blood 1+ H (Negative) Urine Nitrite Negative (Negative) Urine Bilirubin Negative (Negative) Urine Urobilinogen Negative (Negative) Ur Leukocyte Esterase 3+ H (Negative) Urine WBC (Auto) >50 H (0-5) /hpf Urine RBC (Auto) 3-5 H (0-2) /hpf U Hyaline Cast (Auto) 11-20 H (0-2) /lpf U Epithel Cells (Auto) 0-2 (0-2) /hpf Urine Bacteria (Auto) 4+ H (None Seen) Urine Osmolality 509 (500-800) mOsm/kg Ur Random Sodium 67 mmol/L Enterobacterales (PCR) (NotDetected) Proteus species (PCR) (NotDetected) blaIMP Car res Gene PCR (NotDetected) KPC-Carbap Res Gene PCR (NotDetected) blaNDM Car Res Gene PCR (NotDetected) OXA-48 Carbapenem Resis Gene (PCR) (NotDetected) blaVIM Car Res Gene PCR (NotDetected) CTX-M Gene Resistance (PCR) (NotDetected) Bld Cult ID Panel PCR (NotDetected) Blood Parasites ID Administered Medications Amlodipine Besylate (Amlodipine Besylate 5 Mg Tab) 2.5 mg PO QAM [facility] Stop: 06/10/24 09:29 Last Admin: 05/11/24 10:42 Dose: 2.5 mg Documented By: JAX Folic Acid (Folic Acid 1 Mg Tab) 1 mg PO DAILY KYLAH Stop: 06/10/24 08:59 Last Admin: 05/11/24 08:59 Dose: 1 mg Documented By: JAX Heparin Sodium (Porcine) (Heparin Sod 5,000 Unit/0.5 Ml Vial) 5,000 units SQ Q12 KYLAH Stop: 06/09/24 08:59 Last Admin: 05/11/24 21:22 Dose: 5,000 units Documented By: Admin: 05/11/24 09:07 Dose: 5,000 units Documented By: Admin: 05/10/24 21:42 Dose: 5,000 units Documented By: Admin: 05/10/24 09:01 Dose: 5,000 units Documented By: KARAN Pantoprazole Sodium (Protonix) 40 mg in 10 mls @ 5 mls/min IV BID KYLAH Stop: 06/09/24 08:59 Last Admin: 05/11/24 21:22 Dose: 5 mls/min Documented By: Admin: 05/11/24 08:58 Dose: 5 mls/min Documented By: Admin: 05/10/24 21:48 Dose: 5 mls/min Documented By: Admin: 05/10/24 09:01 Dose: 5 mls/min Documented By: KARAN Piperacillin Sod/Tazobactam Sod (Zosyn) 4.5 gm in 100 mls @ 25 mls/hr IV Q8H KYLAH; Protocol Stop: 05/12/24 05:59 Last Admin: 05/11/24 21:22 Dose: 25 mls/hr Documented By: Infusion: 05/11/24 19:44 Dose: Infused Documented By: Admin: 05/11/24 15:23 Dose: 25 mls/hr Documented By: Infusion: 05/11/24 09:07 Dose: Infused Documented By: Admin: 05/11/24 05:09 Dose: 25 mls/hr Documented By: Infusion: 05/11/24 01:23 Dose: Infused Documented By: Admin: 05/10/24 21:42 Dose: 25 mls/hr Documented By: Infusion: 05/10/24 17:50 Dose: Infused Documented By: Admin: 05/10/24 13:44 Dose: 25 mls/hr Documented By: Infusion: 05/10/24 10:35 Dose: Infused Documented By: Admin: 05/10/24 06:14 Dose: 25 mls/hr Documented By: ESG Levothyroxine Sodium (Levothyroxine Sodium 88 Mcg Tablet) 88 mcg PO DAILYBB [facility] Stop: 06/09/24 06:29 Last Admin: 05/11/24 05:09 Dose: 88 mcg Documented By: Admin: 05/10/24 09:00 Dose: 88 mcg Documented By: KARAN Polyethylene Glycol (Polyethylene (Miralax) 17 Gm Pack) 17 gm PO DAILY KYLAH Stop: 06/09/24 08:59 Last Admin: 05/11/24 09:07 Dose: 17 gm Documented By: Admin: 05/10/24 09:01 Dose: 17 gm Documented By: KARAN Discontinued Medications Bisacodyl (Bisacodyl 10 Mg Supp) 10 mg IA NOW STA Stop: 05/10/24 00:54 Last Admin: 05/10/24 06:02 Dose: 10 mg Documented By: ESG Diatrizoate Meglumine (Diatrizoate Meglumine 30% 100ml Vial) 10 ml INSTIL ONCE ONE Stop: 05/10/24 01:48 Last Admin: 05/10/24 01:47 Dose: 10 ml Documented By: [id number] Sodium Chloride (Nss) 500 mls @ 999 mls/hr IV .Q31M KYLAH Stop: 05/09/24 18:45 Last Infusion: 05/09/24 19:10 Dose: Infused Documented By: Admin: 05/09/24 18:38 Dose: 999 mls/hr Documented By: QGV Cefepime HCl (Maxipime 2000mg) 2,000 mg in 20 mls @ 5 mls/min IV Q8H [facility]; Protocol Stop: 05/11/24 18:14 Last Admin: 05/09/24 18:38 Dose: 5 mls/min Documented By: QGV Acetaminophen (Ofirmev) 1,000 mg in 100 mls @ 400 mls/hr IV NOW STA Stop: 05/09/24 18:29 Last Infusion: 05/09/24 19:09 Dose: Infused Documented By: Admin: 05/09/24 18:38 Dose: 400 mls/hr Documented By: QGV Sodium Chloride (Nss) 500 mls @ 999 mls/hr IV .Q31M ONE Stop: 05/09/24 19:10 Last Infusion: 05/09/24 20:47 Dose: Infused Documented By: Admin: 05/09/24 19:58 Dose: 999 mls/hr Documented By: ERM Vancomycin HCl 1,000 mg/ (Sodium Chloride) 520 mls @ 200 mls/hr IV NOW ONE Stop: 05/09/24 23:23 Last Infusion: 05/10/24 00:50 Dose: Infused Documented By: Admin: 05/09/24 22:05 Dose: 200 mls/hr Documented By: ERM Sodium Chloride (Nss) 1,000 mls @ 999 mls/hr IV .Q1H1M ONE Stop: 05/09/24 21:56 Last Infusion: 05/09/24 21:06 Dose: Infused Documented By: Admin: 05/09/24 20:00 Dose: 999 mls/hr Documented By: TOMMIE Norepinephrine Bitartrate (Levophed/D5w) 4 mg in 250 mls @ 0 mls/hr IV .Q0M [facility]; Protocol Stop: 06/08/24 20:59 Last Titration: 05/10/24 10:35 Dose: Infused Documented By: WRS Co-signed By: DTT Titration: 05/10/24 08:34 Dose: 0 mcg/kg/min, 0 mls/hr Documented By: WRS Co-signed By: MTP Titration: 05/10/24 08:15 Dose: 0.01 mcg/kg/min, 1.9 mls/hr Documented By: WRS Co-signed By: MTP Titration: 05/10/24 08:00 Dose: 0.03 mcg/kg/min, 5.8 mls/hr Documented By: WRS Co-signed By: MTP Titration: 05/10/24 07:48 Dose: 0.05 mcg/kg/min, 9.6 mls/hr Documented By: WRS Co-signed By: MTP Titration: 05/10/24 07:18 Dose: 0.07 mcg/kg/min, 13.5 mls/hr Documented By: WRS Co-signed By: MTP Titration: 05/10/24 07:00 Dose: 0.09 mcg/kg/min, 17.3 mls/hr Documented By: WRS Co-signed By: MTP Titration: 05/10/24 06:52 Dose: 0.07 mcg/kg/min, 13.5 mls/hr Documented By: ESG Co-signed By: WRS Titration: 05/10/24 06:17 Dose: 0.09 mcg/kg/min, 17.3 mls/hr Documented By: ESG Co-signed By: CLC Titration: 05/10/24 02:19 Dose: 0.11 mcg/kg/min, 21.2 mls/hr Documented By: ESG Co-signed By: CLC Titration: 05/10/24 00:50 Dose: 0.13 mcg/kg/min, 25.1 mls/hr Documented By: ESG Co-signed By: CLC Titration: 05/10/24 00:39 Dose: 0.11 mcg/kg/min, 21.2 mls/hr Documented By: ESG Co-signed By: CLC Titration: 05/10/24 00:25 Dose: 0.09 mcg/kg/min, 17.3 mls/hr Documented By: ESG Co-signed By: CLC Titration: 05/10/24 00:15 Dose: 0.07 mcg/kg/min, 13.5 mls/hr Documented By: ESG Co-signed By: CLC Titration: 05/09/24 23:35 Dose: 0.05 mcg/kg/min, 9.6 mls/hr Documented By: ESG Co-signed By: CLC Titration: 05/09/24 23:22 Dose: 0.07 mcg/kg/min, 13.5 mls/hr Documented By: ESG Co-signed By: CLC Titration: 05/09/24 23:15 Dose: 0.09 mcg/kg/min, 17.3 mls/hr Documented By: ESG Co-signed By: CLC Titration: 05/09/24 23:05 Dose: 0.09 mcg/kg/min, 17.3 mls/hr Documented By: ERM Co-signed By: JH Titration: 05/09/24 22:04 Dose: 0.07 mcg/kg/min, 13.5 mls/hr Documented By: ERM Co-signed By: PJP Admin: 05/09/24 21:04 Dose: 0.05 mcg/kg/min, 9.6 mls/hr Documented By: ERM Co-signed By: NAW Magnesium Sulfate/Dextrose (Magnesium Sulfate / D5w) 1 gm in 100 mls @ 200 mls/hr IV Q30M [facility]LA[facility] Stop: 05/09/24 21:59 Last Infusion: 05/09/24 22:38 Dose: Infused Documented By: Admin: 05/09/24 22:05 Dose: 200 mls/hr Documented By: Infusion: 05/09/24 21:51 Dose: Infused Documented By: Admin: 05/09/24 21:11 Dose: 200 mls/hr Documented By: ERM Parenteral Electrolytes (Plasma-Lyte A Ph 7.4) 500 mls @ 999 mls/hr IV .Q31M STA Stop: 05/09/24 23:57 Last Infusion: 05/10/24 00:39 Dose: Infused Documented By: Admin: 05/09/24 23:30 Dose: 999 mls/hr Documented By: ESKylee Vancomycin HCl 1,500 mg/ (Sodium Chloride) 530 mls @ 200 mls/hr IV Q24H [facility]LA[facility] Stop: 05/12/24 03:59 Last Infusion: 05/10/24 06:50 Dose: Infused Documented By: Admin: 05/10/24 04:09 Dose: 200 mls/hr Documented By: ESG Piperacillin Sod/Tazobactam Sod (Zosyn) 4.5 gm in 100 mls @ 200 mls/hr IV ONE ONE; Protocol Stop: 05/10/24 00:29 Last Infusion: 05/10/24 00:50 Dose: Infused Documented By: Admin: 05/10/24 00:15 Dose: 200 mls/hr Documented By: ESG Magnesium Sulfate/Dextrose (Magnesium Sulfate / D5w) 1 gm in 100 mls @ 50 mls/hr IV Q2H KYLAH Stop: 05/10/24 06:14 Last Infusion: 05/10/24 06:23 Dose: Infused Documented By: Admin: 05/10/24 04:11 Dose: 50 mls/hr Documented By: Infusion: 05/10/24 04:11 Dose: Infused Documented By: Admin: 05/10/24 02:19 Dose: 50 mls/hr Documented By: Infusion: 05/10/24 02:19 Dose: Infused Documented By: Admin: 05/10/24 00:39 Dose: 50 mls/hr Documented By: ESG Potassium Chloride (K Viet / Wtr) 10 meq in 100 mls @ 100 mls/hr IV Q1H KYLA[facility] Stop: 05/10/24 13:29 Last Infusion: 05/10/24 13:36 Dose: Infused Documented By: Admin: 05/10/24 12:44 Dose: 100 mls/hr Documented By: Infusion: 05/10/24 12:41 Dose: Infused Documented By: Admin: 05/10/24 11:41 Dose: 100 mls/hr Documented By: Infusion: 05/10/24 11:41 Dose: Infused Documented By: Admin: 05/10/24 10:41 Dose: 100 mls/hr Documented By: Infusion: 05/10/24 10:41 Dose: Infused Documented By: Admin: 05/10/24 09:56 Dose: 100 mls/hr Documented By: KARAN Lactated Ringer's (Lr) 500 mls @ 999 mls/hr IV .Q31M ONE Stop: 05/10/24 10:03 Last Infusion: 05/10/24 10:36 Dose: Infused Documented By: Admin: 05/10/24 09:56 Dose: 999 mls/hr Documented By: KARAN Cook (Concentrate Norepinephrine Iv Infusion) 1 each N/A NOW ONE Stop: 05/09/24 20:50 Last Admin: 05/09/24 22:27 Dose: Not Given Documented By: TOMMIE Cook (Stat Iv Infusion Titration Per Protocol) 1 each N/A NOW STA Stop: 05/09/24 20:58 Last Admin: 05/09/24 22:27 Dose: Not Given Documented By: TOMMIE Cook (Icu Protocol For Hyperglycemia) 1 each N/A ACHS KYLAH Stop: 05/12/24 07:29 Last Admin: 05/10/24 08:39 Dose: Not Given Documented By: KARAN Imaging Data Radiologist's Impression: Chest X-Ray 05/09/24 18:13 Clinical History: Sepsis Technique: A frontal view of the chest was obtained Comparison is made to the prior examination dated 09/18/2023 Findings: There are no confluent pulmonary infiltrates. The heart size is within normal limits. No pleural effusion or pneumothorax is seen. There is no definite pulmonary nodule. No fracture is noted. No foreign body is seen Impression: No active disease Electronically signed by Gustavo Arredondo 05-09-2024 7:53 PM Abdomen/Pelvis CT 05/09/24 21:30 Exam(s): CT ABDOMEN + PELVIS Without Contrast EXAM: CT Abdomen and Pelvis Without Intravenous Contrast CLINICAL HISTORY: Reason for exam: Sepsis. TECHNIQUE: Axial computed tomography images of the abdomen and pelvis without intravenous contrast. CTDI is 10.85 mGy and DLP is 542.43 mGy-cm. Automated exposure control was utilized for the study. A dose lowering technique was utilized adhering to the principles of ALARA. COMPARISON: 09/18/23 FINDINGS: Lung bases: Subsegmental bibasilar atelectasis. Pleural space: Trace pleural effusions. Mediastinum: Small hiatal hernia. ABDOMEN: Liver: Unremarkable. Gallbladder and bile ducts: Gallbladder distention and mild gallbladder wall edema. No calcified stones. No biliary dilatation. Pancreas: Unremarkable. No ductal dilation. Spleen: Unremarkable. No splenomegaly. Adrenals: Unremarkable. No mass. Kidneys and ureters: Bilateral nonobstructing kidney stones. Obstructing 6 mm right UVJ stone with mild upstream hydroureteronephrosis. Mild left-sided hydroureteronephrosis without obstructing ureteral stone. Stomach and bowel: Constipation with rectosigmoid fecal impaction. No mechanical bowel obstruction. Colonic diverticulosis. No mucosal thickening. PELVIS: Appendix: Appendix is not visualized. Bladder: Urinary bladder is incompletely distended. No stones. Reproductive: Unremarkable as visualized. ABDOMEN and PELVIS: Intraperitoneal space: Unremarkable. No free air, significant free fluid, or fluid collection. Bones/joints: Osteopenia. Degenerative change in the lumbar spine. Grade 1 degenerative anterolisthesis of L5. No acute fracture or dislocation. Soft tissues: Unremarkable. Vasculature: Atherosclerosis. Infrarenal IVC filter. No abdominal aortic aneurysm. Lymph nodes: Unremarkable. No enlarged lymph nodes. IMPRESSION: 1. Obstructing 6 mm right UVJ stone with mild upstream hydroureteronephrosis. 2. Mild left-sided hydroureteronephrosis without obstructing ureteral stone. This may be due to extrinsic ureteral compression by the stool- distended rectum. 3. Additional bilateral nonobstructing kidney stones. 4. Constipation with rectosigmoid fecal impaction. Appearance is similar to prior. 5. Gallbladder distention and mild gallbladder wall edema. No calcified stones. Acute cholecystitis cannot be excluded but is considered unlikely given CT appearance. Electronically signed by: Jacinta Dacosta M.D. 05/09/24 23:09 PM Discharge Plan Visit Data Chief Complaint: Fever Stated Complaint: FEVER ED Provider: Li Fang Discharge Problem: Hypotension, Septic shock, MAY (acute kidney injury) Patient Disposition: Admitted As Inpatient Discharge Instructions Interventions: ED Discharge Assessment Last Done: 05/09/24 23:15
[2024-05-09] MEDS: SODIUM CHLORIDE 0.9% 500 ML IV SCH (18:38)
[2024-05-09] MEDS: ACETAMINOPHEN 1,000 MG/100 ML VIAL IV STA (18:38)
[2024-05-09] MEDS: CEFEPIME 2000MG 2,000 MG/20 ML SYR IV SCH (18:38)
[2024-05-09 18:49] LABS: Albumin Level 3.3 gm/dl (3.4-5.0); Bilirubin Direct 0.1 mg/dl (0-0.2); Bilirubin,Total 0.5 mg/dl (0.2-1.0); Calcium 8.8 mg/dl (8.6-10.3); Creatinine Clr Calc Pharmacy 45.3 ml/min; Magnesium 1.4 mg/dl (1.7-2.4); Potassium 3.7 mmol/L (3.5-5.1); Total Protein 6.1 gm/dl (6.0-8.3)
[2024-05-09 18:55] LABS: Troponin I High Sensitivity 26.2 pg/ml (0-14)
[2024-05-09 19:37] LABS: Hemoglobin 9.3 g/dl (12.0-16.0); Mean Corpuscular Hemoglobin 31.5 pg (25.0-34.0); Mean Corpuscular Hgb Conc 34.4 g/dL (32.0-36.0); Mean Corpuscular Volume 91.5 fL (80.0-100.0); Platelet Count 192 K/uL (130-400); RDW Coefficient of Variation 14.6 % (11.5-14.5); RDW Standard Deviation 48.9 fL (36.4-46.3); Red Blood Count 2.95 M/uL (4.20-5.40)
--- NOTE | 2024-05-09 19:53 | XRay Report ---
Clinical History: Sepsis Technique: A frontal view of the chest was obtained Comparison is made to the prior examination dated 09/18/2023 Findings: There are no confluent pulmonary infiltrates. The heart size is within normal limits. No pleural effusion or pneumothorax is seen. There is no definite pulmonary nodule. No fracture is noted. No foreign body is seen Impression: No active disease Electronically signed by Gustavo Arredondo 05-09-2024 7:53 PM
[2024-05-09] MEDS: SODIUM CHLORIDE 0.9% 500 ML IV ONE (19:58)
[2024-05-09 19:59] LABS: Basophils # (auto) 0.03 K/uL (0.00-0.20); Basophils % (auto) 0.2 %; Immature Granulocytes # (auto) 0.08 K/uL (0.01-0.20); Immature Granulocytes % (auto) 0.7 %; Lymphocytes # (auto) 0.25 K/uL (1.20-3.40); Monocytes # (auto) 0.27 K/uL (0.11-0.59); Monocytes % (auto) 2.2 %; Neutrophils # (auto) 11.67 K/uL (1.40-6.50); Neutrophils % (auto) 94.9 %
[2024-05-09] MEDS: SODIUM CHLORIDE 0.9% 1,000 ML IV ONE (20:00)
[2024-05-09 20:45] LABS: Appearance Urine Turbid (Clear); Bacteria Urine Automated 4+ (None Seen); Bilirubin Urine Negative (Negative); Blood Urine 1+ (Negative); Color Urine Dark Yellow; Epithelial Cell Urine Auto 0-2 /hpf (0-2); Glucose Urine UA Negative (Negative); Ketones Urine Trace (Negative); Leukocyte Esterase Urine 3+ (Negative); Nitrite Urine Negative (Negative); Protein Urine 1+ (Negative); Specific Gravity Urine 1.019 (1.000-1.030); Urobilinogen Urine Negative (Negative); WBC Urine Automated >50 /hpf (0-5); pH Urine 6.5 (4.5-7.5)
[2024-05-09] MEDS ORDERED: VANCOMYCIN CONSULT ACTIVE PRN ×2 (20:48→23:43)
[2024-05-09] MEDS: NOREPINEPHRINE/D5W 4 MG/250 ML PLCT IV SCH (21:04)
[2024-05-09] MEDS: MAGNESIUM SULFATE / D5W 1 GM/100 ML BAG IV SCH (21:11)
--- NOTE | 2024-05-09 21:24 | History & Physical Report ---
Date of Service May 09, 2024 Assessment & Plan (1) Sepsis: (2) DVT (deep venous thrombosis): (3) Hypotension: (4) Pulmonary emboli: (5) Dementia: (6) Hypothyroidism: (7) MAY (acute kidney injury): Plan This is a 89 y/ female with PMH of advanced dementia, , non-STEMI, hx of PE, hx of DVT (IVC placed), anemia, dementia, B12 deficiency hx of GI bleed. She was bring from [facility] due to fever. at arrival found with uro sepsis and hypotension. Patient received 2L of NSS with no improvement of hypotension, placed on Levophed in the ED. Labs remarkable for leukocytosis 12.30, lactate: 3.3, procalcitonin 9.53, hyponatremia 126, anemia 9.3. UA with Leukocyte estera se, bacteria+. Patient will be admitted in ICU for septic shock and vasopressors POMariana Sylvester called, states he met her 5 years ago. Patient expressed desired of full treatment. Septic shock Obstructive nephrolithiasis - Patient brought from [facility] due to fever - Patient found with UTI and hypotension - Will Admit to ICU dye to septic shock on Levophed - UA: WBC+, Bacteria+, Leukocyte esterase+ - s/p 2L NSS with no improvement of hypotension - Placed on Levophed by ED provider - Leukocytosis of 12.30, lactate acid 3.3, procalcitonin 9.53 - Creatinine 0.71 - Random cortisol - 67 - Placed on Vancomycin and Cefepime by ED - continue Vancomycin - started in Zosyn q8 hrs - Pending urine and blood cultures - Abdomen Ct --> obstructive renal stone - Continue Levophed >MAP 60 - Furnace Worker consulted, aprec recommendations - Urology consulted, aprec recommendations MAY - Creatinine baseline 0.38 - Cr. on admission 0.71 - Avoid nephrotoxic medication - Continue sepsis treatment Anemia: - she has hx of GI bleed - Unable to do EGD/ Colonoscopy outpatient - Hgb 9.3 - Protonix IV for GI prophylaxis - CBC AM Hypertension - Amlodipine and hydrochlorothiazide on hold Hypothyroidism: - Levothyroxine FEN: NPO Code status: Full code DVT ppx: Will defer to ICU Dispo:ICU History of Present Illness Primary Care Provider: Dutch Krueger DO Ana is a 89 y/ female with PMH of advanced dementia, non-STEMI, hx of PE, hx of DVT (IVC placed), anemia, dementia, B12 deficiency, hx of GI bleed. She was sent from [facility] due to fevers. Patient is nonverbal on baseline. Unable to get HPI from patient. On arrival patient found with hypotension. Labs remarkable for leukocytosis of 9.3, hyponatremia 129, Anemia 9.3, lactate 3.3. Hypomagnesemia 1.4. Procalcitonin 9.53. UA with Leukocyte esterase, wbc and bacteria. ED course: 2 L NSS give, with no improvement of hypotension. Patient placed on Levophed. Cefepime and Vancomycin given in the ED. IV Magnesium 2 grams given POA Israel Sylvester called early tonight. Updated him on current status. He states patient wishes was to do full treatment. Code status discussed. Patient placed on Full code Allergies Allergy/AdvReac Type Severity Reaction Status Date / Time Sulfa (Sulfonamide Allergy Intermediate RASH Verified 05/09/24 19:40 Antibiotics) Home Medications Medication Instructions Recorded Confirmed Type acetaminophen 325 mg tablet 650 mg PO Q4 PRN PAIN/FEVER >100F 09/18/23 05/09/24 History docusate sodium 100 mg capsule 100 mg PO BID 09/18/23 05/09/24 History polyethylene glycol 3350 17 17 g PO DAILY 09/18/23 05/09/24 History gram/dose oral powder (Miralax) sennosides 8.6 mg-docusate sodium 1 tab-cap PO BID 09/18/23 05/09/24 History 50 mg tablet (Senokot-S) acetaminophen 325 mg tablet 650 mg PO BID 3 GRAMS/24 HOURS 05/09/24 05/09/24 History (Tylenol) amlodipine 2.5 mg tablet 2.5 mg PO DAILY 05/09/24 05/09/24 History ascorbic acid (vitamin C) 500 mg 500 mg PO DAILY 05/09/24 05/09/24 History tablet (Vitamin C) docusate sodium 100 mg capsule 100 mg PO DAILY PRN NO BM FOR 2 05/09/24 05/09/24 History (Colace) DAYS ferrous sulfate 220 mg (44 mg 110 mg PO BID 05/09/24 05/09/24 History iron)/5 mL oral elixir folic acid 1 mg tablet 1 mg PO DAILY 05/09/24 05/09/24 History hydrochlorothiazide 25 mg tablet 12.5 mg PO DAILY 05/09/24 05/09/24 History levothyroxine 88 mcg tablet 88 mcg PO QAM 05/09/24 05/09/24 History multivitamin with minerals 1 tab PO DAILY 05/09/24 05/09/24 History omeprazole 20 mg tablet,delayed 20 mg PO BID 05/09/24 05/09/24 History release Past Med/Surg History Problem List Kidney stone Septic shock MAY (acute kidney injury) Dementia Hypotension Sepsis History of anemia Odontoid fracture DVT (deep venous thrombosis) Pulmonary emboli (Acute) B12 deficiency Non-ST elevation UT (NSTEMI) (Acute) Cognitive decline Lower extremity weakness Lateral meniscus tear Right knee DJD Medical History Esophagitis Acute UTI Hypernatremia Hypothyroidism Elevated CK Social History Smoking Status: Never smoker Second Hand Exposure: No; Do You Dip or Chew Tobacco: No; Tobacco Cessation Education Requested by Patient: No Hx Alcohol Use: No Hx Substance Use: No Preferred Language: Sinhala Communication Ability: Effective Record Filing Clerk Required: No Beliefs That Will Affect Care: None Current Living Situation: Alone Other Information That Helps Us Care for You: No Feels Safe at Home: Yes Safety Concerns: Feels Safe At This Time Assistive Devices: Wheelchair Review of Systems Review of Systems: unable to obtain due to mentation Physical Exam Constitutional: + ill appearing, + thin, + altered menta l status and + frail appearing; no acute distress Eyes: PERRL, conjunctivae normal, anicteric sclerae Respiratory: normal respiratory effort, lungs clear to auscultation Cardiovascular: RRR, no murmur, no edema Extremities: no edema Gastrointestinal (Abdomen): normal bowel sounds, soft, nontender, no hepatosplenomegaly Skin: no rashes, warm and dry Results & Data Results & Data Vital Signs (Past 12 Hours) Vital Signs Temp Pulse Resp BP Pulse Ox O2 Del Method O2 Flow Rate 05/09/24 18:45 88 19 95 2 05/09/24 18:36 93 H 18 95 2 05/09/24 18:24 92 H 16 94 2 05/09/24 18:16 94 Nasal Cannula 2 05/09/24 18:06 96 H 20 95 2 05/09/24 18:01 101 H 05/09/24 17:41 140/83 05/09/24 17:30 39.5 C H 113 H 12 140/83 92 Room Air Supervising Physician Co-Signing Physician Notes I personally saw and examined the patient. I independently reviewed the labs, EKG, imaging, problem list, medication list, past medical history and family history. I verified all leos points and agree with resident physican Dr Zari Astorga MD with the following exceptions and/or additions: 89 year old female presents to the ER with fever and hypoxia from [facility]. Nonverbal at baseline with dementia therefore unable to obtain an independent history. O/E Alert but non orientated x3, dry mucous membranes, cool peripheries, HS RRR, no murmurs, Chest CTAB, Abdo SNT, no CVA tenderness A/P Septic shock / ureterolithiasis / UTI - admit to ICU, discussed with urology PA and ICU DISTANCE EDUCATION FACULTY LIAISON, 2 doctor consent for procedure as unable to get a hold of POA but prior discussion with resident POA wanted everything done and POLST for full resuscitation. Van+Zosyn for antibiotics. Follow up blood and urine cultures. Norepinephrine started in ER with ongoing management per ICU team. Resident Activity Tracking Resident Involvement: Resident Care Provided Care Provided: Adult Hospital Medicine
[2024-05-09] MEDS: VANCOMYCIN HCL 1,000 MG in SODIUM CHLORIDE 0.9% 500 ML IV ONE (22:05)
[2024-05-09] MEDS: STAT IV Infusion **Titration per Protocol STA (22:27)
[2024-05-09] MEDS: Concentrate Norepinephrine IV Infusion ONE (22:27)
[2024-05-09 22:32] LABS: Partial Thromboplastin Time 28 Seconds (21-31); Prothrombin Time 10.8 Seconds (9.0-12.0)
--- NOTE | 2024-05-09 23:10 | CT Scan Report ---
Exam(s): CT ABDOMEN + PELVIS Without Contrast EXAM: CT Abdomen and Pelvis Without Intravenous Contrast CLINICAL HISTORY: Reason for exam: Sepsis. TECHNIQUE: Axial computed tomography images of the abdomen and pelvis without intravenous contrast. CTDI is 10.85 mGy and DLP is 542.43 mGy-cm. Automated exposure control was utilized for the study. A dose lowering technique was utilized adhering to the principles of ALARA. COMPARISON: 09/18/23 FINDINGS: Lung bases: Subsegmental bibasilar atelectasis. Pleural space: Trace pleural effusions. Mediastinum: Small hiatal hernia. ABDOMEN: Liver: Unremarkable. Gallbladder and bile ducts: Gallbladder distention and mild gallbladder wall edema. No calcified stones. No biliary dilatation. Pancreas: Unremarkable. No ductal dilation. Spleen: Unremarkable. No splenomegaly. Adrenals: Unremarkable. No mass. Kidneys and ureters: Bilateral nonobstructing kidney stones. Obstructing 6 mm right UVJ stone with mild upstream hydroureteronephrosis. Mild left-sided hydroureteronephrosis without obstructing ureteral stone. Stomach and bowel: Constipation with rectosigmoid fecal impaction. No mechanical bowel obstruction. Colonic diverticulosis. No mucosal thickening. PELVIS: Appendix: Appendix is not visualized. Bladder: Urinary bladder is incompletely distended. No stones. Reproductive: Unremarkable as visualized. ABDOMEN and PELVIS: Intraperitoneal space: Unremarkable. No free air, significant free fluid, or fluid collection. Bones/joints: Osteopenia. Degenerative change in the lumbar spine. Grade 1 degenerative anterolisthesis of L5. No acute fracture or dislocation. Soft tissues: Unremarkable. Vasculature: Atherosclerosis. Infrarenal IVC filter. No abdominal aortic aneurysm. Lymph nodes: Unremarkable. No enlarged lymph nodes. IMPRESSION: 1. Obstructing 6 mm right UVJ stone with mild upstream hydroureteronephrosis. 2. Mild left-sided hydroureteronephrosis without obstructing ureteral stone. This may be due to extrinsic ureteral compression by the stool- distended rectum. 3. Additional bilateral nonobstructing kidney stones. 4. Constipation with rectosigmoid fecal impaction. Appearance is similar to prior. 5. Gallbladder distention and mild gallbladder wall edema. No calcified stones. Acute cholecystitis cannot be excluded but is considered unlikely given CT appearance. Electronically signed by: Jacinta Dacosta M.D. 05/09/24 23:09 PM
[2024-05-09] MEDS: PLASMA-LYTE A 500 ML IV STA (23:30)
--- NOTE | 2024-05-09 23:38 | Critical Care Consultation ---
Date of Consultation May 09, 2024 Assessment & Plan (1) Septic shock: (2) Kidney stone: (3) Dementia: (4) Elevated troponin: Plan Reason Critically Ill: 89 YOF presents to the hospital for fever from [facility], found to be in septic shock with imaging noting obstructing renal stone. To the ICU for vasopressors and continued support. Neuro - Dementia CAM ICU: [facility] - Resident of [facility] care facility secondary to end stage dementia- patient unable to make decisions for self. Reportedly there is a POA Israel Sylvester - NO acute needs Cardiac - Shock- distributive, elevated troponin - Septic shock with organ dysfunction- source urine with 6mm obstructing renal stone - Has received ~ 2L crystalloid - bedside POCUS performed with compressible IVC, no pericardial effusion and no obvious contractility issues - Will provide another 500 cc of plasmalyte - Lactate will be re-checked as last result was 3.8 downtrending to 3.3 - Continue broad spectrum antibiotics - previous cultures were E.COLI resistant to AMP:TMP:Sulfa - Elevated HsCTNI - likely demand secondary to hypotension and shock- ECG reviewed no regional abnormalities or STEMI Respiratory - No acute needs GI - No acute needs RENAL/LYTES - Hypoosmolar hyponatremia, complicated UTI with 6mm obstructing renal stone - Hypoosmolar hyponatremia with normal urine osmo and UA sodium 67- likely secondary to shock/hypovolemia/ with decreased solute intake - continue with isotonic volume, restrict free water overnight - trend- no indication at this time for 3% - Cortisol > 40 - obstructing renal stone- urology consulted for source control appreciate assistance - UTI complicated - As above- Roper placed continue while on vasopressors ENDO - No acute needs - ICU hyper/hypoglycemic protocol HEME - NO acute needs - 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 This is a life/limb threatening event. This includes time spent evaluating patient, direct bedside care, chart review, placing orders, interpretation of diagnostic studies, discussion with consultants, patient, and family members, as well as other required patient management activities. This time is exclusive of all separately billable procedures, and separate from and in addition to any other critical care service time. Thank you for allowing us to participate in the care of this patient. Please refer to my attending physician's documentation for any further recommendations. History of Present Illness Reason for Consultation: septic shock Requesting Physician: Mik Faustin MD Attending Physician: Mik Faustin MD History of Present Illness 89 YOF presents to ER from outside intermediate care at [facility]. Patient is a resident there secondary to endstage dementia. She is accompanied by no family or POA. All information in this chart is from records review. She is accompanied by a POLST form. Patient has medical history of : NSTEMI/CAD, PE with DVT and IVC placement, GI bleed. Reportedly she was brought to the ER for fever from [facility]. In the ER patient had routine labs performed, to include blood and urine cultures drawn, CXR obtained. She was reportedly given 2L crystalloid and initiated on Levophed infusion for continued hypotension. She was noted with organ dysfunction and mildly elevated lactate. Patient was placed for admission. Admitting team obtained CT abd/pelvis for further evaluation of sepsis cause, and noted 6mm obstructing renal stone. Urology will be consulted. Patient evaluation arrival to the ICU. She is on 0.09 mcg/kg/min. Will further evaluate fluid volume status with POCUS and continue with resuscitation efforts. CODE: FULL (POLST) Allergies Allergy/AdvReac Type Severity Reaction Status Date / Time Sulfa (Sulfonamide Allergy Intermediate RASH Verified 05/09/24 19:40 Antibiotics) Home Medications Medication Instructions Recorded Confirmed Type acetaminophen 325 mg tablet 650 mg PO Q4 PRN PAIN/FEVER >100F 09/18/23 05/09/24 History docusate sodium 100 mg capsule 100 mg PO BID 09/18/23 05/09/24 History polyethylene glycol 3350 17 17 g PO DAILY 09/18/23 05/09/24 History gram/dose oral powder (Miralax) sennosides 8.6 mg-docusate sodium 1 tab-cap PO BID 09/18/23 05/09/24 History 50 mg tablet (Senokot-S) acetaminophen 325 mg tablet 650 mg PO BID 3 GRAMS/24 HOURS 05/09/24 05/09/24 History (Tylenol) amlodipine 2.5 mg tablet 2.5 mg PO DAILY 05/09/24 05/09/24 History ascorbic acid (vitamin C) 500 mg 500 mg PO DAILY 05/09/24 05/09/24 History tablet (Vitamin C) docusate sodium 100 mg capsule 100 mg PO DAILY PRN NO BM FOR 2 05/09/24 05/09/24 History (Colace) DAYS ferrous sulfate 220 mg (44 mg 110 mg PO BID 05/09/24 05/09/24 History iron)/5 mL oral elixir folic acid 1 mg tablet 1 mg PO DAILY 05/09/24 05/09/24 History hydrochlorothiazide 25 mg tablet 12.5 mg PO DAILY 05/09/24 05/09/24 History levothyroxine 88 mcg tablet 88 mcg PO QAM 05/09/24 05/09/24 History multivitamin with minerals 1 tab PO DAILY 05/09/24 05/09/24 History omeprazole 20 mg tablet,delayed 20 mg PO BID 05/09/24 05/09/24 History release Patient History Medical History Esophagitis Acute UTI Hypernatremia Hypothyroidism Elevated CK Social History Smoking Status: Never smoker Second Hand Exposure: No; Do You Dip or Chew Tobacco: No; Tobacco Cessation Education Requested by Patient: No Hx Alcohol Use: No Hx Substance Use: No Preferred Language: Scottish Communication Ability: Effective Abrasives Sales Representative Required: No Beliefs That Will Affect Care: None Current Living Situation: Alone Other Information That Helps Us Care for You: No Feels Safe at Home: Yes Safety Concerns: Feels Safe At This Time Assistive Devices: Wheelchair Review of Systems Review of Systems: unable to obtain secondary to patient's mental status Physical Exam Physical Exam: PHYSICAL EXAM: General: awakens to voice and says hello Head: Normocephalic, atraumatic ENT: PERRLA, mucous membranes dry Neuro: AAO x 0, speech mostly unintelligible, moves all extremities, follows some commands Chest: equal rise and fall of the chest, no accessory muscle use, no heaves or thrills, decreased in bases Cardiac: Regular rate and rhythm, telemetry reviewed, skin warm dry, cap refill <3 seconds, peripheral pulses +2 no JVD, no murmur, no edema GI: NABS x 4 quadrants, soft, nontender to palpation, no rebound, guarding or tenderness : Roper placed to gravity, Results & Data Results & Data Vital Signs (Past 12 Hours) Vital Signs Temp Pulse Pulse Resp BP BP Pulse Ox 05/09/24 23:15 68 12 90/55 L 94 05/09/24 23:15 05/09/24 23:10 69 14 102/57 L 96 05/09/24 23:07 70 18 101/62 95 05/09/24 23:00 67 16 80/53 L 96 05/09/24 22:45 69 12 82/54 L 95 05/09/24 22:30 69 13 89/57 L 96 05/09/24 22:15 78 18 99/56 L 96 05/09/24 22:04 66 05/09/24 22:02 71 14 78/59 L 96 05/09/24 21:45 71 13 92/56 L 97 05/09/24 21:42 73 14 97/57 L 96 05/09/24 21:30 79 13 97/60 L 94 05/09/24 21:15 78 12 93/55 L 98 05/09/24 21:00 75 12 67/39 L 96 05/09/24 20:45 81 13 85/53 L 99 05/09/24 20:39 74 12 71/49 L 100 05/09/24 20:38 76 13 72/48 L 99 05/09/24 20:30 77 12 76/49 L 100 05/09/24 20:20 78 19 81/51 L 97 05/09/24 20:15 83 15 81/51 L 98 05/09/24 20:09 77 20 72/46 L 99 05/09/24 20:06 79 19 82/48 L 97 05/09/24 20:00 80 16 75/48 L 95 05/09/24 19:56 82 21 86/52 L 97 05/09/24 19:48 83 21 74/48 L 95 05/09/24 19:00 87 19 78/52 L 94 05/09/24 18:45 88 19 95 05/09/24 18:36 93 H 18 95 05/09/24 18:24 92 H 16 94 05/09/24 18:16 94 05/09/24 18:06 96 H 20 95 05/09/24 18:01 101 H 05/09/24 17:41 140/83 05/09/24 17:30 39.5 C H 113 H 12 140/83 92 O2 Del Method O2 Flow Rate 05/09/24 23:15 Room Air 05/09/24 23:15 Room Air 05/09/24 23:10 Room Air 05/09/24 23:07 Room Air 05/09/24 23:00 Room Air 05/09/24 22:45 Nasal Cannula 2 05/09/24 22:30 Nasal Cannula 2 05/09/24 22:15 Nasal Cannula 2 05/09/24 22:04 05/09/24 22:02 Nasal Cannula 2 05/09/24 21:45 Nasal Cannula 2 05/09/24 21:42 Nasal Cannula 2 05/09/24 21:30 Nasal Cannula 2 05/09/24 21:15 Nasal Cannula 2 05/09/24 21:00 Nasal Cannula 2 05/09/24 20:45 Nasal Cannula 2 05/09/24 20:39 Nasal Cannula 2 05/09/24 20:38 Nasal Cannula 2 05/09/24 20:30 Nasal Cannula 2 05/09/24 20:20 Nasal Cannula 2 05/09/24 20:15 Nasal Cannula 2 05/09/24 20:09 Nasal Cannula 2 05/09/24 20:06 Nasal Cannula 2 05/09/24 20:00 Nasal Cannula 2 05/09/24 19:56 Nasal Cannula 2 05/09/24 19:48 Nasal Cannula 2 05/09/24 19:00 Nasal Cannula 2 05/09/24 18:45 2 05/09/24 18:36 2 05/09/24 18:24 2 05/09/24 18:16 Nasal Cannula 2 05/09/24 18:06 2 05/09/24 18:01 05/09/24 17:41 05/09/24 17:30 Room Air Laboratory Results Abnormal lab results 05/09/24 05/09/24 05/09/24 Range/Units 17:55 18:48 19:24 WBC 12.30 H (4.8-10.8) K/ul RBC 2.95 L (4.20-5.40) M/uL Hgb 9.3 L (12.0-16.0) g/dl Hct 27.0 L (37.0-47.0) % RDW Std Deviation 48.9 H (36.4-46.3) fL RDW Coeff of Coni 14.6 H (11.5-14.5) % Neut # (Auto) 11.67 H (1.40-6.50) K/uL Lymph # (Auto) 0.25 L (1.20-3.40) K/uL Sodium 129 L (136-145) mmol/L Chloride 96 L (98-107) mmol/L BUN/Creatinine Ratio 31.0 H (10-20) Glucose 116 H (70-99(Fasting)) mg/dl Osmolality 275 L (280-300) mOsm/kg Lactate 3.8 H* (0.4-2.0) mmol/L Magnesium 1.4 L (1.7-2.4) mg/dl Troponin I High Sens 26.2 H 45.3 H D (0-14) pg/ml Albumin 3.3 L (3.4-5.0) gm/dl Procalcitonin 9.53 H (0-0.5) ng/ml Urine Appearance (Clear) Urine Protein (Negative) Urine Ketones (Negative) Urine Blood (Negative) Ur Leukocyte Esterase (Negative) Urine WBC (Auto) (0-5) /hpf Urine RBC (Auto) (0-2) /hpf U Hyaline Cast (Auto) (0-2) /lpf Urine Bacteria (Auto) (None Seen) 05/09/24 05/09/24 Range/Units 20:15 20:35 WBC (4.8-10.8) K/ul RBC (4.20-5.40) M/uL Hgb (12.0-16.0) g/dl Hct (37.0-47.0) % RDW Std Deviation (36.4-46.3) fL RDW Coeff of Coni (11.5-14.5) % Neut # (Auto) (1.40-6.50) K/uL Lymph # (Auto) (1.20-3.40) K/uL Sodium (136-145) mmol/L Chloride (98-107) mmol/L BUN/Creatinine Ratio (10-20) Glucose (70-99(Fasting)) mg/dl Osmolality (280-300) mOsm/kg Lactate 3.3 H* (0.4-2.0) mmol/L Magnesium (1.7-2.4) mg/dl Troponin I High Sens (0-14) pg/ml Albumin (3.4-5.0) gm/dl Procalcitonin (0-0.5) ng/ml Urine Appearance Turbid A (Clear) Urine Protein 1+ H (Negative) Urine Ketones Trace H (Negative) Urine Blood 1+ H (Negative) Ur Leukocyte Esterase 3+ H (Negative) Urine WBC (Auto) >50 H (0-5) /hpf Urine RBC (Auto) 3-5 H (0-2) /hpf U Hyaline Cast (Auto) 11-20 H (0-2) /lpf Urine Bacteria (Auto) 4+ H (None Seen) Diagnostic Findings Abnormal lab results 05/09/24 05/09/24 05/09/24 Range/Units 17:55 18:48 19:24 WBC 12.30 H (4.8-10.8) K/ul RBC 2.95 L (4.20-5.40) M/uL Hgb 9.3 L (12.0-16.0) g/dl Hct 27.0 L (37.0-47.0) % RDW Std Deviation 48.9 H (36.4-46.3) fL RDW Coeff of Coni 14.6 H (11.5-14.5) % Neut # (Auto) 11.67 H (1.40-6.50) K/uL Lymph # (Auto) 0.25 L (1.20-3.40) K/uL Sodium 129 L (136-145) mmol/L Chloride 96 L (98-107) mmol/L BUN/Creatinine Ratio 31.0 H (10-20) Glucose 116 H (70-99(Fasting)) mg/dl Osmolality 275 L (280-300) mOsm/kg Lactate 3.8 H* (0.4-2.0) mmol/L Magnesium 1.4 L (1.7-2.4) mg/dl Troponin I High Sens 26.2 H 45.3 H D (0-14) pg/ml Albumin 3.3 L (3.4-5.0) gm/dl Procalcitonin 9.53 H (0-0.5) ng/ml Urine Appearance (Clear) Urine Protein (Negative) Urine Ketones (Negative) Urine Blood (Negative) Ur Leukocyte Esterase (Negative) Urine WBC (Auto) (0-5) /hpf Urine RBC (Auto) (0-2) /hpf U Hyaline Cast (Auto) (0-2) /lpf Urine Bacteria (Auto) (None Seen) 05/09/24 05/09/24 Range/Units 20:15 20:35 WBC (4.8-10.8) K/ul RBC (4.20-5.40) M/uL Hgb (12.0-16.0) g/dl Hct (37.0-47.0) % RDW Std Deviation (36.4-46.3) fL RDW Coeff of Coni (11.5-14.5) % Neut # (Auto) (1.40-6.50) K/uL Lymph # (Auto) (1.20-3.40) K/uL Sodium (136-145) mmol/L Chloride (98-107) mmol/L BUN/Creatinine Ratio (10-20) Glucose (70-99(Fasting)) mg/dl Osmolality (280-300) mOsm/kg Lactate 3.3 H* (0.4-2.0) mmol/L Magnesium (1.7-2.4) mg/dl Troponin I High Sens (0-14) pg/ml Albumin (3.4-5.0) gm/dl Procalcitonin (0-0.5) ng/ml Urine Appearance Turbid A (Clear) Urine Protein 1+ H (Negative) Urine Ketones Trace H (Negative) Urine Blood 1+ H (Negative) Ur Leukocyte Esterase 3+ H (Negative) Urine WBC (Auto) >50 H (0-5) /hpf Urine RBC (Auto) 3-5 H (0-2) /hpf U Hyaline Cast (Auto) 11-20 H (0-2) /lpf Urine Bacteria (Auto) 4+ H (None Seen) Medications Administered Cefepime HCl (Maxipime 2000mg) 2,000 mg in 20 mls @ 5 mls/min IV Q8H [facility]; Protocol Stop: 05/11/24 18:14 Last Admin: 05/09/24 18:38 Dose: 5 mls/min Documented By: QGV Norepinephrine Bitartrate (Levophed/D5w) 4 mg in 250 mls @ 9.638 mls/hr IV .Q24H [facility]; Protocol Stop: 06/08/24 20:59 Last Titration: 05/09/24 23:05 Dose: 0.09 mcg/kg/min, 17.3 mls/hr Documented By: ERM Co-signed By: ASHLEIGH Titration: 05/09/24 22:04 Dose: 0.07 mcg/kg/min, 13.5 mls/hr Documented By: ERM Co-signed By: JOAQUINA Admin: 05/09/24 21:04 Dose: 0.05 mcg/kg/min, 9.6 mls/hr Documented By: ERM Co-signed By: SERENITY Discontinued Medications Sodium Chloride (Nss) 500 mls @ 999 mls/hr IV .Q31M [facility] Stop: 05/09/24 18:45 Last Infusion: 05/09/24 19:10 Dose: Infused Documented By: Admin: 05/09/24 18:38 Dose: 999 mls/hr Documented By: QGV Acetaminophen (Ofirmev) 1,000 mg in 100 mls @ 400 mls/hr IV NOW STA Stop: 05/09/24 18:29 Last Infusion: 05/09/24 19:09 Dose: Infused Documented By: Admin: 05/09/24 18:38 Dose: 400 mls/hr Documented By: QGV Sodium Chloride (Nss) 500 mls @ 999 mls/hr IV .Q31M ONE Stop: 05/09/24 19:10 Last Infusion: 05/09/24 20:47 Dose: Infused Documented By: Admin: 05/09/24 19:58 Dose: 999 mls/hr Documented By: ERM Vancomycin HCl 1,000 mg/ (Sodium Chloride) 520 mls @ 200 mls/hr IV NOW ONE Stop: 05/09/24 23:23 Last Admin: 05/09/24 22:05 Dose: 200 mls/hr Documented By: ERM Sodium Chloride (Nss) 1,000 mls @ 999 mls/hr IV .Q1H1M ONE Stop: 05/09/24 21:56 Last Infusion: 05/09/24 21:06 Dose: Infused Documented By: Admin: 05/09/24 20:00 Dose: 999 mls/hr Documented By: TOMMIE Magnesium Sulfate/Dextrose (Magnesium Sulfate / D5w) 1 gm in 100 mls @ 200 mls/hr IV Q30M [facility] Stop: 05/09/24 21:59 Last Infusion: 05/09/24 22:38 Dose: Infused Documented By: Admin: 05/09/24 22:05 Dose: 200 mls/hr Documented By: Infusion: 05/09/24 21:51 Dose: Infused Documented By: Admin: 05/09/24 21:11 Dose: 200 mls/hr Documented By: TOMMIE Miscellaneous (Concentrate Norepinephrine Iv Infusion) 1 each N/A NOW ONE Stop: 05/09/24 20:50 Last Admin: 05/09/24 22:27 Dose: Not Given Documented By: TOMMIE Miscellaneous (Stat Iv Infusion Titration Per Protocol) 1 each N/A NOW STA Stop: 05/09/24 20:58 Last Admin: 05/09/24 22:27 Dose: Not Given Documented By: TOMMIE ECG Additional Comments: Sinus tachycardia Low voltage QRS Borderline ECG When compared with ECG [id number] 12:41, Premature atrial complexesare no longerPresent Coding Level of Care Code 68463 CRITICAL CARE 1ST 30-74M Diagnoses Septic shock A41.9; R65.21 Kidney stone N20.0 Dementia F03.90 Elevated troponin R79.89
[2024-05-09] MEDS ORDERED: ACETAMINOPHEN 1,000 MG/100 ML VIAL IV PRN (23:43)
--- NOTE | 2024-05-10 | Urology Consultation ---
<Statement entered by David Ortiz MD - 05/10/24 01:10> I agree with the following documentation by Juvencio Cummins. 89 year old female with apparent sepsis of urologic origin with concern for UTI and obstructing ureteral stone on the right. Patient is somnolent and unable to provide consent for herself. Despite multiple attempts, POA could not be contacted, although per report they were reached earlier in the evening and wanted to proceed with any interventions needed. She does has a recent POLST and is full-code. We will plan to proceed with emergent cystoscopy, right retrograde pyelogram and right ureteral stent placement to provide source control for her urinary tract. -David Ortiz MD. Date of Consultation May 09, 2024 Assessment & Plan (1) Kidney stone: I evaluated the patient in the intensive care unit at the request of the hospitalist service. From urologic perspective we recommend the following: Patient has been initiated on intravenous fluids which should continue The patient is receiving broad-spectrum antibiotics in form of cefepime and vancomycin. Appropriate cultures have been sent antibiotics to be tailored based on culture results Despite antibiotics and intravenous fluids patient remained hypotensive and therefore required vasopressor support Levophed which she still remains on Due to the patient's hypotension and likely sepsis from urinary source and obstructing kidney stone patient will likely benefit from cystoscopy with left ureteral stent placement for source control I made multiple attempts to call the patient's power of machine bobbin winder a Mr. Israel Sylvester without success. I did leave a message requesting he return my call. As the patient is in septic shock on vasopressors there appears to be an emergent need for procedural intervention. I discussed the case with the hospitalist attending, Dr. Faustin as well as the urologic attending, Dr. Ortiz and they feel that due to the patient's septic shock an emergent procedure needs to be performed. The patient does have a POLST form on her chart which indicates that she would want all measures taken to treat her condition and save her life. In addition, I did discuss with the hospitalist service and they had previously discussed with the patient's power of machine bobbin winder who wanted all measures taken in her care. We will therefore proceed with taking the patient to the operating room for cystoscopy and right ureteral stent placement for source control of her sepsis from urinary source and obstructing kidney stone. (2) Septic shock: History of Present Illness Reason for Consultation: Sepsis from urinary source Obstructing nephrolithiasis Attending Physician: Mik Faustin MD History of Present Illness This is an 89-year-old female with underlying dementia and therefore could not provide any meaningful history. History was obtained from discussion with the treating ICU staff, the treating hospitalist service, and review of the patient's chart. This patient presented to the emergency department secondary to fever. It was felt the patient was in septic shock from obstructing kidney stone/urinary tract infection. Urology was notified at approximately 11:30 PM on 05/09/2024. I presented to the patient's bedside within 5 minutes to evaluate her. As noted above, the patient presented from [facility] secondary to fever. At the time of my interview with the patient she did not offer any specific complaints. She did have labs and imaging since arrival to the hospital which were independent reviewed. A chest x-ray showed no evidence of pneumonia. She did have a CBC her white blood cell count was elevated at 12.3. Hemoglobin hematocrit are 9.3 and 27.0. Platelet count was normal. Coagulation studies were normal. Chemistry profile showed sodium is 129 with a potassium of 3.7. BUN and creatinine were both noted to be normal. Patient was noted to have an elevated lactic acid level of 3.8. This was checked again approximately 2 hours later and had slightly improved to 3.3. A urinalysis was performed that was negative for nitrites but did have 3+ leukocyte Estrace and greater than 50 white blood cells per high-power field. In addition there is 4+ bacteria. At the time of my interview the patient was resting comfortably in bed and she did not appear to be in any distress. Allergies Allergy/AdvReac Type Severity Reaction Status Date / Time Sulfa (Sulfonamide Allergy Intermediate RASH Verified 05/09/24 19:40 Antibiotics) Home Medications Medication Instructions Recorded Confirmed Type acetaminophen 325 mg tablet 650 mg PO Q4 PRN PAIN/FEVER >100F 09/18/23 05/09/24 History docusate sodium 100 mg capsule 100 mg PO BID 09/18/23 05/09/24 History polyethylene glycol 3350 17 17 g PO DAILY 09/18/23 05/09/24 History gram/dose oral powder (Miralax) sennosides 8.6 mg-docusate sodium 1 tab-cap PO BID 09/18/23 05/09/24 History 50 mg tablet (Senokot-S) acetaminophen 325 mg tablet 650 mg PO BID 3 GRAMS/24 HOURS 05/09/24 05/09/24 History (Tylenol) amlodipine 2.5 mg tablet 2.5 mg PO DAILY 05/09/24 05/09/24 History ascorbic acid (vitamin C) 500 mg 500 mg PO DAILY 05/09/24 05/09/24 History tablet (Vitamin C) docusate sodium 100 mg capsule 100 mg PO DAILY PRN NO BM FOR 2 05/09/24 05/09/24 History (Colace) DAYS ferrous sulfate 220 mg (44 mg 110 mg PO BID 05/09/24 05/09/24 History iron)/5 mL oral elixir folic acid 1 mg tablet 1 mg PO DAILY 05/09/24 05/09/24 History hydrochlorothiazide 25 mg tablet 12.5 mg PO DAILY 05/09/24 05/09/24 History levothyroxine 88 mcg tablet 88 mcg PO QAM 05/09/24 05/09/24 History multivitamin with minerals 1 tab PO DAILY 05/09/24 05/09/24 History omeprazole 20 mg tablet,delayed 20 mg PO BID 05/09/24 05/09/24 History release Patient History Medical History Esophagitis Acute UTI Hypernatremia Hypothyroidism Elevated CK Social History Smoking Status: Never smoker Second Hand Exposure: No; Do You Dip or Chew Tobacco: No; Tobacco Cessation Education Requested by Patient: No Hx Alcohol Use: No Hx Substance Use: No Preferred Language: Serbian Communication Ability: Effective Plastics Technician Required: No Beliefs That Will Affect Care: None Current Living Situation: Alone Other Information That Helps Us Care for You: No Feels Safe at Home: Yes Safety Concerns: Feels Safe At This Time Assistive Devices: Wheelchair Review of Systems Review of Systems: Unobtainable due to cognitive status Physical Exam Constitutional: + thin; no acute distress Eyes: no conjunctival abnormality ENMT: Ears: no external ear abnormality Neck: trachea midline Respiratory: normal respiratory effort; no respiratory distress and no labored breathing Cardiovascular: Rate/Rhythm: regular rate and regular rhythm Gastrointestinal (Abdomen): Abdomen appears soft without distention. Palpation does not elicit pain Musculoskeletal: No gross orthopedic abnormalities Skin: no rashes Neurologic: Patient did move all extremities but did not appear to follow commands in a meaningful fashion Genitourinary: No apparent CVA tenderness with percussion bilaterally Results & Data Vital Signs (Past 12 Hours) Vital Signs Temp Pulse Pulse Resp BP BP Pulse Ox 05/09/24 23:15 68 12 90/55 L 94 05/09/24 23:15 05/09/24 23:10 69 14 102/57 L 96 05/09/24 23:07 70 18 101/62 95 05/09/24 23:00 67 16 80/53 L 96 05/09/24 22:45 69 12 82/54 L 95 05/09/24 22:30 69 13 89/57 L 96 05/09/24 22:15 78 18 99/56 L 96 05/09/24 22:04 66 05/09/24 22:02 71 14 78/59 L 96 05/09/24 21:45 71 13 92/56 L 97 05/09/24 21:42 73 14 97/57 L 96 05/09/24 21:30 79 13 97/60 L 94 05/09/24 21:15 78 12 93/55 L 98 05/09/24 21:00 75 12 67/39 L 96 05/09/24 20:45 81 13 85/53 L 99 05/09/24 20:39 74 12 71/49 L 100 05/09/24 20:38 76 13 72/48 L 99 05/09/24 20:30 77 12 76/49 L 100 05/09/24 20:20 78 19 81/51 L 97 05/09/24 20:15 83 15 81/51 L 98 05/09/24 20:09 77 20 72/46 L 99 05/09/24 20:06 79 19 82/48 L 97 05/09/24 20:00 80 16 75/48 L 95 05/09/24 19:56 82 21 86/52 L 97 05/09/24 19:48 83 21 74/48 L 95 05/09/24 19:00 87 19 78/52 L 94 05/09/24 18:45 88 19 95 05/09/24 18:36 93 H 18 95 05/09/24 18:24 92 H 16 94 05/09/24 18:16 94 05/09/24 18:06 96 H 20 95 05/09/24 18:01 101 H 05/09/24 17:41 140/83 05/09/24 17:30 39.5 C H 113 H 12 140/83 92 O2 Del Method O2 Flow Rate 05/09/24 23:15 Room Air 05/09/24 23:15 Room Air 05/09/24 23:10 Room Air 05/09/24 23:07 Room Air 05/09/24 23:00 Room Air 05/09/24 22:45 Nasal Cannula 2 05/09/24 22:30 Nasal Cannula 2 05/09/24 22:15 Nasal Cannula 2 05/09/24 22:04 05/09/24 22:02 Nasal Cannula 2 05/09/24 21:45 Nasal Cannula 2 05/09/24 21:42 Nasal Cannula 2 05/09/24 21:30 Nasal Cannula 2 05/09/24 21:15 Nasal Cannula 2 05/09/24 21:00 Nasal Cannula 2 05/09/24 20:45 Nasal Cannula 2 05/09/24 20:39 Nasal Cannula 2 05/09/24 20:38 Nasal Cannula 2 05/09/24 20:30 Nasal Cannula 2 05/09/24 20:20 Nasal Cannula 2 05/09/24 20:15 Nasal Cannula 2 05/09/24 20:09 Nasal Cannula 2 05/09/24 20:06 Nasal Cannula 2 05/09/24 20:00 Nasal Cannula 2 05/09/24 19:56 Nasal Cannula 2 05/09/24 19:48 Nasal Cannula 2 05/09/24 19:00 Nasal Cannula 2 05/09/24 18:45 2 05/09/24 18:36 2 05/09/24 18:24 2 05/09/24 18:16 Nasal Cannula 2 05/09/24 18:06 2 05/09/24 18:01 05/09/24 17:41 05/09/24 17:30 Room Air PG Care Time/CCT Total # of Minutes Spent Total Time Spent with Patient: Total time spent is greater than 50% in coordination of care (as documented) at patient's floor/unit and/or counseling patient: Coding Level of Care Code 64272 INT INP/OBS CARE 3/75MIN Diagnoses Kidney stone N20.0 Septic shock A41.9; R65.21
[2024-05-10] MEDS: PIPERACILLIN/TAZOBACTAM 4.5 GM/100 ML BAG IV ONE (00:15)
[2024-05-10] MEDS: MAGNESIUM SULFATE / D5W 1 GM/100 ML BAG IV SCH (00:39)
[2024-05-10] MEDS ORDERED: ONDANSETRON INJ 2 MG/ML 2 ML VIAL ONE (00:50)
[2024-05-10] MEDS ORDERED: PROPOFOL IV EMULSION 10 MG/ML 20 ML VIAL IV ONE (00:50)
[2024-05-10] MEDS ORDERED: LIDOCAINE 2% 2 ML VIAL/AMP(20MG/ML) INFIL ONE (00:50)
--- NOTE | 2024-05-10 01:04 | Anesthesiology Consultation ---
Date of Service May 10, 2024 Assessment & Plan Chart Review Chart Review: Acceptable Risk for Surgery and Patient NOT seen in Pre Admission Testing Consults Requested none ASA ASA3E Proposed Anesthesia Anesthesia Type: General and MAC Risk / Benefits Reviewed With: PT / POA / Parent / Guardian, Accepts Plan and Informed Consent Obtained Additional Comments: Patient unresponsive and POA unavailable. Physician to physician consent performed. Proceeding due to emergency given patient's status of septic shock 2/2 urosepsis. Currently on 0.1 norepi. ASA3E History Surgery Operation Date: 05/10/24 01:30 Proposed Procedures p Cystoscopy - David Ortiz MD s Ureteral Stent Insertion/Removal(Right) - David Ortiz MD Height/Weight Height: 5 ft 6 in Weight: 51.4 kg Allergies Allergy/AdvReac Type Severity Reaction Status Date / Time Sulfa (Sulfonamide Allergy Intermediate RASH Verified 05/09/24 19:40 Antibiotics) Medications Home Medications Medication Instructions Recorded Confirmed Last Taken acetaminophen 325 mg tablet 650 mg PO Q4 PRN PAIN/FEVER >100F 09/18/23 05/09/24 Unknown docusate sodium 100 mg capsule 100 mg PO BID 09/18/23 05/09/24 05/09/24 08:00 polyethylene glycol 3350 17 17 g PO DAILY 09/18/23 05/09/24 05/09/24 gram/dose oral powder (Miralax) sennosides 8.6 mg-docusate sodium 1 tab-cap PO BID 09/18/23 05/09/24 05/09/24 08:00 50 mg tablet (Senokot-S) acetaminophen 325 mg tablet 650 mg PO BID 3 GRAMS/24 HOURS 05/09/24 05/09/24 05/09/24 08:00 (Tylenol) amlodipine 2.5 mg tablet 2.5 mg PO DAILY 05/09/24 05/09/24 05/09/24 ascorbic acid (vitamin C) 500 mg 500 mg PO DAILY 05/09/24 05/09/24 05/09/24 tablet (Vitamin C) docusate sodium 100 mg capsule 100 mg PO DAILY PRN NO BM FOR 2 05/09/24 05/09/24 Unknown (Colace) DAYS ferrous sulfate 220 mg (44 mg 110 mg PO BID 05/09/24 05/09/24 05/09/24 08:00 iron)/5 mL oral elixir folic acid 1 mg tablet 1 mg PO DAILY 05/09/24 05/09/24 05/09/24 hydrochlorothiazide 25 mg tablet 12.5 mg PO DAILY 05/09/24 05/09/24 05/09/24 levothyroxine 88 mcg tablet 88 mcg PO QAM 05/09/24 05/09/24 05/09/24 multivitamin with minerals 1 tab PO DAILY 05/09/24 05/09/24 05/09/24 omeprazole 20 mg tablet,delayed 20 mg PO BID 05/09/24 05/09/24 05/09/24 08:00 release Active Medications Generic Name Dose Route Start Last Admin Trade Name Freq PRN Reason Stop Dose Admin Norepinephrine Bitartrate 4 mg in 250 mls @ 9.638 mls/hr 05/09/24 21:00 05/09/24 23:35 Levophed/D5w IV 06/08/24 20:59 0.05 mcg/kg/min .Q24H KYLAH 9.6 mls/hr Titration Protocol 0.05 MCG/KG/MIN Magnesium Sulfate/Dextrose 1 gm in 100 mls @ 50 mls/hr 05/10/24 00:15 05/10/24 00:39 Magnesium Sulfate / D5w IV 05/10/24 06:14 50 mls/hr Q2H KYLAH Administration NPO Date Last Intake of Fluids: 05/09/24 Time Last Intake of Fluids: 17:00 Date Last Intake of Solids: 05/09/24 Time Last Intake of Solids: 17:00 Past Medical History Medical History Esophagitis Acute UTI Hypernatremia Hypothyroidism Elevated CK Exercise / Class Metabolic Activity III < 4 Walking/Shop/Light housework Past Anesthesia History No Hx of Anesthesia Complications and No Family Hx of Anesthesia Complications History of PONV No Hx of PONV and No Hx of Motion Sickness Social History Smoking Status: Never smoker Do You Dip or Chew Tobacco: No Hx Alcohol Use: No Alcohol type: wine alcohol intake frequency: holidays/special occasions only Hx Substance Use: No substance use type: does not use Review of Systems deferred - patient not responsive Physical Exam Vital Signs Last Vital Signs Temp 36.6 C 05/09/24 23:44 Pulse 67 05/09/24 23:48 Resp 16 05/09/24 23:48 BP 100/56 L 05/09/24 23:48 Pulse Ox 97 05/09/24 23:48 O2 Del Method Nasal Cannula 05/09/24 23:44 O2 Flow Rate 2 05/09/24 23:44 ENMT Mouth: no TMJ abnormality Thyromental Distance: > or= 3.5 Finger Breadths Mallampati Class: II Neck normal visual inspection and trachea midline; neck extension not limited Respiratory normal respiratory effort Auscultation: lungs clear to auscultation bilaterally Cardiovascular Rate/Rhythm: regular rate and regular rhythm Heart Sounds: no murmur Musculoskeletal Spine: normal cervical ROM Extremities: full ROM of extremities Neurologic moves all extremities Psychiatric Orientation: alert and oriented x 3 Testing Laboratory Results 05/09/24 19:24 05/09/24 17:55 PT 10.8 Seconds (9.0-12.0) 05/09/24 19:24 INR 1.0 (0.9-1.1) 05/09/24 19:24 APTT 28 Seconds (21-31) 05/09/24 19:24 Urine Color Dark Yellow 05/09/24 20:15 Urine Appearance Turbid (Clear) A 05/09/24 20:15 Urine pH 6.5 (4.5-7.5) 05/09/24 20:15 Ur Specific [place] [employer] 1.019 (1.000-1.030) 05/09/24 20:15 Urine Protein 1+ (Negative) H 05/09/24 20:15 Urine Glucose (UA) Negative (Negative) 05/09/24 20:15 Urine Ketones Trace (Negative) H 05/09/24 20:15 Urine Nitrite Negative (Negative) 05/09/24 20:15 Ur Leukocyte Esterase 3+ (Negative) H 05/09/24 20:15 Urine WBC (Auto) >50 /hpf (0-5) H 05/09/24 20:15 Urine RBC (Auto) 3-5 /hpf (0-2) H 05/09/24 20:15 U Hyaline Cast (Auto) 11-20 /lpf (0-2) H 05/09/24 20:15 U Epithel Cells (Auto) 0-2 /hpf (0-2) 05/09/24 20:15 Urine Bacteria (Auto) 4+ (None Seen) H 05/09/24 20:15 05/10/24 00:10 POC Glucose 163 H Electrocardiogram Date: 05/09/24 Findings: + ST @ (104)
[2024-05-10] MEDS ORDERED: fentaNYL citrate PF 100 MCG/2 ML VIAL ONE (01:24)
[2024-05-10] MEDS ORDERED: ePHEDrine sulfate 50 MG/ML AMP IV PRN (01:26)
[2024-05-10] MEDS ORDERED: ATROPINE SULFATE 0.1 MG/ML 10ML SYR IV PRN (01:26)
[2024-05-10] MEDS: DIATRIZOATE MEGLUMINE 30% 100ML VIAL INSTIL ONE (01:47)
--- NOTE | 2024-05-10 02:06 | Operative Report ---
PG Post Operative Report Pre & Post Diagnosis Operation Date: 05/10/24 01:30 Pre-Op Diagnosis: Kidney stone, urinary tract infection, septic shock Post-Op Diagnosis: Kidney stone, urinary tract infection, septic shock I identified the patient and participated in the time-out.: Yes Procedure Operation Date: 05/10/24 01:30 Actual Procedures Cystoscopy, right retrograde pyelogram, right ureteral stent placement Surgeon David Ortiz MD Kiln Labourer None Estimated Blood Loss 0 Findings Consistent with Post-Op Diagnosis Specimens None Drains 6 [place] x 24 cm double-J ureteral stent in the right ureter Anesthesia Type MAC Complications none Disposition Accompanied Patient To Recovery: Yes Disposition: Recovery Room (Returned to ICU) Indications This is an 89-year-old female recently admitted with concern for sepsis. Workup identified a distal right ureteral stone as well as concern for urinary tract infection. Due to mental status, she could not provide her own consent. Multiple attempts were made to reach her power of hot plate plywood press offbearer, however these were unsuccessful. She is currently full code. She is being brought to the OR for right ureteral stent placement as an emergent procedure to provide source control for urinary tract infection. Description of Procedure The patient was identified in the ICU. She was marked on the right side, then was taken to the operating room where anesthesia was initiated. She was placed in the dorsal lithotomy position with all pressure points appropriately padded. She was prepped and draped in the usual sterile fashion and a preoperative timeout was performed. I attempted to advance a 21 Grenadian cystoscope per urethra, however the urethra was somewhat narrow and very anterior. I was only able to advance the 17 Grenadian cystoscope. Her bladder had some cloudy urine but no tumors or stones were appreciated. The right ureteral orifice was identified and then cannulated with a 5 [place]adian open-ended catheter. I attempted to advance this but met resistance, potentially from the stone. Through the catheter I advanced a 0.038 inch zip wire. This initially met resistance at the stone, however eventually was able to bypass it and immediately there was drainage of purulent appearing urine. Over the wire I advanced a 5 [place]adian open-ended catheter and attempted to aspirate some of the urine from the upper tract. Cystografin was then instilled to elucidate the contour of the kidney. The wire was then replaced. Over the wire, a 6 Grenadian x 24 centimeter double-J ureteral stent was advanced. When the wire was removed, the proximal curl was visualized in the kidney with x-ray, and the distal curl visualized in the bladder with the cystoscope. The wire was replaced to the bladder and then over this a 16 Grenadian big lagoon tip catheter was advanced. The balloon was inflated with 10 mL of normal saline and the catheter was attached to gravity drainage. The patient was then awakened from anesthesia and was brought back to her room in the ICU for ongoing supportive care. I attest to the content of the Intraoperative Record and any orders documented therein. Any exceptions are noted below.
--- NOTE | 2024-05-10 02:14 | Anesthesiology Progress Note ---
Date of Service May 10, 2024 Anesthesia Post Procedure Vital Signs Vital Signs: Temp Pulse Pulse Resp BP BP Pulse Ox 05/10/24 02:01 35.0 C L 59 L 18 120/67 100 05/10/24 01:03 59 L 16 95 05/10/24 01:00 85/54 L 05/10/24 00:51 61 17 94 05/10/24 00:45 88/49 L 05/10/24 00:45 88/49 L 05/10/24 00:39 62 17 94 05/10/24 00:37 90/54 L 05/10/24 00:30 62 13 94 05/10/24 00:27 65 14 92 05/10/24 00:17 94/62 L 05/10/24 00:03 65 12 96 05/10/24 00:00 102/59 L 05/09/24 23:48 100/56 L 05/09/24 23:48 67 16 97 05/09/24 23:44 36.6 C 76 18 100/56 L 96 05/09/24 23:39 70 17 96 05/09/24 23:36 123/66 05/09/24 23:22 113/66 05/09/24 23:21 76 17 98 05/09/24 23:15 68 12 90/55 L 94 05/09/24 23:15 05/09/24 23:10 69 14 102/57 L 96 05/09/24 23:07 70 18 101/62 95 05/09/24 23:00 67 16 80/53 L 96 05/09/24 22:45 69 12 82/54 L 95 05/09/24 22:30 69 13 89/57 L 96 05/09/24 22:15 78 18 99/56 L 96 05/09/24 22:04 66 05/09/24 22:02 71 14 78/59 L 96 05/09/24 21:45 71 13 92/56 L 97 05/09/24 21:42 73 14 97/57 L 96 05/09/24 21:30 79 13 97/60 L 94 05/09/24 21:15 78 12 93/55 L 98 05/09/24 21:00 75 12 67/39 L 96 05/09/24 20:45 81 13 85/53 L 99 05/09/24 20:39 74 12 71/49 L 100 05/09/24 20:38 76 13 72/48 L 99 05/09/24 20:30 77 12 76/49 L 100 05/09/24 20:20 78 19 81/51 L 97 05/09/24 20:15 83 15 81/51 L 98 05/09/24 20:09 77 20 72/46 L 99 05/09/24 20:06 79 19 82/48 L 97 05/09/24 20:00 80 16 75/48 L 95 05/09/24 19:56 82 21 86/52 L 97 05/09/24 19:48 83 21 74/48 L 95 05/09/24 19:00 87 19 78/52 L 94 05/09/24 18:45 88 19 95 05/09/24 18:36 93 H 18 95 05/09/24 18:24 92 H 16 94 05/09/24 18:16 94 05/09/24 18:06 96 H 20 95 05/09/24 18:01 101 H 05/09/24 17:41 140/83 05/09/24 17:30 39.5 C H 113 H 12 140/83 92 O2 Del Method O2 Flow Rate 05/10/24 02:01 Oxymask 2 05/10/24 01:03 05/10/24 01:00 05/10/24 00:51 05/10/24 00:45 05/10/24 00:45 05/10/24 00:39 05/10/24 00:37 05/10/24 00:30 05/10/24 00:27 05/10/24 00:17 05/10/24 00:03 05/10/24 00:00 05/09/24 23:48 05/09/24 23:48 05/09/24 23:44 Nasal Cannula 2 05/09/24 23:39 05/09/24 23:36 05/09/24 23:22 05/09/24 23:21 05/09/24 23:15 Room Air 05/09/24 23:15 Room Air 05/09/24 23:10 Room Air 05/09/24 23:07 Room Air 05/09/24 23:00 Room Air 05/09/24 22:45 Nasal Cannula 2 05/09/24 22:30 Nasal Cannula 2 05/09/24 22:15 Nasal Cannula 2 05/09/24 22:04 05/09/24 22:02 Nasal Cannula 2 05/09/24 21:45 Nasal Cannula 2 05/09/24 21:42 Nasal Cannula 2 05/09/24 21:30 Nasal Cannula 2 05/09/24 21:15 Nasal Cannula 2 05/09/24 21:00 Nasal Cannula 2 05/09/24 20:45 Nasal Cannula 2 05/09/24 20:39 Nasal Cannula 2 05/09/24 20:38 Nasal Cannula 2 05/09/24 20:30 Nasal Cannula 2 05/09/24 20:20 Nasal Cannula 2 05/09/24 20:15 Nasal Cannula 2 05/09/24 20:09 Nasal Cannula 2 05/09/24 20:06 Nasal Cannula 2 05/09/24 20:00 Nasal Cannula 2 05/09/24 19:56 Nasal Cannula 2 05/09/24 19:48 Nasal Cannula 2 05/09/24 19:00 Nasal Cannula 2 05/09/24 18:45 2 05/09/24 18:36 2 05/09/24 18:24 2 05/09/24 18:16 Nasal Cannula 2 05/09/24 18:06 2 05/09/24 18:01 05/09/24 17:41 05/09/24 17:30 Room Air Transfer of Care Handoff Completed per policy Notes Mental Status: alert / awake / arousable Patient Amnestic to Procedure: Yes Nausea / Vomiting: adequately controlled Pain: adequately controlled Airway Patency, RR, SpO2: stable & adequate BP & HR: stable & adequate Hydration State: stable & adequate Anesthetic Complications: no major complications apparent and Pt Satisfied with anesthetic care
[2024-05-10] MEDS: VANCOMYCIN HCL 1,500 MG in SODIUM CHLORIDE 0.9% 500 ML IV SCH (04:09)
[2024-05-10 04:56] LABS: Hematocrit (blood only) 27.9 % (37.0-47.0); Hemoglobin 9.5 g/dl (12.0-16.0); Mean Corpuscular Hemoglobin 31.5 pg (25.0-34.0); Mean Corpuscular Hgb Conc 34.1 g/dL (32.0-36.0); Mean Corpuscular Volume 92.4 fL (80.0-100.0); Mean Platelet Volume 9.9 fL (9.4-12.4); Platelet Count 244 K/uL (130-400); RDW Standard Deviation 50.6 fL (36.4-46.3); Red Blood Count 3.02 M/uL (4.20-5.40); White Blood Count 18.38 K/ul (4.8-10.8)
[2024-05-10 05:13] LABS: Albumin Level 2.8 gm/dl (3.4-5.0); BUN Creatinine Ratio 32.8 (10-20); Bilirubin,Total 0.4 mg/dl (0.2-1.0); Calcium 8.3 mg/dl (8.6-10.3); Creatinine Clr Calc Pharmacy 55.4 ml/min; Globulin 2.7 gm/dl (2.5-4.0); Magnesium 2.5 mg/dl (1.7-2.4); Potassium 3.6 mmol/L (3.5-5.1); Total Protein 5.5 gm/dl (6.0-8.3)
[2024-05-10 05:19] LABS: Basophils # (auto) 0.05 K/uL (0.00-0.20); Basophils % (auto) 0.3 %; Eosinophils # (auto) 0.03 K/uL (0.00-0.50); Eosinophils % (auto) 0.2 %; Immature Granulocytes # (auto) 0.16 K/uL (0.01-0.20); Immature Granulocytes % (auto) 0.9 %; Lymphocytes # (auto) 0.75 K/uL (1.20-3.40); Lymphocytes % (auto) 4.1 %; Monocytes # (auto) 0.63 K/uL (0.11-0.59); Monocytes % (auto) 3.4 %; Neutrophils # (auto) 16.76 K/uL (1.40-6.50); Neutrophils % (auto) 91.1 %; RBC Morphology Unremarkable
[2024-05-10 05:29] LABS: Partial Thromboplastin Ratio 1.2; Partial Thromboplastin Time 32 Seconds (21-31)
[2024-05-10] MEDS: bisacodyL 10 MG SUPP PR STA (06:02)
[2024-05-10] MEDS: PIPERACILLIN/TAZOBACTAM 4.5 GM/100 ML BAG IV SCH (06:14)
--- NOTE | 2024-05-10 06:38 | Billing Data ---
Date of Service May 09, 2024 Coding Level of Care Code 97319 INT INP/OBS CARE
--- NOTE | 2024-05-10 06:40 | Billing Data ---
Date of Service May 09, 2024 I have personally spent 40 minutes of critical care time in the direct management of this patient. This is a life/limb threatening event. This includes time spent evaluating patient, direct bedside care, chart review, placing orders, interpretation of diagnostic studies, discussion with consultants, patient, trying to get in contact with family members, as well as other required patient management activities. Coding Level of Care Code 05181 CRITICAL CARE 1ST 30-74M
--- NOTE | 2024-05-10 07:44 | Hospitalist Progress Note ---
Date of Service May 10, 2024 Assessment & Plan (1) Sepsis: (2) DVT (deep venous thrombosis): (3) Hypotension: (4) Pulmonary emboli: (5) Dementia: (6) Hypothyroidism: (7) MAY (acute kidney injury): Plan This is a 89 y/ female with PMH of advanced dementia, non-STEMI, hx of PE, hx of DVT (IVC placed), anemia, B12 deficiency, hx of GI bleed. She was brought in from [facility] due to fever. On arrival, she was found to be hypotensive and in sepsis due to UTI. Patient received 2L of NSS with no improvement of hypotension, placed on Levophed in the ED. Labs remarkable for leukocytosis 12.30, lactate: 3.3, procalcitonin 9.53, hyponatremia 126, anemia 9.3, and abnormal UA. Patient was admitted to ICU for the management of septic shock with pressors. Pt was evaluated by urology and she underwent cystoscopy with right ureteral stent placement on 05/10/24. Pt became hemodynamically stable and was able to be weaned off of norepi and was subsequently downgraded on 05/10/24. JOSE Sylvester ([phone]) called, states he met her 5 years ago. Patient expressed desired of full treatment. Septic shock Obstructive nephrolithiasis - weaned off of pressors and downgraded - UA: WBC+, Bacteria+, Leukocyte esterase+, nitrite - - s/p 2L NSS w/o improvement of hypotension - Placed on norepinephrine by ED provider - WBC: 12.30 -> 18.38, lactate: 3.8 -> 3.3 -> 2.2, procal: 9.53, Cr: 0.71, random cortisol - 67 - Placed on Vancomycin and Cefepime by ED - continue Vancomycin, cefepime changed to Zosyn q8 hrs - UCx / BCx pending - Abdomen Ct --> obstructive renal stone - Continue Levophed >MAP 60 - Electronic Industrial Controls Mechanic on board - Urology on board, s/p cystoscopy and right ureteral stent placement MAY - resolving - Creatinine baseline 0.38, Cr. on admission 0.71 -> 0.58 - suspect combination of sepsis and obstructive uropathy - Avoid nephrotoxic medication - Continue sepsis treatment Hypoosmolar hyponatremia resolving - Na 129 -> 132 Anemia - she has hx of GI bleed - Unable to do EGD/ Colonoscopy outpatient - Hgb 9.3 -> 9.5 - Protonix IV BID for GI prophylaxis - CBC AM Hypertension - Amlodipine and hydrochlorothiazide on hold Hypothyroidism - Levothyroxine Dementia - resident of senior living care facility secondary to end stage dementia - pt is unable to make decisions for herself, POA reportedly is Israel Sylvester - monitor for delirium - will request nutritional assessment Contacts - POA Israel Sylvester [phone] - best friend Jessica Dai [phone] FEN: NPO Code status: Full code DVT ppx: hep subq 05/10: updated pt's friend Jessica Dai Admission and Anticipated Discharge Date Admission Date: May 09, 2024 Subjective Admitted overnight to ICU Levophed discontinued this morning. Downgraded to medsurg Due to cognitive impairment, pt not able to provide much history Review of Systems Review of Systems: Unable to obtain detailed ROS due to cognitive impairment Physical Exam Physical Exam: Gen: chronically ill-appearing, thin-framed female, cachectic HEENT: NC/AT, bitemporal wasting, poor dentition, anicteric Lungs: CTAB CVS: s1s2 nl, RRR Abd: soft, NT, nl bowel sounds : +sherman Ext: stiff to move passively Neuro: AAOx1 (self only) Results & Data Results & Data Vital Signs (Past 12 Hours) Vital Signs Temp Pulse Pulse Resp BP BP Pulse Ox 05/10/24 07:18 65 20 135/71 100 05/10/24 07:00 57 L 14 84/49 L 99 05/10/24 06:01 36.5 C 57 L 11 L 109/61 93 05/10/24 05:00 36 C L 59 L 12 114/64 100 05/10/24 04:50 113/64 05/10/24 04:48 53 L 10 L 97 05/10/24 04:30 113/63 05/10/24 04:27 53 L 10 L 95 05/10/24 04:21 53 L 9 L 95 05/10/24 04:20 115/63 05/10/24 04:00 35.8 C L 53 L 11 L 125/62 94 05/10/24 03:50 105/65 05/10/24 03:40 101/61 05/10/24 03:30 108/66 05/10/24 03:10 119/63 05/10/24 03:09 54 L 8 L 96 05/10/24 03:00 105/61 05/10/24 02:30 35.4 C L 55 L 16 109/66 94 05/10/24 02:11 35.3 C L 54 L 18 116/63 100 05/10/24 02:01 35.0 C L 59 L 18 120/67 100 05/10/24 01:03 59 L 16 95 05/10/24 01:00 85/54 L 05/10/24 00:51 61 17 94 05/10/24 00:45 88/49 L 05/10/24 00:45 88/49 L 05/10/24 00:39 62 17 94 05/10/24 00:37 90/54 L 05/10/24 00:30 62 13 94 05/10/24 00:27 65 14 92 05/10/24 00:17 94/62 L 05/10/24 00:03 65 12 96 05/10/24 00:00 67 05/10/24 00:00 102/59 L 05/09/24 23:48 100/56 L 05/09/24 23:48 67 16 97 05/09/24 23:44 36.6 C 76 18 100/56 L 96 05/09/24 23:39 70 17 96 05/09/24 23:36 123/66 05/09/24 23:30 05/09/24 23:22 113/66 05/09/24 23:21 76 17 98 05/09/24 23:15 68 12 90/55 L 94 05/09/24 23:15 05/09/24 23:10 69 14 102/57 L 96 05/09/24 23:07 70 18 101/62 95 05/09/24 23:00 67 16 80/53 L 96 05/09/24 22:45 69 12 82/54 L 95 05/09/24 22:30 69 13 89/57 L 96 05/09/24 22:15 78 18 99/56 L 96 05/09/24 22:04 66 05/09/24 22:02 71 14 78/59 L 96 05/09/24 21:45 71 13 92/56 L 97 05/09/24 21:42 73 14 97/57 L 96 05/09/24 21:30 79 13 97/60 L 94 05/09/24 21:15 78 12 93/55 L 98 05/09/24 21:00 75 12 67/39 L 96 05/09/24 20:45 81 13 85/53 L 99 05/09/24 20:39 74 12 71/49 L 100 05/09/24 20:38 76 13 72/48 L 99 05/09/24 20:30 77 12 76/49 L 100 05/09/24 20:20 78 19 81/51 L 97 05/09/24 20:15 83 15 81/51 L 98 05/09/24 20:09 77 20 72/46 L 99 05/09/24 20:06 79 19 82/48 L 97 05/09/24 20:00 80 16 75/48 L 95 05/09/24 19:56 82 21 86/52 L 97 05/09/24 19:48 83 21 74/48 L 95 O2 Del Method O2 Flow Rate 05/10/24 07:18 Room Air 05/10/24 07:00 Room Air 05/10/24 06:01 Room Air 05/10/24 05:00 Room Air 05/10/24 04:50 05/10/24 04:48 05/10/24 04:30 05/10/24 04:27 05/10/24 04:21 05/10/24 04:20 05/10/24 04:00 Room Air 05/10/24 03:50 05/10/24 03:40 05/10/24 03:30 05/10/24 03:10 05/10/24 03:09 05/10/24 03:00 05/10/24 02:30 05/10/24 02:11 Room Air 2 05/10/24 02:01 Oxymask 2 05/10/24 01:03 05/10/24 01:00 05/10/24 00:51 05/10/24 00:45 05/10/24 00:45 05/10/24 00:39 05/10/24 00:37 05/10/24 00:30 05/10/24 00:27 05/10/24 00:17 05/10/24 00:03 05/10/24 00:00 05/10/24 00:00 05/09/24 23:48 05/09/24 23:48 05/09/24 23:44 Nasal Cannula 2 05/09/24 23:39 05/09/24 23:36 05/09/24 23:30 Room Air 05/09/24 23:22 05/09/24 23:21 05/09/24 23:15 Room Air 05/09/24 23:15 Room Air 05/09/24 23:10 Room Air 05/09/24 23:07 Room Air 05/09/24 23:00 Room Air 05/09/24 22:45 Nasal Cannula 2 05/09/24 22:30 Nasal Cannula 2 05/09/24 22:15 Nasal Cannula 2 05/09/24 22:04 05/09/24 22:02 Nasal Cannula 2 05/09/24 21:45 Nasal Cannula 2 05/09/24 21:42 Nasal Cannula 2 05/09/24 21:30 Nasal Cannula 2 05/09/24 21:15 Nasal Cannula 2 05/09/24 21:00 Nasal Cannula 2 05/09/24 20:45 Nasal Cannula 2 05/09/24 20:39 Nasal Cannula 2 05/09/24 20:38 Nasal Cannula 2 05/09/24 20:30 Nasal Cannula 2 05/09/24 20:20 Nasal Cannula 2 05/09/24 20:15 Nasal Cannula 2 05/09/24 20:09 Nasal Cannula 2 05/09/24 20:06 Nasal Cannula 2 05/09/24 20:00 Nasal Cannula 2 05/09/24 19:56 Nasal Cannula 2 05/09/24 19:48 Nasal Cannula 2 PG Care Time/CCT Total # of Minutes Spent Total Time Spent with Patient: Total time spent is greater than 50% in coordination of care (as documented) at patient's floor/unit and/or counseling patient: Coding Level of Care Code 90381 SUB INP/OBS CARE 2/35MIN Diagnoses Sepsis A41.9 DVT (deep venous thrombosis) I82.409 Hypotension I95.9 Pulmonary emboli I26.99 Dementia F03.90 Hypothyroidism E03.9 MAY (acute kidney injury) N17.9
--- NOTE | 2024-05-10 08:04 | Fluoroscopy Report ---
FL retrograde includes kub CLINICAL HISTORY: CYSTO/STENTright-sided cystourethrogram COMPARISON STUDY: CT 05/09/2024 FLUOROSCOPY TIME: 21.6 seconds FLUOROSCOPY IMAGES: 3 EXPOSURE DOSE: 2.85 mGy FINDINGS: IVC filter. Dilation tortuosity of the right ureter. Status post placement of a right urete ral stent, proximal portion projects over the right renal pelvis. IMPRESSION: Fluoroscopic assistance as above. ACT 112: Negative or not required by law. Electronically signed by: Yovany Santamaria M.D. 05/10/2024 8:01 AM
[2024-05-10] MEDS: ICU Protocol for HYPERglycemia SCH (08:39)
[2024-05-10] MEDS: LEVOTHYROXINE SODIUM 88 MCG TABLET PO SCH (09:00)
[2024-05-10] MEDS: HEPARIN SOD 5,000 UNIT/0.5 ML VIAL SQ SCH (09:01)
[2024-05-10] MEDS: POLYETHYLENE (MIRALAX) 17 GM PACK PO SCH (09:01)
[2024-05-10] MEDS: PANTOprazole 40 MG/10 ML SYR IV SCH (09:01)
[2024-05-10] MEDS: POTASSIUM CHLORIDE / WTR 10 MEQ/100 ML PLCT IV SCH (09:56)
[2024-05-10] MEDS: LACTATED RINGER'S 500 ML IV ONE (09:56)
--- NOTE | 2024-05-10 11:43 | Critical Care Progress Note ---
Date of Service May 10, 2024 Assessment & Plan (1) Septic shock: (2) Kidney stone: (3) Dementia: (4) Elevated troponin: Plan Reason Critically Ill: 89 YOF presents to the hospital for fever from [facility], found to be in septic shock with imaging noting obstructing renal stone. To the ICU for vasopressors and continued support. 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 Reportedly there is a POA Israel Sylvester - NO acute needs Cardiac - Shock- distributive, elevated troponin - Continue resuscitation with crystalloids. - Continue broad spectrum antibiotics - previous cultures were E.COLI resistant to AMP:TMP:Sulfa - Elevated HsCTNI - likely demand secondary to hypotension and shock- ECG reviewed no regional abnormalities or STEMI Respiratory - No acute needs GI - No acute needs RENAL/LYTES - Hypoosmolar hyponatremia, complicated UTI with 6mm obstructing renal stone - Hypoosmolar hyponatremia with normal urine osmo and UA sodium 67- likely seco ndary to shock/hypovolemia/ with decreased solute intake - continue with isotonic volume, restrict free water overnight - trend- no indication at this time for 3% - Cortisol > 40 - obstructing renal stone- urology consulted for source control appreciate assistance - UTI complicated - As above- Roper placed continue while on vasopressors ENDO - No acute needs - ICU hyper/hypoglycemic protocol HEME - NO acute needs - Hx of DVTS/PE with IVC in place ID - Septic shock- source urine with 6mm obstructive stone - Broad spectrum antibiotics continue- while awaiting blood and urine cultures - MRSA screen negative. Discontinue vancomycin. LINES/IV ACCESS - PIV, Roper Continue use of these lines DVT PROPHYLAXIS - SCDS, Heparin 5000 units subq following surgical evaluation DISPO: Transfer to PCU now that she is off pressors. Discussed on multidisciplinary rounds. Admission and Anticipated Discharge Date Admission Date: May 09, 2024 Subjective Patient without any major complaints, but has baseline dysarthria and dementia. She is hemodynamically stable. Review of Systems Review of Systems: Unobtainable due to cognitive status Physical Exam Physical Exam: PHYSICAL EXAM: General: awakens to voice and says hello Head: Normocephalic, atraumatic ENT: PERRLA, mucous membranes dry Neuro: AAO x 0, speech mostly unintelligible, moves all extremities, follows some commands Chest: equal rise and fall of the chest, no accessory muscle use, no heaves or thrills, decreased in bases Cardiac: Regular rate and rhythm, telemetry reviewed, skin warm dry, cap refill <3 seconds, peripheral pulses +2 no JVD, no murmur, no edema GI: NABS x 4 quadrants, soft, nontender to palpation, no rebound, guarding or tenderness : Roper placed to gravity, Results & Data Results & Data Vital Signs (Past 12 Hours) Vital Signs Temp Pulse Pulse Resp BP BP Pulse Ox 05/10/24 11:31 80 21 111/71 96 05/10/24 10:59 72 19 108/66 96 05/10/24 10:31 74 16 147/72 H 98 05/10/24 10:15 66 16 98/59 L 98 05/10/24 10:00 66 14 100/56 L 96 05/10/24 09:45 68 14 93/55 L 96 05/10/24 09:29 72 16 98/64 L 97 05/10/24 09:15 78 16 117/64 97 05/10/24 09:04 71 14 112/60 97 05/10/24 08:45 69 15 110/60 97 05/10/24 08:34 70 15 123/65 98 05/10/24 08:15 74 16 132/74 96 05/10/24 08:00 05/10/24 08:00 36.5 C 75 17 134/69 96 05/10/24 07:47 65 14 131/70 96 05/10/24 07:30 67 23 122/66 93 05/10/24 07:18 65 20 135/71 100 05/10/24 07:00 57 L 14 84/49 L 99 05/10/24 06:01 36.5 C 57 L 11 L 109/61 93 05/10/24 05:00 36 C L 59 L 12 114/64 100 05/10/24 04:50 113/64 05/10/24 04:48 53 L 10 L 97 05/10/24 04:30 113/63 05/10/24 04:27 53 L 10 L 95 05/10/24 04:21 53 L 9 L 95 05/10/24 04:20 115/63 05/10/24 04:00 35.8 C L 53 L 11 L 125/62 94 05/10/24 03:50 105/65 05/10/24 03:40 101/61 05/10/24 03:30 108/66 05/10/24 03:10 119/63 05/10/24 03:09 54 L 8 L 96 05/10/24 03:00 105/61 05/10/24 02:30 35.4 C L 55 L 16 109/66 94 05/10/24 02:11 35.3 C L 54 L 18 116/63 100 05/10/24 02:01 35.0 C L 59 L 18 120/67 100 05/10/24 01:03 59 L 16 95 05/10/24 01:00 85/54 L 05/10/24 00:51 61 17 94 05/10/24 00:45 88/49 L 05/10/24 00:45 88/49 L 05/10/24 00:39 62 17 94 05/10/24 00:37 90/54 L 05/10/24 00:30 62 13 94 05/10/24 00:27 65 14 92 05/10/24 00:17 94/62 L 05/10/24 00:03 65 12 96 05/10/24 00:00 67 05/10/24 00:00 102/59 L 05/09/24 23:48 100/56 L 05/09/24 23:48 67 16 97 05/09/24 23:44 36.6 C 76 18 100/56 L 96 O2 Del Method O2 Flow Rate 05/10/24 11:31 Room Air 05/10/24 10:59 Room Air 05/10/24 10:31 Room Air 05/10/24 10:15 Room Air 05/10/24 10:00 Room Air 05/10/24 09:45 Room Air 05/10/24 09:29 Room Air 05/10/24 09:15 Room Air 05/10/24 09:04 Room Air 05/10/24 08:45 Room Air 05/10/24 08:34 Room Air 05/10/24 08:15 Room Air 05/10/24 08:00 Room Air 05/10/24 08:00 Room Air 05/10/24 07:47 Room Air 05/10/24 07:30 Room Air 05/10/24 07:18 Room Air 05/10/24 07:00 Room Air 05/10/24 06:01 Room Air 05/10/24 05:00 Room Air 05/10/24 04:50 05/10/24 04:48 05/10/24 04:30 05/10/24 04:27 05/10/24 04:21 05/10/24 04:20 05/10/24 04:00 Room Air 05/10/24 03:50 05/10/24 03:40 05/10/24 03:30 05/10/24 03:10 05/10/24 03:09 05/10/24 03:00 05/10/24 02:30 05/10/24 02:11 Room Air 2 05/10/24 02:01 Oxymask 2 05/10/24 01:03 05/10/24 01:00 05/10/24 00:51 05/10/24 00:45 05/10/24 00:45 05/10/24 00:39 05/10/24 00:37 05/10/24 00:30 05/10/24 00:27 05/10/24 00:17 05/10/24 00:03 05/10/24 00:00 05/10/24 00:00 05/09/24 23:48 05/09/24 23:48 05/09/24 23:44 Nasal Cannula 2 Coding Level of Care Code 95381 SUB INP/OBS CARE 2/35MIN Diagnoses Septic shock A41.9; R65.21 Kidney stone N20.0 Dementia F03.90 Elevated troponin R79.89
[2024-05-10 12:04] LABS: A calco-baum cmplx NotReported Not Detected (NotDetected); Bact fragilis Not Reported Not Detected (NotDetected); Blood Culture Id Panel See PCR Comment (NotDetected); C auris Not Reported Not Detected (NotDetected); CTX-M Resistant Gene Not Detected (NotDetected); Calbicans Not Reported Not Detected (NotDetected); Candida glabrata Not Reported Not Detected (NotDetected); Candida krusei Not Reported Not Detected (NotDetected); Cneoformans/gatti Not Reported Not Detected (NotDetected); Cparapsilosis Not Reported Not Detected (NotDetected); E cloacae compx Not Reported Not Detected (NotDetected); Efaecalis Not Reported Not Detected (NotDetected); Efaecium Not Reported Not Detected (NotDetected); Enterobacterales Not Reported DETECTED (NotDetected); Escherichia coli Not Reported Not Detected (NotDetected); H influenzae Not Reported Not Detected (NotDetected); IMP Resistant Gene Not Detected (NotDetected); K aerogenes Not Reported Not Detected (NotDetected); KPC Resistant Gene Not Detected (NotDetected); Koxytoca Not Reported Not Detected (NotDetected); Kpneumoniae grp Not Reported Not Detected (NotDetected); Lmonocyt Not Reported Not Detected (NotDetected); N meningitidis Not Reported Not Detected (NotDetected); NDM Resistant Gene Not Detected (NotDetected); OXA 48 Like Resistant Gene Not Detected (NotDetected); P aeruginosa Not Reported Not Detected (NotDetected); Proteus spp Not Reported DETECTED (NotDetected); Salmonella spp Not Reported Not Detected (NotDetected); Staph lugdunensis Not Reported Not Detected (NotDetected); Staph spp. Not Reported Not Detected (NotDetected); Staphaureus Not Reported Not Detected (NotDetected); Staphepi Not Reported Not Detected (NotDetected); Stenmaltophilia Not Reported Not Detected (NotDetected); Strep agal(GrpB) Not Reported Not Detected (NotDetected); Strep pneum Not Reported Not Detected (NotDetected); Strep pyog (GrpA) Not Reported Not Detected (NotDetected); Strep spp Not Reported Not Detected (NotDetected); VIM Resistant Gene Not Detected (NotDetected)
[2024-05-10 12:11] LABS: Enterobacterales DETECTED (NotDetected)
[2024-05-10 12:12] LABS: Proteus species DETECTED (NotDetected)
--- NOTE | 2024-05-10 12:17 | Urology Progress Note ---
Date of Service May 10, 2024 Assessment & Plan (1) Kidney stone: (2) Septic shock: Plan Recovering well s/p right ureteral stent placement. Stent should be providing source control from the upper tract. Maintain Roper catheter per primary team. Continue broad-spectrum antibiotics, narrowing as culture data becomes available. No plan for further urologic intervention during this admission. Will coordinate outpatient follow-up and definitive stone removal. Urology will sign off, please call with any questions or concerns. Admission and Anticipated Discharge Date Admission Date: May 09, 2024 Subjective More alert this morning, denies pain from the stent No longer requiring vasopressors, remains on broad-spectrum antibiotics with Zosyn WBC increased after surgery (up to 18 from 12) lactate was decreasing. Physical Exam Physical Exam: Seated in bed, NAD, breathing comfortably on room air Roper catheter draining well Results & Data Vital Signs (Past 12 Hours) Vital Signs Temp Pulse Pulse Resp BP BP Pulse Ox 05/10/24 11:31 80 21 111/71 96 05/10/24 10:59 72 19 108/66 96 05/10/24 10:31 74 16 147/72 H 98 05/10/24 10:15 66 16 98/59 L 98 05/10/24 10:00 66 14 100/56 L 96 05/10/24 09:45 68 14 93/55 L 96 05/10/24 09:29 72 16 98/64 L 97 05/10/24 09:15 78 16 117/64 97 05/10/24 09:04 71 14 112/60 97 05/10/24 08:45 69 15 110/60 97 05/10/24 08:34 70 15 123/65 98 05/10/24 08:15 74 16 132/74 96 05/10/24 08:00 05/10/24 08:00 36.5 C 75 17 134/69 96 05/10/24 07:47 65 14 131/70 96 05/10/24 07:30 67 23 122/66 93 05/10/24 07:18 65 20 135/71 100 05/10/24 07:00 57 L 14 84/49 L 99 05/10/24 06:01 36.5 C 57 L 11 L 109/61 93 05/10/24 05:00 36 C L 59 L 12 114/64 100 04/05/25 04:50 113/64 05/10/24 04:48 53 L 10 L 97 05/10/24 04:30 113/63 05/10/24 04:27 53 L 10 L 95 05/10/24 04:21 53 L 9 L 95 05/10/24 04:20 115/63 05/10/24 04:00 35.8 C L 53 L 11 L 125/62 94 05/10/24 03:50 105/65 05/10/24 03:40 101/61 05/10/24 03:30 108/66 05/10/24 03:10 119/63 05/10/24 03:09 54 L 8 L 96 05/10/24 03:00 105/61 05/10/24 02:30 35.4 C L 55 L 16 109/66 94 05/10/24 02:11 35.3 C L 54 L 18 116/63 100 05/10/24 02:01 35.0 C L 59 L 18 120/67 100 05/10/24 01:03 59 L 16 95 05/10/24 01:00 85/54 L 05/10/24 00:51 61 17 94 05/10/24 00:45 88/49 L 05/10/24 00:45 88/49 L 05/10/24 00:39 62 17 94 05/10/24 00:37 90/54 L 05/10/24 00:30 62 13 94 05/10/24 00:27 65 14 92 05/10/24 00:17 94/62 L O2 Del Method O2 Flow Rate 05/10/24 11:31 Room Air 05/10/24 10:59 Room Air 05/10/24 10:31 Room Air 05/10/24 10:15 Room Air 05/10/24 10:00 Room Air 05/10/24 09:45 Room Air 05/10/24 09:29 Room Air 05/10/24 09:15 Room Air 05/10/24 09:04 Room Air 05/10/24 08:45 Room Air 05/10/24 08:34 Room Air 05/10/24 08:15 Room Air 05/10/24 08:00 Room Air 05/10/24 08:00 Room Air 05/10/24 07:47 Room Air 05/10/24 07:30 Room Air 05/10/24 07:18 Room Air 05/10/24 07:00 Room Air 05/10/24 06:01 Room Air 05/10/24 05:00 Room Air 05/10/24 04:50 05/10/24 04:48 05/10/24 04:30 05/10/24 04:27 05/10/24 04:21 05/10/24 04:20 05/10/24 04:00 Room Air 05/10/24 03:50 05/10/24 03:40 05/10/24 03:30 05/10/24 03:10 05/10/24 03:09 05/10/24 03:00 05/10/24 02:30 05/10/24 02:11 Room Air 2 05/10/24 02:01 Oxymask 2 05/10/24 01:03 05/10/24 01:00 05/10/24 00:51 05/10/24 00:45 05/10/24 00:45 05/10/24 00:39 05/10/24 00:37 05/10/24 00:30 05/10/24 00:27 05/10/24 00:17 PG Care Time/CCT Total # of Minutes Spent Total Time Spent with Patient: Total time spent is greater than 50% in coordination of care (as documented) at patient's floor/unit and/or counseling patient: Coding Level of Care Code None Diagnoses Kidney stone N20.0 Septic shock A41.9; R65.21
[2024-05-10] MEDS ORDERED: VANCOMYCIN CONSULT ACTIVE PRN (12:43)
[2024-05-10] MEDS ORDERED: VANCOMYCIN HCL 750 MG in SODIUM CHLORIDE 0.9% 250 ML IV SCH (12:45)
[2024-05-11 06:23] LABS: Basophils # (auto) 0.05 K/uL (0.00-0.20); Basophils % (auto) 0.7 %; Eosinophils # (auto) 0.27 K/uL (0.00-0.50); Eosinophils % (auto) 3.9 %; Hemoglobin 8.6 g/dl (12.0-16.0); Immature Granulocytes # (auto) 0.05 K/uL (0.01-0.20); Immature Granulocytes % (auto) 0.7 %; Lymphocytes # (auto) 1.25 K/uL (1.20-3.40); Mean Corpuscular Hemoglobin 31.2 pg (25.0-34.0); Mean Corpuscular Hgb Conc 33.1 g/dL (32.0-36.0); Mean Corpuscular Volume 94.2 fL (80.0-100.0); Mean Platelet Volume 10.5 fL (9.4-12.4); Monocytes # (auto) 0.63 K/uL (0.11-0.59); Monocytes % (auto) 9.1 %; Neutrophils # (auto) 4.68 K/uL (1.40-6.50); Neutrophils % (auto) 67.6 %; Platelet Count 143 K/uL (130-400); RDW Coefficient of Variation 15.3 % (11.5-14.5); RDW Standard Deviation 52.7 fL (36.4-46.3); Red Blood Count 2.76 M/uL (4.20-5.40); White Blood Count 6.93 K/ul (4.8-10.8)
[2024-05-11 06:31] LABS: BUN Creatinine Ratio 34.6 (10-20); Calcium 8.4 mg/dl (8.6-10.3); Magnesium 2.1 mg/dl (1.7-2.4); Phosphorus 2.8 mg/dl (2.5-4.9); Potassium 4.3 mmol/L (3.5-5.1)
[2024-05-11] MEDS: FOLIC ACID 1 MG TAB PO SCH (08:59)
--- NOTE | 2024-05-11 09:05 | Hospitalist Progress Note ---
Date of Service May 11, 2024 Assessment & Plan (1) Sepsis: (2) DVT (deep venous thrombosis): (3) Hypotension: (4) Pulmonary emboli: (5) Dementia: (6) Hypothyroidism: (7) MAY (acute kidney injury): (8) Bacteremia due to Gram-negative bacteria: Plan This is a 89 y/ female with PMH of advanced dementia, non-STEMI, hx of PE, hx of DVT (IVC placed), anemia, B12 deficiency, hx of GI bleed. She was brought in from [facility] due to fever. On arrival, she was found to be hypotensive and in sepsis due to UTI. Patient received 2L of NSS with no improvement of hypotension, placed on Levophed in the ED. Labs remarkable for leukocytosis 12.30, lactate: 3.3, procalcitonin 9.53, hyponatremia 126, anemia 9.3, and abnormal UA. Patient was admitted to ICU for the management of septic shock with pressors. Pt was evaluated by urology and she underwent cystoscopy with right ureteral stent placement on 05/10/24. Pt became hemodynamically stable and was able to be weaned off of norepi and was subsequently downgraded on 05/10/24. POMariana Sylvester ([phone]) called, states he met her 5 years ago. Patient expressed desired of full treatment. Septic shock Obstructive nephrolithiasis GNR Bacteremia - weaned off of pressors and downgraded from ICU on 05/10/24 - CT A/P > obstructive renal stone - UA: WBC+, Bacteria+, Leukocyte esterase+, nitrite - - s/p 2L NSS w/o improvement of hypotension - WBC: 12.30 -> 18.38, lactate: 3.8 -> 3.3 -> 2.2, procal: 9.53, Cr: 0.71, random cortisol - 67 - Vanc/Cefepime in the ED, currently on zosyn (05/09/24) - initial UCx contains multiple organisms, repeat UCx ordered (given pt on abx, likely return negative) - Urology on board, s/p cystoscopy and right ureteral stent placement MAY - resolving - Creatinine baseline 0.38, Cr. 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 to end stage dementia - pt is unable to make decisions for herself, POA reportedly is Israel Sylvester - monitor for delirium - RD eval appreciated, boost supplement added Contacts - POA Israel Sylvester [phone] - best friend Jessica Dai [phone] FEN: oral intake resumed Code status: Full code DVT ppx: hep subq Dispo: pending final cultures 05/10: updated pt's friend Jessica Shaferlashaun Admission and Anticipated Discharge Date Admission Date: May 09, 2024 Subjective No acute events overnight Currently not complaining of anything Review of Systems Review of Systems: Unable to obtain detailed ROS due to cognitive impairment Physical Exam Physical Exam: Gen: chronically ill-appearing, thin-framed female, cachectic HEENT: NC/AT, bitemporal wasting, poor dentition, anicteric Lungs: CTAB CVS: s1s2 nl, RRR Abd: soft, NT, nl bowel sounds : +sherman Ext: stiff to move passively Neuro: AAOx1 (self only) Results & Data Results & Data Vital Signs (Past 12 Hours) Vital Signs Temp Pulse Pulse Resp BP Pulse Ox O2 Del Method 05/11/24 07:41 36.5 C 61 17 153/81 H 95 Room Air 05/11/24 02:22 36.5 C 58 L 18 129/72 96 Room Air 05/10/24 22:49 36.5 C 67 16 108/62 97 Room Air 05/10/24 21:59 60 PG Care Time/CCT Total # of Minutes Spent Total Time Spent with Patient: Total time spent is greater than 50% in coordination of care (as documented) at patient's floor/unit and/or counseling patient: Coding Level of Care Code 70210 SUB INP/OBS CARE 2/35MIN Diagnoses Sepsis A41.9 DVT (deep venous thrombosis) I82.409 Hypotension I95.9 Pulmonary emboli I26.99 Dementia F03.90 Hypothyroidism E03.9 MAY (acute kidney injury) N17.9 Bacteremia due to Gram-negative bacteria R78.81
[2024-05-11] MEDS: amLODIPine BESYLATE 5 MG TAB PO SCH (10:42)
--- NOTE | 2024-05-11 13:17 | Electrocardiogram Report ---
Test Reason : Blood Pressure : */* mmHG Vent. Rate : 104 BPM Atrial Rate : 104 BPM P-R Int : 160 ms QRS Dur : 78 ms QT Int : 334 ms P-R-T Axes : 52 11 72 degrees QTcB Int : 439 ms Sinus tachycardia Low voltage QRS Borderline ECG When compared with ECG of 18-Sep-2023 12:41, Premature atrial complexes are no longer Present Confirmed by Leighton Lindsey ([id number] on 05/11/2024 1:17:15 PM Referred By: [facility] Confirmed By: Leighton Lindsey
[2024-05-12 08:12] LABS: Basophils # (auto) 0.05 K/uL (0.00-0.20); Basophils % (auto) 0.9 %; Eosinophils # (auto) 0.24 K/uL (0.00-0.50); Eosinophils % (auto) 4.3 %; Hematocrit (blood only) 29.7 % (37.0-47.0); Hemoglobin 10.1 g/dl (12.0-16.0); Immature Granulocytes # (auto) 0.04 K/uL (0.01-0.20); Immature Granulocytes % (auto) 0.7 %; Lymphocytes # (auto) 1.49 K/uL (1.20-3.40); Lymphocytes % (auto) 26.4 %; Mean Corpuscular Hemoglobin 31.7 pg (25.0-34.0); Mean Corpuscular Volume 93.1 fL (80.0-100.0); Monocytes % (auto) 7.1 %; Neutrophils # (auto) 3.42 K/uL (1.40-6.50); Neutrophils % (auto) 60.6 %; Platelet Count 172 K/uL (130-400); RDW Coefficient of Variation 14.8 % (11.5-14.5); RDW Standard Deviation 49.4 fL (36.4-46.3); Red Blood Count 3.19 M/uL (4.20-5.40); White Blood Count 5.64 K/ul (4.8-10.8)
[2024-05-12 08:52] LABS: BUN Creatinine Ratio 24.5 (10-20); Calcium 8.7 mg/dl (8.6-10.3); Creatinine Clr Calc Pharmacy 64.6 ml/min; Magnesium 1.9 mg/dl (1.7-2.4); Phosphorus 3.3 mg/dl (2.5-4.9); Potassium 4.2 mmol/L (3.5-5.1)
[2024-05-12] MEDS: cefTRIAXone SODIUM 2,000 MG/50 ML BAG IV SCH (09:09)
--- NOTE | 2024-05-12 09:30 | Hospitalist Progress Note ---
Date of Service May 12, 2024 Assessment & Plan (1) Sepsis: (2) DVT (deep venous thrombosis): (3) Hypotension: (4) Pulmonary emboli: (5) Dementia: (6) Hypothyroidism: (7) MAY (acute kidney injury): (8) Bacteremia due to Gram-negative bacteria: Plan This is a 89 y/ female with PMH of advanced dementia, non-STEMI, hx of PE, hx of DVT (IVC placed), anemia, B12 deficiency, hx of GI bleed. She was brought in from [facility] due to fever. On arrival, she was found to be hypotensive and in sepsis due to UTI. Patient received 2L of NSS with no improvement of hypotension, placed on Levophed in the ED. Labs remarkable for leukocytosis 12.30, lactate: 3.3, procalcitonin 9.53, hyponatremia 126, anemia 9.3, and abnormal UA. Patient was admitted to ICU for the management of septic shock with pressors. Pt was evaluated by urology and she underwent cystoscopy with right ureteral stent placement on 05/10/24. Pt became hemodynamically stable and was able to be weaned off of norepi and was subsequently downgraded on 05/10/24. POMariana Sylvester ([phone]) called, states he met her 5 years ago. Patient expressed desired of full treatment. Septic shock Obstructive nephrolithiasis GNR Bacteremia - weaned off of pressors and downgraded from ICU on 05/10/24 - CT A/P > obstructive renal stone - UA: WBC+, Bacteria+, Leukocyte esterase+, nitrite - - s/p 2L NSS w/o improvement of hypotension - WBC: 12.30 -> 18.38, lactate: 3.8 -> 3.3 -> 2.2, procal: 9.53, Cr: 0.71, random cortisol - 67 - Vanc/Cefepime in the ED, currently on zosyn (05/09/24) blood cultures are growing Proteus 05/12/2024 antibiotics switched to ceftriaxone - initial UCx contains multiple organisms, repeat UCx ordered (given pt on abx, likely return negative) - Urology on board, s/p cystoscopy and right ureteral stent placement MAY - resolving - Creatinine baseline 0.38, Cr. on admission 0.71 -> 0.58 > 0.52 - suspect combination of sepsis and obstructive uropathy - Avoid nephrotoxic medication - Continue sepsis treatment Hypoosmolar hyponatremia resolving - Na 129 -> 132 Anemia - she has hx of GI bleed - Unable to do EGD/ Colonoscopy outpatient - Hgb 9.3 > 9.5 > 8.6 (suspect components of dilution and some loss via ) - Protonix IV BID for GI prophylaxis - trend Hgb Hypertension - resume amlodipine - cont to hold HCTZ Hypothyroidism - Levothyroxine Dementia - resident of [facility] secondary to end stage dementia - pt is unable to make decisions for herself, POA reportedly is Israel Sylvester - monitor for delirium - RD eval appreciated, boost supplement added Contacts - POA Israel Sylvester [phone] - best friend Jessica Shaferlashaun [phone] FEN: oral intake resumed Code status: Full code DVT ppx: hep subq Dispo: pending final cultures 05/10: updated pt's friend Jessica Dai Admission and Anticipated Discharge Date Admission Date: May 09, 2024 Supervising Physician Co-Signing Physician Notes I personally saw and examined the patient. I independently reviewed the labs, EKG, imaging, problem list, medication list, past medical history and family history. I verified all leos points and agree with resident physican Dr Zari Astorga MD with the following exceptions and/or additions: 89 year old female presents to the ER with fever and hypoxia from [facility]. Nonverbal at baseline with dementia therefore unable to obtain an independent history. O/E Alert but non orientated x3, dry mucous membranes, cool peripheries, HS RRR, no murmurs, Chest CTAB, Abdo SNT, no CVA tenderness A/P Septic shock / ureterolithiasis / UTI - admit to ICU, discussed with urology PA and ICU TROUBLE TRACER, 2 doctor consent for procedure as unable to get a hold of POA but prior discussion with resident JOSE wanted everything done and POLST for full resuscitation. Van+Zosyn for antibiotics. Follow up blood and urine cultures. Norepinephrine started in ER with ongoing management per ICU team. Subjective No acute events overnight Currently not complaining of anything Review of Systems Review of Systems: Unable to get review of system because of patient's dementia Physical Exam Physical Exam: Gen: chronically ill-appearing, thin-framed female, cachectic HEENT: NC/AT, bitemporal wasting, poor dentition, anicteric Lungs: CTAB CVS: s1s2 nl, RRR Abd: soft, NT, nl bowel sounds : +sherman Ext: stiff to move passively Neuro: AAOx1 (self only) Results & Data Results & Data Vital Signs (Past 12 Hours) Vital Signs Temp Pulse Pulse Resp BP Pulse Ox O2 Del Method 05/12/24 07:50 Room Air 05/12/24 07:50 47 L 05/12/24 07:29 36.5 C 59 L 17 164/84 H 95 Room Air 05/12/24 03:21 36.6 C 60 18 134/79 97 Room Air 05/11/24 22:57 36.7 C 60 16 141/80 H 96 Room Air PG Care Time/CCT Total # of Minutes Spent Total Time Spent with Patient: Total time spent is greater than 50% in coordination of care (as documented) at patient's floor/unit and/or counseling patient: Coding Level of Care Code 98653 SUB INP/OBS CARE 2/35MIN Diagnoses Sepsis A41.9 DVT (deep venous thrombosis) I82.409 Hypotension I95.9 Pulmonary emboli I26.99 Dementia F03.90 Hypothyroidism E03.9 MAY (acute kidney injury) N17.9 Bacteremia due to Gram-negative bacteria R78.81
[2024-05-13 09:02] LABS: Hematocrit (blood only) 30.2 % (37.0-47.0); Hemoglobin 10.3 g/dl (12.0-16.0); Mean Corpuscular Hemoglobin 31.2 pg (25.0-34.0); Mean Corpuscular Hgb Conc 34.1 g/dL (32.0-36.0); Mean Corpuscular Volume 91.5 fL (80.0-100.0); Mean Platelet Volume 10.3 fL (9.4-12.4); Platelet Count 178 K/uL (130-400); RDW Coefficient of Variation 14.2 % (11.5-14.5); RDW Standard Deviation 47.7 fL (36.4-46.3); White Blood Count 5.06 K/ul (4.8-10.8)
[2024-05-13 09:18] LABS: BUN Creatinine Ratio 21.4 (10-20); Calcium 8.6 mg/dl (8.6-10.3); Creatinine Clr Calc Pharmacy 75.2 ml/min; Magnesium 1.7 mg/dl (1.7-2.4); Potassium 3.9 mmol/L (3.5-5.1)
--- NOTE | 2024-05-13 12:07 | Hospitalist Progress Note ---
Date of Service May 13, 2024 Assessment & Plan (1) Sepsis: (2) DVT (deep venous thrombosis): (3) Hypotension: (4) Dementia: (5) Hypothyroidism: (6) Bacteremia due to Gram-negative bacteria: Plan This is a 89 y/ female with PMH of advanced dementia, non-STEMI, hx of PE, hx of DVT (IVC placed), anemia, B12 deficiency, hx of GI bleed. She was brought in from [facility] due to fever. On arrival, she was found to be hypotensive and in sepsis due to UTI. Patient received 2L of NSS with no improvement of hypotension, placed on Levophed in the ED. Labs remarkable for leukocytosis 12.30, lactate: 3.3, procalcitonin 9.53, hyponatremia 126, anemia 9.3, and abnormal UA. Patient was admitted to ICU for the management of septic shock with pressors. Pt was evaluated by urology and she underwent cystoscopy with right ureteral stent placement on 05/10/24. Pt became hemodynamically stable and was able to be weaned off of norepi and was subsequently downgraded on 05/10/24. JOSE Wood Higinio ([phone]) #Septic shock, present on admission due to Proteus bacteremia #Obstructive nephrolithiasis - weaned off of pressors and downgraded from ICU on 05/10/24 - CT A/P > obstructive renal stone - UA: WBC+, Bacteria+, Leukocyte esterase+, nitrite - - s/p 2L NSS w/o improvement of hypotension - Urology saw patient, s/p cystoscopy and right ureteral stent placement on 05/10/[address] David Ortiz - Patient was initially treated with IV cefepime/Zosyn and transition to IV ceftriaxone on 05/12/2024 since blood cultures growing Proteus mirabilis (day 4 of IV antibiotics) - Check repeat blood culture - Continue indwelling Roper catheter, patient will need follow-up with urologist Dr. Ortiz for definitive treatment of nephrolithiasis #Chronic anemia Hemoglobin is at baseline She has a history of GI bleed Continue PPI #Essential hypertension Antihypertensives were held in light of septic shock Resume amlodipine 2.5 mg daily Monitor vital signs #Hyponatremia Stop hydrochlorothiazide Monitor sodium levels #Hypothyroidism Continue levothyroxine 88 mcg p.o. daily #Dementia #Moderate protein calorie malnutrition - resident of [facility] secondary to end stage dementia - pt is unable to make decisions for herself, POA reportedly is Israel Sylvester - monitor for delirium - RD eval appreciated, boost supplement added Contacts - JOSE Sylvester [phone] - best friend Jessica Dai [phone] CODE STATUS: Full code DVT prophylaxis: Heparin subcutaneous twice daily Discharge planning back to [facility] based on repeat blood cultures Admission and Anticipated Discharge Date Admission Date: May 09, 2024 Subjective Patient seen and examined Patient has dementia and unable to get a full review of systems She is at baseline mentation She is oriented to self, pleasant and polite She denies any new complaints No concerns per nursing staff Physical Exam Physical Exam: General: No acute distress Psych: Awake and alert, oriented to self HEENT: Anicteric sclera, moist oral mucosa CVS: Regular rate and rhythm Lungs: Bilateral air entry, no wheezing noted Abdomen: Soft, nontender, no rebound, no guarding Ext: No lower extremity edema, no calf tenderness : Indwelling Roper catheter in place Results & Data Results & Data Vital Signs (Past 12 Hours) Vital Signs Temp Pulse Pulse Resp BP Pulse Ox O2 Del Method 05/13/24 11:36 37.1 C 65 17 162/85 H 95 Room Air 05/13/24 09:30 116/65 05/13/24 08:12 162/80 H 05/13/24 08:00 Room Air 05/13/24 08:00 59 L 05/13/24 07:16 36.9 C 65 17 199/84 H 96 Room Air 05/13/24 02:26 36.6 C 67 18 154/94 H 95 Room Air Laboratory Results Laboratory Results - last 24 hr 05/13/24 08:37 WBC 5.06 RBC 3.30 L Hgb 10.3 L Hct 30.2 L MCV 91.5 MCH 31.2 MCHC 34.1 RDW Std Deviation 47.7 H RDW Coeff of Coni 14.2 Plt Count 178 MPV 10.3 Sodium 131 L Potassium 3.9 Chloride 97 L Carbon Dioxide 28 Anion Gap 6 BUN 9 Creatinine 0.42 L Est Cr Clr Drug Dosing 75.2 eGFR 94.61 BUN/Creatinine Ratio 21.4 H Glucose 134 H Calcium 8.6 Magnesium 1.7 PG Care Time/CCT Total # of Minutes Spent Total Time Spent with Patient: Total time spent is greater than 50% in coordination of care (as documented) at patient's floor/unit and/or counseling patient: Coding Level of Care Code 91327 SUB INP/OBS CARE 2/35MIN Diagnoses Sepsis A41.9 DVT (deep venous thrombosis) I82.409 Hypotension I95.9 Dementia F03.90 Hypothyroidism E03.9 Bacteremia due to Gram-negative bacteria R78.81
[2024-05-13] MEDS: MAGNESIUM SULFATE / D5W 1 GM/100 ML BAG IV ONE (12:29)
[2024-05-13] MEDS: MAGNESIUM OXIDE 400 MG TAB PO SCH (12:30)
--- NOTE | 2024-05-13 16:09 | XCELERA ---
[id number]
[2024-05-13] MEDS: PANTOprazole 40 MG TAB PO SCH (19:59)
[2024-05-14 07:02] LABS: C Reactive Protein 2.61 mg/dl (0-0.5); Calcium 8.6 mg/dl (8.6-10.3); Creatinine Clr Calc Pharmacy 87.6 ml/min; Magnesium 1.8 mg/dl (1.7-2.4); Potassium 3.6 mmol/L (3.5-5.1)
[2024-05-14] MEDS: POTASSIUM CHLORIDE CRTAB 20 MEQ TABCR PO STA (08:41)
[2024-05-14] MEDS: VITAMIN B COMPLEX TAB PO SCH (08:41)
[2024-05-14] MEDS: CYANOCOBALAMIN 1000 MCG/ML VIAL IM SCH (08:41)
--- NOTE | 2024-05-14 10:36 | Hospitalist Progress Note ---
Date of Service May 14, 2024 Assessment & Plan (1) Sepsis: (2) DVT (deep venous thrombosis): (3) Hypotension: (4) Dementia: (5) Hypothyroidism: (6) Bacteremia due to Gram-negative bacteria: Plan This is a 89 y/ female with PMH of advanced dementia, non-STEMI, hx of PE, hx of DVT (IVC placed), anemia, B12 deficiency, hx of GI bleed. She was brought in from [facility] due to fever. On arrival, she was found to be hypotensive and in sepsis due to UTI. Patient received 2L of NSS with no improvement of hypotension, placed on Levophed in the ED. Labs remarkable for leukocytosis 12.30, lactate: 3.3, procalcitonin 9.53, hyponatremia 126, anemia 9.3, and abnormal UA. Patient was admitted to ICU for the management of septic shock with pressors. Pt was evaluated by urology and she underwent cystoscopy with right ureteral stent placement on 05/10/24. Pt became hemodynamically stable and was able to be weaned off of norepi and was subsequently downgraded on 05/10/24. JOSE Israel Higinio ([phone]) #Septic shock, present on admission due to Proteus bacteremia #Obstructive nephrolithiasis - weaned off of pressors and downgraded from ICU on 05/10/24 - CT A/P > obstructive renal stone - UA: WBC+, Bacteria+, Leukocyte esterase+, nitrite - - s/p 2L NSS w/o improvement of hypotension - Urology saw patient, s/p cystoscopy and right ureteral stent placement on 05/10/[address] David Ortiz - Patient was initially treated with IV cefepime/Zosyn and transition to IV ceftriaxone on 05/12/2024 since blood cultures growing Proteus mirabilis (day 5 of IV antibiotics) - Follow-up repeat blood culture - Continue indwelling Roper catheter, patient will need follow-up with urologist Dr. Ortiz for definitive treatment of nephrolithiasis #Chronic anemia Hemoglobin is at baseline She has a history of GI bleed Continue PPI B12 373: Start B12 supplementation #Essential hypertension Continue amlodipine 2.5 mg daily Monitor vital signs #Hyponatremia Stop hydrochlorothiazide Monitor sodium levels #Hypothyroidism Continue levothyroxine 88 mcg p.o. daily #Dementia #Moderate protein calorie malnutrition - resident of [facility] secondary to end stage dementia - pt is unable to make decisions for herself, JOSE reportedly is Israel Sylvester - monitor for delirium - RD pat appreciated, boost supplement added Contacts - JOSE Sylvester [phone] - best friend Jessica Dai [phone] CODE STATUS: Full code: Discussed with JOSE Sylvester on the phone DVT prophylaxis: Heparin subcutaneous twice daily Discharge planning back to [facility] tomorrow based on repeat blood cultures Care plan discussed with patient's JOSE Sylvester on the phone, nursing staff and case management Admission and Anticipated Discharge Date Admission Date: May 09, 2024 Subjective Patient seen and examined Patient has dementia, unable to get a full review of systems She appears comfortable, denies any pain No new concerns from nursing staff Nursing staff reports good appetite Physical Exam Physical Exam: General: No acute distress Psych: Awake and alert, oriented to self HEENT: Anicteric sclera, moist oral mucosa CVS: Regular rate and rhythm Lungs: Bilateral air entry, no wheezing noted Abdomen: Soft, nontender, no rebound, no guarding Ext: No lower extremity edema, no calf tenderness : Indwelling Roper catheter in place Results & Data Results & Data Vital Signs (Past 12 Hours) Vital Signs Temp Pulse Pulse Resp BP BP Pulse Ox 05/14/24 10:07 05/14/24 08:46 36.9 C 61 18 159/80 H 97 05/14/24 08:00 58 L 05/14/24 03:58 36.4 C L 61 18 147/73 H 96 05/14/24 00:01 36.8 C 64 18 162/81 H 88 L O2 Del Method 05/14/24 10:07 Room Air 05/14/24 08:46 Room Air 05/14/24 08:00 05/14/24 03:58 Room Air 05/14/24 00:01 Room Air Laboratory Results Laboratory Results - last 24 hr 05/13/24 05/14/24 20:58 06:20 Sodium 133 L Potassium 3.6 Chloride 99 Carbon Dioxide 30 Anion Gap 4 BUN 9 Creatinine 0.36 L Est Cr Clr Drug Dosing 87.6 eGFR 98.19 BUN/Creatinine Ratio 25.0 H Glucose 88 POC Glucose 107 H Calcium 8.6 Magnesium 1.8 Iron 72 TIBC 221 L Transferrin 158 L Transferrin % Sat 33 C-Reactive Protein 2.61 H Vitamin B12 373 PG Care Time/CCT Total # of Minutes Spent Total Time Spent with Patient: Total time spent is greater than 50% in coordination of care (as documented) at patient's floor/unit and/or counseling patient: Coding Level of Care Code 27397 SUB INP/OBS CARE 2/35MIN Diagnoses Sepsis A41.9 DVT (deep venous thrombosis) I82.409 Hypotension I95.9 Dementia F03.90 Hypothyroidism E03.9 Bacteremia due to Gram-negative bacteria R78.81
[2024-05-14 20:18] VITALS: TEMP 98.2
[2024-05-15 08:03] VITALS: PULSE 58; RESP 20; O2SAT 94
--- NOTE | 2024-05-15 09:40 | Discharge Summary ---
Discharge Summary Date of Service May 15, 2024 Principal Dx & Hospital Course #1 = Principal Diagnosis (1) Sepsis: (2) DVT (deep venous thrombosis): (3) Hypotension: (4) Dementia: (5) Hypothyroidism: (6) Bacteremia due to Gram-negative bacteria: Plan This is a 89 y/ female with PMH of advanced dementia, non-STEMI, hx of PE, hx of DVT (IVC placed), anemia, B12 deficiency, hx of GI bleed. She was brought in from [facility] due to fever. On arrival, she was found to be hypotensive and in sepsis due to UTI. Patient received 2L of NSS with no improvement of hypotension, placed on Levophed in the ED. Labs remarkable for leukocytosis 12.30, lactate: 3.3, procalcitonin 9.53, hyponatremia 126, anemia 9.3, and abnormal UA. Patient was admitted to ICU for the management of septic shock with pressors. Pt was evaluated by urology and she underwent cystoscopy with right ureteral stent placement on 05/10/24. Pt became hemodynamically stable and was able to be weaned off of norepi and was subsequently downgraded on 05/10/24. JOSE Sylvester ([phone]) #Septic shock, present on admission due to Proteus bacteremia #Obstructive nephrolithiasis - weaned off of pressors and downgraded from ICU on 05/10/24 - CT A/P > obstructive renal stone - UA: WBC+, Bacteria+, Leukocyte esterase+, nitrite - - s/p 2L NSS w/o improvement of hypotension - Urology saw patient, s/p cystoscopy and right ureteral stent placement on 05/10/[address] David Ortiz - Patient was initially treated with IV cefepime/Zosyn and transition to IV ceftriaxone on 05/12/2024 since blood cultures growing Proteus mirabilis. Patient has finished 6 days of IV antibiotics and is now transition to oral Augmentin 875 mg p.o. twice daily for 7 more days starting 05/16/2024 to complete a full course of antibiotics for bacteremia - Repeat blood cultures been negative at 48 hours - Continue indwelling Roper catheter, patient will need follow-up with urologist Dr. Ortiz for definitive treatment of nephrolithiasis #Chronic anemia Hemoglobin is at baseline She has a history of GI bleed Continue PPI B12 373: Continue B complex #Essential hypertension Continue amlodipine 2.5 mg daily Monitor vital signs through PCP at [facility] Amlodipine dose can be increased to 5 mg daily based on blood pressure readings Hayley #Hyponatremia Stop hydrochlorothiazide Monitor sodium levels through PCP at [facility] #Hypothyroidism Continue levothyroxine 88 mcg p.o. daily #Dementia #Moderate protein calorie malnutrition - resident of senior care care facility secondary to end stage dementia - pt is unable to make decisions for herself, POA reportedly is Israel Sylvester - SUE eval appreciated, boost supplement added Patient seen and examined today. She is stable for discharge to [facility]. This discharge to greater than 30 minutes to coordinate Admission HPI Per Admitting Provider Ana is a 89 y/ female with PMH of advanced dementia, non-STEMI, hx of PE, hx of DVT (IVC placed), anemia, dementia, B12 deficiency, hx of GI bleed. She was sent from [facility] due to fevers. Patient is nonverbal on baseline. Unable to get HPI from patient. On arrival patient found with hypotension. Labs remarkable for leukocytosis of 9.3, hyponatremia 129, Anemia 9.3, lactate 3.3. Hypomagnesemia 1.4. Procalcitonin 9.53. UA with Leukocyte esterase, wbc and bacteria. ED course: 2 L NSS give, with no improvement of hypotension. Patient placed on Levophed. Cefepime and Vancomycin given in the ED. IV Magnesium 2 grams given Discharge Exam General: No acute distress Psych: Awake and alert, oriented to self HEENT: Anicteric sclera, moist oral mucosa CVS: Regular rate and rhythm Lungs: Bilateral air entry, no wheezing noted Abdomen: Soft, nontender, no rebound, no guarding Ext: No lower extremity edema, no calf tenderness : Indwelling Roper catheter in place Discharge Plan Discharge Items Patient Disposition: Transfer Alf Fac Reason For Visit: SEPSIS Discharge Diagnosis: #Septic shock, present on admission due to Proteus bacteremia #Obstructive nephrolithiasis #Chronic anemia #Essential hypertension #Dementia #Hypothyroidism #Moderate protein calorie malnutrition Activity: As commented below Activity Comment: as tolerated with assistance Non-emergency contact: Primary Care Provider Call non-emergency contact if: you have any medication questions, your symptoms worsen and you have a fever Follow-up/Referrals: David Ortiz MD [Physician] - Julian,Dutch J, DO [Primary Care Provider] - Diet: Regular Diet Texture: Pureed (blended smooth) Diet Comment: Nursing assistance with all feeds, aspiration precautions Addtl Attending Provider Instructions: DISCHARGE INSTRUCTION TO PATIENT/FAMILY/SNF: Follow-up with your primary care provider within 1 week regarding: Posthospital discharge, medication review, medication refills and follow-up on all your medical problems Please take all your discharge medications, discharge information and discharge instructions to all your doctors appointments. Follow-up with urologist Dr. Ortiz as outpatient in 1 week time for definitive treatment of nephrolithiasis, trial without catheter Out of bed to chair for all meals, no meals in bed BOOST GLUCOSE CONTROL VANILLA FLAVOR SHAKE TWICE DAILY WITH MEALS WITH NURSING ASSISTANCE Patient needs full nursing assistance with feeding and aspiration precautions. Patient needs to sit upright in chair for at least 45 minutes after each meal Patient was treated with 6 days of IV antibiotics. She has been transition to oral Augmentin for 7 more days: Augmentin to start on 05/16/2024 Labs at SNF on Sunday05/19/24: CBC, CMP, MG, CRP Pending Studies at Discharge: No Stand-Alone Forms: My [facility] [employer] Skilled Items Patient informed of condition?: No (Patient with dementia) DNR: No Discharge Level of Care: Skilled Communicable Disease: No Discharge Prognosis: Stable Lines: None Urinary Catheter: Yes (Patient needs follow-up with urologist Dr. Ortiz in 1 week ) Medications and DC Order Prescriptions: New amoxicillin-pot clavulanate 875-125 mg Tablet 1 tab PO BIDM 7 Days Qty: 14 0RF Rx Instructions: START ON 05/16/24 FOR 7 DAYS magnesium oxide 400 mg (241.3 mg magnesium) Tablet 400 mg PO HS Qty: 3 0RF vitamin B complex [Vitamins B Complex] Capsule 1 cap PO QAM Qty: 30 0RF Continued acetaminophen 325 mg Tablet 650 mg PO Q4 MDD 3 GRAMS/24 HOURS PRN (Reason: PAIN/FEVER >100F) sennosides-docusate sodium [Senokot-S] 8.6-50 mg Tablet 1 tab-cap PO BID Rx Instructions: HOLD FOR LOOSE STOOLS polyethylene glycol 3350 [Miralax] 17 gram/dose Powder 17 g PO DAILY acetaminophen [Tylenol] 325 mg Tablet 650 mg PO BID amlodipine 2.5 mg Tablet 2.5 mg PO DAILY levothyroxine 88 mcg tablet 88 mcg PO QAM ascorbic acid (vitamin C) [Vitamin C] 500 mg Tablet 500 mg PO DAILY folic acid 1 mg Tablet 1 mg PO DAILY multivitamin with minerals Tablet 1 tab PO DAILY omeprazole 20 mg Tablet,Delayed Release (Dr/Ec) 20 mg PO BID ferrous sulfate 220 mg (44 mg iron)/5 mL Elixir 110 mg PO BID Rx Instructions: DOSE 7.5 ML Discontinued docusate sodium 100 mg Capsule 100 mg PO BID docusate sodium [Colace] 100 mg Capsule 100 mg PO DAILY PRN (Reason: NO BM FOR 2 DAYS) hydrochlorothiazide 25 mg Tablet 12.5 mg PO DAILY Discharge Orders: Discharge Order (Routine); Ordered 05/15/24 Ordered By: Mathieu Mahan Admission Data Admit Date/Time: 05/09/24 21:49 Attending Provider: Mathieu Mahan Admit Provider: Zari Kwon Primary Care Provider: Dutch Krueger Other Providers: Alondra Raymond [place]; Mik Faustin; David Ortiz; Be Rodriguez Other Interventions: Discharge Summary Assessment (RN) Last Done: 05/15/24 11:15 Hospital Stay Data Consultations 05/09/24 20:43 ED Decision to Admit Stat 05/09/24 23:33 Consult Urology Stat 05/09/24 23:43 Consult [employer]er Routine Procedures Performed Operation Date: 05/10/24 01:30 Actual Procedures p Cystoscopy, Ureteral stent insertion Right ureter, Retrograde Pyelogram(Right) - David Ortiz MD Diagnostic Imagining Performed 05/09/24 21:30 CT Abdomen and Pelvis [CT abd pelvis wo con] Stat 05/10/24 01:03 FL retrograde includes kub Routine Chest X-Ray 05/09/24 18:13 Clinical History: Sepsis Technique: A frontal view of the chest was obtained Comparison is made to the prior examination dated 09/18/2023 Findings: There are no confluent pulmonary infiltrates. The heart size is within normal limits. No pleural effusion or pneumothorax is seen. There is no definite pulmonary nodule. No fracture is noted. No foreign body is seen Impression: No active disease Electronically signed by Gustavo Arredondo 05-09-2024 7:53 PM Abdomen/Pelvis CT 05/09/24 21:30 Exam(s): CT ABDOMEN + PELVIS Without Contrast EXAM: CT Abdomen and Pelvis Without Intravenous Contrast CLINICAL HISTORY: Reason for exam: Sepsis. TECHNIQUE: Axial computed tomography images of the abdomen and pelvis without intravenous contrast. CTDI is 10.85 mGy and DLP is 542.43 mGy-cm. Automated exposure control was utilized for the study. A dose lowering technique was utilized adhering to the principles of ALARA. COMPARISON: 09/18/23 FINDINGS: Lung bases: Subsegmental bibasilar atelectasis. Pleural space: Trace pleural effusions. Mediastinum: Small hiatal hernia. ABDOMEN: Liver: Unremarkable. Gallbladder and bile ducts: Gallbladder distention and mild gallbladder wall edema. No calcified stones. No biliary dilatation. Pancreas: Unremarkable. No ductal dilation. Spleen: Unremarkable. No splenomegaly. Adrenals: Unremarkable. No mass. Kidneys and ureters: Bilateral nonobstructing kidney stones. Obstructing 6 mm right UVJ stone with mild upstream hydroureteronephrosis. Mild left-sided hydroureteronephrosis without obstructing ureteral stone. Stomach and bowel: Constipation with rectosigmoid fecal impaction. No mechanical bowel obstruction. Colonic diverticulosis. No mucosal thickening. PELVIS: Appendix: Appendix is not visualized. Bladder: Urinary bladder is incompletely distended. No stones. Reproductive: Unremarkable as visualized. ABDOMEN and PELVIS: Intraperitoneal space: Unremarkable. No free air, significant free fluid, or fluid collection. Bones/joints: Osteopenia. Degenerative change in the lumbar spine. Grade 1 degenerative anterolisthesis of L5. No acute fracture or dislocation. Soft tissues: Unremarkable. Vasculature: Atherosclerosis. Infrarenal IVC filter. No abdominal aortic aneurysm. Lymph nodes: Unremarkable. No enlarged lymph nodes. IMPRESSION: 1. Obstructing 6 mm right UVJ stone with mild upstream hydroureteronephrosis. 2. Mild left-sided hydroureteronephrosis without obstructing ureteral stone. This may be due to extrinsic ureteral compression by the stool- distended rectum. 3. Additional bilateral nonobstructing kidney stones. 4. Constipation with rectosigmoid fecal impaction. Appearance is similar to prior. 5. Gallbladder distention and mild gallbladder wall edema. No calcified stones. Acute cholecystitis cannot be excluded but is considered unlikely given CT appearance. Electronically signed by: Jacinta Dacosta M.D. 05/09/24 23:09 PM Retrograde Pyelogram 04/05/25 01:03 FL retrograde includes kub CLINICAL HISTORY: CYSTO/STENTright-sided cystourethrogram COMPARISON STUDY: CT 05/09/2024 FLUOROSCOPY TIME: 21.6 seconds FLUOROSCOPY IMAGES: 3 EXPOSURE DOSE: 2.85 mGy FINDINGS: IVC filter. Dilation tortuosity of the right ureter. Status post pl acement of a right ureteral stent, proximal portion projects over the right renal pelvis. IMPRESSION: Fluoroscopic assistance as above. ACT 112: Negative or not required by law. Electronically signed by: Yovany Santamaria M.D. 05/10/2024 8:01 AM Laboratory Results - last 48 hr 05/13/24 05/14/24 20:58 06:20 Sodium 133 L Potassium 3.6 Chloride 99 Carbon Dioxide 30 Anion Gap 4 BUN 9 Creatinine 0.36 L Est Cr Clr Drug Dosing 87.6 eGFR 98.19 BUN/Creatinine Ratio 25.0 H Glucose 88 POC Glucose 107 H Calcium 8.6 Magnesium 1.8 Iron 72 TIBC 221 L Transferrin 158 L Transferrin % Sat 33 C-Reactive Protein 2.61 H Vitamin B12 373 Pending Results Patient Have Any Pending Studies at Discharge: No Discharge Instructions Given to Patient (Per Discharging Provider) DISCHARGE INSTRUCTION TO PATIENT/FAMILY/SNF: Follow-up with your primary care provider within 1 week regarding: Posthospital discharge, medication review, medication refills and follow-up on all your medical problems Please take all your discharge medications, discharge information and discharge instructions to all your doctors appointments. Follow-up with urologist Dr. Ortiz as outpatient in 1 week time for definitive treatment of nephrolithiasis, trial without catheter Out of bed to chair for all meals, no meals in bed BOOST GLUCOSE CONTROL VANILLA FLAVOR SHAKE TWICE DAILY WITH MEALS WITH NURSING ASSISTANCE Patient needs full nursing assistance with feeding and aspiration precautions. Patient needs to sit upright in chair for at least 45 minutes after each meal Patient was treated with 6 days of IV antibiotics. She has been transition to oral Augmentin for 7 more days: Augmentin to start on 05/16/2024 Labs at SNF on Sunday05/19/24: CBC, CMP, MG, CRP Total Time Total Time Spent Total Time Spent (In Minutes): 38 Coding Level of Care Code 92784 INP/OBS DISCH >30 MIN Diagnoses Sepsis A41.9 DVT (deep venous thrombosis) I82.409 Hypotension I95.9 Dementia F03.90 Hypothyroidism E03.9 Bacteremia due to Gram-negative bacteria R78.81
[2024-05-15] MEDS: MULTIVITAMIN CHEWABLE TAB PO SCH (10:40)
[2024-05-15 11:18] VITALS: BP 158/72
--- NOTE | 2024-05-15 22:39 | Electrocardiogram Report ---
Test Reason : Blood Pressure : */* mmHG Vent. Rate : 56 BPM Atrial Rate : 56 BPM P-R Int : 182 ms QRS Dur : 82 ms QT Int : 434 ms P-R-T Axes : 49 33 66 degrees QTcB Int : 418 ms Sinus bradycardia Low voltage QRS Borderline ECG When compared with ECG of 09-May-2024 17:43, Vent. rate has decreased by 48 bpm Confirmed by Leighton Lindsey ([id number]) on 05/15/2024 10:39:14 PM Referred By: [facility] Confirmed By: Leighton Lindsey
[2024-05-16] MEDS ORDERED: AMOXICILLIN/CLAVULANATE 875 MG TAB PO SCH (08:00)
== END 2024-05-15 14:59 | DRG 853 ==
LOC: ED 17:36 → 1E 21:49 → SUATTDRO 21:49 → 1E 23:15 → 2S 05-10 18:09 → 2N 05-15 00:46

== ENCOUNTER 2024-08-13 20:54 | Inpatient (IN) ==
[2024-08-13] MEDS ORDERED: VANCOMYCIN CONSULT ACTIVE PRN (21:33)
--- NOTE | 2024-08-13 21:35 | Emergency Department Note ---
ED Visit Note I was consulted by the Advanced Practice Provider, Anh Thomason PA-C. I performed a substantive portion of the visit. This includes aspects of: History: Patient is an 89-year-old female presenting with fever and a cough. Patient presents from [facility]. Patient has baseline dementia and is unable to provide any meaningful history. She reportedly has a coarse cough for the last week. MDM: - Laboratory workup interpreted by myself showed leukocytosis (WBC 11.02) with neutrophil predominance; chronic anemia; hyponatremia (Na 135); hyperglycemia (glucose 185); normal AST/ALT; normal procalcitonin; normal troponin - Blood cultures obtained - VBG grossly unremarkable. - UA shows evidence of infection - CXR image reviewed by myself showed a possible right lower lobe consolidation, per my interpretation. - Viral respiratory panel positive for rhinovirus/enterovirus infections - Patient given 2.5L NS in ER. Patient sepsis fluid volume calculation based on actual body weight is 1500.00 mL - Patient given 1g IV tylenol for fever in ER. - On review of patient's chart, she grew Proteus mirabilis in blood cultures on 05/09/2024. - Given IV zosyn and IV vancomycin empirically. - CT chest with IV contrast showed right lower lobe pneumonia. - CT abdomen/pelvis with IV contrast negative for acute pathology. Noted to have hyperemia involving the gallbladder with some trace pericholecystic fluid concerning for potential acute cholecystitis per radiology. - [facility] for further evaluation and management .
[2024-08-13 21:39] LABS: Base Excess VBG 3.5 mEq/L; HCO3 VBG 27 mmol/L; Oxygen Saturation VBG 91.8 %; PCO2 VBG 35 mmHg (38-50); PO2 VBG 57 mmHg; pH VBG 7.49 (7.36-7.41)
[2024-08-13 21:42] LABS: Hematocrit (blood only) 30.6 % (37.0-47.0); Hemoglobin 10.6 g/dl (12.0-16.0); Immature Granulocytes # (auto) 0.10 K/uL (0.01-0.20); Immature Granulocytes % (auto) 0.9 %; Mean Corpuscular Hemoglobin 31.5 pg (25.0-34.0); Mean Corpuscular Volume 90.8 fL (80.0-100.0); Platelet Count 268 K/uL (130-400); RDW Standard Deviation 39.0 fL (36.4-46.3); Red Blood Count 3.37 M/uL (4.20-5.40); White Blood Count 11.02 K/ul (4.8-10.8)
[2024-08-13] MEDS: SODIUM CHLORIDE 0.9% 1,000 ML IV ONE ×2 (21:43→21:44)
[2024-08-13] MEDS: SODIUM CHLORIDE 0.9% 500 ML IV ONE (21:44)
[2024-08-13] MEDS: ACETAMINOPHEN 1,000 MG/100 ML VIAL IV STA (21:49)
[2024-08-13 21:59] LABS: Alanine Aminotransferase 23.0 U/L (7-52); Albumin Globulin Ratio 1.1 (0.9-2); Alkaline Phosphatase 153.0 U/L (34-104); Anion Gap 9.0 (3-11); Bilirubin,Total 0.3 mg/dl (0.2-1.0); Blood Urea Nitrogen 28.0 mg/dl (6-23); Calcium 8.8 mg/dl (8.6-10.3); Carbon Dioxide 25.0 mmol/L (21-32); Chloride 101.0 mmol/L (98-107); Creatinine Clr Calc Pharmacy 54.9 ml/min; Globulin 3.1 gm/dl (2.5-4.0); Glucose 185.0 mg/dl (70-99(Fasting)); Magnesium 1.7 mg/dl (1.7-2.4); Potassium 3.7 mmol/L (3.5-5.1); Sodium 135.0 mmol/L (136-145); Total Protein 6.5 gm/dl (6.0-8.3)
[2024-08-13] MEDS: OPTIRAY 320 125ml IV ONE (22:08)
[2024-08-13] MEDS: PIPERACILLIN/TAZOBACTAM 4.5 GM/100 ML BAG IV ONE (22:17)
[2024-08-13 22:44] LABS: Appearance Urine Clear (Clear); Bacteria Urine Automated 2+ (None Seen); Epithelial Cell Urine Auto 0-2 /hpf (0-2); Glucose Urine UA Negative (Negative); WBC Urine Automated >50 /hpf (0-5)
[2024-08-13 22:51] LABS: Chlamydia pneumoniae PCR Not Detected (NotDetected); Coronavirus 229E PCR Not Detected (NotDetected); Coronavirus CoV-2 (COVID19)PCR Not Detected (NotDetected); Coronavirus HKU1 PCR Not Detected (NotDetected); Coronavirus NL63 PCR Not Detected (NotDetected); Coronavirus OC43PCR Not Detected (NotDetected); Human Metapneumovirus PCR Not Detected (NotDetected); Parainfluenza Virus 1 PCR Not Detected (NotDetected); Parainfluenza Virus 2 PCR Not Detected (NotDetected); Parainfluenza Virus 3 PCR Not Detected (NotDetected); Parainfluenza Virus 4 PCR Not Detected (NotDetected); Respiratory Syncytial VirusPCR Not Detected (NotDetected); Rhinovirus/Enterovirus PCR DETECTED (NotDetected)
[2024-08-13] MEDS: VANCOMYCIN HCL 1,000 MG in SODIUM CHLORIDE 0.9% 500 ML IV ONE (23:25)
--- NOTE | 2024-08-14 00:07 | CT Scan Report ---
Exam(s): CT ABDOMEN + PELVIS With Contrast IV Amt: 118 cc opi 320 EXAM: CT Abdomen and Pelvis With Intravenous Contrast CLINICAL HISTORY: Reason for exam: sepsis, recent stone removal. TECHNIQUE: Axial computed tomography images of the abdomen and pelvis with intravenous contrast. Automated exposure control was utilized for the study. A dose lowering technique was utilized adhering to the principles of ALARA. CONTRAST: Patient received 118 cc opi 320 of IV contrast COMPARISON: 05/09/2024 FINDINGS: Lung bases: Right lower lobe infiltrate likely of infectious or inflammatory etiology. Heart: Coronary artery calcifications. Aortic valve calcifications. ABDOMEN: Liver: 1.3 cm right hepatic lobe cyst. Gallbladder and bile ducts: Hyperemia involving the gallbladder wall with trace pericholecystic fluid. No ductal dilation. Pancreas: Unremarkable. No mass. No ductal dilation. Spleen: Unremarkable. No splenomegaly. Adrenals: Bilateral adrenal gland thickening.. Kidneys and ureters: Unremarkable. No solid mass. No hydronephrosis. Stomach and bowel: Large amount of stool within the colon. Numerous fluid-filled hyperemic loops of small bowel within the left midabdomen. Diverticulosis without evidence of diverticulitis. PELVIS: Appendix: No findings to suggest acute appendicitis. Bladder: Roper catheter within the urinary bladder. Reproductive: Unremarkable as visualized. ABDOMEN and PELVIS: Intraperitoneal space: Unremarkable. No free air. No significant fluid collection. Bones/joints: right 10th and 9th rib fractures. Healing right 10th and 11th rib fractures. No dislocation. Soft tissues: Unremarkable. Vasculature: IVC filter present. Lymph nodes: Unremarkable. No enlarged lymph nodes. IMPRESSION: No acute findings in the abdomen or pelvis. Hyperemia involving the gallbladder with trace pericholecystic fluid. Findings may represent acute cholecystitis in the appropriate clinical setting Right hepatic lobe hemangioma Enteritis Electronically signed by: Kavon Mccain MD 08/14/24 00:04 AM
--- NOTE | 2024-08-14 00:11 | CT Scan Report ---
Exam(s): CTA CHEST IV Amt: 118 cc [id number] EXAM: CT Angiography Chest With Intravenous Contrast CLINICAL HISTORY: Reason for exam: PE, recent OR, sepsis. TECHNIQUE: Axial computed tomographic angiography images of the chest with intravenous contrast. Automated exposure control was utilized for the study. A dose lowering technique was utilized adhering to the principles of ALARA. MIP reconstructed images were created and reviewed. COMPARISON: 09/19/2023 FINDINGS: Pulmonary arteries: Interval resolution of subsegmental right lower lobe pulmonary emboli. No large central pulmonary embolus. Aorta: No acute findings. No thoracic aortic aneurysm. Lungs: Right lower lobe infiltrate likely of infectious or inflammatory etiology. Right lower lobe peribronchial thickening with mucous plugging likely representing bronchiolitis. Slight prominence of the interlobular septum suggesting pulmonary edema. No mass. Pleural space: Unremarkable. No significant effusion. No pneumothorax. Heart: Cardiomegaly. No significant pericardial effusion. No evidence of RV dysfunction. Bones/joints: No acute fracture. No dislocation. Soft tissues: Unremarkable. Lymph nodes: Unremarkable. No enlarged lymph nodes. IMPRESSION: No pulmonary embolus Right lower lobe pneumonia Electronically signed by: Kavon Mccain MD 08/14/24 00:09 AM
--- NOTE | 2024-08-14 02:30 | History & Physical Report ---
"Date of Service August 14, 2024 Assessment & Plan (1) Right lower lobe pneumonia: (2) Enterovirus infection: (3) Acute UTI (urinary tract infection): Plan Ana is a 89 y/o female with pmh of advanced dementia, hypothyroidism, non- STEMI, hx of PE, hx of DVT (IVC placed), anemia, dementia, B12 deficiency that was sent from [facility] due to fever and cough. Patient recently treated for UTI with Keflex (last dose 08/06). Patient unable to provide information due to advance dementia. Several other members of facility with URI. Patient found with pneumonia, + rhino virus, and an UTI. Lab remarkable for leukocytosis (11.02), anemia (10.6). Hyponatremia 135. UA positive for UTI. Negative procal, negative lactate. Patient will be admitted for further management Pneumonia| SIRS - Patient with cough and fevers, fun with rhino, and superimposed pneumonia. UA remarkable for UTI - Fever, tachycardia on arrival - CXR- Right lower consolidation - Chest CTA: Right lower pneumonia, no PE - Abdomen CT: Hyperemia involving the gallbladder with trace pericholecystic fluid. Concern of acute cholecystitis - Viral panel positive for Rhinovirus/ enterovirus - Leukocytosis. Hyponatremia. - Normal lactate, normal procal - Started on Zosyn and Vanco on ED, will continue until culture finalized - 3L NSS Bolus given by ED - MRSA swab ordered - Tylenol as needed - Urine culture and Blood culture pending - Lab AM UTI - Recently treated with Keflex (last dose 08/06) - UA: positive for UTI - Antibiotic as above - Follow urine culture Acute cholecystitis on CT - Abdomen CT: Hyperemia involving the gallbladder with trace pericholecystic fluid. Concern of acute cholecystitis - US gallbladder ordered - AST/ ALT normal. Zelda bili. Alkaline phosphatase: 153 - ABx as above - Surgery consulted - CMP AM Hyponatremia - Na: 135 - will hold HCTZ Chronic anemia -Hgb 10.6 , stable Hypertension - Amlodipine continue - hydrochlorothiazide on hold Hypothyroidism: - Levothyroxine 125 mcg DTV prophylaxis: SCDs, hold chemical for now until surgery eval History of Present Illness Primary Care Provider: Dutch Krueger DO Ana is a 89 y/o female with pmh of advanced dementia, hypothyroidism, non- STEMI, hx of PE, hx of DVT (IVC placed), anemia, dementia, B12 deficiency that was sent from [facility] due to fever and cough. Patient recently treated for UTI with Keflex (last dose 08/06). Patient unable to provide information due to advance dementia. Several other members of facility with URI. Patient found with pneumonia, + rhino virus, and an UTI. Lab remarkable for leukocytosis (11.02), anemia (10.6). Hyponatremia 135. UA positive for UTI. Negative procal, negative lactate. Unable to get more information due to patient advanced dementia Ed course: 3 L NSS, IV Zosyn, IV Vanco, IV Tylenol Allergies Allergy/AdvReac Type Severity Reaction Status Date / Time Sulfa (Sulfonamide Allergy Intermediate Rash Verified 08/13/24 22:34 Antibiotics) Home Medications Medication Instructions Recorded Confirmed Type acetaminophen 325 mg tablet 650 mg PO Q4H PRN PAIN/FEVER >100F 09/18/23 08/13/24 History sennosides 8.6 mg-docusate sodium 1 tab-cap PO BID 09/18/23 08/13/24 History 50 mg tablet (Senokot-S) amlodipine 2.5 mg tablet 2.5 mg PO DAILY 05/09/24 08/13/24 History ascorbic acid (vitamin C) 500 mg 500 mg PO DAILY 05/09/24 08/13/24 History tablet (Vitamin C) multivitamin with minerals 1 tab PO DAILY 05/09/24 08/13/24 History omeprazole 20 mg tablet,delayed 20 mg PO BID 05/09/24 08/13/24 History release vitamin B complex (Vitamins B 1 cap PO QAM #30 caps 05/15/24 08/13/24 Rx Complex capsule) acetaminophen 325 mg tablet 650 mg PO BID 06/02/24 08/13/24 History polyethylene glycol 3350 17 17 g PO DAILY 06/02/24 08/13/24 History gram/dose oral powder (Miralax) Past Med/Surg History Problem List (Updated 08/14/24 @ 04:46 by Thuan Sainz) Right lower lobe pneumonia (Acute) Enterovirus infection (Acute) Rhinovirus infection (Acute) Cough (Acute) Fever (Acute) Acute UTI (urinary tract infection) (Acute) Kidney stone History of anemia B12 deficiency Lateral meniscus tear Right knee DJD Medical History Abnormal posture Per records Anemia, unspecified Aortic stenosis Echo 05/13/24: Mild aortic stenosis (GREYSON MG 15.4mmhg, GREYSON V,D 1.7cm) Calculus of ureter Constipation, unspecified Dementia Dysphagia, oropharyngeal phase History of cervical fracture Hx C2 odontoid fracture after fall 07/2023. Given a cervical collar x 6 weeks and advised to f/u with orthopedic surgery. Approved to remove cervical collar per [facility] orthopedic surgery 10/2023. F/U cervical xray done 12/13/23 noting no fractures and no definite/significant acute bony abnormality. 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 Unspecified abnormal involuntary movements Per records Surgical History Presence of urogenital implants S/P cystoscopy with ureteral stent placement 05/10/24 S/P insertion of IVC (inferior vena caval) filter right femoral approach, 09/20/23 Social History Smoking Status: Unknown if ever smoked Preferred Language: Thai Communication Ability: Impaired Defective Cigarette Slitter Required: No Beliefs That Will Affect Care: None Current Living Situation: Jail Current Living Situation Comment: [facility] Other Information That Helps Us Care for You: No Feels Safe at Home: Yes Safety Concerns: Feels Safe At This Time Assistive Devices: Wheelchair Review of Systems Review of Systems: as per hpi Physical Exam Constitutional: + thin and + frail appearing; no acute d istress ENMT: external ear and nose normal, oropharynx normal Respiratory: normal respiratory effort; no respiratory distress Cardiovascular: RRR, no murmur, no edema Gastrointestinal (Abdomen): normal bowel sounds, soft, nontender, no hepatosplenomegaly Skin: no rashes, warm and dry Results & Data Results & Data Vital Signs (Past 12 Hours) Vital Signs Temp Pulse Pulse Resp BP BP Pulse Ox 08/13/24 23:30 71 15 94 08/13/24 23:06 78 17 132/82 94 08/13/24 23:04 77 08/13/24 22:46 95 08/13/24 22:33 80 19 129/78 96 08/13/24 22:23 37.8 C H 86 22 129/78 95 08/13/24 21:16 39.9 C H 101 H 20 130/76 94 O2 Del Method 08/13/24 23:30 08/13/24 23:06 Room Air 08/13/24 23:04 08/13/24 22:46 Room Air 08/13/24 22:33 Room Air 08/13/24 22:23 Room Air 08/13/24 21:16 Room Air Supervising Physician Co-Signing Physician Notes patient seen and examined, chart reviewed, case discussed with Dr. Tyson Petit and I agree with the assessment and plan as document above Resident Activity Tracking Resident Involvement: Resident Care Provided Care Provided: Adult Hospital Medicine"
--- NOTE | 2024-08-14 02:39 | Emergency Department Note ---
History of Present Illness General Chief complaint: Illness History of Present Illness This 89-year-old female with dementia presents to the ER for fever from the skilled nursing. History is obtained from EMS. Apparently patient had a fever and was sent in. By chart review a few months ago patient was septic from a kidney stone. Patient does not follow commands. She is laying in the bed who appears comfortable. Home Medications Medication Instructions Recorded Confirmed Type acetaminophen 325 mg tablet 650 mg PO Q4H PRN PAIN/FEVER >100F 09/18/23 08/13/24 History sennosides 8.6 mg-docusate sodium 1 tab-cap PO BID 09/18/23 08/13/24 History 50 mg tablet (Senokot-S) amlodipine 2.5 mg tablet 2.5 mg PO DAILY 05/09/24 08/13/24 History ascorbic acid (vitamin C) 500 mg 500 mg PO DAILY 05/09/24 08/13/24 History tablet (Vitamin C) multivitamin with minerals 1 tab PO DAILY 05/09/24 08/13/24 History omeprazole 20 mg tablet,delayed 20 mg PO BID 05/09/24 08/13/24 History release vitamin B complex (Vitamins B 1 cap PO QAM #30 caps 05/15/24 08/13/24 Rx Complex capsule) acetaminophen 325 mg tablet 650 mg PO BID 06/02/24 08/13/24 History polyethylene glycol 3350 17 17 g PO DAILY 06/02/24 08/13/24 History gram/dose oral powder (Miralax) Allergies Allergy/AdvReac Type Severity Reaction Status Date / Time Sulfa (Sulfonamide Allergy Intermediate Rash Verified 08/13/24 22:34 Antibiotics) Past Med/Surg History Problem List (Updated 08/14/24 @ 00:26 by Kimberly Peck MD) Right lower lobe pneumonia (Acute) Enterovirus infection (Acute) Rhinovirus infection (Acute) Cough (Acute) Fever (Acute) Acute UTI (urinary tract infection) (Acute) Kidney stone History of anemia B12 deficiency Lateral meniscus tear Right knee DJD Medical History Abnormal posture Per records Anemia, unspecified Aortic stenosis Echo 05/13/24: Mild aortic stenosis (GREYSON MG 15.4mmhg, GREYSON V,D 1.7cm) Calculus of ureter Constipation, unspecified Dementia Dysphagia, oropharyngeal phase History of cervical fracture Hx C2 odontoid fracture after fall 07/2023. Given a cervical collar x 6 weeks and advised to f/u with orthopedic surgery. Approved to remove cervical collar per [facility] orthopedic surgery 10/2023. F/U cervical xray done 12/13/23 noting no fractures and no definite/significant acute bony abnormality. 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 Unspecified abnormal involuntary movements Per records Surgical History Presence of urogenital implants S/P cystoscopy with ureteral stent placement 05/10/24 S/P insertion of IVC (inferior vena caval) filter right femoral approach, 09/20/23 Social History Smoking Status: Unknown if ever smoked Preferred Language: Estonian Communication Ability: Unknown Scheduler Maintenance Required: No Beliefs That Will Affect Care: None Current Living Situation: Residential Current Living Situation Comment: [facility] Feels Safe at Home: Yes Assistive Devices: Wheelchair Review of Systems Unobtainable due to cognitive status Physical Exam Vital Signs Vital Signs - 24 hr 08/13/24 21:16 08/13/24 22:23 08/13/24 22:33 Temperature 39.9 C H 37.8 C H Temperature Source Oral Oral Pulse Rate 101 H 80 Pulse Rate [Apical] 86 Pulse Rate from SpO2 Sensor 80 Respiratory Rate 20 22 19 Respiratory Effort / Characteristics Non-Labored Spontaneous Respiratory Depth Normal Blood Pressure 130/76 129/78 Blood Pressure [Right Arm] 129/78 Blood Pressure Mean 94 95 Blood Pressure Mean [Right Arm] 95 Pulse Oximetry 94 95 96 Oxygen Delivery Method Room Air Room Air Room Air Sepsis Recent Fever Within 48 Hours Yes Sepsis New/Unexplained Change in Mental Status No Sepsis Action Taken by Nursing Physician Notified 08/13/24 22:46 08/13/24 23:04 08/13/24 23:06 Temperature Temperature Source Pulse Rate 77 78 Pulse Rate [Apical] Pulse Rate from SpO2 Sensor 81 Respiratory Rate 17 Respiratory Effort / Characteristics Respiratory Depth Blood Pressure 132/82 Blood Pressure [Right Arm] Blood Pressure Mean 98 Blood Pressure Mean [Right Arm] Pulse Oximetry 95 94 Oxygen Delivery Method Room Air Room Air Sepsis Recent Fever Within 48 Hours Sepsis New/Unexplained Change in Mental Status Sepsis Action Taken by Nursing 08/13/24 23:30 08/13/24 23:45 08/14/24 00:00 Temperature Temperature Source Pulse Rate 71 68 Pulse Rate [Apical] Pulse Rate from SpO2 Sensor 71 69 Respiratory Rate 15 16 Respiratory Effort / Characteristics Respiratory Depth Blood Pressure 125/81 Blood Pressure [Right Arm] Blood Pressure Mean 94 Blood Pressure Mean [Right Arm] Pulse Oximetry 94 94 Oxygen Delivery Method Sepsis Recent Fever Within 48 Hours Sepsis New/Unexplained Change in Mental Status Sepsis Action Taken by Nursing 08/14/24 00:00 08/14/24 00:03 08/14/24 00:42 Temperature 37.6 C H Temperature Source Rectal Pulse Rate 70 62 Pulse Rate [Apical] Pulse Rate from SpO2 Sensor 69 62 Respiratory Rate 19 16 Respiratory Effort / Characteristics Respiratory Depth Blood Pressure Blood Pressure [Right Arm] Blood Pressure Mean Blood Pressure Mean [Right Arm] Pulse Oximetry 95 96 Oxygen Delivery Method Room Air Sepsis Recent Fever Within 48 Hours Sepsis New/Unexplained Change in Mental Status Sepsis Action Taken by Nursing 08/14/24 00:51 08/14/24 01:00 08/14/24 01:06 Temperature Temperature Source Pulse Rate 59 L 76 Pulse Rate [Apical] Pulse Rate from SpO2 Sensor 58 L 77 Respiratory Rate 16 15 Respiratory Effort / Characteristics Respiratory Depth Blood Pressure 121/72 Blood Pressure [Right Arm] Blood Pressure Mean 79 Blood Pressure Mean [Right Arm] Pulse Oximetry 95 98 Oxygen Delivery Method Sepsis Recent Fever Within 48 Hours Sepsis New/Unexplained Change in Mental Status Sepsis Action Taken by Nursing 08/14/24 01:36 08/14/24 02:00 08/14/24 02:00 Temperature Temperature Source Pulse Rate 68 74 Pulse Rate [Apical] Pulse Rate from SpO2 Sensor 67 72 Respiratory Rate 16 20 Respiratory Effort / Characteristics Non-Labored Respiratory Depth Normal Blood Pressure Blood Pressure [Right Arm] Blood Pressure Mean Blood Pressure Mean [Right Arm] Pulse Oximetry 97 98 Oxygen Delivery Method Sepsis Recent Fever Within 48 Hours Sepsis New/Unexplained Change in Mental Status Sepsis Action Taken by Nursing 08/14/24 02:01 08/14/24 02:01 Temperature Temperature Source Pulse Rate Pulse Rate [Apical] Pulse Rate from SpO2 Sensor Respiratory Rate Respiratory Effort / Characteristics Respiratory Depth Blood Pressure 157/96 H 157/96 H Blood Pressure [Right Arm] Blood Pressure Mean 105 105 Blood Pressure Mean [Right Arm] Pulse Oximetry Oxygen Delivery Method Sepsis Recent Fever Within 48 Hours Sepsis New/Unexplained Change in Mental Status Sepsis Action Taken by Nursing VITALS: Vitals are noted on the nurse's note and reviewed by myself. Vital signs febrile. GENERAL: Elderly female, in no acute distress, nondiaphoretic, well-developed well-nourished. SKIN: Capillary reflex less than 2 seconds. HEENT: Normocephalic. PERRLA. EOMI. Nares patent. Mucous membranes moist. Neck is supple without nuchal rigidity. HEART: Regular rate and rhythm LUNGS: Clear to auscultation bilaterally without wheezes, rales or rhonchi. No retractions or accessory muscle use. ABDOMEN: Positive bowel sounds x 4. Normal tympanic percussion. Soft, nontender, without masses or organomegaly. Villafana sign negative. No guarding or rebound tenderness. no CVA tenderness, Roper in place and this was replaced by nursing MUSCULOSKELETAL: No gross musculoskeletal defects. NEURO: Patient was alert but not oriented to person place and time. No focal neurological deficits. Course Administered Medications Discontinued Medications Piperacillin Sod/Tazobactam Sod (Zosyn) 4.5 gm in 100 mls @ 200 mls/hr IV NOW ONE; Protocol Stop: 08/13/24 21:57 Last Infusion: 08/13/24 22:49 Dose: Infused Documented By: Admin: 08/13/24 22:17 Dose: 200 mls/hr Documented By: YENNI Acetaminophen (Ofirmev) 1,000 mg in 100 mls @ 400 mls/hr IV NOW STA Stop: 08/13/24 21:42 Last Infusion: 08/13/24 22:18 Dose: Infused Documented By: Admin: 08/13/24 21:49 Dose: 400 mls/hr Documented By: ROHAN Sodium Chloride (Nss) 1,000 mls @ 999 mls/hr IV .Q1H1M ONE Stop: 08/13/24 22:30 Last Admin: 08/13/24 21:44 Dose: Not Given Documented By: ROHAN Sodium Chloride (Nss) 500 mls @ 999 mls/hr IV .Q31M ONE Stop: 08/13/24 22:03 Last Infusion: 08/13/24 22:50 Dose: Infused Documented By: Admin: 08/13/24 21:44 Dose: 999 mls/hr Documented By: ROHAN Sodium Chloride (Nss) 1,000 mls @ 999 mls/hr IV .Q1H1M ONE Stop: 08/13/24 22:33 Last Infusion: 08/13/24 22:50 Dose: Infused Documented By: Admin: 08/13/24 21:43 Dose: 999 mls/hr Documented By: ROHAN Vancomycin HCl 1,000 mg/ (Sodium Chloride) 520 mls @ 200 mls/hr IV NOW ONE Stop: 08/14/24 00:08 Last Admin: 08/13/24 23:25 Dose: 200 mls/hr Documented By: YENNI Ioversol (Optiray 320 125ml) 119 ml IV ONCE ONE Stop: 08/13/24 22:09 Last Admin: 08/13/24 22:08 Dose: 119 ml Documented By: WILLIAMS Medical Decision Making Medical Records Attestation: I reviewed the patient's medical records. Home Medications Current Medication List: was personally reviewed by me Laboratory Data Attestation: I reviewed the patient's lab results. 08/13/24 21:22 08/13/24 21:27 Lab Results 08/13/24 08/13/24 08/13/24 Range/Units 21:22 21:23 21:23 WBC 11.02 H (4.8-10.8) K/ul RBC 3.37 L (4.20-5.40) M/uL Hgb 10.6 L (12.0-16.0) g/dl POC Hgb (12.0-16.0) g/dl Hct 30.6 L (37.0-47.0) % POC Hct (37-47) % MCV 90.8 (80.0-100.0) fL MCH 31.5 (25.0-34.0) pg MCHC 34.6 (32.0-36.0) g/dL RDW Std Deviation 39.0 (36.4-46.3) fL RDW Coeff of Coni 11.9 (11.5-14.5) % Plt Count 268 (130-400) K/uL MPV 9.5 (9.4-12.4) fL Immature Gran % (Auto) 0.9 % Neut % (Auto) 85.9 % Lymph % (Auto) 6.6 % [place] % (Auto) 5.2 % Eos % (Auto) 1.0 % Baso % (Auto) 0.4 % Neut # (Auto) 9.47 H (1.40-6.50) K/uL Lymph # (Auto) 0.73 L (1.20-3.40) K/uL [place] # (Auto) 0.57 (0.11-0.59) K/uL Eos # (Auto) 0.11 (0.00-0.50) K/uL Baso # (Auto) 0.04 (0.00-0.20) K/uL Immature Gran # (Auto) 0.10 (0.01-0.20) K/uL VBG pH 7.49 H (7.36-7.41) VBG pCO2 35 L (38-50) mmHg VBG pO2 57 mmHg VBG HCO3 27 mmol/L VBG O2 Saturation 91.8 % VBG Base Excess 3.5 mEq/L POC Sodium (135-144) mmol/L Sodium (136-145) mmol/L POC Potassium (3.3-5.0) mmol/L Potassium (3.5-5.1) mmol/L POC Chloride (101-112) mmol/L Chloride (98-107) mmol/L Carbon Dioxide (21-32) mmol/L POC Total CO2 (24-31) mmol/L Anion Gap (3-11) POC Anion Gap (16-25) mmol/L POC BUN (7-18) mg/dl BUN (6-23) mg/dl Creatinine (0.6-1.2) mg/dl POC Creatinine (0.6-1.3) mg/dl Est Cr Clr Drug Dosing ml/min eGFR BUN/Creatinine Ratio (10-20) Glucose (70-99(Fasting)) mg/dl POC Glucose (other) (70-99) mg/dl Lactate 2.0 (0.4-2.0) mmol/L Calcium (8.6-10.3) mg/dl POC Ioniz Calcium Rashmi (1.12-1.32) mmol/l Magnesium (1.7-2.4) mg/dl Total Bilirubin (0.2-1.0) mg/dl Direct Bilirubin (0-0.2) mg/dl AST (13-39) U/L ALT (7-52) U/L Alkaline Phosphatase (34-104) U/L Troponin I High Sens (0-14) pg/ml Total Protein (6.0-8.3) gm/dl Albumin (3.4-5.0) gm/dl Globulin (2.5-4.0) gm/dl Albumin/Globulin Ratio (0.9-2) Procalcitonin 0.08 (0-0.5) ng/ml Urine Color Urine Appearance (Clear) Urine pH (4.5-7.5) Ur Specific [place] (1.000-1.030) Urine Protein (Negative) Urine Glucose (UA) (Negative) Urine Ketones (Negative) Urine Blood (Negative) Urine Nitrite (Negative) Urine Bilirubin (Negative) Urine Urobilinogen (Negative) Ur Leukocyte Esterase (Negative) Urine WBC (Auto) (0-5) /hpf Urine RBC (Auto) (0-2) /hpf U Hyaline Cast (Auto) (0-2) /lpf U Epithel Cells (Auto) (0-2) /hpf Urine Bacteria (Auto) (None Seen) Urine Yeast (None Prsent) Urine Comment Adenovirus (PCR) Not Detected (NotDetected) B. pertussis DNA (PCR) Not Detected (NotDetected) B.parapertussis DNA PCR Not Detected (NotDetected) C. pneumoniae DNA (PCR) Not Detected (NotDetected) Coronavirus OC43 (PCR) Not Detected (NotDetected) Coronavirus HKU1 (PCR) Not Detected (NotDetected) Coronavirus 229E (PCR) Not Detected (NotDetected) SARS-CoV-2 (PCR) Cancelled Not Detected Coronavirus NL63 (PCR) Not Detected (NotDetected) Human Metapneumovir PCR Not Detected (NotDetected) Influenza Type A (PCR) Cancelled Influenza Type B (PCR) M. pneumoniae (PCR) (NotDetected) Parainfluenza 1 (PCR) (NotDetected) Parainfluenza 2 (PCR) (NotDetected) Parainfluenza 3 (PCR) (NotDetected) Parainfluenza 4 (PCR) (NotDetected) RSV (RT-PCR) RSV (PCR) (NotDetected) Entero/Rhino (PCR) (NotDetected) 08/13/24 08/13/24 08/13/24 Range/Units 21:23 21:23 21:27 WBC (4.8-10.8) K/ul RBC (4.20-5.40) M/uL Hgb (12.0-16.0) g/dl POC Hgb (12.0-16.0) g/dl Hct (37.0-47.0) % POC Hct (37-47) % MCV (80.0-100.0) fL MCH (25.0-34.0) pg MCHC (32.0-36.0) g/dL RDW Std Deviation (36.4-46.3) fL RDW Coeff of Coni (11.5-14.5) % Plt Count (130-400) K/uL MPV (9.4-12.4) fL Immature Gran % (Auto) % Neut % (Auto) % Lymph % (Auto) % [place] % (Auto) % Eos % (Auto) % Baso % (Auto) % Neut # (Auto) (1.40-6.50) K/uL Lymph # (Auto) (1.20-3.40) K/uL [place] # (Auto) (0.11-0.59) K/uL Eos # (Auto) (0.00-0.50) K/uL Baso # (Auto) (0.00-0.20) K/uL Immature Gran # (Auto) (0.01-0.20) K/uL VBG pH (7.36-7.41) VBG pCO2 (38-50) mmHg VBG pO2 mmHg VBG HCO3 mmol/L VBG O2 Saturation % VBG Base Excess mEq/L POC Sodium (135-144) mmol/L Sodium 135 L (136-145) mmol/L POC Potassium (3.3-5.0) mmol/L Potassium 3.7 (3.5-5.1) mmol/L POC Chloride (101-112) mmol/L Chloride 101 (98-107) mmol/L Carbon Dioxide 25 (21-32) mmol/L POC Total CO2 (24-31) mmol/L Anion Gap 9 (3-11) POC Anion Gap (16-25) mmol/L POC BUN (7-18) mg/dl BUN 28 H (6-23) mg/dl Creatinine 0.57 L (0.6-1.2) mg/dl POC Creatinine (0.6-1.3) mg/dl Est Cr Clr Drug Dosing 54.9 ml/min eGFR 87.90 BUN/Creatinine Ratio 49.1 H (10-20) Glucose 185 H (70-99(Fasting)) mg/dl POC Glucose (other) (70-99) mg/dl Lactate (0.4-2.0) mmol/L Calcium 8.8 (8.6-10.3) mg/dl POC Ioniz Calcium Rashmi (1.12-1.32) mmol/l Magnesium 1.7 (1.7-2.4) mg/dl Total Bilirubin 0.3 (0.2-1.0) mg/dl Direct Bilirubin 0.0 (0-0.2) mg/dl AST 28 (13-39) U/L ALT 23 (7-52) U/L Alkaline Phosphatase 153 H (34-104) U/L Troponin I High Sens 8.0 (0-14) pg/ml Total Protein 6.5 (6.0-8.3) gm/dl Albumin 3.4 (3.4-5.0) gm/dl Globulin 3.1 (2.5-4.0) gm/dl Albumin/Globulin Ratio 1.1 (0.9-2) Procalcitonin (0-0.5) ng/ml Urine Color Urine Appearance (Clear) Urine pH (4.5-7.5) Ur Specific [place] (1.000-1.030) Urine Protein (Negative) Urine Glucose (UA) (Negative) Urine Ketones (Negative) Urine Blood (Negative) Urine Nitrite (Negative) Urine Bilirubin (Negative) Urine Urobilinogen (Negative) Ur Leukocyte Esterase (Negative) Urine WBC (Auto) (0-5) /hpf Urine RBC (Auto) (0-2) /hpf U Hyaline Cast (Auto) (0-2) /lpf U Epithel Cells (Auto) (0-2) /hpf Urine Bacteria (Auto) (None Seen) Urine Yeast (None Prsent) Urine Comment Adenovirus (PCR) (NotDetected) B. pertussis DNA (PCR) (NotDetected) B.parapertussis DNA PCR (NotDetected) C. pneumoniae DNA (PCR) (NotDetected) Coronavirus OC43 (PCR) (NotDetected) Coronavirus HKU1 (PCR) (NotDetected) Coronavirus 229E (PCR) (NotDetected) SARS-CoV-2 (PCR) Coronavirus NL63 (PCR) (NotDetected) Human Metapneumovir PCR (NotDetected) Influenza Type A (PCR) Not Detected Influenza Type B (PCR) Cancelled Not Detected M. pneumoniae (PCR) Not Detected (NotDetected) Parainfluenza 1 (PCR) Not Detected (NotDetected) Parainfluenza 2 (PCR) Not Detected (NotDetected) Parainfluenza 3 (PCR) Not Detected (NotDetected) Parainfluenza 4 (PCR) Not Detected (NotDetected) RSV (RT-PCR) Cancelled RSV (PCR) Not Detected (NotDetected) Entero/Rhino (PCR) DETECTED A (NotDetected) 08/13/24 08/13/24 Range/Units 21:35 22:20 WBC (4.8-10.8) K/ul RBC (4.20-5.40) M/uL Hgb (12.0-16.0) g/dl POC Hgb 11.2 L (12.0-16.0) g/dl Hct (37.0-47.0) % POC Hct 33 L (37-47) % MCV (80.0-100.0) fL MCH (25.0-34.0) pg MCHC (32.0-36.0) g/dL RDW Std Deviation (36.4-46.3) fL RDW Coeff of Coni (11.5-14.5) % Plt Count (130-400) K/uL MPV (9.4-12.4) fL Immature Gran % (Auto) % Neut % (Auto) % Lymph % (Auto) % [place] % (Auto) % Eos % (Auto) % Baso % (Auto) % Neut # (Auto) (1.40-6.50) K/uL Lymph # (Auto) (1.20-3.40) K/uL [place] # (Auto) (0.11-0.59) K/uL Eos # (Auto) (0.00-0.50) K/uL Baso # (Auto) (0.00-0.20) K/uL Immature Gran # (Auto) (0.01-0.20) K/uL VBG pH (7.36-7.41) VBG pCO2 (38-50) mmHg VBG pO2 mmHg VBG HCO3 mmol/L VBG O2 Saturation % VBG Base Excess mEq/L POC Sodium 136 (135-144) mmol/L Sodium (136-145) mmol/L POC Potassium 3.6 (3.3-5.0) mmol/L Potassium (3.5-5.1) mmol/L POC Chloride 99 L (101-112) mmol/L Chloride (98-107) mmol/L Carbon Dioxide (21-32) mmol/L POC Total CO2 24 (24-31) mmol/L Anion Gap (3-11) POC Anion Gap 17.0 (16-25) mmol/L POC BUN 26 H (7-18) mg/dl BUN (6-23) mg/dl Creatinine (0.6-1.2) mg/dl POC Creatinine 0.6 (0.6-1.3) mg/dl Est Cr Clr Drug Dosing ml/min eGFR BUN/Creatinine Ratio (10-20) Glucose (70-99(Fasting)) mg/dl POC Glucose (other) 184 H (70-99) mg/dl Lactate (0.4-2.0) mmol/L Calcium (8.6-10.3) mg/dl POC Ioniz Calcium Rashmi 1.18 (1.12-1.32) mmol/l Magnesium (1.7-2.4) mg/dl Total Bilirubin (0.2-1.0) mg/dl Direct Bilirubin (0-0.2) mg/dl AST (13-39) U/L ALT (7-52) U/L Alkaline Phosphatase (34-104) U/L Troponin I High Sens (0-14) pg/ml Total Protein (6.0-8.3) gm/dl Albumin (3.4-5.0) gm/dl Globulin (2.5-4.0) gm/dl Albumin/Globulin Ratio (0.9-2) Procalcitonin (0-0.5) ng/ml Urine Color Yellow Urine Appearance Clear (Clear) Urine pH >= 9.0 H (4.5-7.5) Ur Specific [place] > 1.045 H (1.000-1.030) Urine Protein 1+ H (Negative) Urine Glucose (UA) Negative (Negative) Urine Ketones Negative (Negative) Urine Blood Negative (Negative) Urine Nitrite Positive A (Negative) Urine Bilirubin Negative (Negative) Urine Urobilinogen Negative (Negative) Ur Leukocyte Esterase 1+ H (Negative) Urine WBC (Auto) >50 H (0-5) /hpf Urine RBC (Auto) 6-10 H (0-2) /hpf U Hyaline Cast (Auto) 6-10 H (0-2) /lpf U Epithel Cells (Auto) 0-2 (0-2) /hpf Urine Bacteria (Auto) 2+ H (None Seen) Urine Yeast Present A (None Prsent) Urine Comment Adenovirus (PCR) (NotDetected) B. pertussis DNA (PCR) (NotDetected) B.parapertussis DNA PCR (NotDetected) C. pneumoniae DNA (PCR) (NotDetected) Coronavirus OC43 (PCR) (NotDetected) Coronavirus HKU1 (PCR) (NotDetected) Coronavirus 229E (PCR) (NotDetected) SARS-CoV-2 (PCR) Coronavirus NL63 (PCR) (NotDetected) Human Metapneumovir PCR (NotDetected) Influenza Type A (PCR) Influenza Type B (PCR) M. pneumoniae (PCR) (NotDetected) Parainfluenza 1 (PCR) (NotDetected) Parainfluenza 2 (PCR) (NotDetected) Parainfluenza 3 (PCR) (NotDetected) Parainfluenza 4 (PCR) (NotDetected) RSV (RT-PCR) RSV (PCR) (NotDetected) Entero/Rhino (PCR) (NotDetected) Imaging Data Attestation: I personally reviewed and interpreted this imaging study as follows: Radiologist's Impression: Abdomen/Pelvis CT 08/13/24 21:33 Exam(s): CT ABDOMEN + PELVIS With Contrast IV Amt: 118 cc opi 320 EXAM: CT Abdomen and Pelvis With Intravenous Contrast CLINICAL HISTORY: Reason for exam: sepsis, recent stone removal. TECHNIQUE: Axial computed tomography images of the abdomen and pelvis with intravenous contrast. Automated exposure control was utilized for the study. A dose lowering technique was utilized adhering to the principles of ALARA. CONTRAST: Patient received 118 cc opi 320 of IV contrast COMPARISON: 05/09/2024 FINDINGS: Lung bases: Right lower lobe infiltrate likely of infectious or inflammatory etiology. Heart: Coronary artery calcifications. Aortic valve calcifications. ABDOMEN: Liver: 1.3 cm right hepatic lobe cyst. Gallbladder and bile ducts: Hyperemia involving the gallbladder wall with trace pericholecystic fluid. No ductal dilation. Pancreas: Unremarkable. No mass. No ductal dilation. Spleen: Unremarkable. No splenomegaly. Adrenals: Bilateral adrenal gland thickening.. Kidneys and ureters: Unremarkable. No solid mass. No hydronephrosis. Stomach and bowel: Large amount of stool within the colon. Numerous fluid-filled hyperemic loops of small bowel within the left midabdomen. Diverticulosis without evidence of diverticulitis. PELVIS: Appendix: No findings to suggest acute appendicitis. Bladder: Roper catheter within the urinary bladder. Reproductive: Unremarkable as visualized. ABDOMEN and PELVIS: Intraperitoneal space: Unremarkable. No free air. No significant fluid collection. Bones/joints: right 10th and 9th rib fractures. Healing right 10th and 11th rib fractures. No dislocation. Soft tissues: Unremarkable. Vasculature: IVC filter present. Lymph nodes: Unremarkable. No enlarged lymph nodes. IMPRESSION: No acute findings in the abdomen or pelvis. Hyperemia involving the gallbladder with trace pericholecystic fluid. Findings may represent acute cholecystitis in the appropriate clinical setting Right hepatic lobe hemangioma Enteritis Electronically signed by: Kavon Mccain MD 08/14/24 00:04 AM Chest CTA 08/13/24 21:33 Exam(s): CTA CHEST IV Amt: 118 cc [id number] EXAM: CT Angiography Chest With Intravenous Contrast CLINICAL HISTORY: Reason for exam: PE, recent OR, sepsis. TECHNIQUE: Axial computed tomographic angiography images of the chest with intravenous contrast. Automated exposure control was utilized for the study. A dose lowering technique was utilized adhering to the principles of ALARA. MIP reconstructed images were created and reviewed. COMPARISON: 09/19/2023 FINDINGS: Pulmonary arteries: Interval resolution of subsegmental right lower lobe pulmonary emboli. No large central pulmonary embolus. Aorta: No acute findings. No thoracic aortic aneurysm. Lungs: Right lower lobe infiltrate likely of infectious or inflammatory etiology. Right lower lobe peribronchial thickening with mucous plugging likely representing bronchiolitis. Slight prominence of the interlobular septum suggesting pulmonary edema. No mass. Pleural space: Unremarkable. No significant effusion. No pneumothorax. Heart: Cardiomegaly. No significant pericardial effusion. No evidence of RV dysfunction. Bones/joints: No acute fracture. No dislocation. Soft tissues: Unremarkable. Lymph nodes: Unremarkable. No enlarged lymph nodes. IMPRESSION: No pulmonary embolus Right lower lobe pneumonia Electronically signed by: Kavon Mccain MD 08/14/24 00:09 AM MDM Narrative Prior records/ancillary studies reviewed. Triage Nursing notes reviewed. Additional history obtained from nursing The patient's history was concerning for fever in a demented patient from the skilled nursing. Differential diagnosis: Etiologies such as sepsis, UTI, pneumonia, metabolic, electrolyte abnormalities, cardiac sources, intracerebral event, toxicologic, neurologic, as well as others were entertained. Physical examination: As above. Pertinent findings were febrile. Vital signs reviewed and revealed febrile. ER treatment provided: IV fluid resuscitation with Normal saline solution, 1500 mL bolus. Blood and urine cultures Antibiotics: Zosyn and vancomycin were ordered Prior cultures reviewed Tylenol was ordered An order was placed for continuous cardiac monitoring. The monitor shows a rate of 60-100 with a sinus rhythm per my interpretation. On reassessment the patient vital signs improved. Diagnostics interpretation by me: ECG: Ordered for sepsis EKG: Poor baseline, normal sinus, normal intervals, no acute ST-T wave changes, rate of 93. Impression normal sinus rhythm poor baseline possible low voltage independently interpreted by myself The labs Independently Interpreted by myself revealed leukocytosis on CBC. Chemistry panel revealed hyperglycemia without DKA. LFTs revealed. Cardiac enzymes were negative. Serum Lactate measurement was 2. Blood and urine cultures are pending. Urine was reviewed and concerning for infection. Prior culture was reviewed. Positive rhinovirus on [facility] [address] [facility] [place] [address] / Director: Tisha Ramirez M.D. Clinical Laboratory Report Name: ANAND TREVIÑO Acct: [id number] Status: DIS IN : 1935 [facility] [place] Date: 05/09/24 Age: 89 Sex: F Dis Date: 05/15/24 Loc: [address]/Bed: N280-2 Spec: [id number] Collected: 05/09/24 Received: 05/09/[address]: Li Fang M.D. Source: Blood OV Order: Ordered: Blood Culture Procedure Result Verified Site Blood Culture Aerobic Final 05/12/24 Organism 1 Proteus mirabilis Sens Sensitivities to Follow Blood Culture PCR Panel If viewing in EMR, results available under LAB Serology tab. Phoned positive Blood Culture Gram Stain report to NEGRITO ALANIZ on 05/10/24 at 1210 [place] [id number]. [place] [id number]. P mirabili RX M.I.C. --- --------- Amikacin S <=16 Amox/Clav S <=8/4 Ampicillin S <=8 Amp/Sul S <=4/2 Cefazolin S <=2 Cefepime S <=2 Cefotaxime S <=2 Cefoxitin S <=8 Ceftriaxone S <=1 Cefuroxime S <=4 Ciprofloxacin S <=0.25 Ertapenem S <=0.5 Gentamicin S <=2 Levofloxacin S <=0.5 Meropenem S <=1 Tobramycin S <=2 Trimeth/Sulfa S <=0.5/9.5 Pip/Tazo S <=8 S = SENSITIVE I = INTERMEDIATE R = RESISTANT Blood Culture Anaerobic Final 05/12/24 Organism 1 Proteus mirabilis Sens No Sensitivities to Follow Phoned positive Blood Culture Gram Stain report to NEGRITOMikie ALANIZ on 05/10/24 at 1211 [place] [id number]. [place] [id number]. Imaging studies: Imaging was reviewed and read by radiology Consultation: A consultation was placed with the hospitalist. The case was discussed and diagnostics were reviewed. The patient was evaluated in the ER for further treatment. Exam and history seem consistent with pneumonia with developing sepsis with the rhinovirus and UTI. Patient was started on broad-spectrum antibiotics. Roper was replaced. Cultures are pending. Prior urine cultures reviewed. Skin was reassessed and improved. Patient was reassessed multiple times and remained stable. She was medicated as above and hydrated per septic protocol. Patient will be mated to the medical service. Medicine was consulted and the case was discussed. Patient was was admitted to their service. The chart was completed utilizing [employer] Speech voice recognition software. Grammatical errors, random word insertions, pronoun errors, and incomplete sentences are an occassional consequence of this system due to software limitations, ambient noise, and hardware issues. Any formal questions or concerns about the content, text, or information contained within the body of this dictation should be directly addressed to the physician assistant community director for clarification. Impression & Plan Acute UTI (urinary tract infection), Fever, Cough, Rhinovirus infection, Enterovirus infection, Right lower lobe pneumonia Discharge Plan Visit Data Chief Complaint: Illness ED Provider: Kimberly Peck ED Midlevel Provider: Anh Thomason Discharge Problem: Acute UTI (urinary tract infection), Fever, Cough, Rhinovirus infection, Enterovirus infection, Right lower lobe pneumonia Patient Disposition: Admitted As Inpatient Condition: Fair Forms Stand Alone Forms: [facility] Prescriptions Prescriptions: No Action acetaminophen 325 mg Tablet 650 mg PO Q4H MDD 3 GRAMS/24 HOURS PRN (Reason: PAIN/FEVER >100F) sennosides-docusate sodium [Senokot-S] 8.6-50 mg Tablet 1 tab-cap PO BID Rx Instructions: HOLD FOR LOOSE STOOLS amlodipine 2.5 mg Tablet 2.5 mg PO DAILY ascorbic acid (vitamin C) [Vitamin C] 500 mg Tablet 500 mg PO DAILY multivitamin with minerals Tablet 1 tab PO DAILY omeprazole 20 mg Tablet,Delayed Release (Dr/Ec) 20 mg PO BID vitamin B complex [Vitamins B Complex] Capsule 1 cap PO QAM Qty: 30 0RF acetaminophen 325 mg Tablet 650 mg PO BID Rx Instructions: every morning and at bedtime polyethylene glycol 3350 [Miralax] 17 gram/dose Powder 17 g PO DAILY Rx Instructions: hold for loose stools Referrals Referrals: Dutch Krueger DO [Primary Care Provider] -
--- NOTE | 2024-08-14 03:54 | Ultrasound Report ---
EXAM: US gallbladder CLINICAL HISTORY: Acute cholescystitis on CT TECHNIQUE: Limited ultrasound of the liver and gallbladder was performed in greyscale and Doppler. Multiple images were obtained in transverse and longitudinal planes. COMPARISON: No prior studies are available for comparison. FINDINGS: Liver: Liver size: (19.2cm in length ). The liver appears with homogeneous echotexture. Small right hepatic lobe hyperechoic focal lesion measuring about 2.2 x 1.4 x 1.8 cm in diameter. Suspected other smaller hyperechogenic focal lesions are seen. Hepatic vasculature appears normal. Gallbladder: Mildly distended Gall bladder shows circumferential mural thickening reaching 4mm in diameter with mural edema as well as small surrounding free fluid. It shows slow-moving hyperechoic material seen within. Biliary Tree: Distended CBD reaching 1cm in diameter. Right kidney: Average size and vasculature with no focal lesions, stones, or back pressure changes. No complete visualization of the pancreas due to bowel opacification. IMPRESSION: 1. The picture suggests acute cholecystitis with low-moving hyperechoic material seen within the Gallbladder, probably sludge. 2. Dilated CBD that may need MRCP to exclude the possibility of distal obstruction or a recently passed stone. 3. Mild hepatomegaly with right hepatic lobe hyperechogenic focal lesion (other smaller ones are suspected), possibly hemangiomata, yet that may need better triphasic liver assessment if clinically warranted. Electronically signed by Sb Mercedes 08-14-2024 03:54 AM
[2024-08-14] MEDS ORDERED: MELATONIN 3 MG TAB PO PRN (04:47)
[2024-08-14] MEDS ORDERED: VANCOMYCIN CONSULT ACTIVE PRN (04:47)
[2024-08-14] MEDS ORDERED: ONDANSETRON INJ 2 MG/ML 2 ML VIAL IV PRN (04:47)
--- NOTE | 2024-08-14 04:51 | Billing Data ---
Date of Service August 14, 2024 Coding Level of Care Code 43252 INT INP/OBS CARE
[2024-08-14] MEDS: VANCOMYCIN HCL 750 MG in SODIUM CHLORIDE 0.9% 250 ML IV SCH (06:27)
[2024-08-14] MEDS: LACTATED RINGER'S 1,000 ML IV SCH (06:27)
[2024-08-14] MEDS: LEVOTHYROXINE SODIUM 125 MCG TABLET PO SCH (07:11)
[2024-08-14] MEDS: PIPERACILLIN/TAZOBACTAM 4.5 GM/100 ML BAG IV SCH (07:11)
--- NOTE | 2024-08-14 07:32 | XRay Report ---
Exam(s): XR CXR 1 VIEW EXAM: XR Chest, 1 View CLINICAL HISTORY: Reason for exam: Sepsis. TECHNIQUE: Frontal view of the chest. COMPARISON: 05/09/2024 FINDINGS: Lungs: Subtle right basilar infiltrate Pleural space: Unremarkable. No pneumothorax. Heart: Unremarkable. No cardiomegaly. Mediastinum: Unremarkable. Normal mediastinal contour. Bones/joints: Unremarkable. No acute fracture. IMPRESSION: Right basilar pneumonia Electronically signed by: Kavon Mccain MD 08/13/24 23:58 PM
[2024-08-14] MEDS: VITAMIN B COMPLEX TAB PO SCH (08:36)
[2024-08-14] MEDS: CEROVITE ADV FORMULA TAB PO SCH (08:36)
[2024-08-14] MEDS: ENOXAPARIN INJ 40 MG/0.4 ML SYR SQ SCH (08:36)
[2024-08-14] MEDS: ASCORBIC ACID 500 MG TAB PO SCH (08:37)
[2024-08-14] MEDS: DOCUSATE SODIUM/SENNA 50/8.6MG TAB PO SCH (08:47)
[2024-08-14] MEDS: POLYETHYLENE (MIRALAX) 17 GM PACK PO SCH (08:47)
--- NOTE | 2024-08-14 10:13 | Surgery Consultation ---
Date of Consultation August 14, 2024 Assessment & Plan (1) Right lower lobe pneumonia: (2) Enterovirus infection: (3) Rhinovirus infection: (4) Cough: (5) Fever: (6) Acute UTI (urinary tract infection): Plan 89 year old female with advanced dementia unable to provide any history pr esented from nursing facilty due to cough and fever with right lower lobe pneumonia, enterovirus and rhinovirus with possible acute cholecystitis on imaging. Abdominal exam with no tenderness but again limited given patients dementia. CBD at 1.01 cm on ultrasound. Recommend GI consult for recommendations. Could consider HIDA scan to rule out acute cholecystitis/cystic duct obstruction, if cystic duct obstruction would recommend per cholecystostomy tube given patients advanced age, advanced dimentia and current RLL pneumonia and medical history. Discussed with Dr. fermin who agrees with above. History of Present Illness Reason for Consultation: Acute cholecystitis Attending Physician: Dev Byrnes MD History of Present Illness Ana is a 89 y/o female with pmh of advanced dementia in which history obtained by chart. Past medical history of hypothyroidism, non-STEMI, hx of PE, hx of DVT (IVC placed), anemia, dementia, B12 deficiency that was sent from [facility] due to fever and cough. Patient recently treated for UTI with Keflex (last dose 08/06). Patient unable to provide information due to advance dementia. Several other members of facility with URI. Patient found with pneumonia, + rhino virus, and an UTI. Concern for acute cholecystitis via CT scan and ultrasound. Allergies Allergy/AdvReac Type Severity Reaction Status Date / Time Sulfa (Sulfonamide Allergy Intermediate Rash Verified 08/13/24 22:34 Antibiotics) Home Medications Medication Instructions Recorded Confirmed Type acetaminophen 325 mg tablet 650 mg PO Q4H PRN PAIN/FEVER >100F 09/18/23 08/13/24 History sennosides 8.6 mg-docusate sodium 1 tab-cap PO BID 09/18/23 08/13/24 History 50 mg tablet (Senokot-S) amlodipine 2.5 mg tablet 2.5 mg PO DAILY 05/09/24 08/13/24 History ascorbic acid (vitamin C) 500 mg 500 mg PO DAILY 05/09/24 08/13/24 History tablet (Vitamin C) multivitamin with minerals 1 tab PO DAILY 05/09/24 08/13/24 History omeprazole 20 mg tablet,delayed 20 mg PO BID 05/09/24 08/13/24 History release vitamin B complex (Vitamins B 1 cap PO QAM #30 caps 05/15/24 08/13/24 Rx Complex capsule) acetaminophen 325 mg tablet 650 mg PO BID 06/02/24 08/13/24 History polyethylene glycol 3350 17 17 g PO DAILY 06/02/24 08/13/24 History gram/dose oral powder (Miralax) Patient History Medical History Abnormal posture Per records Anemia, unspecified Aortic stenosis Echo 05/13/24: Mild aortic stenosis (GREYSON MG 15.4mmhg, GREYSON V,D 1.7cm) Calculus of ureter Constipation, unspecified Dementia Dysphagia, oropharyngeal phase History of cervical fracture Hx C2 odontoid fracture after fall 07/2023. Given a cervical collar x 6 weeks and advised to f/u with orthopedic surgery. Approved to remove cervical collar per [facility] orthopedic surgery 10/2023. F/U cervical xray done 12/13/23 noting no fractures and no definite/significant acute bony abnormality. 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 Unspecified abnormal involuntary movements Per records Surgical History Presence of urogenital implants S/P cystoscopy with ureteral stent placement 05/10/24 S/P insertion of IVC (inferior vena caval) filter right femoral approach, 09/20/23 Social History Smoking Status: Unknown if ever smoked Preferred Language: Chadian Communication Ability: Impaired Technology Training Associate Required: No Beliefs That Will Affect Care: None Current Living Situation: Senior Living Current Living Situation Comment: [facility] Other Information That Helps Us Care for You: No Feels Safe at Home: Yes Safety Concerns: Feels Safe At This Time Assistive Devices: Wheelchair Results & Data Vital Signs (Past 12 Hours) Vital Signs Temp Pulse Pulse Resp BP BP Pulse Ox 08/14/24 09:55 69 22 158/86 H 96 08/14/24 08:34 66 21 155/91 H 100 08/14/24 07:20 36.6 C 08/14/24 07:00 63 18 154/71 H 96 08/14/24 06:59 62 08/14/24 06:34 65 18 135/73 97 08/14/24 03:33 53 L 16 98 08/14/24 03:30 08/14/24 03:25 60 08/14/24 03:12 52 L 15 97 08/14/24 02:54 65 18 96 08/14/24 02:03 66 24 97 08/14/24 02:01 157/96 H 08/14/24 02:01 157/96 H 08/14/24 02:00 74 20 98 08/14/24 01:36 68 16 97 08/14/24 01:06 76 15 98 08/14/24 01:00 121/72 08/14/24 00:51 59 L 16 95 08/14/24 00:42 62 16 96 08/14/24 00:03 70 19 95 08/14/24 00:00 37.6 C H 08/14/24 00:00 125/81 08/13/24 23:45 68 16 94 08/13/24 23:30 71 15 94 08/13/24 23:06 78 17 132/82 94 08/13/24 23:04 77 08/13/24 22:46 95 08/13/24 22:33 80 19 129/78 96 08/13/24 22:23 37.8 C H 86 22 129/78 95 O2 Del Method 08/14/24 09:55 Room Air 08/14/24 08:34 Room Air 08/14/24 07:20 08/14/24 07:00 Room Air 08/14/24 06:59 08/14/24 06:34 Room Air 08/14/24 03:33 08/14/24 03:30 Room Air 08/14/24 03:25 08/14/24 03:12 08/14/24 02:54 08/14/24 02:03 08/14/24 02:01 08/14/24 02:01 08/14/24 02:00 08/14/24 01:36 08/14/24 01:06 08/14/24 01:00 08/14/24 00:51 08/14/24 00:42 08/14/24 00:03 08/14/24 00:00 Room Air 08/14/24 00:00 08/13/24 23:45 08/13/24 23:30 08/13/24 23:06 Room Air 08/13/24 23:04 08/13/24 22:46 Room Air 08/13/24 22:33 Room Air 08/13/24 22:23 Room Air Laboratory Results 08/14/24 08/13/24 08/13/24 Range/Units 06:40 22:20 21:35 WBC (4.8-10.8) K/ul RBC (4.20-5.40) M/uL Hgb (12.0-16.0) g/dl POC Hgb 11.2 L (12.0-16.0) g/dl Hct (37.0-47.0) % POC Hct 33 L (37-47) % MCV (80.0-100.0) fL MCH (25.0-34.0) pg MCHC (32.0-36.0) g/dL RDW Std Deviation (36.4-46.3) fL RDW Coeff of Coni (11.5-14.5) % Plt Count (130-400) K/uL MPV (9.4-12.4) fL Immature Gran % (Auto) % Neut % (Auto) % Lymph % (Auto) % Lee % (Auto) % Eos % (Auto) % Baso % (Auto) % Neut # (Auto) (1.40-6.50) K/uL Lymph # (Auto) (1.20-3.40) K/uL Lee # (Auto) (0.11-0.59) K/uL Eos # (Auto) (0.00-0.50) K/uL Baso # (Auto) (0.00-0.20) K/uL Immature Gran # (Auto) (0.01-0.20) K/uL VBG pH (7.36-7.41) VBG pCO2 (38-50) mmHg VBG pO2 mmHg VBG HCO3 mmol/L VBG O2 Saturation % VBG Base Excess mEq/L POC Sodium 136 (135-144) mmol/L Sodium (136-145) mmol/L POC Potassium 3.6 (3.3-5.0) mmol/L Potassium (3.5-5.1) mmol/L POC Chloride 99 L (101-112) mmol/L Chloride (98-107) mmol/L Carbon Dioxide (21-32) mmol/L POC Total CO2 24 (24-31) mmol/L Anion Gap (3-11) POC Anion Gap 17.0 (16-25) mmol/L POC BUN 26 H (7-18) mg/dl BUN (6-23) mg/dl Creatinine (0.6-1.2) mg/dl POC Creatinine 0.6 (0.6-1.3) mg/dl Est Cr Clr Drug Dosing ml/min eGFR BUN/Creatinine Ratio (10-20) Glucose (70-99(Fasting)) mg/dl POC Glucose (other) 184 H (70-99) mg/dl Lactate (0.4-2.0) mmol/L Calcium (8.6-10.3) mg/dl POC Ioniz Calcium Rashmi 1.18 (1.12-1.32) mmol/l Magnesium (1.7-2.4) mg/dl Total Bilirubin (0.2-1.0) mg/dl Direct Bilirubin (0-0.2) mg/dl AST (13-39) U/L ALT (7-52) U/L Alkaline Phosphatase (34-104) U/L Troponin I High Sens (0-14) pg/ml Total Protein (6.0-8.3) gm/dl Albumin (3.4-5.0) gm/dl Globulin (2.5-4.0) gm/dl Albumin/Globulin Ratio (0.9-2) Procalcitonin (0-0.5) ng/ml Urine Color Yellow Urine Appearance Clear (Clear) Urine pH >= 9.0 H (4.5-7.5) Ur Specific [place] > 1.045 H (1.000-1.030) Urine Protein 1+ H (Negative) Urine Glucose (UA) Negative (Negative) Urine Ketones Negative (Negative) Urine Blood Negative (Negative) Urine Nitrite Positive A (Negative) Urine Bilirubin Negative (Negative) Urine Urobilinogen Negative (Negative) Ur Leukocyte Esterase 1+ H (Negative) Urine WBC (Auto) >50 H (0-5) /hpf Urine RBC (Auto) 6-10 H (0-2) /hpf U Hyaline Cast (Auto) 6-10 H (0-2) /lpf U Epithel Cells (Auto) 0-2 (0-2) /hpf Urine Bacteria (Auto) 2+ H (None Seen) Urine Yeast Present A (None Prsent) Urine Comment Nasal Screen MRSA (PCR) Positive A (Negative) Adenovirus (PCR) (NotDetected) B. pertussis DNA (PCR) (NotDetected) B.parapertussis DNA PCR (NotDetected) C. pneumoniae DNA (PCR) (NotDetected) Coronavirus OC43 (PCR) (NotDetected) Coronavirus HKU1 (PCR) (NotDetected) Coronavirus 229E (PCR) (NotDetected) SARS-CoV-2 (PCR) Coronavirus NL63 (PCR) (NotDetected) Human Metapneumovir PCR (NotDetected) Influenza Type A (PCR) Influenza Type B (PCR) M. pneumoniae (PCR) (NotDetected) Parainfluenza 1 (PCR) (NotDetected) Parainfluenza 2 (PCR) (NotDetected) Parainfluenza 3 (PCR) (NotDetected) Parainfluenza 4 (PCR) (NotDetected) RSV (RT-PCR) RSV (PCR) (NotDetected) Entero/Rhino (PCR) (NotDetected) 08/13/24 08/13/24 08/13/24 Range/Units 21:27 21:23 21:23 WBC (4.8-10.8) K/ul RBC (4.20-5.40) M/uL Hgb (12.0-16.0) g/dl POC Hgb (12.0-16.0) g/dl Hct (37.0-47.0) % POC Hct (37-47) % MCV (80.0-100.0) fL MCH (25.0-34.0) pg MCHC (32.0-36.0) g/dL RDW Std Deviation (36.4-46.3) fL RDW Coeff of Coni (11.5-14.5) % Plt Count (130-400) K/uL MPV (9.4-12.4) fL Immature Gran % (Auto) % Neut % (Auto) % Lymph % (Auto) % Lee % (Auto) % Eos % (Auto) % Baso % (Auto) % Neut # (Auto) (1.40-6.50) K/uL Lymph # (Auto) (1.20-3.40) K/uL Lee # (Auto) (0.11-0.59) K/uL Eos # (Auto) (0.00-0.50) K/uL Baso # (Auto) (0.00-0.20) K/uL Immature Gran # (Auto) (0.01-0.20) K/uL VBG pH (7.36-7.41) VBG pCO2 (38-50) mmHg VBG pO2 mmHg VBG HCO3 mmol/L VBG O2 Saturation % VBG Base Excess mEq/L POC Sodium (135-144) mmol/L Sodium 135 L (136-145) mmol/L POC Potassium (3.3-5.0) mmol/L Potassium 3.7 (3.5-5.1) mmol/L POC Chloride (101-112) mmol/L Chloride 101 (98-107) mmol/L Carbon Dioxide 25 (21-32) mmol/L POC Total CO2 (24-31) mmol/L Anion Gap 9 (3-11) POC Anion Gap (16-25) mmol/L POC BUN (7-18) mg/dl BUN 28 H (6-23) mg/dl Creatinine 0.57 L (0.6-1.2) mg/dl POC Creatinine (0.6-1.3) mg/dl Est Cr Clr Drug Dosing 54.9 ml/min eGFR 87.90 BUN/Creatinine Ratio 49.1 H (10-20) Glucose 185 H (70-99(Fasting)) mg/dl POC Glucose (other) (70-99) mg/dl Lactate (0.4-2.0) mmol/L Calcium 8.8 (8.6-10.3) mg/dl POC Ioniz Calcium Rashmi (1.12-1.32) mmol/l Magnesium 1.7 (1.7-2.4) mg/dl Total Bilirubin 0.3 (0.2-1.0) mg/dl Direct Bilirubin 0.0 (0-0.2) mg/dl AST 28 (13-39) U/L ALT 23 (7-52) U/L Alkaline Phosphatase 153 H (34-104) U/L Troponin I High Sens 8.0 (0-14) pg/ml Total Protein 6.5 (6.0-8.3) gm/dl Albumin 3.4 (3.4-5.0) gm/dl Globulin 3.1 (2.5-4.0) gm/dl Albumin/Globulin Ratio 1.1 (0.9-2) Procalcitonin (0-0.5) ng/ml Urine Color Urine Appearance (Clear) Urine pH (4.5-7.5) Ur Specific [place] (1.000-1.030) Urine Protein (Negative) Urine Glucose (UA) (Negative) Urine Ketones (Negative) Urine Blood (Negative) Urine Nitrite (Negative) Urine Bilirubin (Negative) Urine Urobilinogen (Negative) Ur Leukocyte Esterase (Negative) Urine WBC (Auto) (0-5) /hpf Urine RBC (Auto) (0-2) /hpf U Hyaline Cast (Auto) (0-2) /lpf U Epithel Cells (Auto) (0-2) /hpf Urine Bacteria (Auto) (None Seen) Urine Yeast (None Prsent) Urine Comment Nasal Screen MRSA (PCR) (Negative) Adenovirus (PCR) (NotDetected) B. pertussis DNA (PCR) (NotDetected) B.parapertussis DNA PCR (NotDetected) C. pneumoniae DNA (PCR) (NotDetected) Coronavirus OC43 (PCR) (NotDetected) Coronavirus HKU1 (PCR) (NotDetected) Coronavirus 229E (PCR) (NotDetected) SARS-CoV-2 (PCR) Coronavirus NL63 (PCR) (NotDetected) Human Metapneumovir PCR (NotDetected) Influenza Type A (PCR) Not Detected Influenza Type B (PCR) Not Detected Cancelled M. pneumoniae (PCR) Not Detected (NotDetected) Parainfluenza 1 (PCR) Not Detected (NotDetected) Parainfluenza 2 (PCR) Not Detected (NotDetected) Parainfluenza 3 (PCR) Not Detected (NotDetected) Parainfluenza 4 (PCR) Not Detected (NotDetected) RSV (RT-PCR) Cancelled RSV (PCR) Not Detected (NotDetected) Entero/Rhino (PCR) DETECTED A (NotDetected) 08/13/24 08/13/24 08/13/24 Range/Units 21:23 21:23 21:22 WBC 11.02 H (4.8-10.8) K/ul RBC 3.37 L (4.20-5.40) M/uL Hgb 10.6 L (12.0-16.0) g/dl POC Hgb (12.0-16.0) g/dl Hct 30.6 L (37.0-47.0) % POC Hct (37-47) % MCV 90.8 (80.0-100.0) fL MCH 31.5 (25.0-34.0) pg MCHC 34.6 (32.0-36.0) g/dL RDW Std Deviation 39.0 (36.4-46.3) fL RDW Coeff of Coni 11.9 (11.5-14.5) % Plt Count 268 (130-400) K/uL MPV 9.5 (9.4-12.4) fL Immature Gran % (Auto) 0.9 % Neut % (Auto) 85.9 % Lymph % (Auto) 6.6 % Lee % (Auto) 5.2 % Eos % (Auto) 1.0 % Baso % (Auto) 0.4 % Neut # (Auto) 9.47 H (1.40-6.50) K/uL Lymph # (Auto) 0.73 L (1.20-3.40) K/uL Lee # (Auto) 0.57 (0.11-0.59) K/uL Eos # (Auto) 0.11 (0.00-0.50) K/uL Baso # (Auto) 0.04 (0.00-0.20) K/uL Immature Gran # (Auto) 0.10 (0.01-0.20) K/uL VBG pH 7.49 H (7.36-7.41) VBG pCO2 35 L (38-50) mmHg VBG pO2 57 mmHg VBG HCO3 27 mmol/L VBG O2 Saturation 91.8 % VBG Base Excess 3.5 mEq/L POC Sodium (135-144) mmol/L Sodium (136-145) mmol/L POC Potassium (3.3-5.0) mmol/L Potassium (3.5-5.1) mmol/L POC Chloride (101-112) mmol/L Chloride (98-107) mmol/L Carbon Dioxide (21-32) mmol/L POC Total CO2 (24-31) mmol/L Anion Gap (3-11) POC Anion Gap (16-25) mmol/L POC BUN (7-18) mg/dl BUN (6-23) mg/dl Creatinine (0.6-1.2) mg/dl POC Creatinine (0.6-1.3) mg/dl Est Cr Clr Drug Dosing ml/min eGFR BUN/Creatinine Ratio (10-20) Glucose (70-99(Fasting)) mg/dl POC Glucose (other) (70-99) mg/dl Lactate 2.0 (0.4-2.0) mmol/L Calcium (8.6-10.3) mg/dl POC Ioniz Calcium Rashmi (1.12-1.32) mmol/l Magnesium (1.7-2.4) mg/dl Total Bilirubin (0.2-1.0) mg/dl Direct Bilirubin (0-0.2) mg/dl AST (13-39) U/L ALT (7-52) U/L Alkaline Phosphatase (34-104) U/L Troponin I High Sens (0-14) pg/ml Total Protein (6.0-8.3) gm/dl Albumin (3.4-5.0) gm/dl Globulin (2.5-4.0) gm/dl Albumin/Globulin Ratio (0.9-2) Procalcitonin 0.08 (0-0.5) ng/ml Urine Color Urine Appearance (Clear) Urine pH (4.5-7.5) Ur Specific [place] (1.000-1.030) Urine Protein (Negative) Urine Glucose (UA) (Negative) Urine Ketones (Negative) Urine Blood (Negative) Urine Nitrite (Negative) Urine Bilirubin (Negative) Urine Urobilinogen (Negative) Ur Leukocyte Esterase (Negative) Urine WBC (Auto) (0-5) /hpf Urine RBC (Auto) (0-2) /hpf U Hyaline Cast (Auto) (0-2) /lpf U Epithel Cells (Auto) (0-2) /hpf Urine Bacteria (Auto) (None Seen) Urine Yeast (None Prsent) Urine Comment Nasal Screen MRSA (PCR) (Negative) Adenovirus (PCR) Not Detected (NotDetected) B. pertussis DNA (PCR) Not Detected (NotDetected) B.parapertussis DNA PCR Not Detected (NotDetected) C. pneumoniae DNA (PCR) Not Detected (NotDetected) Coronavirus OC43 (PCR) Not Detected (NotDetected) Coronavirus HKU1 (PCR) Not Detected (NotDetected) Coronavirus 229E (PCR) Not Detected (NotDetected) SARS-CoV-2 (PCR) Not Detected Cancelled Coronavirus NL63 (PCR) Not Detected (NotDetected) Human Metapneumovir PCR Not Detected (NotDetected) Influenza Type A (PCR) Cancelled Influenza Type B (PCR) M. pneumoniae (PCR) (NotDetected) Parainfluenza 1 (PCR) (NotDetected) Parainfluenza 2 (PCR) (NotDetected) Parainfluenza 3 (PCR) (NotDetected) Parainfluenza 4 (PCR) (NotDetected) RSV (RT-PCR) RSV (PCR) (NotDetected) Entero/Rhino (PCR) (NotDetected) Diagnostic Findings EXAM: US gallbladder CLINICAL HISTORY: Acute cholescystitis on CT TECHNIQUE: Limited ultrasound of the liver and gallbladder was performed in greyscale and Doppler. Multiple images were obtained in transverse and longitudinal planes. COMPARISON: No prior studies are available for comparison. FINDINGS: Liver: Liver size: (19.2cm in length ). The liver appears with homogeneous echotexture. Small right hepatic lobe hyperechoic focal lesion measuring about 2.2 x 1.4 x 1.8 cm in diameter. Suspected other smaller hyperechogenic focal lesions are seen. Hepatic vasculature appears normal. Gallbladder: Mildly distended Gall bladder shows circumferential mural thickening reaching 4mm in diameter with mural edema as well as small surrounding free fluid. It shows slow-moving hyperechoic material seen within. Biliary Tree: Distended CBD reaching 1cm in diameter. Right kidney: Average size and vasculature with no focal lesions, stones, or back pressure changes. No complete visualization of the pancreas due to bowel opacification. IMPRESSION: 1. The picture suggests acute cholecystitis with low-moving hyperechoic material seen within the Gallbladder, probably sludge. 2. Dilated CBD that may need MRCP to exclude the possibility of distal obstruction or a recently passed stone. 3. Mild hepatomegaly with right hepatic lobe hyperechogenic focal lesion (other smaller ones are suspected), possibly hemangiomata, yet that may need better triphasic liver assessment if clinically warranted. Exam(s): CT ABDOMEN + PELVIS With Contrast IV Amt: 118 cc opi 320 EXAM: CT Abdomen and Pelvis With Intravenous Contrast CLINICAL HISTORY: Reason for exam: sepsis, recent stone removal. TECHNIQUE: Axial computed tomography images of the abdomen and pelvis with intravenous contrast. Automated exposure control was utilized for the study. A dose lowering technique was utilized adhering to the principles of ALARA. CONTRAST: Patient received 118 cc opi 320 of IV contrast COMPARISON: 05/09/2024 FINDINGS: Lung bases: Right lower lobe infiltrate likely of infectious or inflammatory etiology. Heart: Coronary artery calcifications. Aortic valve calcifications. ABDOMEN: Liver: 1.3 cm right hepatic lobe cyst. Gallbladder and bile ducts: Hyperemia involving the gallbladder wall with trace pericholecystic fluid. No ductal dilation. Pancreas: Unremarkable. No mass. No ductal dilation. Spleen: Unremarkable. No splenomegaly. Adrenals: Bilateral adrenal gland thickening.. Kidneys and ureters: Unremarkable. No solid mass. No hydronephrosis. Stomach and bowel: Large amount of stool within the colon. Numerous fluid-filled hyperemic loops of small bowel within the left midabdomen. Diverticulosis without evidence of diverticulitis. PELVIS: Appendix: No findings to suggest acute appendicitis. Bladder: Roper catheter within the urinary bladder. Reproductive: Unremarkable as visualized. ABDOMEN and PELVIS: Intraperitoneal space: Unremarkable. No free air. No significant fluid collection. Bones/joints: right 10th and 9th rib fractures. Healing right 10th and 11th rib fractures. No dislocation. Soft tissues: Unremarkable. Vasculature: IVC filter present. Lymph nodes: Unremarkable. No enlarged lymph nodes. IMPRESSION: No acute findings in the abdomen or pelvis. Hyperemia involving the gallbladder with trace pericholecystic fluid. Findings may represent acute cholecystitis in the appropriate clinical setting Right hepatic lobe hemangioma Enteritis Personally reviewed images above.
--- NOTE | 2024-08-14 11:19 | Pharmacy Report ---
Pharmacy PK ABX Note - Date of Service August 14, 2024 - Assessment and Plan Assessment * 89 year old F receiving pip/tazo and vancomycin for treatment of possible acute cholecystitis, possible CAP, and possible UTI. * Pertinent microbiologic data includes: * Positive MRSA Nasal Swab * Blood cultures pending * Urine culture pending Plan Vancomycin * Loading dose: 1000 mg IV x 1 * Maintenance dose: 750 mg IV x1 early this AM originally ordered, but adjusted to 1000 mg IV qPM. Target AUC in the lower end of the goal range for now for *steady state*, however, unlikely to be low over the next 24 hours as will obtain a random level tomorrow AM. Dose increase may be warranted tomorrow, pending level. * Regimen is predicted to achieve target AUC/ANA of 400-600 mg/L.hr * Random level ordered for: 7/11 AM Pharmacy will continue to follow and will adjust dose/frequency as necessary. Thank you. Pharmacy has transitioned to AUC monitoring for vancomycin. AUC/ANA is the preferred PK/PD target and is associated with decreased risk of nephrotoxicity compared to traditional trough targets.
--- NOTE | 2024-08-14 15:08 | Hospitalist Progress Note ---
"Date of Service August 14, 2024 Assessment & Plan (1) Right lower lobe pneumonia: (2) Enterovirus infection: (3) Acute UTI (urinary tract infection): Plan Ana is a 89 y/o female with pmh of advanced dementia, hypothyroidism, non- STEMI, hx of PE, hx of DVT (IVC placed), anemia, dementia, B12 deficiency that was sent from [facility] due to fever and cough. Patient recently treated for UTI with Keflex (last dose 08/06). Patient unable to provide information due to advance dementia. Several other members of facility with URI. Patient found with pneumonia, + rhino virus, and an UTI. Lab remarkable for leukocytosis (11.02), anemia (10.6). Hyponatremia 135. UA positive for UTI. Negative procal, negative lactate. Patient will be admitted for further management Patient is looking stable today. Patient did tell me she was feeling better and is sleeping well. Patient also reports she has no appetite. Pneumonia| SIRS - Patient with cough and fevers, and superimposed pneumonia. UA remarkable for UTI - Fever, tachycardia on arrival - CXR- Right lower consolidation - Chest CTA: Right lower pneumonia, no PE - Abdomen CT: Hyperemia involving the gallbladder with trace pericholecystic fluid. Concern of acute cholecystitis - Viral panel positive for Rhinovirus/ enterovirus - Leukocytosis. Hyponatremia. - Normal lactate, normal procal - Started on Zosyn and Vanco on ED due to positive MRSA, will continue until culture finalized - 3L NSS Bolus given by ED - MRSA swab game back +. But due to chest CTA findings unlikely to be MRSA pneumonia. - Tylenol as needed - Blood culture pending - Urine straight cath showed pseudomonas aeruginosa and E. coli but sensitivities to follow. - Trend AM labs UTI - Recently treated with Keflex (last dose 08/06) - UA: positive for UTI - Antibiotic as above - Follow urine culture Acute cholecystitis on CT - Abdomen CT: Hyperemia involving the gallbladder with trace pericholecystic fluid. Concern of acute cholecystitis - US gallbladder ordered - AST/ ALT normal. Zelda bili. Alkaline phosphatase: 153 - ABx as above - Surgery was consulted and recommended to consult GI - GI consulted - CMP AM Hyponatremia - Current 135 - will hold HCTZ Chronic anemia -Hgb 10.6 , stable Hypertension - Amlodipine continue - hydrochlorothiazide on hold Hypothyroidism: - Levothyroxine 125 mcg DTV prophylaxis: SCDs, hold chemical for now until surgery eval Admission and Anticipated Discharge Date Admission Date: August 14, 2024 Supervising Physician Co-Signing Physician Notes Attending attestation Pt seen and examined in concert with Dr. Tavares. In agreement with the documented findings as noted in the resident documentation with any exceptions or additions as noted here. No acute complaint at time of evaluation, denies abd pain, n/v/d/c. VS as noted. On examination, S1/S2 nl RRR no MCG. CTAB. Abd NT/ND BS+ve Acute cholecystitis - GI and surgical consult - no acute surgical intervention at present, awaiting GI evaluation for further w/u recommendations. Continue pip-tazo and monitor. Sepsis POA w/ pneumonia, UTI - continue vanc/zosyn for coverage and await culture results for narrowing abx therapy. Else see resident documentation as noted. Subjective Patient was admitted into the ED for fever from long-term. Patient has advanced dementia and thus hard to take an accurate and complete history. Patient did tell me she was feeling better and is sleeping well. Patient also reports she has no appetite. Review of Systems Review of Systems: per subjective HPI Physical Exam Constitutional: WD/WN, vitals as above Respiratory: normal respiratory effort, lungs clear to auscultation Cardiovascular: Rate/Rhythm: regular rate and regular rhythm Heart Sounds: + murmur (systolic) Gastrointestinal (Abdomen): Percussion/Palpation: + abdomen tender (in LLQ, RLQ, and suprapubic regions) Results & Data Results & Data Vital Signs (Past 12 Hours) Vital Signs Temp Pulse Pulse Resp BP Pulse Ox O2 Del Method 08/14/24 15:04 60 08/14/24 13:21 65 19 155/86 H 94 Room Air 08/14/24 09:55 69 22 158/86 H 96 Room Air 08/14/24 08:34 66 21 155/91 H 100 Room Air 08/14/24 07:20 36.6 C 08/14/24 07:00 63 18 154/71 H 96 Room Air 08/14/24 06:59 62 08/14/24 06:34 65 18 135/73 97 Room Air 08/14/24 03:33 53 L 16 98 08/14/24 03:30 Room Air 08/14/24 03:25 60 08/14/24 03:12 52 L 15 97"
--- NOTE | 2024-08-14 18:34 | Electrocardiogram Report ---
Test Reason : Blood Pressure : */* mmHG Vent. Rate : 93 BPM Atrial Rate : 93 BPM P-R Int : 178 ms QRS Dur : 66 ms QT Int : 346 ms P-R-T Axes : 47 23 65 degrees QTcB Int : 430 ms Normal sinus rhythm Low voltage QRS Borderline ECG When compared with ECG of 15-May-2024 08:28, Vent. rate has increased by 37 bpm T wave amplitude has decreased in Anterior leads Confirmed by Dev Murphy ([id number]) on 08/14/2024 6:34:08 PM Referred By: REFERRED SELF Confirmed By: Dev Murphy
[2024-08-14] MEDS: VANCOMYCIN HCL 1,000 MG/270 ML BAG IV SCH (21:05)
[2024-08-15 05:36] LABS: Hematocrit (blood only) 29.9 % (37.0-47.0); Hemoglobin 10.3 g/dl (12.0-16.0); Immature Granulocytes # (auto) 0.03 K/uL (0.01-0.20); Immature Granulocytes % (auto) 0.4 %; Mean Corpuscular Hemoglobin 31.0 pg (25.0-34.0); Mean Corpuscular Volume 90.1 fL (80.0-100.0); Platelet Count 234 K/uL (130-400); RDW Standard Deviation 38.6 fL (36.4-46.3); Red Blood Count 3.32 M/uL (4.20-5.40); White Blood Count 7.47 K/ul (4.8-10.8)
[2024-08-15 05:52] LABS: Alanine Aminotransferase 29.0 U/L (7-52); Albumin Globulin Ratio 1.1 (0.9-2); Alkaline Phosphatase 114.0 U/L (34-104); Anion Gap 6.0 (3-11); Bilirubin,Total 0.4 mg/dl (0.2-1.0); Blood Urea Nitrogen 11.0 mg/dl (6-23); Calcium 8.9 mg/dl (8.6-10.3); Carbon Dioxide 26.0 mmol/L (21-32); Chloride 104.0 mmol/L (98-107); Creatinine Clr Calc Pharmacy 76.3 ml/min; Globulin 2.8 gm/dl (2.5-4.0); Glucose 83.0 mg/dl (70-99(Fasting)); Magnesium 1.8 mg/dl (1.7-2.4); Potassium 3.6 mmol/L (3.5-5.1); Sodium 136.0 mmol/L (136-145); Total Protein 6.0 gm/dl (6.0-8.3)
[2024-08-15 06:10] LABS: INR 1.0 (0.9-1.1); Prothrombin Time 10.4 Seconds (9.0-12.0)
--- NOTE | 2024-08-15 08:50 | Surgery Progress Note ---
Date of Service August 15, 2024 Assessment & Plan (1) Common bile duct dilatation: Plan: Pt admitted with cough/fever, right lower lobe pneumonia, enterovirus and rhinovirus with possible acute cholecystitis and CBD dilation on imaging pt with hx of dementia subjective exam limited, reports abd RUQ TTP, abd soft non distended Could order HIDA scan to ro acute cholecystitis, would recommend perc cecilia tube if + wbc wnl this am, VSS lft wnl with exception of alk. phosphatase at 114 (153) GI consult pending No acute surgical intervention indicated at this time As above. Patient poor surgical candidate. Will follow along from the periphery but recommend either IV antibiotics alone versus percutaneous cholecystostomy tube placement. Admission and Anticipated Discharge Date Admission Date: August 14, 2024 Subjective limited with dementia Review of Systems Review of Systems: Unobtainable due to cognitive status Physical Exam Constitutional: cooperative and comfortable; no acute distress Respiratory: normal respiratory effort and able to speak in complete sentences; no respiratory distress Cardiovascular: Rate/Rhythm: regular rate Gastrointestinal (Abdomen): Inspection/Auscultation: abdomen not distended Percussion/Palpation: + abdomen tender (report TTP RUQ) and abdomen soft; no guarding Psychiatric: Orientation: oriented to person Results & Data Vital Signs (Past 12 Hours) Vital Signs Temp Pulse Pulse Resp BP BP Pulse Ox 08/15/24 07:28 98.2 F 66 18 151/95 H 94 08/15/24 07:20 52 L 08/15/24 03:28 97.5 F L 72 20 143/95 H 95 08/14/24 23:33 97.9 F 66 20 168/84 H 92 08/14/24 21:52 75 08/14/24 21:30 O2 Del Method 08/15/24 07:28 Room Air 08/15/24 07:20 08/15/24 03:28 Room Air 08/14/24 23:33 Room Air 08/14/24 21:52 08/14/24 21:30 Room Air Results CBC w Diff Results: RBC 3.32 M/uL (4.20-5.40) L 08/15/24 WBC 7.47 K/ul (4.8-10.8) 08/15/24 Hgb 10.3 g/dl (12.0-16.0) L 08/15/24 Hct 29.9 % (37.0-47.0) L 08/15/24 MCV 90.1 fL (80.0-100.0) 08/15/24 MCH 31.0 pg (25.0-34.0) 08/15/24 MCHC 34.4 g/dL (32.0-36.0) 08/15/24 RDW Standard Deviation 38.6 fL (36.4-46.3) 08/15/24 RDW Coefficient of Variation 11.9 % (11.5-14.5) 08/15/24 Plt Count 234 K/uL (130-400) 08/15/24 MPV 9.8 fL (9.4-12.4) 08/15/24 Neutrophils (%) (Auto) 68.2 % 08/15/24 Lymphocytes (%) (Auto) 20.2 % 08/15/24 Monocytes # (Auto) 0.55 K/uL (0.11-0.59) 08/15/24 Eosinophils # (Auto) 0.23 K/uL (0.00-0.50) 08/15/24 Immature Granulocyte % (Auto) 0.4 % 08/15/24 Neutrophils # (Auto) 5.10 K/uL (1.40-6.50) 08/15/24 Lymphocytes # (Auto) 1.51 K/uL (1.20-3.40) 08/15/24 Monocytes # (Auto) 0.55 K/uL (0.11-0.59) 08/15/24 Eosinophils # (Auto) 0.23 K/uL (0.00-0.50) 08/15/24 Basophils # (Auto) 0.05 K/uL (0.00-0.20) 08/15/24 Immature Granulocyte # (Auto) 0.03 K/uL (0.01-0.20) 5 Red Blood Cell Morphology Unremarkable 05/10/24 Results CMP Results: Sodium 136 mmol/L (136-145) 08/15/24 Potassium 3.6 mmol/L (3.5-5.1) 08/15/24 Chloride 104 mmol/L (98-107) 08/15/24 Carbon Dioxide 26 mmol/L (21-32) 08/15/24 Anion Gap 6 (3-11) 08/15/24 BUN 11 mg/dl (6-23) 08/15/24 Creatinine 0.41 mg/dl (0.6-1.2) L 08/15/24 eGFR 95.16 08/15/24 Est GFR ( Amer) 113.2 ml/min 10/03/23 Est GFR (Non-Af Amer) 97.6 ml/min 10/03/23 BUN/Creatinine Ratio 26.8 (10-20) H 08/15/24 Glucose 83 mg/dl (70-99(Fasting)) 08/15/24 Calcium 8.9 mg/dl (8.6-10.3) 08/15/24 Phosphorus 3.3 mg/dl (2.5-4.9) 05/12/24 Total Bilirubin 0.4 mg/dl (0.2-1.0) 08/15/24 Direct Bilirubin 0.0 mg/dl (0-0.2) 08/13/24 AST 20 U/L (13-39) 08/15/24 ALT 29 U/L (7-52) 08/15/24 Alkaline Phosphatase 114 U/L (34-104) H 08/15/24 Total Protein 6.0 gm/dl (6.0-8.3) 08/15/24 Albumin 3.2 gm/dl (3.4-5.0) L 08/15/24 Globulin 2.8 gm/dl (2.5-4.0) 08/15/24 Albumin/Globulin Ratio 1.1 (0.9-2) 08/15/24 PG Care Time/CCT Total # of Minutes Spent Total Time Spent with Patient: Total time spent is greater than 50% in coordination of care (as documented) at patient's floor/unit and/or counseling patient: Coding Level of Care Code 22356 SUB INP/OBS CARE 03/01MIN Diagnoses Common bile duct dilatation K83.8
[2024-08-15] MEDS: VANCOMYCIN HCL 1,000 MG/270 ML BAG IV SCH (09:15)
--- NOTE | 2024-08-15 10:11 | Hospitalist Progress Note ---
"Date of Service August 15, 2024 Assessment & Plan (1) Right lower lobe pneumonia: (2) Enterovirus infection: (3) Acute UTI (urinary tract infection): (4) Abnormal computerized tomography of biliary tract: Plan (Admit) Ana is a 89 y/o female with pmh of advanced dementia, hypothyroidism, non-STEMI, hx of PE, hx of DVT (IVC placed), anemia, dementia, B12 deficiency that was sent from [facility] due to fever and cough. Patient recently treated for UTI with Keflex (last dose 08/06). Patient unable to provide information due to advance dementia. Several other members of facility with URI. Patient found with pneumonia, + rhino virus, and an UTI. Lab remarkable for leuk ocytosis (11.02), anemia (10.6). Hyponatremia 135. UA positive for UTI. Negative procal, negative lactate. Patient will be admitted for further management Patient is looking stable today. Patient did tell me she was feeling better and is sleeping well. Her quadrant pain is getting better and only has RLQ pain currently. Patient also did not show any suprapubic pain; however was saying she wasnt urinating. However, I/O's showed that she is excreting her fluids. Nursing staff noticed that patient's left upper extremity and hand were contracted. Past medical notes did not document this change. Upon exam her left upper extremity was able to be moved up in flexion and back down in resting position, but it was harder in tone compared to the right. However, imaging would not change current medical plan and treatment. So no further imaging will be required. #Pneumonia| SIRS - superimposed pneumonia. UA remarkable for UTI - Fever, tachycardia on arrival. Patient currently has no fever and no fever last night. - CXR- Right lower consolidation - Chest CTA: Right lower pneumonia, no PE - Abdomen CT: Hyperemia involving the gallbladder with trace pericholecystic fluid. Concern of acute cholecystitis - Viral panel positive for Rhinovirus/ enterovirus - Normal lactate, normal procal, normal WBC - Started on Zosyn and Vanco on ED due to positive MRSA, will continue until culture finalized - 3L NSS Bolus given by ED - MRSA swab game back +. But due to chest CTA findings unlikely to be MRSA pneumonia. - Tylenol as needed - Blood culture pending - Urine straight cath showed pseudomonas aeruginosa and E. coli. Pseudomonas was sensitive to everything. So will continue with Zosyn. - Trend AM labs - Will repeat CXR #UTI - Recently treated with Keflex (last dose 08/06) - Will discontinue Keflex due to sensitivities of pseudomonas showing that Zosyn will be effective as well for the UTI. - UA: positive for UTI - Follow urine culture #Acute cholecystitis on CT - Abdomen CT: Hyperemia involving the gallbladder with trace pericholecystic fluid. Concern of acute cholecystitis - US gallbladder ordered - AST/ ALT normal. Zelda bili. Alkaline phosphatase: 114 trending downwards - ABx as above - Surgery was consulted and recommended to consult GI - GI consulted. GI suggested to continue to monitor clinically. If liver enzymes increase, may consider a HIDA scan to access gallbladder function. - CMP AM #Hyponatremia - Current 136 - will still hold HCTZ #Chronic anemia -Hgb 10.6 , stable #Hypertension - Amlodipine continue - hydrochlorothiazide on hold #Hypothyroidism: - Levothyroxine 125 mcg DTV prophylaxis: Lovenox Admission and Anticipated Discharge Date Admission Date: August 14, 2024 Supervising Physician Co-Signing Physician Notes ATTESTATION I also saw the patient and confirmed leos portions of the history and exam. I agree with the impression and plan in the resident documentation, and as summarized below. Upon rounds this morning, no new complaints. EXAM VS reviewed Alert. Baseline dementia. NAD noted. CV regular Respiration non labored ABD soft and non tender with firm palpation of all quadrants DATA Labs WBC 7.47; HgB 10.3 Renal 11/0.41 Alk phos 114 (down trending) Micro Blood cultures from 08/13 no growth at 24 hours Urine culture growing pseudomonas and e. col IMPRESSION & PLAN Sepsis, POA Pneumonia Abnormal gall bladder imaging, elevated alk phos but improving Appreciate surgery and GI input Abdominal exam today unremarkable; she remains afebrile without leukocytosis Her age and co morbidities would make her a poor surgical candidate and given improvement in objective measures, no need for further intervention/investigation at this moment. Additional per resident documentation Subjective Patient was admitted into the ED for fever from snf. Patient has advanced dementia and thus hard to take an accurate and complete history. Patient did tell me she was feeling better and is sleeping well. Patient says she has no stomach pain. Patient also stated she hasn't been peeing. Attempted to call patient's HIPAA contact, Israel Sylvester. However, it went to [facility]. Will try to contact tomorrow. Review of Systems Review of Systems: per subjective HPI (NOTE: Patient has dementia) Physical Exam Constitutional: WD/WN, vitals as above Respiratory: normal respiratory effort, lungs clear to auscultation normal respiratory effort and able to speak in complete sentences; no respiratory distress Cardiovascular: Rate/Rhythm: regular rate Heart Sounds: + murmur (systolic) Gastrointestinal (Abdomen): Inspection/Auscultation: abdomen not distended Percussion/Palpation: + abdomen tender (RLQ. Other quadrants were not tender.) and abdomen soft; no guarding Musculoskeletal: Left Upper Extremity was harder in tone compared to Right Upper Extremity. Left fingers were in constant flexion. It was extremely difficult to pull her left fingers into extension. Neurologic: Speech / Cognition: + abnormal cognition (Advanced dementia) Results & Data Results & Data Vital Signs (Past 12 Hours) Vital Signs Temp Pulse Pulse Resp BP BP Pulse Ox 08/15/24 07:28 36.8 C 66 18 151/95 H 94 08/15/24 07:20 52 L 08/15/24 03:28 36.4 C L 72 20 143/95 H 95 08/14/24 23:33 36.6 C 66 20 168/84 H 92 O2 Del Method 08/15/24 07:28 Room Air 08/15/24 07:20 08/15/24 03:28 Room Air 08/14/24 23:33 Room Air"
--- NOTE | 2024-08-15 10:41 | Pharmacy Report ---
Pharmacy PK ABX Note - Date of Service August 15, 2024 - Assessment and Plan Assessment 08/15: Reviewed random vancomycin level, predicting subtherapeutic AUC/ANA. Will increase regimen to vancomycin 1000mg Q12H. Urine culture growing pseduomonas aeruginosa sensitive to Zosyn and E. Coli (sensitivities pending). Blood cultures no growth x24 hours. WBC WNL today, Tmax slightly elevated yesterday at 37.7C but improved from admission. Entero/Rhino positive on respiratory [employer]. 08/14: * 89 year old F receiving pip/tazo and vancomycin for treatment of possible acute cholecystitis, possible CAP, and possible UTI. * Pertinent microbiologic data includes: * Positive MRSA Nasal Swab * Blood cultures pending * Urine culture pending Plan Vancomycin * Loading dose: 1000 mg IV x 1 * Increase maintenance dose: vancomycin 1000mg Q12H. * Regimen is predicted to achieve target AUC/ANA of 400-600 mg/L.hr * Random level ordered for: 713 AM Pharmacy will continue to follow and will adjust dose/frequency as necessary. Thank you. Pharmacy has transitioned to AUC monitoring for vancomycin. AUC/ANA is the preferred PK/PD target and is associated with decreased risk of nephrotoxicity compared to traditional trough targets.
--- NOTE | 2024-08-15 12:00 | Gastrointestinal Consultation ---
Date of Consultation August 15, 2024 Assessment & Plan (1) Abnormal computerized tomography of biliary tract: LFTs unremarkable. Patient without jaundice, abdominal pain, diarrhea, or other GI symptoms. No discrete biliary stones noted thus far on imaging. Can obtain a HIDA as suggested by gen surg. If there is concern for abdominal pain, fever, or increasing LFTs, could consider MRCP for further evaluation, though I am not sure if patient would be able to be still for this with her dementia. Plan I saw and examined this patient with our nurse practitioner and agree with her assessment and plan. Despite CT scan imaging no clinical findings suggestive of acute cholecystitis. Abdomen is benign nontender and patient seems comfortable. Doubt dilated CBD is significant in light of essentially normal liver enzymes. Would continue to monitor her clinically if if her liver tests increase could consider imaging such as an MRCP or a HIDA scan to assess gallbladder function. History of Present Illness Reason for Consultation: "Acute cholecystitis with dilated CBD" Attending Physician: Dutch Krueger, DO History of Present Illness Patient is an 89 yo female with PMH of significant dementia, hypothyroidism, NSTEM, history of PE/DVT with IVC filter placement, anemia, dementia, and B12 deficiency sent from [facility] due to fever and cough. Patient unable to provide history due to significant dementia. She was found to have pneumonia, Enterovirus, and a UTI and is being treated for this by her hospitalist team. In her work-up for her fever, she was found to have imaging concerns for a possible cholecystitis CT abdomen/pelvis: IMPRESSION: No acute findings in the abdomen or pelvis. Hyperemia involving the gallbladder with trace pericholecystic fluid. Findings may represent acute cholecystitis in the appropriate clinical setting Right hepatic lobe hemangioma Enteritis Gallbladder US: 1. The picture suggests acute cholecystitis with low-moving hyperechoic material seen within the Gallbladder, probably sludge. 2. Dilated CBD that may need MRCP to exclude the possibility of distal obstruction or a recently passed stone. 3. Mild hepatomegaly with right hepatic lobe hyperechogenic focal lesion (other smaller ones are suspected), possibly hemangiomata, yet that may need better triphasic liver assessment if clinically warranted. AST, ALT, T bili unremarkable. Patient denies abdominal pain. General surgery has seen the patient. Allergies Allergy/AdvReac Type Severity Reaction Status Date / Time Sulfa (Sulfonamide Allergy Intermediate Rash Verified 08/13/24 22:34 Antibiotics) Home Medications Medication Instructions Recorded Confirmed Type acetaminophen 325 mg tablet 650 mg PO Q4H PRN PAIN/FEVER >100F 09/18/23 08/13/24 History sennosides 8.6 mg-docusate sodium 1 tab-cap PO BID 09/18/23 08/13/24 History 50 mg tablet (Senokot-S) amlodipine 2.5 mg tablet 2.5 mg PO DAILY 05/09/24 08/13/24 History ascorbic acid (vitamin C) 500 mg 500 mg PO DAILY 05/09/24 08/13/24 History tablet (Vitamin C) multivitamin with minerals 1 tab PO DAILY 05/09/24 08/13/24 History omeprazole 20 mg tablet,delayed 20 mg PO BID 05/09/24 08/13/24 History release vitamin B complex (Vitamins B 1 cap PO QAM #30 caps 05/15/24 08/13/24 Rx Complex capsule) acetaminophen 325 mg tablet 650 mg PO BID 06/02/24 08/13/24 History polyethylene glycol 3350 17 17 g PO DAILY 06/02/24 08/13/24 History gram/dose oral powder (Miralax) Patient History Medical History History of cervical fracture Hx C2 odontoid fracture after fall 07/2023. Given a cervical collar x 6 weeks and advised to f/u with orthopedic surgery. Approved to remove cervical collar per [facility] orthopedic surgery 10/2023. F/U cervical xray done 12/13/23 noting no fractures and no definite/significant acute bony abnormality. Aortic stenosis Echo 05/13/24: Mild aortic stenosis (GREYSON MG 15.4mmhg, GREYSON V,D 1.7cm) History of DVT (deep vein thrombosis) DVT/PE 09/2023 IVC filter placed 09/20/23 ([facility]) History of non-ST elevation myocardial infarction (NSTEMI) Entered per records 1+ years ago History of pulmonary embolism DVT/PE 09/2023 IVC filter placed 09/20/23 ([facility]) History of esophagitis Dementia Dysphagia, oropharyngeal phase Other symbolic dysfunctions Abnormal posture Per records Muscle weakness (generalized) Calculus of ureter Obstructive and reflux uropathy Hypomagnesemia 05/14/24 Mg level WNL, taking Magnesium supplementation Unspecified abnormal involuntary movements Per records Constipation, unspecified Anemia, unspecified Hypothyroidism Surgical History S/P insertion of IVC (inferior vena caval) filter right femoral approach, 09/20/23 S/P cystoscopy with ureteral stent placement 05/10/24 Presence of urogenital implants Social History Smoking Status: Unknown if ever smoked Preferred Language: Greenlandic Communication Ability: Impaired Er Nurse Required: No Beliefs That Will Affect Care: None Current Living Situation: [facility] Current Living Situation Comment: [facility] [place] Feels Safe at Home: Yes Assistive Devices: Mechanical Lift and Wheelchair Review of Systems Review of Systems: ROS very limited due to dementia Physical Exam Constitutional: well developed Respiratory: normal respiratory effort Cardiovascular: Rate/Rhythm: regular rate Gastrointestinal (Abdomen): normal bowel sounds, soft, nontender, no hepatosplenomegaly Psychiatric: Orientation: alert and oriented x 3 Results & Data Vital Signs (Past 12 Hours) Vital Signs Temp Pulse Pulse Resp BP BP Pulse Ox 08/15/24 11:14 37.5 C 69 18 124/77 92 08/15/24 07:28 36.8 C 66 18 151/95 H 94 08/15/24 07:20 52 L 08/15/24 03:28 36.4 C L 72 20 143/95 H 95 O2 Del Method 08/15/24 11:14 Room Air 08/15/24 07:28 Room Air 08/15/24 07:20 08/15/24 03:28 Room Air Laboratory Results Laboratory Results - last 48 hr 08/13/24 08/13/24 08/13/24 21:22 21:23 21:23 WBC 11.02 H RBC 3.37 L Hgb 10.6 L POC Hgb Hct 30.6 L POC Hct MCV 90.8 MCH 31.5 MCHC 34.6 RDW Std Deviation 39.0 RDW Coeff of Coni 11.9 Plt Count 268 MPV 9.5 Immature Gran % (Auto) 0.9 Neut % (Auto) 85.9 Lymph % (Auto) 6.6 Dodge % (Auto) 5.2 Eos % (Auto) 1.0 Baso % (Auto) 0.4 Neut # (Auto) 9.47 H Lymph # (Auto) 0.73 L Dodge # (Auto) 0.57 Eos # (Auto) 0.11 Baso # (Auto) 0.04 Immature Gran # (Auto) 0.10 PT INR VBG pH 7.49 H VBG pCO2 35 L VBG pO2 57 VBG HCO3 27 VBG O2 Saturation 91.8 VBG Base Excess 3.5 POC Sodium Sodium POC Potassium Potassium POC Chloride Chloride Carbon Dioxide POC Total CO2 Anion Gap POC Anion Gap POC BUN BUN Creatinine POC Creatinine Est Cr Clr Drug Dosing eGFR BUN/Creatinine Ratio Glucose POC Glucose (other) Lactate 2.0 Calcium POC Ioniz Calcium Rashmi Magnesium Total Bilirubin Direct Bilirubin AST ALT Alkaline Phosphatase Troponin I High Sens Total Protein Albumin Globulin Albumin/Globulin Ratio Procalcitonin 0.08 Urine Color Urine Appearance Urine pH Ur Specific [place] Urine Protein Urine Glucose (UA) Urine Ketones Urine Blood Urine Nitrite Urine Bilirubin Urine Urobilinogen Ur Leukocyte Esterase Urine WBC (Auto) Urine RBC (Auto) U Hyaline Cast (Auto) U Epithel Cells (Auto) Urine Bacteria (Auto) Urine Yeast Urine Comment Nasal Screen MRSA (PCR) Random Vancomycin Adenovirus (PCR) Not Detected B. pertussis DNA (PCR) Not Detected B.parapertussis DNA PCR Not Detected C. pneumoniae DNA (PCR) Not Detected Coronavirus OC43 (PCR) Not Detected Coronavirus HKU1 (PCR) Not Detected Coronavirus 229E (PCR) Not Detected SARS-CoV-2 (PCR) Cancelled Not Detected Coronavirus NL63 (PCR) Not Detected Human Metapneumovir PCR Not Detected Influenza Type A (PCR) Cancelled Influenza Type B (PCR) M. pneumoniae (PCR) Parainfluenza 1 (PCR) Parainfluenza 2 (PCR) Parainfluenza 3 (PCR) Parainfluenza 4 (PCR) RSV (RT-PCR) RSV (PCR) Entero/Rhino (PCR) 08/13/24 08/13/24 08/13/24 21:23 21:23 21:27 WBC RBC Hgb POC Hgb Hct POC Hct MCV MCH MCHC RDW Std Deviation RDW Coeff of Coni Plt Count MPV Immature Gran % (Auto) Neut % (Auto) Lymph % (Auto) [place] % (Auto) Eos % (Auto) Baso % (Auto) Neut # (Auto) Lymph # (Auto) Dodge # (Auto) Eos # (Auto) Baso # (Auto) Immature Gran # (Auto) PT INR VBG pH VBG pCO2 VBG pO2 VBG HCO3 VBG O2 Saturation VBG Base Excess POC Sodium Sodium 135 L POC Potassium Potassium 3.7 POC Chloride Chloride 101 Carbon Dioxide 25 POC Total CO2 Anion Gap 9 POC Anion Gap POC BUN BUN 28 H Creatinine 0.57 L POC Creatinine Est Cr Clr Drug Dosing 54.9 eGFR 87.90 BUN/Creatinine Ratio 49.1 H Glucose 185 H POC Glucose (other) Lactate Calcium 8.8 POC Ioniz Calcium Rashmi Magnesium 1.7 Total Bilirubin 0.3 Direct Bilirubin 0.0 AST 28 ALT 23 Alkaline Phosphatase 153 H Troponin I High Sens 8.0 Total Protein 6.5 Albumin 3.4 Globulin 3.1 Albumin/Globulin Ratio 1.1 Procalcitonin Urine Color Urine Appearance Urine pH Ur Specific [place] Urine Protein Urine Glucose (UA) Urine Ketones Urine Blood Urine Nitrite Urine Bilirubin Urine Urobilinogen Ur Leukocyte Esterase Urine WBC (Auto) Urine RBC (Auto) U Hyaline Cast (Auto) U Epithel Cells (Auto) Urine Bacteria (Auto) Urine Yeast Urine Comment Nasal Screen MRSA (PCR) Random Vancomycin Adenovirus (PCR) B. pertussis DNA (PCR) B.parapertussis DNA PCR C. pneumoniae DNA (PCR) Coronavirus OC43 (PCR) Coronavirus HKU1 (PCR) Coronavirus 229E (PCR) SARS-CoV-2 (PCR) Coronavirus NL63 (PCR) Human Metapneumovir PCR Influenza Type A (PCR) Not Detected Influenza Type B (PCR) Cancelled Not Detected M. pneumoniae (PCR) Not Detected Parainfluenza 1 (PCR) Not Detected Parainfluenza 2 (PCR) Not Detected Parainfluenza 3 (PCR) Not Detected Parainfluenza 4 (PCR) Not Detected RSV (RT-PCR) Cancelled RSV (PCR) Not Detected Entero/Rhino (PCR) DETECTED A 08/13/24 08/13/24 08/14/24 21:35 22:20 06:40 WBC RBC Hgb POC Hgb 11.2 L Hct POC Hct 33 L MCV MCH MCHC RDW Std Deviation RDW Coeff of Coni Plt Count MPV Immature Gran % (Auto) Neut % (Auto) Lymph % (Auto) [place] % (Auto) Eos % (Auto) Baso % (Auto) Neut # (Auto) Lymph # (Auto) Dodge # (Auto) Eos # (Auto) Baso # (Auto) Immature Gran # (Auto) PT INR VBG pH VBG pCO2 VBG pO2 VBG HCO3 VBG O2 Saturation VBG Base Excess POC Sodium 136 Sodium POC Potassium 3.6 Potassium POC Chloride 99 L Chloride Carbon Dioxide POC Total CO2 24 Anion Gap POC Anion Gap 17.0 POC BUN 26 H BUN Creatinine POC Creatinine 0.6 Est Cr Clr Drug Dosing eGFR BUN/Creatinine Ratio Glucose POC Glucose (other) 184 H Lactate Calcium POC Ioniz Calcium Rashmi 1.18 Magnesium Total Bilirubin Direct Bilirubin AST ALT Alkaline Phosphatase Troponin I High Sens Total Protein Albumin Globulin Albumin/Globulin Ratio Procalcitonin Urine Color Yellow Urine Appearance Clear Urine pH >= 9.0 H Ur Specific [place] > 1.045 H Urine Protein 1+ H Urine Glucose (UA) Negative Urine Ketones Negative Urine Blood Negative Urine Nitrite Positive A Urine Bilirubin Negative Urine Urobilinogen Negative Ur Leukocyte Esterase 1+ H Urine WBC (Auto) >50 H Urine RBC (Auto) 6-10 H U Hyaline Cast (Auto) 6-10 H U Epithel Cells (Auto) 0-2 Urine Bacteria (Auto) 2+ H Urine Yeast Present A Urine Comment Nasal Screen MRSA (PCR) Positive A Random Vancomycin Adenovirus (PCR) B. pertussis DNA (PCR) B.parapertussis DNA PCR C. pneumoniae DNA (PCR) Coronavirus OC43 (PCR) Coronavirus HKU1 (PCR) Coronavirus 229E (PCR) SARS-CoV-2 (PCR) Coronavirus NL63 (PCR) Human Metapneumovir PCR Influenza Type A (PCR) Influenza Type B (PCR) M. pneumoniae (PCR) Parainfluenza 1 (PCR) Parainfluenza 2 (PCR) Parainfluenza 3 (PCR) Parainfluenza 4 (PCR) RSV (RT-PCR) RSV (PCR) Entero/Rhino (PCR) 08/15/24 05:02 WBC 7.47 RBC 3.32 L Hgb 10.3 L POC Hgb Hct 29.9 L POC Hct MCV 90.1 MCH 31.0 MCHC 34.4 RDW Std Deviation 38.6 RDW Coeff of Coni 11.9 Plt Count 234 MPV 9.8 Immature Gran % (Auto) 0.4 Neut % (Auto) 68.2 Lymph % (Auto) 20.2 Dodge % (Auto) 7.4 Eos % (Auto) 3.1 Baso % (Auto) 0.7 Neut # (Auto) 5.10 Lymph # (Auto) 1.51 Dodge # (Auto) 0.55 Eos # (Auto) 0.23 Baso # (Auto) 0.05 Immature Gran # (Auto) 0.03 PT 10.4 INR 1.0 VBG pH VBG pCO2 VBG pO2 VBG HCO3 VBG O2 Saturation VBG Base Excess POC Sodium Sodium 136 POC Potassium Potassium 3.6 POC Chloride Chloride 104 Carbon Dioxide 26 POC Total CO2 Anion Gap 6 POC Anion Gap POC BUN BUN 11 Creatinine 0.41 L POC Creatinine Est Cr Clr Drug Dosing 76.3 eGFR 95.16 BUN/Creatinine Ratio 26.8 H Glucose 83 POC Glucose (other) Lactate Calcium 8.9 POC Ioniz Calcium Rashmi Magnesium 1.8 Total Bilirubin 0.4 Direct Bilirubin AST 20 ALT 29 Alkaline Phosphatase 114 H Troponin I High Sens Total Protein 6.0 Albumin 3.2 L Globulin 2.8 Albumin/Globulin Ratio 1.1 Procalcitonin Urine Color Urine Appearance Urine pH Ur Specific [place] Urine Protein Urine Glucose (UA) Urine Ketones Urine Blood Urine Nitrite Urine Bilirubin Urine Urobilinogen Ur Leukocyte Esterase Urine WBC (Auto) Urine RBC (Auto) U Hyaline Cast (Auto) U Epithel Cells (Auto) Urine Bacteria (Auto) Urine Yeast Urine Comment Nasal Screen MRSA (PCR) Random Vancomycin 15.0 Adenovirus (PCR) B. pertussis DNA (PCR) B.parapertussis DNA PCR C. pneumoniae DNA (PCR) Coronavirus OC43 (PCR) Coronavirus HKU1 (PCR) Coronavirus 229E (PCR) SARS-CoV-2 (PCR) Coronavirus NL63 (PCR) Human Metapneumovir PCR Influenza Type A (PCR) Influenza Type B (PCR) M. pneumoniae (PCR) Parainfluenza 1 (PCR) Parainfluenza 2 (PCR) Parainfluenza 3 (PCR) Parainfluenza 4 (PCR) RSV (RT-PCR) RSV (PCR) Entero/Rhino (PCR) PG Care Time/CCT Total # of Minutes Spent Total Time Spent with Patient: Total time spent is greater than 50% in coordination of care (as documented) at patient's floor/unit and/or counseling patient: Coding Level of Care Code 84582 INT INP/OBS CARE 3/75MIN Diagnoses Abnormal computerized tomography of biliary tract R93.2
--- NOTE | 2024-08-15 19:39 | XRay Report ---
Chest radiograph, one view History: Pneumonia Comparison: 08/13/2024 Findings: Single AP view of the chest performed. No focal consolidation or pleural effusion. No pneumothorax. The cardiomediastinal silhouette is within normal limits. Normal pulmonary vascularity. No evidence for lymphadenopathy. No visualized bony or soft tissue abnormality. Impression: Normal chest radiograph. Focal consolidation no longer seen Electronically signed by Dev Murdock 08-15-2024 7:39 PM
[2024-08-15] MEDS: ACETAMINOPHEN 325 MG TAB PO PRN (19:55)
[2024-08-15] MEDS ORDERED: PHA DELIRIUM CONSULT PRN (21:02)
[2024-08-16 07:52] LABS: Hematocrit (blood only) 29.3 % (37.0-47.0); Hemoglobin 10.2 g/dl (12.0-16.0); Immature Granulocytes # (auto) 0.04 K/uL (0.01-0.20); Immature Granulocytes % (auto) 0.8 %; Mean Corpuscular Hemoglobin 31.5 pg (25.0-34.0); Mean Corpuscular Volume 90.4 fL (80.0-100.0); Platelet Count 250 K/uL (130-400); RDW Standard Deviation 38.9 fL (36.4-46.3); Red Blood Count 3.24 M/uL (4.20-5.40); White Blood Count 5.05 K/ul (4.8-10.8)
[2024-08-16 08:19] LABS: Alanine Aminotransferase 22.0 U/L (7-52); Albumin Globulin Ratio 1.0 (0.9-2); Alkaline Phosphatase 103.0 U/L (34-104); Anion Gap 5.0 (3-11); Bilirubin,Total 0.4 mg/dl (0.2-1.0); Blood Urea Nitrogen 10.0 mg/dl (6-23); Calcium 8.9 mg/dl (8.6-10.3); Carbon Dioxide 29.0 mmol/L (21-32); Chloride 104.0 mmol/L (98-107); Creatinine Clr Calc Pharmacy 61.5 ml/min; Globulin 3.0 gm/dl (2.5-4.0); Glucose 89.0 mg/dl (70-99(Fasting)); Magnesium 2.0 mg/dl (1.7-2.4); Potassium 3.8 mmol/L (3.5-5.1); Sodium 138.0 mmol/L (136-145); Total Protein 6.1 gm/dl (6.0-8.3)
[2024-08-16 08:22] LABS: INR 0.9 (0.9-1.1); Prothrombin Time 10.3 Seconds (9.0-12.0)
--- NOTE | 2024-08-16 13:42 | Hospitalist Progress Note ---
"Date of Service August 16, 2024 Assessment & Plan (1) Right lower lobe pneumonia: (2) Enterovirus infection: (3) Acute UTI (urinary tract infection): (4) Abnormal computerized tomography of biliary tract: Plan (Admit) Ana is a 89 y/o female with pmh of advanced dementia, hypothyroidism, non-STEMI, hx of PE, hx of DVT (IVC placed), anemia, dementia, B12 deficiency that was sent from [facility] due to fever and cough. Patient recently treated for UTI with Keflex (last dose 08/06). Patient unable to provide information due to advance dementia. Several other members of facility with URI. Patient found with pneumonia, + rhino virus, and an UTI. Lab remarkable for leuk ocytosis (11.02), anemia (10.6). Hyponatremia 135. UA positive for UTI. Negative procal, negative lactate. Patient will be admitted for further management Nursing staff noticed that patient's left upper extremity and hand were contracted. Past medical notes did not document this change. Upon exam her left upper extremity was able to be moved up in flexion and back down in resting position, but it was harder in tone compared to the right. However, imaging would not change current medical plan and treatment. So no further imaging will be required. Patient is looking stable today. Patient did tell me she was feeling better and is sleeping well. Patient admits to having no abdominal quadrant pain currently. Patient did say she wasn't drinking well, but asked her nurse and she stated that the patient is tolerating her diet very well. Patient also did not show any suprapubic pain. #Pneumonia| SIRS - superimposed pneumonia. UA remarkable for UTI - Fever, tachycardia on arrival. Patient currently has no fever and no fever last night. - CXR- Right lower consolidation - Chest CTA: Right lower pneumonia, no PE - Abdomen CT: Hyperemia involving the gallbladder with trace pericholecystic fluid. Concern of acute cholecystitis - Repeat CXR (08/15) showed no consolidation. - Viral panel positive for Rhinovirus/ enterovirus - Normal procal, normal WBC - Started on Zosyn and Vanco on ED due to positive MRSA, will continue until culture finalized - 3L NSS Bolus given by ED. Currently not on any IV fluids. - MRSA swab game back +. But due to chest CTA findings unlikely to be MRSA pneumonia. - Tylenol as needed - Blood culture showed no growth of aeorbic or anaerobic organisms x 48 hours. - Urine straight cath showed pseudomonas aeruginosa and E. coli. Pseudomonas was sensitive to everything. So will continue with Zosyn. - Trend AM labs #UTI - Recently treated with Keflex (last dose 08/06) - Will discontinue Keflex due to sensitivities of pseudomonas showing that Zosyn will be effective as well for the UTI. - UA: positive for UTI - Follow urine culture #Acute cholecystitis on CT - Abdomen CT: Hyperemia involving the gallbladder with trace pericholecystic fluid. Concern of acute cholecystitis - US gallbladder ordered - AST/ ALT normal. Zelda bili. Alkaline phosphatase: 103. - ABx as above - Surgery was consulted and recommended to consult GI - GI consulted. GI suggested to continue to monitor clinically. If liver enzymes increase, may consider a HIDA scan to access gallbladder function. - CMP AM #Hyponatremia - Current 136 - will still hold HCTZ #Chronic anemia -Hgb 10.2, stable #Hypertension - Amlodipine continue - hydrochlorothiazide on hold #Hypothyroidism: - Levothyroxine 125 mcg DTV prophylaxis: Lovenox Admission and Anticipated Discharge Date Admission Date: August 14, 2024 Supervising Physician Co-Signing Physician Notes ATTESTATION I also saw the patient and confirmed leos portions of the history and exam. I agree with the impression and plan in the resident documentation, and as summarized below. Upon rounds this morning, no new complaints. EXAM VS reviewed Alert. Baseline dementia. NAD noted. CV regular Respiration non labored ABD soft and non tender with firm palpation of all quadrants DATA Labs WBC 5.05; HgB 10.2 Renal 110/0.51 Alk phos 103 Micro Blood cultures from 08/13 no growth at 48 hours Urine culture growing pseudomonas and e. col IMPRESSION & PLAN Sepsis, POA Pneumonia Abnormal gall bladder imaging, asymptomatic, alk phos normalized Appreciate surgery and GI input She may have had some sludge/gravel in the CBD but given lack of symptoms and normalization of alk phos, will continue to observe. Her age and co morbidities would make her a poor surgical candidate and given improvement in objective measures, no need for further intervention/investigation at this moment. Anticipate return to her LTC facility in next 1-2 days Additional per resident documentation Subjective Patient was admitted into the ED for fever from longterm. Patient has advanced dementia and thus hard to take an accurate and complete history. Patient did tell me she was feeling better and is sleeping well. She stated that she wasnt drinking well, but consulted her nurse and her nurse stated she was tolerating her full liquid diet very well. Was able to contact Israel Sylvester, the patient's HIPAA contact, via telephone. Updated him about current patient's progress. Review of Systems Review of Systems: per subjective HPI Physical Exam Constitutional: WD/WN, vitals as above Respiratory: normal respiratory effort, lungs clear to auscultation normal respiratory effort; no respiratory distress Cardiovascular: Rate/Rhythm: regular rate and regular rhythm Heart Sounds: + murmur (systolic) Gastrointestinal (Abdomen): Inspection/Auscultation: normal bowel sounds; abdomen not distended Percussion/Palpation: abdomen soft; abdomen nontender Neurologic: Speech / Cognition: + abnormal cognition (Advanced dementia) Results & Data Results & Data Vital Signs (Past 12 Hours) Vital Signs Temp Pulse Pulse Resp BP Pulse Ox O2 Del Method 08/16/24 13:32 67 08/16/24 10:56 36.4 C L 65 20 165/78 H 96 Room Air 08/16/24 08:30 Room Air 08/16/24 08:00 36.5 C 55 L 150/67 H 95 Room Air 08/16/24 07:22 44 L 08/16/24 03:38 42 L 08/16/24 03:36 48 L 17 143/85 H 94 Room Air"
[2024-08-17 05:35] LABS: Hematocrit (blood only) 29.4 % (37.0-47.0); Hemoglobin 10.0 g/dl (12.0-16.0); Immature Granulocytes # (auto) 0.04 K/uL (0.01-0.20); Immature Granulocytes % (auto) 0.8 %; Mean Corpuscular Hemoglobin 31.0 pg (25.0-34.0); Mean Corpuscular Volume 91.0 fL (80.0-100.0); Platelet Count 255 K/uL (130-400); RDW Standard Deviation 39.0 fL (36.4-46.3); Red Blood Count 3.23 M/uL (4.20-5.40); White Blood Count 4.99 K/ul (4.8-10.8)
[2024-08-17 05:52] LABS: Alanine Aminotransferase 18.0 U/L (7-52); Albumin Globulin Ratio 0.9 (0.9-2); Alkaline Phosphatase 99.0 U/L (34-104); Anion Gap 5.0 (3-11); Bilirubin,Total 0.3 mg/dl (0.2-1.0); Blood Urea Nitrogen 9.0 mg/dl (6-23); Calcium 8.9 mg/dl (8.6-10.3); Carbon Dioxide 28.0 mmol/L (21-32); Chloride 106.0 mmol/L (98-107); Creatinine Clr Calc Pharmacy 59.1 ml/min; Globulin 3.2 gm/dl (2.5-4.0); Glucose 92.0 mg/dl (70-99(Fasting)); Magnesium 2.1 mg/dl (1.7-2.4); Potassium 3.4 mmol/L (3.5-5.1); Sodium 139.0 mmol/L (136-145); Total Protein 6.1 gm/dl (6.0-8.3)
[2024-08-17] MEDS: VANCOMYCIN HCL 750 MG in SODIUM CHLORIDE 0.9% 250 ML IV SCH (10:18)
--- NOTE | 2024-08-17 11:15 | Hospitalist Progress Note ---
"Date of Service August 17, 2024 Assessment & Plan (1) Right lower lobe pneumonia: (2) Enterovirus infection: (3) Acute UTI (urinary tract infection): (4) Abnormal computerized tomography of biliary tract: Plan (Admit) Ana is a 89 y/o female with pmh of advanced dementia, hypothyroidism, non-STEMI, hx of PE, hx of DVT (IVC placed), anemia, dementia, B12 deficiency that was sent from [facility] due to fever and cough. Patient recently treated for UTI with Keflex (last dose 08/06). Patient unable to provide information due to advance dementia. Several other members of facility with URI. Patient found with pneumonia, + rhino virus, and an UTI. Lab remarkable for leuk ocytosis (11.02), anemia (10.6). Hyponatremia 135. UA positive for UTI. Negative procal, negative lactate. Patient will be admitted for further management Nursing staff noticed that patient's left upper extremity and hand were contracted. Past medical notes did not document this change. Upon exam her left upper extremity was able to be moved up in flexion and back down in resting position, but it was harder in tone compared to the right. However, imaging would not change current medical plan and treatment. So no further imaging will be required. Patient is looking stable today. Patient did tell me she was feeling better and has an appetite. Upon physical exam, she stated she felt some suprapubic tenderness. However, due to her advanced dementia, it is difficult to accurately access. #Pneumonia| SIRS - superimposed pneumonia. UA remarkable for UTI - Fever, tachycardia on arrival. Patient currently has no fever and no fever last night. - CXR- Right lower consolidation - Chest CTA: Right lower pneumonia, no PE - Abdomen CT: Hyperemia involving the gallbladder with trace pericholecystic fluid. Concern of acute cholecystitis - Repeat CXR (08/15) showed no consolidation. - Viral panel positive for Rhinovirus/ enterovirus - Normal procal, normal WBC - Started on Zosyn and Vanco on ED due to positive MRSA, will continue until culture finalized - 3L NSS Bolus given by ED. Currently not on any IV fluids. - MRSA swab game back +. But due to chest CTA findings unlikely to be MRSA pneumonia. - Tylenol as needed - Blood culture showed no growth of aeorbic or anaerobic organisms x 48 hours. - Urine straight cath showed pseudomonas aeruginosa and E. coli. Pseudomonas was sensitive to everything. So will continue with Zosyn. - Trend AM labs. * Current (08/17) * WBC = 4.99 * Hgb= 10.0 (baseline) * Hct = 29.4 (baseline) * Plt = 255 #UTI - Recently treated with Keflex (last dose 08/06) - Will discontinue Keflex due to sensitivities of pseudomonas showing that Zosyn will be effective as well for the UTI. - UA: positive for UTI #Acute cholecystitis on CT - Abdomen CT: Hyperemia involving the gallbladder with trace pericholecystic fluid. Concern of acute cholecystitis - US gallbladder ordered - AST/ ALT normal. Zelda bili. Alkaline phosphatase: 99 - ABx as above - Surgery was consulted and recommended to consult GI - GI consulted. GI suggested to continue to monitor clinically. If liver enzymes increase, may consider a HIDA scan to access gallbladder function. - CMP AM #Hyponatremia - Current 139 - will still hold HCTZ #Chronic anemia -Hgb 10.2, stable #Hypertension - Amlodipine continue - hydrochlorothiazide on hold #Hypothyroidism: - Levothyroxine 125 mcg DTV prophylaxis: Lovenox Admission and Anticipated Discharge Date Admission Date: August 14, 2024 Supervising Physician Co-Signing Physician Notes ATTESTATION I also saw the patient and confirmed leos portions of the history and exam. I agree with the impression and plan in the resident documentation, and as summarized below. Upon rounds this morning, looks to be completing near 100-percent of food tray with staff assistance. EXAM 166/88, 68, 16 Alert. Baseline dementia. NAD noted. CV regular Respiration non labored ABD soft and non tender with firm palpation of all quadrants DATA Labs WBC 4.99; HgB 10 Renal 9/0.53 Alk phos 99 Micro Blood cultures from 08/13 no growth at 48 hours Urine culture growing pseudomonas and e. coli (ESBL) IMPRESSION & PLAN Sepsis, POA UTI Pneumonia Abnormal gall bladder imaging, asymptomatic, alk phos normalized Appreciate surgery and GI input She may have had some sludge/gravel in the CBD but given lack of symptoms and normalization of alk phos, will continue to observe. Her age and co morbidities would make her a poor surgical candidate and given improvement in objective measures, no need for further intervention/investigation at this moment. Pseudomonas UTI treated but second low colony count of e. coli ESBL may require additional. Could add nitrofurantoin, short course less worrisome about pulmonary side effects Anticipate return to her LTC facility in next 1-2 days Additional per resident documentation Subjective Patient was admitted into the ED for fever from [facility]. Patient has advanced dementia and thus hard to take an accurate and complete history. Patient did tell me she was feeling better and has an appetite. She did eat her breakfast this morning. Review of Systems Review of Systems: per subjective HPI Physical Exam Constitutional: WD/WN, vitals as above Respiratory: normal respiratory effort, lungs clear to auscultation normal respiratory effort; no respiratory distress Cardiovascular: Rate/Rhythm: regular rate and regular rhythm Heart Sounds: + murmur (systolic) heard some extra beats Gastrointestinal (Abdomen): Inspection/Auscultation: normal bowel sounds; abdomen not distended Percussion/Palpation: + abdomen tender (suprapubic tenderness) and abdomen soft; no guarding Neurologic: Speech / Cognition: + abnormal cognition (Advanced dementia) Results & Data Results & Data Vital Signs (Past 12 Hours) Vital Signs Temp Pulse Pulse Resp BP Pulse Ox O2 Del Method 08/17/24 07:30 36.7 C 58 L 16 157/83 H 95 Room Air 08/17/24 07:14 41 L 08/17/24 03:45 36.3 C L 54 L 18 141/84 H 94 Room Air 08/16/24 23:53 36.9 C 55 L 18 146/74 H 92 Room Air"
--- NOTE | 2024-08-17 14:50 | Pharmacy Report ---
Pharmacy PK ABX Note - Date of Service August 17, 2024 - Assessment and Plan Assessment 08/17 * Random level today 22.2 mcg/ml, suggests supratherapeutic AUC/ANA. Will decrease dose today to remain within target range. 08/15: Reviewed random vancomycin level, predicting subtherapeutic AUC/ANA. Will increase regimen to vancomycin 1000mg Q12H. Urine culture growing pseduomonas aeruginosa sensitive to Zosyn and E. Coli (sensitivities pending). Blood cultures no growth x24 hours. WBC WNL today, Tmax slightly elevated yesterday at 37.7C but improved from admission. Entero/Rhino positive on respiratory [employer]. 08/14: * 89 year old F receiving pip/tazo and vancomycin for treatment of possible acute cholecystitis, possible CAP, and possible UTI. * Pertinent microbiologic data includes: * Positive MRSA Nasal Swab * Blood cultures pending * Urine culture pending Plan Vancomycin * Loading dose: 1000 mg IV x 1 * Decrease maintenance dose: vancomycin 750 mg Q12H. * Regimen is predicted to achieve target AUC/ANA of 400-600 mg/L.hr * Random level ordered for: 08/18AM @0800 Pharmacy will continue to follow and will adjust dose/frequency as necessary. Thank you. Pharmacy has transitioned to AUC monitoring for vancomycin. AUC/ANA is the preferred PK/PD target and is associated with decreased risk of nephrotoxicity compared to traditional trough targets.
--- NOTE | 2024-08-18 08:04 | XRay Report ---
EXAM: XR chest 1V portable CLINICAL HISTORY: cough TECHNIQUE: Radiograph of chest was acquired. COMPARISON: 15 August 2024 FINDINGS: Ill-defined parenchymal opacities noted involving right lower zone - suggest possibility of consolidation. Blunting of right costophrenic angle - suggest possibility of minimal pleural effusion. Lobulated opacities are noted involving bilateral perihilar region rest of both lungs are clear. The cardiomediastinal silhouette is within normal limits. No acute osseous abnormality. IMPRESSION: Ill-defined parenchymal opacities noted involving right lower zone - suggest possibility of consolidation.-new finding. Blunting of right costophrenic angle - suggest possibility of minimal pleural effusion.-stable. Lobulated opacities are noted involving bilateral perihilar region-stable. Electronically signed by Merlin Arthur 08-18-2024 08:04 AM
[2024-08-18 08:19] LABS: Hematocrit (blood only) 32.5 % (37.0-47.0); Hemoglobin 11.0 g/dl (12.0-16.0); Immature Granulocytes # (auto) 0.02 K/uL (0.01-0.20); Immature Granulocytes % (auto) 0.4 %; Mean Corpuscular Hemoglobin 30.4 pg (25.0-34.0); Mean Corpuscular Volume 89.8 fL (80.0-100.0); Platelet Count 284 K/uL (130-400); RDW Standard Deviation 38.1 fL (36.4-46.3); Red Blood Count 3.62 M/uL (4.20-5.40); White Blood Count 4.70 K/ul (4.8-10.8)
[2024-08-18 08:42] LABS: Alanine Aminotransferase 15.0 U/L (7-52); Albumin Globulin Ratio 1.0 (0.9-2); Alkaline Phosphatase 89.0 U/L (34-104); Anion Gap 7.0 (3-11); Bilirubin,Total 0.3 mg/dl (0.2-1.0); Blood Urea Nitrogen 7.0 mg/dl (6-23); Calcium 8.8 mg/dl (8.6-10.3); Carbon Dioxide 27.0 mmol/L (21-32); Chloride 105.0 mmol/L (98-107); Creatinine Clr Calc Pharmacy 68.1 ml/min; Globulin 3.1 gm/dl (2.5-4.0); Glucose 93.0 mg/dl (70-99(Fasting)); Magnesium 2.2 mg/dl (1.7-2.4); Potassium 3.3 mmol/L (3.5-5.1); Sodium 139.0 mmol/L (136-145); Total Protein 6.3 gm/dl (6.0-8.3)
[2024-08-18] MEDS: POTASSIUM CHLORIDE CRTAB 20 MEQ TABCR PO STA (09:49)
--- NOTE | 2024-08-18 10:09 | Electrocardiogram Report ---
Test Reason : Blood Pressure : */* mmHG Vent. Rate : 47 BPM Atrial Rate : 47 BPM P-R Int : 178 ms QRS Dur : 82 ms QT Int : 456 ms P-R-T Axes : 96 64 85 degrees QTcB Int : 403 ms Sinus bradycardia Otherwise normal ECG When compared with ECG of 13-Aug-2024 21:21, Vent. rate has decreased by 46 bpm Confirmed by Jak Gonzalez ([id number]) on 08/18/2024 10:09:26 AM Referred By: REFERRED SELF Confirmed By: Jak Gonzalez
--- NOTE | 2024-08-18 11:11 | Hospitalist Progress Note ---
"Date of Service August 18, 2024 Assessment & Plan (1) Right lower lobe pneumonia: (2) Enterovirus infection: (3) Acute UTI (urinary tract infection): (4) Abnormal computerized tomography of biliary tract: Plan Ana is a 89 y/o female with pmh of advanced dementia, hypothyroidism, non- STEMI, hx of PE, hx of DVT (IVC placed), anemia, dementia, B12 deficiency. She was sent from [facility] due to fever and cough. Patient recently treated for UTI with Keflex (last dose 08/06). She is unable to provide information due to advance dementia. Several other members of facility with URI. Patient found with pneumonia, + rhino virus, and an UTI. She met SIRS criteria on admission with fever and tachycardia. Nursing staff noticed that patient's left upper extremity and hand were contracted. Past medical notes did not document this change. Upon exam her left upper extremity was able to be moved up in flexion and back down in resting position, but it was harder in tone compared to the right. However, imaging would not change current medical plan and treatment, so no further imaging will be required. #Pneumonia| SIRS - Right lower lobe pneumonia noted on admission CXR, resolved on repeat CXR from 08/15. Chest CTA on admission noted RLL pneumonia, no PE - Viral panel positive for Rhinovirus/ enterovirus - Blood culture negative > 48 hours - Treated with Zosyn and Vanco, completed course 08/18 - Repeated 2V CXR on 08/18 which noted interval improvement and no consolidation or pleural effusion seen #UTI - Recently treated with Keflex (last dose 08/06) - Will discontinue Keflex due to sensitivities of pseudomonas showing that Zosyn will be effective as well for the UTI - Urine culture from this admission with Pseudomonas aeruginosa and ESBL E. coli - both sensitive to Zosyn - Completed antibiotic course 08/18 #Acute cholecystitis on CT - Abdomen CT: Hyperemia involving the gallbladder with trace pericholecystic fluid. Concern of acute cholecystitis - US gallbladder suggestive of acute cholecystitis with sludge within the gallbladder - AST/ ALT normal. Zelda bili. Alkaline phosphatase normal. - Surgery and GI both consulted and signed off - If liver enzymes increase, may consider a HIDA scan to access gallbladder function - fortunately have remained WNL - will continue to trend #Hyponatremia - Current 139 - will still hold HCTZ #Chronic anemia - Hgb 10.2, stable #Hypertension - Amlodipine continue - hydrochlorothiazide on hold #Hypothyroidism: - Levothyroxine 125 mcg DTV prophylaxis: Lovenox Dispo: Anticipate discharge 08/19 Ordered 2V CXR Discussed antibiotics with pharmacy Repleted potassium Admission and Anticipated Discharge Date Admission Date: August 14, 2024 Subjective Patient seen and evaluated at bedside. She is pleasantly confused. No meaningful ROS able to be obtained. She is lying in bed in no acute distress. Telemetry reviewed: NSR 50-60s. Review of Systems 2 Review of Systems: Unobtainable due to cognitive status Physical Exam Physical Exam: General: No acute distress, nondiaphoretic, frail elderly woman. Contracture of LUE and hand. Skin: Warm, dry. No rashes or peripheral edema noted. Cardiac: Regular rate and rhythm. Systolic murmur noted. Pulm: Diminished breath sounds throughout. Rhonchi R>L. No respiratory distress. 93% on room air. Abdominal: Soft, nontender to palpation, nondistended. Bowel sounds present. : Roper draining clear yellow urine. Neuro: A&O x1 secondary to advanced dementia. No focal neurological deficits. Results & Data Results & Data Vital Signs (Past 12 Hours) Vital Signs Temp Pulse Pulse Resp BP BP Pulse Ox 08/18/24 08:15 97.0 F L 56 L 20 165/91 H 93 08/18/24 07:30 48 L 08/18/24 02:20 98.2 F 54 L 16 172/79 H 94 O2 Del Method 08/18/24 08:15 Room Air 08/18/24 07:30 08/18/24 02:20 Room Air Laboratory Results Reviewed CBC with differential Reviewed CMP Diagnostic Findings Reviewed CXR Reviewed 2V CXR Chest X-Ray 08/18/24 06:51 EXAM: XR chest 1V portable CLINICAL HISTORY: cough TECHNIQUE: Radiograph of chest was acquired. COMPARISON: 15 August 2024 FINDINGS: Ill-defined parenchymal opacities noted involving right lower zone - suggest possibility of consolidation. Blunting of right costophrenic angle - suggest possibility of minimal pleural effusion. Lobulated opacities are noted involving bilateral perihilar region rest of both lungs are clear. The cardiomediastinal silhouette is within normal limits. No acute osseous abnormality. IMPRESSION: Ill-defined parenchymal opacities noted involving right lower zone - suggest possibility of consolidation.-new finding. Blunting of right costophrenic angle - suggest possibility of minimal pleural effusion.-stable. Lobulated opacities are noted involving bilateral perihilar region-stable. Electronically signed by Merlin Arthur 08-18-2024 08:04 AM Chest X-Ray 08/18/24 10:39 XR chest 2V PA/lateral CLINICAL HISTORY: eval for aspiration; new consolidation on 1V CXR COMPARISON STUDY: 08/18/2024 FINDINGS: Stable mild cardiomegaly without pulmonary vascular congestion. Prior opacity at the right lung base has improved. No consolidation or pleural effusion seen. No pneumothorax. IMPRESSION: Interval improvement. ACT 112: Negative or not required by law. Electronically signed by: Farooq Bowling M.D. 08/18/2024 11:57 AM PG Care Time/CCT Total # of Minutes Spent Total Time Spent with Patient: Total time spent is greater than 50% in coordination of care (as documented) at patient's floor/unit and/or counseling patient: Coding Level of Care Code 28921 SUB INP/OBS CARE 3/50MIN Diagnoses Right lower lobe pneumonia J18.9 Enterovirus infection B34.1 Acute UTI (urinary tract infection) N39.0 Abnormal computerized tomography of biliary tract R93.2"
--- NOTE | 2024-08-18 12:00 | XRay Report ---
XR chest 2V PA/lateral CLINICAL HISTORY: eval for aspiration; new consolidation on 1V CXR COMPARISON STUDY: 08/18/2024 FINDINGS: Stable mild cardiomegaly without pulmonary vascular congestion. Prior opacity at the right lung base has improved. No consolidation or pleural effusion seen. No pneumothorax. IMPRESSION: Interval improvement. ACT 112: Negative or not required by law. Electronically signed by: Farooq Bowling M.D. 08/18/2024 11:57 AM
[2024-08-19 07:53] VITALS: RESP 16
[2024-08-19 08:29] LABS: Hematocrit (blood only) 33.3 % (37.0-47.0); Hemoglobin 11.3 g/dl (12.0-16.0); Immature Granulocytes # (auto) 0.04 K/uL (0.01-0.20); Immature Granulocytes % (auto) 0.9 %; Mean Corpuscular Hemoglobin 30.6 pg (25.0-34.0); Mean Corpuscular Volume 90.2 fL (80.0-100.0); Platelet Count 291 K/uL (130-400); RDW Standard Deviation 38.2 fL (36.4-46.3); Red Blood Count 3.69 M/uL (4.20-5.40); White Blood Count 4.58 K/ul (4.8-10.8)
[2024-08-19 08:42] LABS: Alanine Aminotransferase 15.0 U/L (7-52); Albumin Globulin Ratio 1.0 (0.9-2); Alkaline Phosphatase 85.0 U/L (34-104); Anion Gap 6.0 (3-11); Bilirubin,Total 0.3 mg/dl (0.2-1.0); Blood Urea Nitrogen 7.0 mg/dl (6-23); Calcium 9.1 mg/dl (8.6-10.3); Carbon Dioxide 28.0 mmol/L (21-32); Chloride 106.0 mmol/L (98-107); Creatinine Clr Calc Pharmacy 63.9 ml/min; Globulin 3.2 gm/dl (2.5-4.0); Glucose 84.0 mg/dl (70-99(Fasting)); Magnesium 2.2 mg/dl (1.7-2.4); Potassium 3.4 mmol/L (3.5-5.1); Sodium 140.0 mmol/L (136-145); Total Protein 6.5 gm/dl (6.0-8.3)
--- NOTE | 2024-08-19 10:24 | Discharge Summary ---
"Discharge Summary Date of Service August 19, 2024 Principal Dx & Hospital Course #1 = Principal Diagnosis (1) Right lower lobe pneumonia: (2) Enterovirus infection: (3) Acute UTI (urinary tract infection): (4) Abnormal computerized tomography of biliary tract: Daksha Perez is a 89 y/o female with pmh of advanced dementia, hypothyroidism, non- STEMI, hx of PE, hx of DVT (IVC placed), anemia, dementia, B12 deficiency. She was sent from [facility] due to fever and cough. Patient recently treated for UTI with Keflex (last dose 08/06). She is unable to provide information due to advance dementia. Several other members of facility with URI. Patient found with pneumonia, + rhino virus, and an UTI. She met SIRS criteria on admission with fever and tachycardia. Nursing staff noticed that patient's left upper extremity and hand were contracted. Past medical notes did not document this change. Upon exam her left upper extremity was able to be moved up in flexion and back down in resting position, but it was harder in tone compared to the right. However, imaging would not change current medical plan and treatment, so no further imaging will be required. #Pneumonia| SIRS - Right lower lobe pneumonia noted on admission CXR, resolved on repeat CXR from 08/15. Chest CTA on admission noted RLL pneumonia, no PE - Viral panel positive for Rhinovirus/ enterovirus - Blood culture negative > 48 hours - Treated with Zosyn and Vanco, completed course 08/18 - Repeated 2V CXR on 08/18 which noted interval improvement and no consolidation or pleural effusion seen #UTI - Recently treated with Keflex (last dose 08/06) - Urine culture from this admission with Pseudomonas aeruginosa and ESBL E. coli - both sensitive to Zosyn - Completed antibiotic course 08/18 #Acute cholecystitis on CT - Abdomen CT: Hyperemia involving the gallbladder with trace pericholecystic fluid. Concern of acute cholecystitis - US gallbladder suggestive of acute cholecystitis with sludge within the gallbladder - AST/ ALT normal. Normal bili. Alkaline phosphatase normal. - Surgery and GI both consulted and signed off - If liver enzymes increase, may consider a HIDA scan to access gallbladder function - fortunately have remained WNL #Hyponatremia - Now resolved, currently at 140 #Chronic anemia - Hgb 11.3, stable #Hypertension - Continue Amlodipine, HCTZ #Hypothyroidism - Continue Levothyroxine 125 mcg DTV prophylaxis: Lovenox Dispo: Discharged 08/19 to [facility] Notes For Next Care Provider Acute cholecystitis noted incidentally on CT abdomen, but with normal AST/ALT, bili, alk phos and asymptomatic. Could consider HIDA scan if Ana begins to display symptoms of acute cholecystitis. Medication Changes From Visit No changes to home medication regimen Admission HPI Per Admitting Provider Ana is a 89 y/o female with pmh of advanced dementia, hypothyroidism, non- STEMI, hx of PE, hx of DVT (IVC placed), anemia, dementia, B12 deficiency that was sent from [facility] due to fever and cough. Patient recently treated for UTI with Keflex (last dose 08/06). Patient unable to provide information due to advance dementia. Several other members of facility with URI. Patient found with pneumonia, + rhino virus, and an UTI. Lab remarkable for leukocytosis (1 1.02), anemia (10.6). Hyponatremia 135. UA positive for UTI. Negative procal, negative lactate. Unable to get more information due to patient advanced dementia Ed course: 3 L NSS, IV Zosyn, IV Vanco, IV Tylenol Discharge Exam General: No acute distress, nondiaphoretic, frail elderly woman. Contracture of LUE and hand. Skin: Warm, dry. No rashes or peripheral edema noted. Cardiac: Regular rate and rhythm. Systolic murmur noted. Pulm: Diminished breath sounds at bases but otherwise clear to auscultation without wheezes, rales, rhonchi. No respiratory distress. 94% on room air. Abdominal: Soft, nontender to palpation, nondistended. Bowel sounds present. : Roper draining clear yellow urine. Neuro: A&O x1 secondary to advanced dementia. No focal neurological deficits. Discharge Plan Discharge Items Patient Disposition: Transfer Nursing Home Fac Reason For Visit: PNEUMONIA, UTI Discharge Diagnosis: Pneumonia, UTI Condition on Discharge: Fair Activity: Resume your previous activity Non-emergency contact: Primary Care Provider Call non-emergency contact if: you have any medication questions and your symptoms worsen Follow-up/Referrals: Dutch Krueger DO [Primary Care Provider] - (Follow-up in 1-2 weeks) Diet: Regular Diet Texture: Pureed (blended smooth) Addtl Attending Provider Instructions: Frankie Perez were admitted to the hospital with pneumonia, rhinovirus/enterovirus, and a UTI. You were treated with IV antibiotics while in the hospital and have impro ed. You have completed your course of antibiotics so no further antibiotics are needed at this time. Your CT scan of your belly was suggestive of acute cholecystitis, however, your lab work was not consistent with this and you did not have any symptoms of this. You were evaluated by the general surgery and gastrointestinal teams who agreed this did not need further investigation given your lack of symptoms and normal lab values. There have been no changes to your usual home medications. Please follow-up with your PCP in 1-2 weeks. It was a pleasure taking care of you while you were in the hospital! Pending Studies at Discharge: No Stand-Alone Forms: My [facility] Skilled Items Patient informed of condition?: Yes DNR: No Discharge Level of Care: Skilled Communicable Disease: Yes (Tested + enterovirus/rhinovirus 08/13/24) Discharge Prognosis: Stable Lines: None Urinary Catheter: No Medications and DC Order Prescriptions: New levothyroxine [Synthroid] 125 mcg Tablet 125 mcg PO DAILYBB Qty: 30 0RF Continued acetaminophen 325 mg Tablet 650 mg PO Q4H MDD 3 GRAMS/24 HOURS PRN (Reason: PAIN/FEVER >100F) sennosides-docusate sodium [Senokot-S] 8.6-50 mg Tablet 1 tab-cap PO BID Rx Instructions: HOLD FOR LOOSE STOOLS amlodipine 2.5 mg Tablet 2.5 mg PO DAILY ascorbic acid (vitamin C) [Vitamin C] 500 mg Tablet 500 mg PO DAILY multivitamin with minerals Tablet 1 tab PO DAILY omeprazole 20 mg Tablet,Delayed Release (Dr/Ec) 20 mg PO BID vitamin B complex [Vitamins B Complex] Capsule 1 cap PO QAM Qty: 30 0RF acetaminophen 325 mg Tablet 650 mg PO BID Rx Instructions: every morning and at bedtime polyethylene glycol 3350 [Miralax] 17 gram/dose Powder 17 g PO DAILY Rx Instructions: hold for loose stools Discharge Orders: Discharge Order (Routine); Ordered 08/19/24 Ordered By: Tisha Espinoza Admission Data Admit Date/Time: 08/14/24 01:53 Attending Provider: Epifanio Altamirano Admit Provider: Zari Kwon Primary Care Provider: Dutch Krueger Other Providers: Tasha Garcia; Román Eldridge; Jese Fernandez I; Alondra Raymond at [facility] Stay Data Consultations 08/14/24 01:23 ED Decision to Admit Stat 08/14/24 04:47 Consult General Surgery Routine 08/14/24 14:37 Consult Gastroenterology Routine Diagnostic Imagining Performed Chest X-Ray 08/13/24 21:27 Exam(s): XR CXR 1 VIEW EXAM: XR Chest, 1 View CLINICAL HISTORY: Reason for exam: Sepsis. TECHNIQUE: Frontal view of the chest. COMPARISON: 05/09/2024 FINDINGS: Lungs: Subtle right basilar infiltrate Pleural space: Unremarkable. No pneumothorax. Heart: Unremarkable. No cardiomegaly. Mediastinum: Unremarkable. Normal mediastinal contour. Bones/joints: Unremarkable. No acute fracture. IMPRESSION: Right basilar pneumonia Electronically signed by: Kavon Mccain MD 08/13/24 23:58 PM Abdomen/Pelvis CT 08/13/24 21:33 Exam(s): CT ABDOMEN + PELVIS With Contrast IV Amt: 118 cc opi 320 EXAM: CT Abdomen and Pelvis With Intravenous Contrast CLINICAL HISTORY: Reason for exam: sepsis, recent stone removal. TECHNIQUE: Axial computed tomography images of the abdomen and pelvis with intravenous contrast. Automated exposure control was utilized for the study. A dose lowering technique was utilized adhering to the principles of ALARA. CONTRAST: Patient received 118 cc opi 320 of IV contrast COMPARISON: 05/09/2024 FINDINGS: Lung bases: Right lower lobe infiltrate likely of infectious or inflammatory etiology. Heart: Coronary artery calcifications. Aortic valve calcifications. ABDOMEN: Liver: 1.3 cm right hepatic lobe cyst. Gallbladder and bile ducts: Hyperemia involving the gallbladder wall with trace pericholecystic fluid. No ductal dilation. Pancreas: Unremarkable. No mass. No ductal dilation. Spleen: Unremarkable. No splenomegaly. Adrenals: Bilateral adrenal gland thickening.. Kidneys and ureters: Unremarkable. No solid mass. No hydronephrosis. Stomach and bowel: Large amount of stool within the colon. Numerous fluid-filled hyperemic loops of small bowel within the left midabdomen. Diverticulosis without evidence of diverticulitis. PELVIS: Appendix: No findings to suggest acute appendicitis. Bladder: Roper catheter within the urinary bladder. Reproductive: Unremarkable as visualized. ABDOMEN and PELVIS: Intraperitoneal space: Unremarkable. No free air. No significant fluid collection. Bones/joints: right 10th and 9th rib fractures. Healing right 10th and 11th rib fractures. No dislocation. Soft tissues: Unremarkable. Vasculature: IVC filter present. Lymph nodes: Unremarkable. No enlarged lymph nodes. IMPRESSION: No acute findings in the abdomen or pelvis. Hyperemia involving the gallbladder with trace pericholecystic fluid. Findings may represent acute cholecystitis in the appropriate clinical setting Right hepatic lobe hemangioma Enteritis Electronically signed by: Kavon Mccain MD 08/14/24 00:04 AM Chest CTA 08/13/24 21:33 Exam(s): CTA CHEST IV Amt: 118 cc [id number] EXAM: CT Angiography Chest With Intravenous Contrast CLINICAL HISTORY: Reason for exam: PE, recent OR, sepsis. TECHNIQUE: Axial computed tomographic angiography images of the chest with intravenous contrast. Automated exposure control was utilized for the study. A dose lowering technique was utilized adhering to the principles of ALARA. MIP reconstructed images were created and reviewed. COMPARISON: 09/19/2023 FINDINGS: Pulmonary arteries: Interval resolution of subsegmental right lower lobe pulmonary emboli. No large central pulmonary embolus. Aorta: No acute findings. No thoracic aortic aneurysm. Lungs: Right lower lobe infiltrate likely of infectious or inflammatory etiology. Right lower lobe peribronchial thickening with mucous plugging likely representing bronchiolitis. Slight prominence of the interlobular septum suggesting pulmonary edema. No mass. Pleural space: Unremarkable. No significant effusion. No pneumothorax. Heart: Cardiomegaly. No significant pericardial effusion. No evidence of RV dysfunction. Bones/joints: No acute fracture. No dislocation. Soft tissues: Unremarkable. Lymph nodes: Unremarkable. No enlarged lymph nodes. IMPRESSION: No pulmonary embolus Right lower lobe pneumonia Electronically signed by: Kavon Mccain MD 08/14/24 00:09 AM Gallbladder Ultrasound 08/14/24 02:12 EXAM: US gallbladder CLINICAL HISTORY: Acute cholescystitis on CT TECHNIQUE: Limited ultrasound of the liver and gallbladder was performed in greyscale and Doppler. Multiple images were obtained in transverse and longitudinal planes. COMPARISON: No prior studies are available for comparison. FINDINGS: Liver: Liver size: (19.2cm in length ). The liver appears with homogeneous echotexture. Small right hepatic lobe hyperechoic focal lesion measuring about 2.2 x 1.4 x 1.8 cm in diameter. Suspected other smaller hyperechogenic focal lesions are seen. Hepatic vasculature appears normal. Gallbladder: Mildly distended Gall bladder shows circumferential mural thickening reaching 4mm in diameter with mural edema as well as small surrounding free fluid. It shows slow-moving hyperechoic material seen within. Biliary Tree: Distended CBD reaching 1cm in diameter. Right kidney: Average size and vasculature with no focal lesions, stones, or back pressure changes. No complete visualization of the pancreas due to bowel opacification. IMPRESSION: 1. The picture suggests acute cholecystitis with low-moving hyperechoic material seen within the Gallbladder, probably sludge. 2. Dilated CBD that may need MRCP to exclude the possibility of distal obstruction or a recently passed stone. 3. Mild hepatomegaly with right hepatic lobe hyperechogenic focal lesion (other smaller ones are suspected), possibly hemangiomata, yet that may need better triphasic liver assessment if clinically warranted. Electronically signed by Sb Mercedes 08-14-2024 03:54 AM Chest X-Ray 08/15/24 17:52 Chest radiograph, one view History: Pneumonia Comparison: 08/13/2024 Findings: Single AP view of the chest performed. No focal consolidation or pleural effusion. No pneumothorax. The cardiomediastinal silhouette is within normal limits. Normal pulmonary vascularity. No evidence for lymphadenopathy. No visualized bony or soft tissue abnormality. Impression: Normal chest radiograph. Focal consolidation no longer seen Electronically signed by Dev Murdock 08-15-2024 7:39 PM Chest X-Ray 08/18/24 06:51 EXAM: XR chest 1V portable CLINICAL HISTORY: cough TECHNIQUE: Radiograph of chest was acquired. COMPARISON: 15 August 2024 FINDINGS: Ill-defined parenchymal opacities noted involving right lower zone - suggest possibility of consolidation. Blunting of right costophrenic angle - suggest possibility of minimal pleural effusion. Lobulated opacities are noted involving bilateral perihilar region rest of both lungs are clear. The cardiomediastinal silhouette is within normal limits. No acute osseous abnormality. IMPRESSION: Ill-defined parenchymal opacities noted involving right lower zone - suggest possibility of consolidation.-new finding. Blunting of right costophrenic angle - suggest possibility of minimal pleural effusion.-stable. Lobulated opacities are noted involving bilateral perihilar region-stable. Electronically signed by Merlin Arthur 08-18-2024 08:04 AM Chest X-Ray 08/18/24 10:39 XR chest 2V PA/lateral CLINICAL HISTORY: eval for aspiration; new consolidation on 1V CXR COMPARISON STUDY: 08/18/2024 FINDINGS: Stable mild cardiomegaly without pulmonary vascular congestion. Prior opacity at the right lung base has improved. No consolidation or pleural effusion seen. No pneumothorax. IMPRESSION: Interval improvement. ACT 112: Negative or not required by law. Electronically signed by: Farooq Bowling M.D. 08/18/2024 11:57 AM Pending Results Patient Have Any Pending Studies at Discharge: No Discharge Instructions Given to Patient (Per Discharging Provider) Ana, You were admitted to the hospital with pneumonia, rhinovirus/enterovirus, and a UTI. You were treated with IV antibiotics while in the hospital and have improved. You have completed your course of antibiotics so no further antibiotics are needed at this time. Your CT scan of your belly was suggestive of acute cholecystitis, however, your lab work was not consistent with this and you did not have any symptoms of this. You were evaluated by the general surgery and gastrointestinal teams who agreed this did not need further investigation given your lack of symptoms and normal lab values. There have been no changes to your usual home medications. Please follow-up with your PCP in 1-2 weeks. It was a pleasure taking care of you while you were in the hospital! Total Time Total Time Spent Total Time Spent (In Minutes): Greater than 30 minutes spent completing this discharge process including direct patient care, medication reconciliation, documentation, review of labs and imag es, and coordination of care. Coding Level of Care Code 13576 INP/OBS DISCH >30 MIN Diagnoses Right lower lobe pneumonia J18.9 Enterovirus infection B34.1 Acute UTI (urinary tract infection) N39.0 Abnormal computerized tomography of biliary tract R93.2"
[2024-08-19 11:39] VITALS: BP 171/85; PULSE 62; TEMP 98.4; O2SAT 92
--- NOTE | 2024-08-20 13:22 | Coding Query ---
CODING QUERY To promote full compliance with coding requirements relating to patient care, provider participation is requested in all cases of tube worker uncertainty. Please assist us with the question(s) below: Coding Question(s): Sepsis is documented in the record, with documentation beginning on the ER of , "Exam and history seem consistent with pneumonia with developing sepsis with the rhinovirus and UTI", and then on the 08/14 Progress Note of, "Sepsis POA w/ pneumonia, UTI", and the Progress Notes from 08/15 through 08/17 document, "Sepsis, POA", however, the Sepsis documentation drops off on the 08/18 Progress Note and the Discharge Summary. Please specify below in your clinical opinion, regarding Sepsis POA documentation: ( ) Sepsis POA. Please specify further below, in your clinical opinion, regarding the most likely cause(s) of Sepsis: ( ) Pneumonia, Unspecified ( ) Pneumonia, Specified. Please Specify ( x ) UTI ( ) Other: Please Specify ( ) Unknown most likely cause ( ) Sepsis is Ruled-Out Physician's Response(s): Thank you Stephanie Dimas Principal Diagnosis: "that condition established after study, to be chiefly responsible for occasioning the admission of the patient to the hospital for care." Co-Existing Principal Diagnosis: "when two or more diagnoses equally meet the criteria for principal diagnosis as determined by the circumstances of admission, diagnostic work up, and/or therapy provided, and the Alphabetic Index, Tabular List, or another coding guideline does not provide sequencing direction, any one of the diagnoses may be sequenced first." "When the physician has documented what appears to be a current diagnosis in the body of the record, but has not included the diagnosis in the final diagnostic statement, the physician should be asked whether the diagnosis should be added." (Source [facility]oding [facility] 2 QTR90. p3-4) CHRISTOPHERD
== END 2024-08-19 14:06 | DRG 871 ==
LOC: ED 20:54 → EDINP 08-14 01:53 → SUATTDRO 08-14 01:53 → 2W 08-14 17:00